=== PATIENT | male | born 1935 | race Caucasian/White ===

== ENCOUNTER → 2017-04-14 | Outpatient (CLI) | payer BC ==
[~2017-04-14] MED LIST: ASPEC81 PO; CARV25TA2 PO; CETI10TA10 PO; FLM4 PO; FLUT0.0529; HYG25 PO
== END | disposition home or self-care (01) ==
LOC: C.LABBC 08:50
PROVIDERS: ATTEND Urology
DX: C61 Malignant neoplasm of prostate (principal)

== ENCOUNTER → 2017-04-23 | Outpatient (CLI) | payer BC | END | disposition home or self-care (01) | LOC: C.PATHSPEC 10:48 | PROVIDERS: ATTEND Urology | DX: C67.9 Malignant neoplasm of bladder, unspecified (principal) ==

== ENCOUNTER → 2017-06-15 | Outpatient (CLI) | payer BC ==
[2017-06-18 05:59] LABS: ALBUMIN % 71.39 %; ALPHA-2-GLOBULIN % 6.36 %; BETA GLOBULIN % 12.71 %; CREATININE UR 168 MG/DL (20-370)
== END | disposition home or self-care (01) ==
LOC: C.LABBC 15:47
PROVIDERS: ATTEND Urology
DX: D64.9 Anemia, unspecified (principal)

== ENCOUNTER → 2017-07-08 | Outpatient (CLI) | payer BC ==
--- NOTE | 2017-07-08 17:10 | DIAGNOSTIC IMAGING REPORT ---
MRI OF THE LUMBAR SPINE WITHOUT IV CONTRAST CLINICAL HISTORY: Chronic low back pain. Lower extremity numbness. COMPARISON STUDY: Abdominal CT dated 08/02/2007. Radiographs of the lumbar spine dated 06/30/2017. TECHNIQUE: MRI of the lumbar spine is performed utilizing various T1 and T2-weighted sequences in the axial and sagittal planes. IV contrast was not administered for this examination. The examination is degraded by motion artifact and spinal scoliosis. FINDINGS: Lumbar spine: There is mild thoracolumbar scoliosis. Vertebral body height is maintained throughout the lumbar spine. There is 7 mm of anterolisthesis at L5-S1. Minimal retrolisthesis is seen at L1-L2, L2-L3, and L3-L4. There is straightening of the lumbar lordosis. The transverse and spinous processes are intact as visualized. Bilateral pars defects are seen at L5. No destructive bony lesion is clearly seen. Chronic endplate change is seen at all lumbar levels. This is greatest at L5-S1. Mild endplate edema is seen at L2-L3 and L3-L4. Anterior osteophytes are present throughout. Intervertebral discs: Degenerative disc desiccation and loss of height is seen at all levels. Loss of height is moderate at L4-L5 and advanced at all remaining lumbar levels. Spinal cord: The visualized spinal cord is normal in morphology and signal intensity. The conus medullaris terminates at the level of L1-L2. The nerve roots of the cauda equina are grossly unremarkable. There are posterior disc bulges seen at T10-T11, T11-T12, and T12-L1 on the sagittal views. These contribute only minimal acquired compromise of the central canal. L1-L2: There is a large posterior disc bulge eccentric to the left. This causes mild to moderate acquired compromise of the central canal with a minimum AP diameter of 8 mm. There is bilateral subarticular stenosis, left greater than right. This likely impinges on the exiting bilateral L1 nerve roots. The neural foramina are patent. L2-L3: There is broad-based posterior disc bulge. In conjunction with hypertrophy of the ligamentum flavum, this contributes to moderate acquired compromise of the central canal with a minimum AP diameter of 5 mm. There is bilateral subarticular stenosis with probable impingement on the exiting bilateral L2 nerve roots. The disc bulge also likely abuts the transiting bilateral nerve roots. Facet arthropathy causes mild left neural foraminal stenosis. L3-L4: There is broad-based posterior disc bulge. In conjunction with hypertrophy of the ligamentum flavum, this causes severe central canal stenosis at this level with a minimum AP diameter of 4 mm. There are severe bilateral subarticular stenosis. The disc bulge abuts the exiting bilateral L3 as well as the transiting bilateral nerve roots. Facet arthropathy causes moderate left and mild right neural foraminal stenosis. L4-L5: There is broad-based posterior disc bulge. In conjunction with hypertrophy of the ligamentum flavum, there is moderate central canal stenosis at this level with a minimum AP diameter of 6 mm. There is severe bilateral subarticular stenosis with probable impingement on the bilateral exiting L4 nerve roots. The disc bulge also likely abuts the transiting nerve roots. Facet arthropathy causes moderate to severe right and mild left neural foraminal stenosis. Facet joint effusions are noted. L5-S1: There is a posterior disc bulge eccentric to the left with annular fissure. There is [id number] central canal stenosis at this level with a minimum AP diameter of 8 mm. There is severe left-sided subarticular stenosis with obliteration of the left neural foramen. There is impingement on the exiting left L5 and the transiting left-sided sacral nerve roots. There is also moderate right-sided subarticular stenosis with probable impingement on the exiting right L5 nerve root. Facet arthropathy causes moderate to severe bilateral neural foraminal stenosis. Sacrum: The visualized sacrum is normal in morphology and signal intensity. Soft tissues: There is mild fatty atrophy of the paraspinous musculature. The kidneys demonstrate cortical atrophy. The retroperitoneal structures are grossly unremarkable, but incompletely assessed. IMPRESSION: 1. No destructive bony process is identified. Marrow signal intensity is markedly heterogeneous. 2. 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 There is moderate to severe multilevel acquired compromise of the central canal. See discussion for detailed level by level analysis. Dictated: 07/08/2017 4:27 PM Transcribed: 07/08/2017 5:10 PM DORIAN_Noel Electronically signed by: Gurjit Gonzales M.D. 07/08/2017 5:38 PM Dictated Date/Time: 07/08/2017 4:27 PM
== END | disposition home or self-care (01) ==
LOC: C.MRIBC 15:22
PROVIDERS: ATTEND Orthopaedic Surgery Orthopaedic Surgery of the Spine
DX: M48.061 Spinal stenosis, lumbar region without neurogenic claudication (principal); M51.36 Other intervertebral disc degeneration, lumbar region; M47.817 Spondylosis without myelopathy or radiculopathy, lumbosacral region

== ENCOUNTER 2017-10-06 17:33 | Emergency (ER) | payer BC ==
[~2017-10-06] VITALS: Ht 162.6 cm; Wt 93.8 kg
[~2017-10-06 17:33] MED LIST changes: -ASPEC81 PO; +ASPI81TA28 PO; +DULO60CA44 PO; -FLM4 PO; -FLUT0.0529; +FLUT0.15 NAE; +IBUP-103 PO; +NAPR1TAB9 PO; +TAMS0.4C38 PO
[2017-10-06 18:08] VITALS: TEMP 36.5; Ht 162.6 cm; Wt 93.8 kg
--- NOTE | 2017-10-06 18:57 | DIAGNOSTIC IMAGING REPORT ---
CHEST ONE VIEW PORTABLE CLINICAL HISTORY: Chest Pain dyspnea COMPARISON STUDY: 07/23/2017 FINDINGS: Mild increase in cardiac size. Mild prominence pulmonary vasculature. Diaphragms smooth. Costophrenic angles are sharp. IMPRESSION: Early congestive failure The above report was generated using voice recognition software. It may contain grammatical, syntax or spelling errors. Electronically signed by: Armando Gibbs M.D. 10/06/2017 6:55 PM Dictated Date/Time: 10/06/2017 6:55 PM
[2017-10-06 19:42] LABS: BASO % 0.9 %; BASO ABS # 0.07 K/uL (0-0.2); EOS % 6.5 %; EOS ABS # 0.53 K/uL (0-0.5); HEMATOCRIT 38.2 % (42-52); HEMOGLOBIN 12.7 g/dL (14.0-18.0); IG# 0.02 K/uL (0.00-0.02); LYMPH ABS # 1.39 K/uL (1.2-3.4); MEAN CELL VOLUME 93.2 fL (80-100); MEAN CORPUSCULAR HGB CONC 33.2 g/dl (32-36); MEAN PLATELET VOLUME 9.6 fL (7.4-10.4); MONO % 10.4 %; MONO ABS # 0.85 K/uL (0.11-0.59); PLATELET COUNT 204 K/uL (130-400); RED CELL DISTRIBUTION WIDTH CV 14.6 % (11.5-14.5); RED CELL DISTRIBUTION WIDTH SD 49.2 fL (36.4-46.3); WHITE BLOOD COUNT 8.16 K/uL (4.8-10.8)
[2017-10-06 20:23] LABS: BLOOD UREA NITROGEN 25 mg/dl (7-18); CALCIUM 9.7 mg/dl (8.5-10.1); CARBON DIOXIDE 27 mmol/L (21-32); CREATININE 1.17 mg/dl (0.60-1.40); GLUCOSE 94 mg/dl (70-99); POTASSIUM 3.6 mmol/L (3.5-5.1); SODIUM 137 mmol/L (136-145)
[2017-10-06 20:32] LABS: CKMB 3.8 ng/ml (0.5-3.6)
[2017-10-06] MEDS ORDERED: OPTIRAY 320 IV PRN (20:45)
--- NOTE | 2017-10-06 21:10 | DIAGNOSTIC IMAGING REPORT ---
(CHEST FOR PE) ANGIO WITH CT DOSE: 512.82 mGy.cm HISTORY: 82 years-old Male presents with acute shortness of breath TECHNIQUE: Multiple CTA images of the chest were obtained after the intravenous administration of 88 ml Optiray 320. Coronal and sagittal MIPS were obtained from the axial data set and were submitted for review. A dose lowering technique was utilized adhering to the principles of ALARA. COMPARISON: Chest radiograph of same day. FINDINGS: CTA: Moderate multichamber cardiac enlargement with coronary arterial and aortic annular calcifications. No pericardial effusion. The thoracic aorta is not well opacified. There is moderate mixed plaquing of the thoracic aorta without aneurysm or dissection identified. There is limited visualization of the distal segmental and subsegmental branches of the pulmonary arterial tree secondary to respiratory motion. No evidence of pulmonary thromboembolic disease. CT CHEST: No dominant thyroid nodule identified. Nonspecific mildly enlarged 11 mm right paratracheal lymph node is seen on image 213 series 4. Mildly enlarged subcarinal and right hilar lymph nodes are also seen measuring up to 1.4 cm in short axis. Prominent AP window lymph nodes measure up to 8 mm in short axis. No pneumothorax or pleural effusion identified. Bibasilar groundglass opacities suggest atelectasis. Thin-walled lucencies are noted within the upper lung zones. Minimal subpleural reticulation of the lungs bilaterally suggest areas of mild fibrosis. No definite suspicious pulmonary nodules. Central airways appear to be patent. No focal airspace consolidation to suggest pneumonia. No acute abnormality identified within the imaged upper abdomen. 7 mm low attenuating focus of the left hepatic lobe is indeterminate however may reflect a hepatic cyst. Nodular thickening of the bilateral adrenal glands suggests adrenal hyperplasia. Soft tissues are unremarkable. Mild symmetric bilateral gynecomastia. Degenerative changes are seen within the shoulders and spine. IMPRESSION: 1. Limited study secondary to respiratory motion. Within the limitations of the exam, no pulmonary embolus is identified. No aortic aneurysm or dissection. 2. No lobar airspace consolidation to suggest pneumonia. 3. Mild nonspecific mediastinal and hilar adenopathy as above. 4. Cardiomegaly. The above report was generated using voice recognition software. It may contain grammatical, syntax or spelling errors. Electronically signed by: Irineo Rangel M.D. 10/06/2017 9:08 PM Dictated Date/Time: 10/06/2017 9:00 PM
[2017-10-06] MEDS ORDERED: FUROSEMIDE 40 MG/4 ML VIAL IV STA (21:32)
[2017-10-06] MEDS ORDERED: FURO20TA PO (21:43)
[2017-10-06 21:51] VITALS: BP 180/90; PULSE 98; O2SAT 99
--- NOTE | 2017-10-06 23:14 | EMERGENCY ROOM VISIT NOTE ---
History Report prepared by Wilma: Shayy Avila Under the Supervision of: Dr. Nima Easley D.O. First contact with patient: 18:24 Chief Complaint: RESPIRATORY PROBLEMS Stated Complaint: BREATHING TROUBLE Nursing Triage Summary: pt has been more sob for past 2-3 weeks pt noticed swelling in feet, legs, and chest saw pcp and referred to ER no cough pt has had weight gain, unsure of amount History of Present Illness The patient is an 82 year old male who presents to the Emergency Room with complaints of worsening shortness of breath starting two weeks ago. The patient states that he has been having water retention and weight gain, but notes that he does not know how much weight. He states that he cannot sleep because of it laying flat. He states that it is worse when lies down and exerts himself. He notes that some positions are better than other. The patient complains of swelling in his legs, abdomen and chest. Patient denies any previous cardiac history. The patient denies chest pain, nausea, vomiting, abdominal pain, diarrhea, cough, and runny nose. He notes that he is not on Lasix. Source of History: patient Onset: two weeks ago Position: other (global) Timing: worsening Modifying Factors (Worsening): exertion, other (lying down) Associated Symptoms: + back pain, No cough, No chest pain, No nausea, No vomiting, No abdominal pain, No diarrhea Note: The patient complains of swelling in his legs, abdomen and chest. The patient denies a runny nose. Review of Systems See HPI for pertinent positives & negatives. A total of 10 systems reviewed and were otherwise negative. Past Medical & Surgical Medical Problems: (1) Spinal stenosis (2) Spondylolisthesis, lumbar region Surgical Problems: (1) History of back surgery Family History No pertinent family history Social History Smoking Status: Former Smoker Marital Status: Housing Status: lives with significant other Occupation Status: retired Current/Historical Medications Scheduled Aspirin (Aspirin Ec), 81 MG PO QAM Carvedilol (Coreg), 25 MG PO BID Cetirizine Hcl (Zyrtec), 10 MG PO HS Chlorthalidone (Chlorthalidone), 12.5 MG PO QAM Duloxetine Hcl (Cymbalta), 60 MG PO 1400 Furosemide (Lasix), 1 TAB PO DAILY Tamsulosin Hcl (Flomax), 0.4 MG PO BID Scheduled PRN Fluticasone Propionate (Nasal) (Flonase Allergy Relief), 1 DOSE PÉREZ UD PRN for ALLERGIES Allergies Coded Allergies: Penicillins (Verified Allergy, Intermediate, HIVES, 10/06/17) KEVIN Inhibitors (Unverified Allergy, Unknown, SHORTNESS OF BREATH, 10/06/17) Statins (Verified Allergy, Unknown, joint aches, 10/06/17) Uncoded Allergies: RED YEAST RICE (Allergy, Unknown, RASH, 04/04/14) Physical Exam Vital Signs Date Time Temp Pulse Resp B/P (MAP) Pulse Ox O2 Delivery O2 Flow Rate FiO2 10/06/17 21:51 98 16 180/90 99 10/06/17 20:49 69 18 193/87 97 Room Air 10/06/17 20:29 67 16 135/97 98 Room Air 10/06/17 19:47 63 10/06/17 18:11 100 Room Air 10/06/17 18:08 36.5 72 20 151/57 96 Room Air Physical Exam GENERAL: Sitting up in bed, alert, well appearing, well nourished, no distress, non-toxic EYE EXAM: normal conjunctiva. OROPHARYNX: no exudate, no erythema, lips, buccal mucosa, and tongue normal and mucous membranes are moist NECK: supple, no nuchal rigidity, no adenopathy, non-tender, no JVD LUNGS: Faint rhonchi in bilateral lower lobes. Normal chest wall mechanics HEART: no murmurs, S1 normal and S2 normal ABDOMEN: abdomen soft, non-tender, normo-active bowel sounds, no masses, no rebound or guarding. BACK: Back is symmetrical on inspection and there is no deformity, no midline tenderness, no CVA tenderness. SKIN: no rashes and no bruising UPPER EXTREMITIES: upper extremities are grossly normal. LOWER EXTREMITIES: Faint pitting edema tracking up bilateral lower extremities. Calves are equal bilaterally. NEURO EXAM: Normal sensorium, cranial nerves II-XII grossly intact, normal speech, no gross weakness of arms, no gross weakness of legs. Medical Decision & Procedures ER Provider Diagnostic Interpretation: Radiology results as stated below per my review and the radiologist's interpretation: CHEST ONE VIEW PORTABLE CLINICAL HISTORY: Chest Pain dyspnea COMPARISON STUDY: 07/23/2017 FINDINGS: Mild increase in cardiac size. Mild prominence pulmonary vasculature. Diaphragms smooth. Costophrenic angles are sharp. IMPRESSION: Early congestive failure The above report was generated using voice recognition software. It may contain grammatical, syntax or spelling errors. Electronically signed by: Armando Gibbs M.D. 10/06/2017 6:55 PM Dictated Date/Time: 10/06/2017 6:55 PM (CHEST FOR PE) ANGIO WITH CT DOSE: 512.82 mGy.cm HISTORY: 82 years-old Male presents with acute shortness of breath TECHNIQUE: Multiple CTA images of the chest were obtained after the intravenous administration of 88 ml Optiray 320. Coronal and sagittal MIPS were obtained from the axial data set and were submitted for review. A dose lowering technique was utilized adhering to the principles of ALARA. COMPARISON: Chest radiograph of same day. FINDINGS: CTA: Moderate multichamber cardiac enlargement with coronary arterial and aortic annular calcifications. No pericardial effusion. The thoracic aorta is not well opacified. There is moderate mixed plaquing of the thoracic aorta without aneurysm or dissection identified. There is limited visualization of the distal segmental and subsegmental branches of the pulmonary arterial tree secondary to respiratory motion. No evidence of pulmonary thromboembolic disease. CT CHEST: No dominant thyroid nodule identified. Nonspecific mildly enlarged 11 mm right paratracheal lymph node is seen on image 213 series 4. Mildly enlarged subcarinal and right hilar lymph nodes are also seen measuring up to 1.4 cm in short axis. Prominent AP window lymph nodes measure up to 8 mm in short axis. No pneumothorax or pleural effusion identified. Bibasilar groundglass opacities suggest atelectasis. Thin-walled lucencies are noted within the upper lung zones. Minimal subpleural reticulation of the lungs bilaterally suggest areas of mild fibrosis. No definite suspicious pulmonary nodules. Central airways appear to be patent. No focal airspace consolidation to suggest pneumonia. No acute abnormality identified within the imaged upper abdomen. 7 mm low attenuating focus of the left hepatic lobe is indeterminate however may reflect a hepatic cyst. Nodular thickening of the bilateral adrenal glands suggests adrenal hyperplasia. Soft tissues are unremarkable. Mild symmetric bilateral gynecomastia. Degenerative changes are seen within the shoulders and spine. IMPRESSION: 1. Limited study secondary to respiratory motion. Within the limitations of the exam, no pulmonary embolus is identified. No aortic aneurysm or dissection. 2. No lobar airspace consolidation to suggest pneumonia. 3. Mild nonspecific mediastinal and hilar adenopathy as above. 4. Cardiomegaly. The above report was generated using voice recognition software. It may contain grammatical, syntax or spelling errors. Electronically signed by: Irineo Rangel M.D. 10/06/2017 9:08 PM Dictated Date/Time: 10/06/2017 9:00 PM Laboratory Results 10/06/17 18:49 Red Blood Count 4.10, Mean Corpuscular Volume 93.2, Mean Corpuscular Hemoglobin 31.0, Mean Corpuscular Hemoglobin Concent 33.2, Mean Platelet Volume 9.6, Neutrophils (%) (Auto) 65.0, Lymphocytes (%) (Auto) 17.0, Monocytes (%) (Auto) 10.4, Eosinophils (%) (Auto) 6.5, Basophils (%) (Auto) 0.9, Neutrophils # (Auto ) 5.30, Lymphocytes # (Auto) 1.39, Monocytes # (Auto) 0.85, Eosinophils # (Auto ) 0.53, Basophils # (Auto) 0.07 10/06/17 18:49 Test 10/06/17 18:49 White Blood Count 8.16 K/uL (4.8-10.8) Red Blood Count 4.10 M/uL (4.7-6.1) Hemoglobin 12.7 g/dL (14.0-18.0) Hematocrit 38.2 % (42-52) Mean Corpuscular Volume 93.2 fL (80-100) Mean Corpuscular Hemoglobin 31.0 pg (25-34) Mean Corpuscular Hemoglobin Concent 33.2 g/dl (32-36) Platelet Count 204 K/uL (130-400) Mean Platelet Volume 9.6 fL (7.4-10.4) Neutrophils (%) (Auto) 65.0 % Lymphocytes (%) (Auto) 17.0 % Monocytes (%) (Auto) 10.4 % Eosinophils (%) (Auto) 6.5 % Basophils (%) (Auto) 0.9 % Neutrophils # (Auto) 5.30 K/uL (1.4-6.5) Lymphocytes # (Auto) 1.39 K/uL (1.2-3.4) Monocytes # (Auto) 0.85 K/uL (0.11-0.59) Eosinophils # (Auto) 0.53 K/uL (0-0.5) Basophils # (Auto) 0.07 K/uL (0-0.2) RDW Standard Deviation 49.2 fL (36.4-46.3) RDW Coefficient of Variation 14.6 % (11.5-14.5) Immature Granulocyte % (Auto) 0.2 % Immature Granulocyte # (Auto) 0.02 K/uL (0.00-0.02) D-Dimer 1040 ug/L FEU (0-500) Anion Gap 5.0 mmol/L (3-11) Est Creatinine Clear Calc Drug Dose 48.6 ml/min Estimated GFR () 66.0 Estimated GFR (Non- 56.9 BUN/Creatinine Ratio 21.1 (10-20) Calcium Level 9.7 mg/dl (8.5-10.1) Total Creatine Kinase 231 U/L (39-308) Creatine Kinase MB 3.8 ng/ml (0.5-3.6) Creatine Kinase MB Ratio 1.6 (0-3.0) Troponin I < 0.015 ng/ml (0-0.045) Pro-B-Type Natriuretic Peptide 622 pg/ml (0-1800) Laboratory results per my review. Medications Administered Medications (Trade) Dose Ordered Sig/Vadim Route Start Time Stop Time Status Last Admin Dose Admin Furosemide (Lasix Inj) 40 mg NOW STAT IV 10/06/17 21:32 10/06/17 21:34 DC 10/06/17 21:41 40 MG ECG Indication: SOB/dyspnea Rate (beats per minute): 68 Rhythm: other (bigemini) Findings: 1st degree AV block, nonspecific-ST abn (Inferior, hilateral), left axis deviation Comparison ECG Date: 07/23/2017, REPEAT Change: Bigemini and ST abnormalities are new. REPEAT: sinus rhythm. Rate 68 bpm. Left axis deviation. 1st degree AV block. No ectopy. ED Course ED COURSE: Vital signs were reviewed and showed normal vitals. The patients medical record was reviewed The above diagnostic studies were performed and reviewed. ED treatments and interventions as stated above. 1825: The patient was evaluated in room C1B. A complete history and physical examination was performed. 2129: I discussed the patient's case with Dr. Barbosa and he can follow up in the office. 2131: Ordered Lasix Inj 40 mg IV. 2133: Upon reevaluation, the patient is resting comfortably.I discussed my findings with the patient and he understands and agrees with the treatment plan. The patient will be discharged home. Based on the patients age, coexisting illnesses, exam and lab findings the decision to treat as an outpatient was made. The patient remained stable while under my care. The patient appeared well at the time of discharge. Medical Decision Differential diagnoses includes but is not limited to pneumonia, bronchitis, COPD/Asthma exacerbation, pneumothorax, pulmonary embolism, congestive heart failure, acute coronary syndrome. Patient is an 82-year-old male who is referred in by his PCP today for dyspnea. This is been present for the past 2 weeks. He notes symptoms are present when lying flat trying to sleep at night. He also notes that he has had some new swelling in both his legs. He denies any chest pain. He does admit to some exertional dyspnea. CBC all BMP, troponin and proBNP was negative. Chest x-ray was unremarkable. CT PE shows slightly enlarged heart but no pericardial fluid or pleural effusions or pulmonary edema. Radiologist favors fibrotic lung changes. Symptoms have been present for greater than 8 hours and consequently I did not repeat a troponin. EKG initially showed bigeminy but the repeat shows a normal sinus rhythm. Discussed the case with cardiology. They recommended following up as an outpatient. At a long conversation with the patient. He does not want to stay in the hospital. I did give him a dose of IV Lasix. I favor symptoms are from slight heart failure. There is no sign of ischemia. He will need close follow-up. I discussed this with the patient and the . Any worsening of symptoms he'll return to the ER. Discussed with care management and they will assist with follow-up in the next 48 hours. Patient was given a prescription for 2 doses of Lasix as an outpatient to see if this helps improve his symptoms. Discussed with Pt concerning signs and symptoms to watch out for. Pt was instructed to follow up with their PCP and discussed with the patient their option to return to the ED at anytime for persistent or worsening symptoms. The appropriate anticipatory guidance and out- patient management, including indications for return to the emergency department , were explained at length to the patient and understood. Medication Reconcilliation Current Medication List: was personally reviewed by me Blood Pressure Screening Patient's blood pressure: Normal blood pressure Blood pressure disposition: Did not require urgent referral Consults Time Called: 2124 Consulting Physician: Dr. Barbosa- Cardiology Returned Call: [phone] I discussed the patient's case with Dr. Barbosa and he can follow up in the office. Impression Primary Impression: CHF (congestive heart failure) Scribe Attestation The scribe's documentation has been prepared under my direction and personally reviewed by me in its entirety. I confirm that the note above accurately reflects all work, treatment, procedures, and medical decision making performed by me. Departure Information Dispostion Home / Self-Care Prescriptions Furosemide (LASIX) 20 Mg Tab 1 TAB PO DAILY for 2 Days, #2 TAB 0 Refills Prov: Nima Easley, DO 10/06/17 Referrals Tiago Lara M.D. (PCP) Forms HOME CARE DOCUMENTATION FORM, IMPORTANT VISIT INFORMATION, WORK / SCHOOL INSTRUCTIONS Patient Instructions My [facility] Additional Instructions Please follow up with your primary care doctor with in the next 24 hours. Any worsening of your symptoms, please return to the ED immediately. This includes any fevers greater than 100.4, worsening pain, chest pain, shortness breath, persistent nausea, vomiting, unable to eat or drink, or any other concerning signs or symptoms from your standpoint. Problem Qualifiers Primary Impression: CHF (congestive heart failure) Congestive heart failure type: unspecified congestive heart failure type Congestive heart failure chronicity: unspecified congestive heart failure chronicity Qualified Codes: I50.9 - Heart failure, unspecified
== END 2017-10-06 21:54 | disposition home or self-care (01) ==
LOC: C.EDB 17:35 → C.EDC 21:54
DX: I50.9 Heart failure, unspecified (principal); Z87.01 Personal history of pneumonia (recurrent); Z79.82 Long term (current) use of aspirin; Z79.899 Other long term (current) drug therapy

== ENCOUNTER → 2017-10-12 | Outpatient (CLI) | payer BC ==
[~2017-10-12] MED LIST changes: +FURO20TA PO
[2017-10-12 11:37] LABS: BLOOD UREA NITROGEN 26 mg/dl (7-18); CALCIUM 9.5 mg/dl (8.5-10.1); CARBON DIOXIDE 30 mmol/L (21-32); CREATININE 1.19 mg/dl (0.60-1.40); GLUCOSE 122 mg/dl (70-99); POTASSIUM 3.3 mmol/L (3.5-5.1); SODIUM 137 mmol/L (136-145)
== END | disposition home or self-care (01) ==
LOC: C.LABBC 08:51
PROVIDERS: ATTEND Nurse Practitioner Adult Health
DX: I10 Essential (primary) hypertension (principal)

== ENCOUNTER 2021-08-31 10:05 | Observation (INO) ==
--- NOTE | 2021-08-31 11:25 | Emergency Department Note ---
Impression & Plan CHF (congestive heart failure), Hematuria, New onset a-fib, Pleural effusion ED Provider Note NAME: TANESHA TIRADO AGE: 86 SEX: M : 1935 ARRIVES VIA: Walk-In INFORMANT: Patient ED PROVIDER(S): Nima Easley DO CHIEF COMPLAINT: hematuria HPI: Patient is an 86-year-old male who presents to the ER for hematuria. Started within the past 24 hours. Patient has been having dysuria urgency and frequency. He notes he is having blood in his urine. He does not take any blood thinners. He also admits to swelling of his lower extremities which has been getting worse over the past 2 weeks. No headache or change in vision. No chest pain or shortness of breath. No nausea, vomiting, or diarrhea. Denies any history of A. fib. ROS: See above HPI for pertinent positives & negatives. A total of 10 systems reviewed and were otherwise negative. PAST MEDICAL HISTORY:See Below PAST SURGICAL HISTORY:See Below FAMILY HISTORY:See Below SOCIAL HISTORY:See Below HOME MEDICATIONS:See Below ALLERGIES:See Below VITALS:See Below PHYSICAL EXAMINATION: GENERAL: Sitting up in bed, alert, well appearing, well nourished, no distress, non-toxic EYE EXAM: normal conjunctiva. OROPHARYNX: no exudate, no erythema, lips, buccal mucosa, and tongue normal and mucous membranes are moist NECK: supple, no nuchal rigidity, no adenopathy, non-tender LUNGS: Clear to auscultation. Normal chest wall mechanics HEART: Irregularly irregular, S1 normal and S2 normal ABDOMEN: abdomen soft, non-tender, normo-active bowel sounds, no masses, no rebound or guarding. UPPER EXTREMITIES: upper extremities are grossly normal. LOWER EXTREMITIES: Pitting edema in the lower extremities NEURO EXAM: Normal sensorium, cranial nerves II-XII grossly intact, normal speech, no gross weakness of arms, no gross weakness of legs. MEDICAL DECISION MAKING: Patient is an 86-year-old male who presents the ER for swelling in his legs, exertional shortness of breath for the although the patient denied this as well is urinary symptoms which is his main complaint upon presentation. On the monitor he was found to be in new onset A. fib. IV was established with orders obtained. Labs show no significant leukocytosis or anemia. INR was unremarkable. BMP with a creatinine of 2 consistent with previous his baseline is about 1.8. UA suggest a UTI with leuks whites and red cells with +1 bacteria and no epithelial cells. He was given IV ceftriaxone. He was given IV fluids. With a new onset A. fib as well as the pitting edema in the chest x-ray which shows likely some mild CHF the recommend admission discussed with Aminta testing for further evaluation. Triage Nursing notes reviewed. Limited review of prior medical records performed Vital Signs: reviewed and remarkable for HTN and hypothermic Differential diagnosis: Differential diagnoses includes but is not limited to gastritis, peptic ulcer disease, GERD, gallbladder disease, pancreatitis, small bowel obstruction, acute coronary syndrome, pericarditis, ischemic bowel, irritable bowel disease, irritable bowel syndrome, appendicitis, diverticulitis, malignancy, hernia, urinary tract infection, torsion, perforation, trauma, infectious. ER treatment provided: See below Diagnostics interpreted by me: ECG: A. fib rate 81 Left axis No PVCs Right bundle branch block QTC 464 Cardiac Monitoring: An order was placed for continuous cardiac monitoring. The monitor shows a rate of 83 with sinus rhythm. Laboratory studies: As stated above and show below. 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 Bone marrow biopsy negative for plasma dyscrasia and B cell lymphoma. Myocardial Infarction 1994--followed with Dr. Landaverde Peripheral neuropathy Presbyesophagus Prostate cancer (~04/2005) s/p failure of brachytherapy. Patient opted to forego further treatment d/t age. Shortness of breath on exertion Spinal stenosis Tricuspid regurgitation Surgical History History of back surgery (08/06/17) Dr. Stephens. Fused at L4-L5 and sacrum. History of bilateral cataract extraction History of bladder surgery TURBT 08/17/2007 for bladder cancer [place] [facility] [facility] [place] 1 [place] History of colonoscopy History of cystoscopy multiple times--d/t bladder cancer History of esophagogastroduodenoscopy (EGD) History of heart artery stent 1994 1 stent placed History of prostate biopsy Unable to find path report in [employer] or [employer]. History of tooth extraction all upper teeth/partial lower Hx of vasectomy Family History Unknown Prostate cancer Bladder cancer Hypertension Father Family history of diabetes mellitus Daughter Breast cancer Son Myocardial infarction Other No family history of adverse response to anesthesia Denies family history of Ovarian cancer Colorectal cancer Social History Smoking Status: Former smoker Tobacco Type: Pipe and Cigars Age Quit Using Tobacco: 48; Second Hand Exposure: No ( smoked); Hx Alcohol Use: Yes Alcohol type: beer and wine Alcohol Intake Frequency Comment: once a day Hx Substance Use: No Preferred Language: Palauan Communication Ability: Effective Visual Impairment: Limited Hearing Ability: 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 Required: No Beliefs That Will Affect Care: None marital status: Current Living Situation: Spouse current occupational status: retired How many Children do You have: 2 Feels Safe at Home: Yes caffeine: Yes (coffee) Dental Care, Regularly: Yes Physical Activity Frequency: Daily Physical Activity Frequency Comment: treadmill in morning, sit ups Seatbelt Use: always Sunscreen Use: Yes Assistive Devices: Denture - Upper, Denture - Lower and Glasses Allergies Allergies Allergy/AdvReac Type Severity Reaction Status Date / Time KEVIN Inhibitors Allergy Severe SHORTNESS Verified 08/31/21 13:52 OF BREATH Penicillins Allergy Intermediate HIVES Verified 08/31/21 13:52 rosuvastatin [From Crestor] Allergy Intermediate joint Verified 08/31/21 13:52 aches and cramping simvastatin Allergy Intermediate joint Verified 08/31/21 13:52 aches and cramping [id number] Reductase Allergy Intermediate joint Verified 08/31/21 13:52 Inhibitor aches and [Cvuozbl-[id number]-Hip Reductase cramping Inhibitor] RED YEAST RICE Allergy Mild RASH Uncoded 08/31/21 13:52 Home Meds Home Medications Medication Instructions Recorded Confirmed aspirin 81 mg tablet 81 mg PO QAM tab 06/16/19 08/31/21 cetirizine 10 mg tablet 10 mg PO HS #30 tab 06/16/19 08/31/21 fluticasone propionate 50 2 sprays INTRANASAL BID #3 gm 06/16/19 08/31/21 mcg/actuation nasal spray,suspension acetaminophen 500 mg tablet 500 mg PO Q6H PRN 07/09/20 08/31/21 (Tylenol Extra Strength) carvedilol 25 mg tablet 25 mg PO BID 08/31/21 08/31/21 chlorthalidone 25 mg tablet 12.5 mg PO DAILY 08/31/21 08/31/21 Previous Rx's Medication Instructions Recorded catheter 16 Fr #10 ea 12/22/19 tamsulosin 0.4 mg capsule 0.4 mg PO BID #180 cap 09/13/20 cholecalciferol (vitamin D3) 25 25 mcg PO DAILY #30 cap 02/04/21 mcg (1,000 unit) capsule Results & Data (ED) Vital Signs Vital Signs - 24 hr 08/31/21 10:35 08/31/21 13:36 Temperature 35.9 C L Temperature Source Temporal Artery Scan Pulse Rate 88 Pulse Rate [Apical] 71 Respiratory Rate 18 20 Respiratory Effort / Characteristics Non-Labored Spontaneous Respiratory Depth Normal Respiratory Pattern Regular Blood Pressure 164/99 H Blood Pressure [Right Arm] 176/100 H Blood Pressure Mean 120 Blood Pressure Mean [Right Arm] 125 Blood Pressure Position Sitting Pulse Oximetry 100 98 Oxygen Delivery Method Room Air Room Air Sepsis Recent Fever Within 48 Hours No Sepsis New/Unexplained Change in Mental Status No Sepsis Action Taken by Nursing No Action Required Laboratory Data Result diagrams: 08/31/21 11:04 08/31/21 11:04 Lab Results 08/31/21 08/31/21 08/31/21 Range/Units 11:04 11:04 11:04 WBC 10.14 (4.8-10.8) K/uL RBC 3.96 L (4.7-6.1) M/uL Hgb 12.7 L (14.0-18.0) g/dL Hct 38.6 L (42-52) % MCV 97.5 (80-100) fL MCH 32.1 (25-34) pg MCHC 32.9 (32-36) g/dL RDW Std Deviation 52.6 H (36.4-46.3) fL RDW Coeff of Tay 14.8 H (11.5-14.5) % Plt Count 186 (130-400) K/uL MPV 9.4 (7.4-10.4) fL Immature Gran % (Auto) 0.1 % Neut % (Auto) 77.9 % Lymph % (Auto) 11.5 % [place] % (Auto) 7.2 % Eos % (Auto) 2.9 % Baso % (Auto) 0.4 % Neut # (Auto) 7.90 H (1.4-6.5) K/uL Lymph # (Auto) 1.17 L (1.2-3.4) K/uL [place] # (Auto) 0.73 H (0.11-0.59) K/uL Eos # (Auto) 0.29 (0-0.5) K/uL Baso # (Auto) 0.04 (0-0.2) K/uL Immature Gran # (Auto) 0.01 (0.00-0.02) K/uL PT 10.0 (9.0-12.0) Seconds INR 1.0 (0.9-1.1) APTT 29.0 (21.0-31.0) Seconds PTT Ratio 1.1 Sodium 140 (136-145) mmol/L Potassium 3.9 (3.5-5.1) mmol/L Chloride 111 H (98-107) mmol/L Carbon Dioxide 24 (21-32) mmol/L Anion Gap 5.0 (3-11) BUN 38 H (7-18) mg/dl Creatinine 2.02 H (0.6-1.4) mg/dl Est Cr Clr Drug Dosing 24.8 ml/min Est GFR ( Amer) 33.1 ml/min Est GFR (Non-Af Amer) 28.6 ml/min BUN/Creatinine Ratio 18.8 (10-20) Glucose 101 H (70-99) mg/dl Calcium 9.8 (8.5-10.1) mg/dl Total Bilirubin 0.5 (0.2-1) mg/dl AST 20 (15-37) U/L ALT 20 (12-78) U/L Alkaline Phosphatase 81 (45-117) U/L Troponin I < 0.015 (0-0.045) ng/ml Total Protein 8.6 H (6.4-8.2) gm/dl Albumin 3.7 (3.4-5.0) gm/dl Globulin 4.9 H (2.5-4.0) gm/dl Albumin/Globulin Ratio 0.8 L (0.9-2) Specimen Hemolysis Urine Color Urine Appearance (Clear) Urine pH (4.5-7.5) Ur Specific [place] (1.000-1.030) Urine Protein (Negative) Urine Glucose (UA) (Negative) Urine Ketones (Negative) Urine Blood (Negative) Urine Nitrite (Negative) Urine Bilirubin (Negative) Urine Urobilinogen (Negative) Ur Leukocyte Esterase (Negative) Urine WBC (Auto) (0-5) /hpf Urine RBC (Auto) (0-4) /hpf U Hyaline Cast (Auto) (0-5) /lpf U Epithel Cells (Auto) (0-5) /lpf Urine Bacteria (Auto) (Negative) Urine Yeast 08/31/21 Range/Units 11:50 WBC (4.8-10.8) K/uL RBC (4.7-6.1) M/uL Hgb (14.0-18.0) g/dL Hct (42-52) % MCV (80-100) fL MCH (25-34) pg MCHC (32-36) g/dL RDW Std Deviation (36.4-46.3) fL RDW Coeff of Tay (11.5-14.5) % Plt Count (130-400) K/uL MPV (7.4-10.4) fL Immature Gran % (Auto) % Neut % (Auto) % Lymph % (Auto) % [place] % (Auto) % Eos % (Auto) % Baso % (Auto) % Neut # (Auto) (1.4-6.5) K/uL Lymph # (Auto) (1.2-3.4) K/uL [place] # (Auto) (0.11-0.59) K/uL Eos # (Auto) (0-0.5) K/uL Baso # (Auto) (0-0.2) K/uL Immature Gran # (Auto) (0.00-0.02) K/uL PT (9.0-12.0) Seconds INR (0.9-1.1) APTT (21.0-31.0) Seconds PTT Ratio Sodium (136-145) mmol/L Potassium (3.5-5.1) mmol/L Chloride (98-107) mmol/L Carbon Dioxide (21-32) mmol/L Anion Gap (3-11) BUN (7-18) mg/dl Creatinine (0.6-1.4) mg/dl Est Cr Clr Drug Dosing ml/min Est GFR ( Amer) ml/min Est GFR (Non-Af Amer) ml/min BUN/Creatinine Ratio (10-20) Glucose (70-99) mg/dl Calcium (8.5-10.1) mg/dl Total Bilirubin (0.2-1) mg/dl AST (15-37) U/L ALT (12-78) U/L Alkaline Phosphatase (45-117) U/L Troponin I (0-0.045) ng/ml Total Protein (6.4-8.2) gm/dl Albumin (3.4-5.0) gm/dl Globulin (2.5-4.0) gm/dl Albumin/Globulin Ratio (0.9-2) Specimen Hemolysis Urine Color [place] Urine Appearance Turbid A (Clear) Urine pH 6.0 (4.5-7.5) Ur Specific [place] 1.016 (1.000-1.030) Urine Protein 2+ H (Negative) Urine Glucose (UA) Negative (Negative) Urine Ketones Negative (Negative) Urine Blood 3+ H (Negative) Urine Nitrite Negative (Negative) Urine Bilirubin Negative (Negative) Urine Urobilinogen Negative (Negative) Ur Leukocyte Esterase 3+ H (Negative) Urine WBC (Auto) >30 H (0-5) /hpf Urine RBC (Auto) >30 H (0-4) /hpf U Hyaline Cast (Auto) 1-5 (0-5) /lpf U Epithel Cells (Auto) 0-5 (0-5) /lpf Urine Bacteria (Auto) 1+ H (Negative) Urine Yeast Not Reportable Administered Medications Discontinued Medications Ceftriaxone Sodium (Rocephin) 1,000 mg in 50 mls @ 100 mls/hr IV NOW STA Stop: 08/31/21 13:02 Last Infusion: 08/31/21 13:33 Dose: 0 mls/hr Documented by: [id number] Admin: 08/31/21 13:03 Dose: 100 mls/hr Documented by: [id number] Imaging Data Radiologist's Impression: Chest X-Ray 08/31/21 11:34 SINGLE VIEW CHEST CLINICAL HISTORY: Lower extremity edema FINDINGS: An AP, portable, upright chest radiograph is compared to chest x-ray and chest CT dated 10/06/2017. The heart is enlarged noting atherosclerotic calcification of the thoracic aorta. There is pulmonary vascular congestion and bilateral airspace opacities. Small pleural effusions are suspected. No pneumothorax is seen. The skeletal structures are osteopenic. The bony thorax is grossly intact. IMPRESSION: 1. Cardiomegaly with pulmonary vascular congestion. 2. Bilateral airspace opacities likely represent pulmonary edema. Correlate clinically for presence of a superimposed infectious/inflammatory pneumonitis. Radiographic follow-up to resolution is recommended. 3. Suspect small pleural effusions. ACT 112: Negative or not required by law. Electronically signed by: Gurjit Gonzales M.D. 08/31/2021 12:08 PM Discharge Plan Visit Data Chief Complaint: Urinary Symptoms Stated Complaint: BLOOD IN URINE ED Provider: Nima Easley Discharge Problem: CHF (congestive heart failure), Hematuria, New onset a-fib, Pleural effusion Forms Stand Alone Forms: [facility] Prescriptions Prescriptions: No Action (DME) catheter 16 Fr misc See Rx Instructions .ROUTE .MEDSUPPLY Qty: 10 RF: 0 aspirin 81 mg tablet 81 mg PO QAM RF: 0 fluticasone propionate 50 mcg/actuation spray,suspension 2 sprays intranasal BID Qty: 3 RF: 0 cetirizine 10 mg tablet 10 mg PO HS Qty: 30 RF: 0 tamsulosin 0.4 mg capsule 0.4 mg PO BID Qty: 180 RF: 3 cholecalciferol (vitamin D3) 25 mcg (1,000 unit) capsule 25 mcg PO DAILY Qty: 30 RF: 0 acetaminophen [Tylenol Extra Strength] 500 mg Tablet 500 mg PO Q6H PRN (Reason: Pain) RF: 0 carvedilol 25 mg tablet 25 mg PO BID RF: 0 chlorthalidone 25 mg tablet 12.5 mg PO DAILY RF: 0 Referrals Referrals: Tiago Lara MD [Primary Care Provider] - Discharge Problem: CHF (congestive heart failure) Qualifiers: Heart failure type: unspecified Heart failure chronicity: unspecified Qualified Code(s): I50.9 - Heart failure, unspecified Hematuria Qualifiers: Hematuria type: unspecified type Qualified Code(s): R31.9 - Hematuria, un specified
[2021-08-31 11:47] LABS: Basophils # (auto) 0.04 K/uL (0-0.2); Basophils % (auto) 0.4 %; Eosinophils # (auto) 0.29 K/uL (0-0.5); Eosinophils % (auto) 2.9 %; Hematocrit (blood only) 38.6 % (42-52); Hemoglobin 12.7 g/dL (14.0-18.0); Immature Granulocytes # (auto) 0.01 K/uL (0.00-0.02); Immature Granulocytes % (auto) 0.1 %; Lymphocytes # (auto) 1.17 K/uL (1.2-3.4); Lymphocytes % (auto) 11.5 %; Mean Corpuscular Hemoglobin 32.1 pg (25-34); Mean Corpuscular Hgb Conc 32.9 g/dL (32-36); Mean Corpuscular Volume 97.5 fL (80-100); Mean Platelet Volume 9.4 fL (7.4-10.4); Monocytes # (auto) 0.73 K/uL (0.11-0.59); Monocytes % (auto) 7.2 %; Neutrophils % (auto) 77.9 %; Platelet Count 186 K/uL (130-400); RDW Coefficient of Variation 14.8 % (11.5-14.5); RDW Standard Deviation 52.6 fL (36.4-46.3); Red Blood Count 3.96 M/uL (4.7-6.1); White Blood Count 10.14 K/uL (4.8-10.8)
[2021-08-31 12:03] LABS: Partial Thromboplastin Ratio 1.1
[2021-08-31 12:03] LABS: Appearance Urine Turbid (Clear); Bilirubin Urine Negative (Negative); Blood Urine 3+ (Negative); Color Urine Orange; Epithelial Cell Urine Auto 0-5 /lpf (0-5); Glucose Urine UA Negative (Negative); Ketones Urine Negative (Negative); Leukocyte Esterase Urine 3+ (Negative); Nitrite Urine Negative (Negative); Protein Urine 2+ (Negative); Specific Gravity Urine 1.016 (1.000-1.030); Urobilinogen Urine Negative (Negative); WBC Urine Automated >30 /hpf (0-5)
--- NOTE | 2021-08-31 12:09 | XRay Report ---
SINGLE VIEW CHEST CLINICAL HISTORY: Lower extremity edema FINDINGS: An AP, portable, upright chest radiograph is compared to chest x-ray and chest CT dated 10/06. The heart is enlarged noting atherosclerotic calcification of the thoracic aorta. There is pul monary vascular congestion and bilateral airspace opacities. Small pleural effusions are suspected. N o pneumothorax is seen. The skeletal structures are osteopenic. The bony thorax is grossly intact. IMPRESSION: 1. Cardiomegaly with pulmonary vascular congestion. 2. Bilateral airspace opacities likely represent pulmonary edema. Correlate clinically for presence o f a superimposed infectious/inflammatory pneumonitis. Radiographic follow-up to resolution is recomme nded. 3. Suspect small pleural effusions. ACT 112: Negative or not required by law. Electronically signed by: Gurjit Gonzales M.D. 08/31/2021 12:08 PM
[2021-08-31 12:20] LABS: Alanine Aminotransferase 20 U/L (12-78); Albumin Globulin Ratio 0.8 (0.9-2); Albumin Level 3.7 gm/dl (3.4-5.0); Alkaline Phosphatase 81 U/L (45-117); Aspartate Aminotransferase 20 U/L (15-37); BUN Creatinine Ratio 18.8 (10-20); Bilirubin,Total 0.5 mg/dl (0.2-1); Blood Urea Nitrogen 38 mg/dl (7-18); Calcium 9.8 mg/dl (8.5-10.1); Carbon Dioxide 24 mmol/L (21-32); Chloride 111 mmol/L (98-107); Creatinine Clr Calc Pharmacy 24.8 ml/min; Est GFR (African American) 33.1 ml/min; Est GFR (Non-African American) 28.6 ml/min; Globulin 4.9 gm/dl (2.5-4.0); Glucose 101 mg/dl (70-99); Potassium 3.9 mmol/L (3.5-5.1); Sodium 140 mmol/L (136-145); Total Protein 8.6 gm/dl (6.4-8.2); Troponin I < 0.015 ng/ml (0-0.045)
[2021-08-31 12:23] LABS: RBC Urine Automated >30 /hpf (0-4)
[2021-08-31 12:24] LABS: Bacteria Urine Automated 1+ (Negative)
[2021-08-31] MEDS ORDERED: cefTRIAXone SODIUM 1,000 MG/50 ML BAG IV STA (12:33)
--- NOTE | 2021-08-31 12:39 | Electrocardiogram Report ---
Test Reason : Blood Pressure : / mmHG Vent. Rate : 081 BPM Atrial Rate : 108 BPM P-R Int : 000 ms QRS Dur : 126 ms QT Int : 400 ms P-R-T Axes : 000 -33 -01 degrees QTc Int : 464 ms Atrial fibrillation Left axis deviation Right bundle branch block Abnormal ECG When compared with ECG of 06-OCT-2017 21:05, Atrial fibrillation has replaced Sinus rhythm Right bundle branch block is now Present Confirmed by Oneil Verduzco ([id number]) on 08/31/2021 12:39:15 PM Referred By: REFERRED SELF Confirmed By:Gianfranco Verduzco
--- NOTE | 2021-08-31 13:52 | History & Physical Report ---
Date of Service August 31, 2021 Assessment & Plan (1) Hematuria: Plan: Presents with gross hematuria x24 hours No significant urinary retention in the ER but had dysuria and urgency prior to development of hematuria Urinalysis abnormal consistent with UTI He did self catheterize once in the last 2 weeks-perhaps this was how he got the infection -Admit to medical floor with telemetry due to new onset A. fib as below -Appreciate urology consultation-plan to continue to treat UTI with antibiotics, placed Licea catheter with three-way catheter in case need for continuous bladder irrigation. If urine is bloody or obstructive, perform gentle hand irrigation, n.p.o. at midnight in case needs clot evacuation/fulguration, and plan for outpatient cystoscopy as long as urine continues to drain well to assess for bladder cancer recurrence. -Continue ceftriaxone for UTI -Follow urine culture -Morphine as needed for pain secondary to catheter that he complained of -Urology advised me that if anticoagulation is needed, it would be okay to start and just with careful monitoring for worsening hematuria-I will hold on anticoagulation for tonight, but if urine remains clear tomorrow, would be okay to start anticoagulation in the morning -Holding home aspirin 81 mg as well, but could restart if hematuria resolves by tomorrow (2) UTI (urinary tract infection): Plan: -As above, continue ceftriaxone -Follow urine culture Afebrile no leukocytosis, no systemic symptoms (3) New onset a-fib: Plan: Patient has been a little bit more dyspneic on exertion which is out of the ordinary for him for the last 2 weeks He did not notice any heart palpitations or chest pain Found to be in rate controlled, new onset atrial fibrillation upon admission Echocardiogram 07/2020 with EF 50-55%, mild LVH, moderate biatrial dilatation, mild RV dilatation, mild AI, mild to moderate MR, moderate TR With some evidence of pulmonary edema and small pleural effusions on chest x-ray likely secondary to acute on chronic diastolic CHF possibly from atrial fibrillation [id number] score is high at 5 and therefore anticoagulation is recommended -Continue carvedilol -Continue to monitor on telemetry -Check updated echocardiogram -Consult cardiology -Will hold off on anticoagulation this evening given gross hematuria, but if hematuria clears by tomorrow, would be okay to start in the morning-would recommend Eliquis at the renal dose given his age and elevated creatinine (4) Anemia: Plan: Mild, hemoglobin 12.7 on arrival, normocytic Has known MGUS (5) Shortness of breath: Plan: Likely secondary to acute on chronic diastolic CHF possibly from atrial fibrillation as above With pulmonary edema and small pleural effusions on chest x-ray He is not hypoxic Will hold off on any diuretics at this time given mild renal insufficiency (6) Peripheral edema: Plan: Secondary to acute on chronic diastolic CHF as above Holding off on diuretics and holding home chlorthalidone (7) CKD (chronic kidney disease), stage III: Plan: With acute kidney injury in the setting of CKD stage III-IV Baseline creatinine around 1.7-1.8 Creatinine is up to 2.0 on arrival, possibly due to UTI and some mild urinary retention? Hold home chlorthalidone Licea catheter now placed Follow BMP (8) Bladder cancer: Plan: Has a history of such, followed routinely with cystoscopy as an outpatient See above as per urology recommendations (9) Coronary artery disease: Plan: Has known single-vessel coronary disease based on cardiac catheterization from 1990. Is statin intolerant Has been completely asymptomatic Hold home aspirin due to hematuria as above Continue home carvedilol (10) HTN (hypertension): Plan: RelatedBlood pressures are Continue home carvedilol Holding home chlorthalidone for acute kidney injury as above -May need to add amlodipine (11) Impaired fasting glucose: Plan: Last hemoglobin A1c 5.4% 2018 Random glucose here was only 101 No need for glucose checks or insulin (12) Monoclonal gammopathy of undetermined significance: Plan: Noted (13) Cognitive impairment: Plan: Mild Follow as an outpatient (14) Prostate cancer: Plan: Status post brachytherapy Is with rising PSA recently but has declined any hormonal therapy Plan: DVT prophylaxis-SCDs only for now, but hopeful to start anticoagulation for atrial fibrillation tomorrow if hematuria improves Disposition-bring in on observation to medical floor with telemetry, but hopeful for discharge to home on 09/01 if hematuria is improved and urine draining well, after seen by cardiology DNR/DNI as per my discussion with the patient History of Present Illness Chief Complaint: Hematuria, leg swelling Primary Care Provider: Tiago Lara MD This patient is an 86-year-old male with a history of CKD stage III with proteinuria, HTN, anemia of chronic disease and iron deficiency, hematuria, peripheral edema, cognitive impairment, CAD with single-vessel disease based on catheterization in 1990, prostate and bladder cancer, lumbar spinal stenosis with failed laminectomy, and chronic diarrhea status post brachytherapy for prostate cancer, who presents to the ER with complaint of blood in his urine for the past 24 hours along with dysuria, urgency, and urinary frequency. He feels like he cannot empty his bladder but his postvoid residual in the ER and bladder scan was only 80 mL. He reports that he occasionally self catheterizes when he feels the need and he did so about 2 weeks ago. He had a small amount of blood after that catheterization but then no further hematuria in the last 2 weeks. He then developed a sense of urinary retention in the last 24 hours and noted multiple clots passed. He denies any fevers or chills. He has also been having some increased lower extremity edema as well as some dyspnea on exertion as per his for the last 2 weeks. He typically works out on machines in his basement every day and has noticed for last 2 weeks that he gets more out of breath trying to get back up the 13 stairs from the basement at the end of his workout. He has not noticed any heart palpitations or irregular heartbeat. He denies any chest pain. In the ER, he was found to be in new onset atrial fibrillation that was rate controlled. His chest x-ray showed cardiomegaly with pulmonary vascular congestion and bilateral airspace opacities likely representing pulmonary edema and suspected small pleural effusions. Fortunately, he was not hypoxic with a pulse ox of 98% on room air, but he was hypertensive. He was also noted to have a urinary tract infection on urinalysis and was given ceftriaxone. He was afebrile. I discussed his care with urology shortly after admission and a three-way catheter was placed in case of need for continuous bladder irrigation. Allergies Allergy/AdvReac Type Severity Reaction Status Date / Time KEVIN Inhibitors Allergy Severe SHORTNESS Verified 08/31/21 13:52 OF BREATH Penicillins Allergy Intermediate HIVES Verified 08/31/21 13:52 rosuvastatin [From Crestor] Allergy Intermediate joint Verified 08/31/21 13:52 aches and cramping simvastatin Allergy Intermediate joint Verified 08/31/21 13:52 aches and cramping [id number] Reductase Allergy Intermediate joint Verified 08/31/21 13:52 Inhibitor aches and [[id number] Reductase cramping Inhibitor] RED YEAST RICE Allergy Mild RASH Uncoded 08/31/21 13:52 Home Medications Medication Instructions Recorded Confirmed Type aspirin 81 mg tablet 81 mg PO QAM tab 06/16/19 08/31/21 History cetirizine 10 mg tablet 10 mg PO HS #30 tab 06/16/19 08/31/21 History fluticasone propionate 50 2 sprays INTRANASAL BID #3 gm 06/16/19 08/31/21 History mcg/actuation nasal spray,suspension catheter 16 Fr #10 ea 12/22/19 08/31/21 Rx acetaminophen 500 mg tablet 500 mg PO Q6H PRN 07/09/20 08/31/21 History (Tylenol Extra Strength) tamsulosin 0.4 mg capsule 0.4 mg PO BID #180 cap 09/13/20 08/31/21 Rx cholecalciferol (vitamin D3) 25 25 mcg PO DAILY #30 cap 02/04/21 08/31/21 Rx mcg (1,000 unit) capsule carvedilol 25 mg tablet 25 mg PO BID 08/31/21 08/31/21 History chlorthalidone 25 mg tablet 12.5 mg PO DAILY 08/31/21 08/31/21 History Past Med/Surg History Medical History Anemia Aortic regurgitation Bladder cancer (08/17/07) Papillary Urotehelial Carcinoma, 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 Bone marrow biopsy negative for plasma dyscrasia and B cell lymphoma. Myocardial Infarction 1994--followed with Dr. Landaverde Peripheral neuropathy Presbyesophagus Prostate cancer (~04/2005) s/p failure of brachytherapy. Patient opted to forego further treatment d/t age. Shortness of breath on exertion Spinal stenosis Tricuspid regurgitation Surgical History History of back surgery (08/06/17) Dr. Stephens. Fused at L4-L5 and sacrum. History of bilateral cataract extraction History of bladder surgery TURBT 08/17/2007 for bladder cancer History of cardiac cath 1994 @ [facility] [place]with 1 stent placed History of colonoscopy History of cystoscopy multiple times--d/t bladder cancer History of esophagogastroduodenoscopy (EGD) History of heart artery stent 1994 1 stent placed History of prostate biopsy Unable to find path report in [facility] or [facility]. History of tooth extraction all upper teeth/partial lower Hx of vasectomy Family History Unknown Prostate cancer Bladder cancer Hypertension Father Family history of diabetes mellitus Daughter Breast cancer Son Myocardial infarction Other No family history of adverse response to anesthesia Denies family history of Ovarian cancer Colorectal cancer Social History Smoking Status: Former smoker Tobacco Type: Pipe and Cigars Age Quit Using Tobacco: 48; Second Hand Exposure: No ( smoked); Hx Alcohol Use: Yes Alcohol type: beer and wine Alcohol Intake Frequency Comment: once a day Hx Substance Use: No Preferred Language: Turkish Communication Ability: Effective Visual Impairment: Limited Hearing Ability: Hard of Hearing Logistic Specialist Required: No Beliefs That Will Affect Care: None marital status: Current Living Situation: Spouse current occupational status: retired How many Children do You have: 2 Feels Safe at Home: Yes caffeine: Yes (coffee) Dental Care, Regularly: Yes Physical Activity Frequency: Daily Physical Activity Frequency Comment: treadmill in morning, sit ups Seatbelt Use: always Sunscreen Use: Yes Assistive Devices: Denture - Upper, Denture - Lower and Glasses Review of Systems Review of Systems: All systems reviewed & are unremarkable except as noted in HPI & below Physical Exam Constitutional: WD/WN, vitals as above Eyes: + anicteric sclerae ENMT: external ear and nose normal, oropharynx normal Neck: trachea midline, no thyromegaly Respiratory: normal respiratory effort, lungs clear to auscultation Cardiovascular: Rate/Rhythm: regular rate and + irregularly irregular Heart Sounds: no murmur Extremities: + edema (Trace pitting edema in legs bilaterally) Chest (Breasts): Chest: normal inspection of chest Gastrointestinal (Abdomen): normal bowel sounds, soft, nontender, no hepatosplenomegaly Musculoskeletal: Extremities: extremities normal to inspection; no cyanosis and no clubbing Skin: no rashes, warm and dry Neurologic: moves all extremities and awake; no focal motor deficits Psychiatric: A+Ox3, euthymic affect Lymphatic: no lymphedema Results & Data Results & Data ([facility]) Vital Signs (Past 12 Hours) Vital Signs Temp Pulse Pulse Resp BP BP Pulse Ox 08/31/21 13:36 71 20 176/100 H 98 08/31/21 10:35 35.9 C L 88 18 164/99 H 100 Laboratory Results 08/31/21 08/31/21 08/31/21 Range/Units 12:09 11:50 11:04 WBC (4.8-10.8) K/uL RBC (4.7-6.1) M/uL Hgb (14.0-18.0) g/dL Hct (42-52) % MCV (80-100) fL MCH (25-34) pg MCHC (32-36) g/dL RDW Std Deviation (36.4-46.3) fL RDW Coeff of Tay (11.5-14.5) % Plt Count (130-400) K/uL MPV (7.4-10.4) fL Immature Gran % (Auto) % Neut % (Auto) % Lymph % (Auto) % Daniels % (Auto) % Eos % (Auto) % Baso % (Auto) % Neut # (Auto) (1.4-6.5) K/uL Lymph # (Auto) (1.2-3.4) K/uL Daniels # (Auto) (0.11-0.59) K/uL Eos # (Auto) (0-0.5) K/uL Baso # (Auto) (0-0.2) K/uL Immature Gran # (Auto) (0.00-0.02) K/uL PT (9.0-12.0) Seconds INR (0.9-1.1) APTT (21.0-31.0) Seconds PTT Ratio Sodium 140 (136-145) mmol/L Potassium 3.9 (3.5-5.1) mmol/L Chloride 111 H (98-107) mmol/L Carbon Dioxide 24 (21-32) mmol/L Anion Gap 5.0 (3-11) BUN 38 H (7-18) mg/dl Creatinine 2.02 H (0.6-1.4) mg/dl Est Cr Clr Drug Dosing 24.8 ml/min Est GFR ( Amer) 33.1 ml/min Est GFR (Non-Af Amer) 28.6 ml/min BUN/Creatinine Ratio 18.8 (10-20) Glucose 101 H (70-99) mg/dl Calcium 9.8 (8.5-10.1) mg/dl Total Bilirubin 0.5 (0.2-1) mg/dl AST 20 (15-37) U/L ALT 20 (12-78) U/L Alkaline Phosphatase 81 (45-117) U/L Troponin I < 0.015 (0-0.045) ng/ml Total Protein 8.6 H (6.4-8.2) gm/dl Albumin 3.7 (3.4-5.0) gm/dl Globulin 4.9 H (2.5-4.0) gm/dl Albumin/Globulin Ratio 0.8 L (0.9-2) Specimen Hemolysis Urine Color [place] Urine Appearance Turbid A (Clear) Urine pH 6.0 (4.5-7.5) Ur Specific [place] 1.016 (1.000-1.030) Urine Protein 2+ H (Negative) Urine Glucose (UA) Negative (Negative) Urine Ketones Negative (Negative) Urine Blood 3+ H (Negative) Urine Nitrite Negative (Negative) Urine Bilirubin Negative (Negative) Urine Urobilinogen Negative (Negative) Ur Leukocyte Esterase 3+ H (Negative) Urine WBC (Auto) >30 H (0-5) /hpf Urine RBC (Auto) >30 H (0-4) /hpf U Hyaline Cast (Auto) 1-5 (0-5) /lpf U Epithel Cells (Auto) 0-5 (0-5) /lpf Urine Bacteria (Auto) 1+ H (Negative) Urine Yeast Not Reportable SARS-CoV-2 RNA ([facility]ERT) Pending 08/31/21 08/31/21 Range/Units 11:04 11:04 WBC 10.14 (4.8-10.8) K/uL RBC 3.96 L (4.7-6.1) M/uL Hgb 12.7 L (14.0-18.0) g/dL Hct 38.6 L (42-52) % MCV 97.5 (80-100) fL MCH 32.1 (25-34) pg MCHC 32.9 (32-36) g/dL RDW Std Deviation 52.6 H (36.4-46.3) fL RDW Coeff of Tay 14.8 H (11.5-14.5) % Plt Count 186 (130-400) K/uL MPV 9.4 (7.4-10.4) fL Immature Gran % (Auto) 0.1 % Neut % (Auto) 77.9 % Lymph % (Auto) 11.5 % Daniels % (Auto) 7.2 % Eos % (Auto) 2.9 % Baso % (Auto) 0.4 % Neut # (Auto) 7.90 H (1.4-6.5) K/uL Lymph # (Auto) 1.17 L (1.2-3.4) K/uL Daniels # (Auto) 0.73 H (0.11-0.59) K/uL Eos # (Auto) 0.29 (0-0.5) K/uL Baso # (Auto) 0.04 (0-0.2) K/uL Immature Gran # (Auto) 0.01 (0.00-0.02) K/uL PT 10.0 (9.0-12.0) Seconds INR 1.0 (0.9-1.1) APTT 29.0 (21.0-31.0) Seconds PTT Ratio 1.1 Sodium (136-145) mmol/L Potassium (3.5-5.1) mmol/L Chloride (98-107) mmol/L Carbon Dioxide (21-32) mmol/L Anion Gap (3-11) BUN (7-18) mg/dl Creatinine (0.6-1.4) mg/dl Est Cr Clr Drug Dosing ml/min Est GFR ( Amer) ml/min Est GFR (Non-Af Amer) ml/min BUN/Creatinine Ratio (10-20) Glucose (70-99) mg/dl Calcium (8.5-10.1) mg/dl Total Bilirubin (0.2-1) mg/dl AST (15-37) U/L ALT (12-78) U/L Alkaline Phosphatase (45-117) U/L Troponin I (0-0.045) ng/ml Total Protein (6.4-8.2) gm/dl Albumin (3.4-5.0) gm/dl Globulin (2.5-4.0) gm/dl Albumin/Globulin Ratio (0.9-2) Specimen Hemolysis Urine Color Urine Appearance (Clear) Urine pH (4.5-7.5) Ur Specific [place] (1.000-1.030) Urine Protein (Negative) Urine Glucose (UA) (Negative) Urine Ketones (Negative) Urine Blood (Negative) Urine Nitrite (Negative) Urine Bilirubin (Negative) Urine Urobilinogen (Negative) Ur Leukocyte Esterase (Negative) Urine WBC (Auto) (0-5) /hpf Urine RBC (Auto) (0-4) /hpf U Hyaline Cast (Auto) (0-5) /lpf U Epithel Cells (Auto) (0-5) /lpf Urine Bacteria (Auto) (Negative) Urine Yeast SARS-CoV-2 RNA (GILBERT) Diagnostic Findings Chest X-Ray 08/31/21 11:34 SINGLE VIEW CHEST CLINICAL HISTORY: Lower extremity edema FINDINGS: An AP, portable, upright chest radiograph is compared to chest x-ray and chest CT dated 10/06/2017. The heart is enlarged noting atherosclerotic calcification of the thoracic aorta. There is pulmonary vascular congestion and bilateral airspace opacities. Small pleural effusions are suspected. No pneumothorax is seen. The skeletal structures are osteopenic. The bony thorax is grossly intact. IMPRESSION: 1. Cardiomegaly with pulmonary vascular congestion. 2. Bilateral airspace opacities likely represent pulmonary edema. Correlate clinically for presence of a superimposed infectious/inflammatory pneumonitis. Radiographic follow-up to resolution is recommended. 3. Suspect small pleural effusions. ACT 112: Negative or not required by law. Electronically signed by: Gurjit Gonzales M.D. 08/31/2021 12:08 PM ECG Additional Comments: ECG on 08/31/2021 1104 with atrial fibrillation, rate 81, left axis deviation, [id number] and A. fib are new No ischemic changes Code Status & VTE Plan Code Status DNR/DNI as per discussion with patient VTE Prophylaxis Plan VTE Prophylaxis will be ordered: Yes PG Care Time/CCT Total # of Minutes Spent Total Time Spent with Patient: Total time spent is greater than 50% in coordination of care (as documented) at patient's floor/unit and/or counseling patient: Coding Level of Care Code INT OBSERVATION CARE 70M LVL 3 Diagnoses Anemia D64.9 Bladder cancer C67.9 CKD (chronic kidney disease), stage III N18.30 Cognitive impairment R41.89 Coronary artery disease I25.10 Associated angina: without angina Coronary Disease-Associated Artery/Lesion type: [place] artery [place] vs. transplanted heart: hopi heart HTN (hypertension) I10 Hypertension type: essential hypertension Impaired fasting glucose R73.01 Monoclonal gammopathy of undetermined significance D47.2 Peripheral edema R60.9 Prostate cancer C61 Shortness of breath R06.02 New onset a-fib I48.91 Hematuria R31.9 Hematuria type: unspecified type UTI (urinary tract infection) N39.0 (1) Coronary artery disease Associated angina: without angina Coronary Disease-Associated Artery/Lesion type: [place] artery [place] vs. transplanted heart: hopi heart Qualified Code(s): I25.10 - Atherosclerotic heart disease of hopi coronary artery without angina pectoris (2) HTN (hypertension) Hypertension type: essential hypertension Qualified Code(s): I10 - Essential (primary) hypertension (3) Hematuria Hematuria type: unspecified type Qualified Code(s): R31.9 - Hematuria, unspecified
[2021-08-31] MEDS ORDERED: LIDOCAINE 2% JELLY 5 ML TUBE ONE (16:14)
--- NOTE | 2021-08-31 17:23 | Urology Consultation ---
Date of Consultation August 31, 2021 Assessment & Plan (1) Hematuria: We discussed his hematuria in detail. Given that his urinary symptoms started before the hematuria, and are suggestive of a UTI, I think this is the most likely explanation. There is also a chance that this represents recurrence of bladder cancer, which can be fully evaluated as an outpatient with cystoscopy once the hematuria clears. Radiation cystitis is another possibility, given his history of radiation for prostate cancer. Due to the varying descriptions of how bloody and helpful with clots his urine was, I discussed placing a Licea catheter and performing hand irrigation. Patient and his were amenable to this plan, so a 20 Wolof three-way Licea catheter was placed, with initially return of clear sami urine. Hand irrigation was performed to identify any clots, but no significant clot burden was found. Since the urine was still clear pink and draining well, I left him with the catheter hooked to gravity drainage, but did not start continuous bladder irrigation. If urine darkens, we can initiate CBI. Recommendations: Treat urinary tract infection with antibiotics Continue Licea catheter for now, monitor urine output If urine gets dark bloody or obstructed, would perform gentle hand irrigation and start continuous bladder irrigation. NPO at midnight -we will reassess whether he needs clot evacuation/fulguration, but seems unlikely to be required at this point If the urine continues to drain well, we can evaluate his bladder with outpatient cystoscopy for bladder cancer recurrence. Urology will follow along History of Present Illness Reason for Consultation: Gross hematuria Requesting Physician: Aminta Rodriguez MD History of Present Illness This is an 86-year-old man, known to the urology office and followed for bladder cancer and prostate cancer who presented to the ED on 08/31/2021, complaining of blood in the urine, as well as increased lower extremity edema and dyspnea on exertion. In the emergency department, he was found to have urinalysis suspicious for infection (3+ leukocyte esterase 1+ bacteria), as well as mild elevation in his creatinine (2.02). He is being admitted to the hospital for antibiotics and monitoring/treatment of his fluid retention, urology was consulted for management of his hematuria. He describes that the hematuria started 3 days ago, initially was light and gradually darkened. H had some clots in the urine, which he had to strain to pass. Today he feels like he has been voiding well, and denies a sense of incomplete emptying. He notes that even before the hematuria started, he was having some burning with urination and increased urinary frequency. He has no recent instrumentation and no recent trauma. There is nothing he can point to that incited the hematuria. He has a history of bladder cancer, followed by Dr. Vila. His most recent surveillance cystoscopy was on 09/13/2020, which was negative. He is due for another surveillance cystoscopy within the next couple weeks. He has also been diagnosed with prostate cancer in the past, and has been treated with radiation. He has had a biochemical recurrence, but has refused ADT. Allergies Allergy/AdvReac Type Severity Reaction Status Date / Time KEVIN Inhibitors Allergy Severe SHORTNESS Verified 08/31/21 13:52 OF BREATH Penicillins Allergy Intermediate HIVES Verified 08/31/21 13:52 rosuvastatin [From Crestor] Allergy Intermediate joint Verified 08/31/21 13:52 aches and cramping simvastatin Allergy Intermediate joint Verified 08/31/21 13:52 aches and cramping Pcnvkek-VWM-EeJ Reductase Allergy Intermediate joint Verified 08/31/21 13:52 Inhibitor aches and [Gsqspwc-Lgx-Dph Reductase cramping Inhibitor] RED YEAST RICE Allergy Mild RASH Uncoded 08/31/21 13:52 Home Medications Medication Instructions Recorded Confirmed Type aspirin 81 mg tablet 81 mg PO QAM tab 06/16/19 08/31/21 History cetirizine 10 mg tablet 10 mg PO HS #30 tab 06/16/19 08/31/21 History fluticasone propionate 50 2 sprays INTRANASAL BID #3 gm 06/16/19 08/31/21 History mcg/actuation nasal spray,suspension catheter 16 Fr #10 ea 12/22/19 08/31/21 Rx acetaminophen 500 mg tablet 500 mg PO Q6H PRN 07/09/20 08/31/21 History (Tylenol Extra Strength) tamsulosin 0.4 mg capsule 0.4 mg PO BID #180 cap 09/13/20 08/31/21 Rx cholecalciferol (vitamin D3) 25 25 mcg PO DAILY #30 cap 02/04/21 08/31/21 Rx mcg (1,000 unit) capsule carvedilol 25 mg tablet 25 mg PO BID 08/31/21 08/31/21 History chlorthalidone 25 mg tablet 12.5 mg PO DAILY 08/31/21 08/31/21 History Patient History Medical History Anemia Aortic regurgitation Bladder cancer (08/17/07) Papillary Urotehelial Carcinoma, 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 Bone marrow biopsy negative for plasma dyscrasia and B cell lymphoma. Myocardial Infarction 1994--followed with Dr. Landaverde Peripheral neuropathy Presbyesophagus Prostate cancer (~04/2005) s/p failure of brachytherapy. Patient opted to forego further treatment d/t age. Shortness of breath on exertion Spinal stenosis Tricuspid regurgitation Surgical History History of back surgery (08/06/17) Dr. Stephens. Fused at L4-L5 and sacrum. History of bilateral cataract extraction History of bladder surgery TURBT 08/17/2007 for bladder cancer History of cardiac cath 1994 @ [facility] – [place]--with 1 stent placed History of colonoscopy History of cystoscopy multiple times--d/t bladder cancer History of esophagogastroduodenoscopy (EGD) History of heart artery stent 1994 1 stent placed History of prostate biopsy Unable to find path report in [employer] or [employer]. History of tooth extraction all upper teeth/partial lower Hx of vasectomy Family History Unknown Prostate cancer Bladder cancer Hypertension Father Family history of diabetes mellitus Daughter Breast cancer Son Myocardial infarction Other No family history of adverse response to anesthesia Denies family history of Ovarian cancer Colorectal cancer Social History Smoking Status: Former smoker Tobacco Type: Pipe and Cigars Age Quit Using Tobacco: 48; Second Hand Exposure: No ( smoked); Hx Alcohol Use: Yes Alcohol type: beer and wine Alcohol Intake Frequency Comment: once a day Hx Substance Use: No Preferred Language: Yakut Communication Ability: Effective Visual Impairment: Limited Hearing Ability: Hard of Hearing 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 Beliefs That Will Affect Care: None marital status: Current Living Situation: Spouse current occupational status: retired How many Children do You have: 2 Feels Safe at Home: Yes caffeine: Yes (coffee) Dental Care, Regularly: Yes Physical Activity Frequency: Daily Physical Activity Frequency Comment: treadmill in morning, sit ups Seatbelt Use: always Sunscreen Use: Yes Assistive Devices: Denture - Upper, Denture - Lower and Glasses Review of Systems Review of Systems: All systems reviewed & are unremarkable except as noted in HPI & below Physical Exam Physical Exam: Resting in bed, NAD Constitutional: Well-nourished, well-developed Respiratory: Breathing comfortably on room air, slight dyspnea on exertion Cardiovascular: Well-perfused. Gastrointestinal (Abdomen): Abdomen soft, mildly tender to palpation in the hypogastric region. Musculoskeletal: Grossly normal Skin: Warm and dry Neurologic: No focal weakness, alert and oriented Genitourinary: Circumcised penis with orthotopic meatus, no discharge or drainage. Catheter was placed with return of initially clear urine, which b lushed red after irrigation. Results & Data ([facility]) Vital Signs (Past 12 Hours) Vital Signs Temp Pulse Pulse Resp BP BP Pulse Ox 08/31/21 15:30 72 18 98 08/31/21 15:00 83 17 08/31/21 14:32 21 08/31/21 14:00 83 19 98 08/31/21 13:36 71 20 176/100 H 98 08/31/21 13:30 86 19 99 08/31/21 13:00 90 20 95 08/31/21 12:30 98 08/31/21 12:00 66 22 93 08/31/21 11:30 117 H 08/31/21 11:12 90 21 98 08/31/21 10:35 35.9 C L 88 18 164/99 H 100 PG Care Time/CCT Total # of Minutes Spent Total Time Spent with Patient: Total time spent is greater than 50% in coordination of care (as documented) at patient's floor/unit and/or counseling patient: Coding Level of Care Code 90486 Office/Outpt Visit, New Diagnoses Hematuria R31.9 Hematuria type: unspecified type (1) Hematuria Hematuria type: unspecified type Qualified Code(s): R31.9 - Hematuria, unspecified
[2021-08-31] MEDS ORDERED: MoRPHine SULFATE 2 MG/ML CARP IV STA (17:41)
[2021-08-31] MEDS ORDERED: ACETAMINOPHEN 325 MG TAB PO PRN (18:57)
[2021-08-31] MEDS ORDERED: ACETAMINOPHEN HOME PACK 500 MG TABLET PO PRN (18:57)
[2021-08-31] MEDS ORDERED: ONDANSETRON INJ 2 MG/ML 2 ML VIAL IV PRN (18:57)
[2021-08-31] MEDS ORDERED: POLYETHYLENE (MIRALAX) 17 GM PACK PO PRN (18:57)
[2021-08-31] MEDS ORDERED: CETIRIZINE HCL 10 MG TABLET PO SCH (21:00)
[2021-08-31] MEDS: TAMSULOSIN HCL 0.4 MG CAP PO SCH (23:17)
[2021-08-31] MEDS: MoRPHine SULFATE 2 MG/ML CARP IV PRN (23:17)
[2021-08-31] MEDS: FLUTICASONE PROPIONATE NA SPR 16 GM BTL NAE SCH (23:18)
[2021-08-31] MEDS: carvediloL 25 MG TAB PO SCH (23:18)
[2021-09-01] MEDS: MoRPHine SULFATE 2 MG/ML CARP IV PRN (04:20)
[2021-09-01] MEDS ORDERED: MoRPHine SULFATE 2 MG/ML CARP IV STA (04:45)
[2021-09-01] MEDS ORDERED: COUGH DROP (SUGAR FREE) LOZ 24 LOZ/1 BOX BUCCAL STA (05:50)
[2021-09-01] MEDS ORDERED: COUGH DROP (SUGAR FREE) LOZ 24 LOZ/1 BOX BUCCAL ONE (05:54)
--- NOTE | 2021-09-01 07:34 | XCELERA ---
[id number]
[2021-09-01] MEDS ORDERED: CHOLECALCIFEROL 1,000 UNITS 25 MCG TAB PO SCH (09:00)
[2021-09-01 09:29] LABS: Basophils # (auto) 0.03 K/uL (0-0.2); Basophils % (auto) 0.3 %; Eosinophils # (auto) 0.14 K/uL (0-0.5); Eosinophils % (auto) 1.3 %; Hematocrit (blood only) 36.7 % (42-52); Immature Granulocytes # (auto) 0.02 K/uL (0.00-0.02); Immature Granulocytes % (auto) 0.2 %; Lymphocytes # (auto) 1.08 K/uL (1.2-3.4); Lymphocytes % (auto) 10.4 %; Mean Corpuscular Hemoglobin 31.6 pg (25-34); Mean Corpuscular Hgb Conc 32.7 g/dL (32-36); Mean Corpuscular Volume 96.6 fL (80-100); Mean Platelet Volume 9.7 fL (7.4-10.4); Monocytes # (auto) 0.96 K/uL (0.11-0.59); Monocytes % (auto) 9.2 %; Neutrophils # (auto) 8.17 K/uL (1.4-6.5); Neutrophils % (auto) 78.6 %; Platelet Count 165 K/uL (130-400); RDW Coefficient of Variation 14.7 % (11.5-14.5); RDW Standard Deviation 52.1 fL (36.4-46.3)
[2021-09-01 09:53] LABS: BUN Creatinine Ratio 19.1 (10-20); Calcium 9.4 mg/dl (8.5-10.1); Creatinine Clr Calc Pharmacy 30.9 ml/min; Est GFR (African American) 43.6 ml/min; Est GFR (Non-African American) 37.6 ml/min; Magnesium 2.3 mg/dl (1.8-2.4); Potassium 3.6 mmol/L (3.5-5.1)
[2021-09-01] MEDS: FLUTICASONE PROPIONATE NA SPR 16 GM BTL NAE SCH (10:02)
[2021-09-01] MEDS: carvediloL 25 MG TAB PO SCH (10:03)
[2021-09-01] MEDS: TAMSULOSIN HCL 0.4 MG CAP PO SCH (10:03)
--- NOTE | 2021-09-01 11:10 | Urology Progress Note ---
Date of Service September 01, 2021 Assessment & Plan (1) Hematuria: Plan: Hematuria has cleared at this point. We discussed that we can remove the Licea catheter and allow him to void normally. He will still require his surveillance cystoscopy for bladder cancer in September, which will be coordinated as an outpatient (currently scheduled for 09/19/2021) Would recommend continuing to treat urinary tract infection with a full course of antibiotics. Plan: Licea catheter can be removed Okay for patient to have a diet, no plan for surgical intervention at this point. Urology will coordinate outpatient cystoscopy We will sign off for now, please call with any questions or concerns. Admission and Anticipated Discharge Date Admission Date: August 31, 2021 Subjective Mr. Mancia reports having a rough night. He had significant irritation from the Licea catheter, and urinary urgency, however the catheter continued to drain well. He did not require hand irrigation. The hematuria has cleared. He denies any fevers or chills. He denies any nausea or vomiting. He denies any overt pain in the lower abdomen, just has sensation of needing to void. Physical Exam Physical Exam: Resting comfortably in bed, NAD Gastrointestinal (Abdomen): Soft, nontender. Genitourinary: Licea catheter in good position, draining clear yellow urine. Results & Data ([facility]) Vital Signs (Past 12 Hours) Vital Signs Temp Pulse Pulse Resp BP Pulse Ox 09/01/21 07:38 36.7 C 85 18 139/88 95 09/01/21 07:30 68 09/01/21 03:54 36.7 C 78 20 153/70 H 94 Laboratory Results CBC: WBC 10.4, hemoglobin 12 (mild anemia) BMP with normal sodium and potassium, improved creatinine (1.6 down from 2.0) PG Care Time/CCT Total # of Minutes Spent Total Time Spent with Patient: Total time spent is greater than 50% in coordination of care (as documented) at patient's floor/unit and/or counseling patient: Coding Level of Care Code 04148 Subseq Hosp Care Lvl 1 Diagnoses Hematuria R31.9 Hematuria type: unspecified type (1) Hematuria Hematuria type: unspecified type Qualified Code(s): R31.9 - Hematuria, unspecified
[2021-09-01] MEDS ORDERED: cefTRIAXone SODIUM 2,000 MG in DEXTROSE 5% 50 ML IV SCH (13:00)
--- NOTE | 2021-09-01 14:56 | Discharge Summary ---
Date of Service September 01, 2021 Admission HPI Per Admitting Provider This patient is an 86-year-old male with a history of CKD stage III with proteinuria, HTN, anemia of chronic disease and iron deficiency, hematuria, peripheral edema, cognitive impairment, CAD with single-vessel disease based on catheterization in 1990, prostate and bladder cancer, lumbar spinal stenosis with failed laminectomy, and chronic diarrhea status post brachytherapy for prostate cancer, who presents to the ER with complaint of blood in his urine for the past 24 hours along with dysuria, urgency, and urinary frequency. He feels like he cannot empty his bladder but his postvoid residual in the ER and bladder scan was only 80 mL. He reports that he occasionally self catheterizes when he feels the need and he did so about 2 weeks ago. He had a small amount of blood after that catheterization but then no further hematuria in the last 2 weeks. He then developed a sense of urinary retention in the last 24 hours and noted multiple clots passed. He denies any fevers or chills. He has also been having some increased lower extremity edema as well as some dyspnea on exertion as per his for the last 2 weeks. He typically works out on machines in his basement every day and has noticed for last 2 weeks that he gets more out of breath trying to get back up the 13 stairs from the basement at the end of his workout. He has not noticed any heart palpitations or irregular heartbeat. He denies any chest pain. In the ER, he was found to be in new onset atrial fibrillation that was rate controlled. His chest x-ray showed cardiomegaly with pulmonary vascular congestion and bilateral airspace opacities likely representing pulmonary edema and suspected small pleural effusions. Fortunately, he was not hypoxic with a pulse ox of 98% on room air, but he was hypertensive. He was also noted to have a urinary tract infection on urinalysis and was given ceftriaxone. He was afebrile. I discussed his care with urology shortly after admission and a three-way catheter was placed in case of need for continuous bladder irrigation. Principal Diagnosis Hematuria Newly-diagnosed atrial fibrillation Discharge Exam Constitutional WD/WN, vitals as above Eyes EOM intact bilaterally; no conjunctival abnormality ENMT external ear and nose normal, oropharynx normal Neck trachea midline, no thyromegaly normal visual inspection Respiratory normal respiratory effort, lungs clear to auscultation no respiratory distress Cardiovascular Rate/Rhythm: regular rate and + irregularly irregular Heart Sounds: normal S1 and normal S2 Gastrointestinal (Abdomen) Inspection/Auscultation: abdomen normal to inspection; abdomen not distended Musculoskeletal no cyanosis or clubbing, extremities motor strength 5/5 Skin no rashes, warm and dry Neurologic moves all extremities and awake Psychiatric Orientation: alert, oriented to person and cooperative Discharge Data Allergies Allergy/AdvReac Type Severity Reaction Status Date / Time KEVIN Inhibitors Allergy Severe SHORTNESS Verified 08/31/21 13:52 OF BREATH Penicillins Allergy Intermediate HIVES Verified 08/31/21 13:52 rosuvastatin [From Crestor] Allergy Intermediate joint Verified 08/31/21 13:52 aches and cramping simvastatin Allergy Intermediate joint Verified 08/31/21 13:52 aches and cramping Ycuviar-CUP-XeS Reductase Allergy Intermediate joint Verified 08/31/21 13:52 Inhibitor aches and [Zllwtyi-Kwh-Xii Reductase cramping Inhibitor] RED YEAST RICE Allergy Mild RASH Uncoded 08/31/21 13:52 Consultations 08/31/21 12:32 ED Decision to Admit Stat 08/31/21 14:21 Consult Cardiology Routine Consult Urology Routine Hospital Course (1) Hematuria: Presents with gross hematuria x24 hours No significant urinary retention in the ER but had dysuria and urgency prior to development of hematuria Urinalysis abnormal consistent with UTI Seen by urology. Urine cleared within 24 hours, and urology discontinued Licea. Will treat x 1 week and see urology as outpatient for follow-up cystoscopy. (2) UTI (urinary tract infection): -As above, continue ceftriaxone -Follow urine culture Afebrile no leukocytosis, no systemic symptoms (3) New onset a-fib: Patient has been a little bit more dyspneic on exertion which is out of the ordinary for him for the last 2 weeks. He did not notice any heart palpitations or chest pain Found to be in rate controlled, new onset atrial fibrillation upon admission Echocardiogram 07/2020 with EF 50-55%, mild LVH, moderate biatrial dilatation, mild RV dilatation, mild AI, mild to moderate MR, moderate TR With some evidence of pulmonary edema and small pleural effusions on chest x-ray likely secondary to acute on chronic diastolic CHF possibly from atrial fibrillation [id number]-YHJx score is high at 5. - Continue carvedilol - Continue to monitor on telemetry - Check updated echocardiogram - Consulted cardiology - Discussed with cardiology. Plan for anticoagulation once urologic issues resolved. Stroke risk is about 7% per year, so on a daily basis, stroke risk is very low. Cardiology in agreement that anticoagulation can wait until after cleared by urology. Will follow up with cardiology in office in 1-2 weeks. (4) Anemia: Mild, hemoglobin 12.7 on arrival, normocytic Has known MGUS (5) Shortness of breath: Likely secondary to acute on chronic diastolic CHF or possible atrial fibrillation itself. With pulmonary edema and small pleural effusions on chest x-ray. He is not hypoxic. - Hold off on diuretics at this time. (6) Peripheral edema: Secondary to acute on chronic diastolic CHF as above Holding off on diuretics and holding home chlorthalidone (7) CKD (chronic kidney disease), stage III: With acute kidney injury in the setting of CKD stage III-IV Baseline creatinine around 1.7-1.8 Creatinine is up to 2.0 on arrival, possibly due to mild pre-renal. Hold home chlorthalidone Licea catheter now placed Follow BMP (8) Bladder cancer: Has a history of such, followed routinely with cystoscopy as an outpatient See above as per urology recommendations (9) Coronary artery disease: Has known single-vessel coronary disease based on cardiac catheterization from 1990. Is statin intolerant. Has been completely asymptomatic Hold home aspirin due to hematuria as above Continue home carvedilol (10) HTN (hypertension): RelatedBlood pressures are Continue home carvedilol Resume home chlorthalidone (11) Impaired fasting glucose: Last hemoglobin A1c 5.4% 2018 Random glucose here was only 101 No need for glucose checks or insulin (12) Monoclonal gammopathy of undetermined significance: Noted (13) Cognitive impairment: Mild Follow as an outpatient (14) Prostate cancer: Status post brachytherapy Is with rising PSA recently but has declined any hormonal therapy Total Time Total Time Spent Total Time Spent (In Minutes): 35 Discharge Plan Discharge Items Patient Disposition: Home - Self-Care Reason For Visit: HEMATURIA, UTI, NEW ONSET AFIB Discharge Diagnosis: Bloody urine (hematuria) possibly from a urinary tract infection Newly discovered atrial fibrillation Activity: Resume your previous activity Non-emergency contact: Primary Care Provider, Accounting Systems Manager and Urologist Call non-emergency contact if: your symptoms worsen and your temperature is above 101 Follow-up/Referrals: Tiago Lara MD [Primary Care Provider] - Gurinder Verduzco MD [Physician] - (Please see Dr. Verduzco in 1-2 weeks to discuss your atrial fibrillation.) Ric Headley MD [Physician] - (Please see Dr. Headley or Dr. Palafox for further monitoring of your hematuria and bladder cancer.) Diet: Heart Healthy Addtl Attending Provider Instructions: Mr. Mancia, You were admitted to the hospital with hematuria (bloody urine). This can be caused by a number of issues, but infection is one cause that we think might be more likely. It can also be casued by irritation of your bladder from your prior radiation or even possibly a recurrence of your bladder cancer. Your hematuria has resolved with antibiotics, and we will treat you for a UTI. You should start your antibiotic tomorrow morning. You got a dose today that will last through the rest of today. You should take this antibiotic until it is entirely gone. Please see Dr. Headley or Dr. Palafox for further monitoring of your hematuria and bladder cancer. I would like you to see someone in the Urology team this week if possible. Please see Dr. Verduzco in 1-2 weeks to discuss your atrial fibrillation. This is a new diagnosis for you. For atrial fibrillation, we worry about: 1) your heart rate and 2) your stroke risk. Luckily, your heart rate has remained entirely normal despite the atrial fibrillation. For the stroke risk, we would recommend you eventually start a blood thinner such as Eliquis. However, in the setting of hematuria, we will recommend you wait for at least a week or two. Your stroke risk in any given day is very low (approximately 0.019%), so waiting a week or two is not without risk, but is very low risk and probably lower risk than starting a blood thinner and having more hematuria. Pending Studies at Discharge: No Stand-Alone Forms: My [employer], Smoking Cessation Medications and DC Order Prescriptions: New cefdinir 300 mg capsule 300 mg PO BID Qty: 12 RF: 0 Continued (DME) catheter 16 Fr misc See Rx Instructions .ROUTE .MEDSUPPLY Qty: 10 RF: 0 aspirin 81 mg tablet 81 mg PO QAM RF: 0 fluticasone propionate 50 mcg/actuation spray,suspension 2 sprays intranasal BID Qty: 3 RF: 0 cetirizine 10 mg tablet 10 mg PO HS Qty: 30 RF: 0 tamsulosin 0.4 mg capsule 0.4 mg PO BID Qty: 180 RF: 3 cholecalciferol (vitamin D3) 25 mcg (1,000 unit) capsule 25 mcg PO DAILY Qty: 30 RF: 0 acetaminophen [Tylenol Extra Strength] 500 mg Tablet 500 mg PO Q6H PRN (Reason: Pain) RF: 0 carvedilol 25 mg tablet 25 mg PO BID RF: 0 chlorthalidone 25 mg tablet 12.5 mg PO DAILY RF: 0 Discharge Orders: Discharge Order (Routine); Ordered 09/01/21 Ordered By: Jonathan Chapin Admission Data Admit Date/Time: 08/31/21 14:23 Attending Provider: Jonathan Chapin Admit Provider: Aminta Rodriguez Primary Care Provider: Tiago Lara Other Providers: Gurinder Verduzco ; Ric Headley ; Jonathan Chapin Coding Level of Care Code 02296 OBS Care - Discharge Diagnoses Hematuria R31.9 Hematuria type: unspecified type UTI (urinary tract infection) N39.0 New onset a-fib I48.91 Anemia D64.9 Shortness of breath R06.02 Peripheral edema R60.9 CKD (chronic kidney disease), stage III N18.30 Bladder cancer C67.9 Coronary artery disease I25.10 Coronary Disease-Associated Artery/Lesion type: [place] artery [place] vs. transplanted heart: [place] heart Associated angina: without angina HTN (hypertension) I10 Hypertension type: essential hypertension Impaired fasting glucose R73.01 Monoclonal gammopathy of undetermined significance D47.2 Cognitive impairment R41.89 Prostate cancer C61
--- NOTE | 2021-09-01 16:25 | Cardiology Consultation ---
Date of Consultation September 01, 2021 Assessment & Plan (1) New onset a-fib: (2) Coronary artery disease: (3) Shortness of breath: 1. Atrial fibrillation: Unclear duration. His last outpatient evaluation was at the beginning of August. He was reported to have a regular rhythm at that time. He has significant valvular disease and biatrial dilation. He is also of advanced age. All of these provided good substrate for the development of atrial fibrillation. Fortunately he is not symptomatic. He also appears to have adequate rate control on his current medical regimen which includes carvedilol. I do not believe he requires any rhythm control strategy. I do not believe there is any benefit to a cardioversion. Whether he has some element of dyspnea associated with the arrhythmia is unclear, although he appears to have good functional status in any regard. We did discuss the benefits of anticoagulation. He appears to be a good candidate for Eliquis 5 mg twice daily. This can be started on an elective basis. No urgency. Once urology feels it is safe to start anticoagulation he can begin to take Eliquis. 2. Dyspnea: He appears to have some mild dyspnea on exertion. However, this appears to be associated with some fairly distinct activities such as ascending hills or stairs. He does not appear to be limited by dyspnea. He certainly could have an element of ischemic heart disease producing dyspnea. However, he has no symptoms of chest discomfort and overall has good functional status. I do not believe there is a lot of benefit to performing any additional testing at this point. 3. Valvular heart disease: Moderate aortic and mitral regurgitation. Not causing symptoms. This can be monitored over time. History of Present Illness Reason for Consultation: Atrial fibrillation Requesting Physician: Jennifer Attending Physician: Jonathan Chapin MD History of Present Illness The patient is an 86-year-old gentleman with a very remote history of unspecified coronary disease who was evaluated in the emergency room for hematur ia. At the time of admission the patient was also noted to have an irregular heart rhythm and an EKG confirmed atrial fibrillation. The patient has been unaware of any palpitations. He had not noticed any alteration in his heart rate. He has not had symptoms of chest discomfort. He does report some symptoms of dyspnea but these appear to be almost exclusively related to either walking up an incline or ascending stairs. He claims to have a routine exercise regimen which she is able to perform. He does not report symptoms of chest discomfort or limiting dyspnea associated with his routine exercises. Allergies Allergy/AdvReac Type Severity Reaction Status Date / Time KEVIN Inhibitors Allergy Severe SHORTNESS Verified 08/31/21 13:52 OF BREATH Penicillins Allergy Intermediate HIVES Verified 08/31/21 13:52 rosuvastatin [From Crestor] Allergy Intermediate joint Verified 08/31/21 13:52 aches and cramping simvastatin Allergy Intermediate joint Verified 08/31/21 13:52 aches and cramping Kxtmnfz-NOO-BxH Reductase Allergy Intermediate joint Verified 08/31/21 13:52 Inhibitor aches and [Fldivxl-Jsf-Xzo Reductase cramping Inhibitor] RED YEAST RICE Allergy Mild RASH Uncoded 08/31/21 13:52 Home Medications Medication Instructions Recorded Confirmed Type aspirin 81 mg tablet 81 mg PO QAM tab 06/16/19 08/31/21 History cetirizine 10 mg tablet 10 mg PO HS #30 tab 06/16/19 08/31/21 History fluticasone propionate 50 2 sprays INTRANASAL BID #3 gm 06/16/19 08/31/21 History mcg/actuation nasal spray,suspension catheter 16 Fr #10 ea 12/22/19 08/31/21 Rx acetaminophen 500 mg tablet 500 mg PO Q6H PRN 07/09/20 08/31/21 History (Tylenol Extra Strength) tamsulosin 0.4 mg capsule 0.4 mg PO BID #180 cap 09/13/20 08/31/21 Rx cholecalciferol (vitamin D3) 25 25 mcg PO DAILY #30 cap 02/04/21 08/31/21 Rx mcg (1,000 unit) capsule carvedilol 25 mg tablet 25 mg PO BID 08/31/21 08/31/21 History chlorthalidone 25 mg tablet 12.5 mg PO DAILY 08/31/21 08/31/21 History cefdinir 300 mg capsule 300 mg PO BID #12 cap 09/01/21 Rx Patient History Medical History Anemia Aortic regurgitation Bladder cancer (08/17/07) Papillary Urotehelial Carcinoma, 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 Bone marrow biopsy negative for plasma dyscrasia and B cell lymphoma. Myocardial Infarction 1994--followed with Dr. Landaverde Peripheral neuropathy Presbyesophagus Prostate cancer (~04/2005) s/p failure of brachytherapy. Patient opted to forego further treatment d/t age. Shortness of breath on exertion Spinal stenosis Tricuspid regurgitation Surgical History History of back surgery (08/06/17) Dr. Stephens. Fused at L4-L5 and sacrum. History of bilateral cataract extraction History of bladder surgery TURBT 08/17/2007 for bladder cancer History of cardiac cath 1994 @ [facility] – [place]--with 1 stent placed History of colonoscopy History of cystoscopy multiple times--d/t bladder cancer History of esophagogastroduodenoscopy (EGD) History of heart artery stent 1994 1 stent placed History of prostate biopsy [facility] History of tooth extraction all upper teeth/partial lower Hx of vasectomy Family History Unknown Prostate cancer Bladder cancer Hypertension Father Family history of diabetes mellitus Daughter Breast cancer Son Myocardial infarction Other No family history of adverse response to anesthesia Denies family history of Ovarian cancer Colorectal cancer Social History Smoking Status: Former smoker Tobacco Type: Pipe and Cigars Age Quit Using Tobacco: 48; Second Hand Exposure: No ( smoked); Hx Alcohol Use: No Hx Substance Use: No Preferred Language: [place] Communication Ability: Effective Visual Impairment: Limited Hearing Ability: Hard of Hearing Audiovisual Aids Technician Required: No Beliefs That Will Affect Care: None marital status: Current Living Situation: Spouse current occupational status: retired How many Children do You have: 2 Feels Safe at Home: Yes caffeine: Yes (coffee) Dental Care, Regularly: Yes Physical Activity Frequency: Daily Physical Activity Frequency Comment: treadmill in morning, sit ups Seatbelt Use: always Sunscreen Use: Yes Assistive Devices: None Review of Systems Review of Systems: Per HPI. No significant dizziness or lightheadedness. No history of syncope. Physical Exam Physical Exam: The patient is alert and oriented. Mood and affect appeared normal. He answered all questions appropriately. HEENT: Pupils are equal and reactive to light and accommodation. Extraocular movements are intact. The sclerae are anicteric. Neuro: Cranial nerves intact Neck: Patient's neck is supple. He has palpable carotid pulses bilaterally without bruits on auscultation. There is no evidence of jugular venous distention. The thyroid is not enlarged. Lungs: Clear to auscultation bilaterally. He has good air movement without use of accessory muscles. No rales wheezes or rhonchi. Cardiac: Heart demonstrates an irregular rate and rhythm. Normal S1 and S2. No murmurs on examination. Pulses: The patient has palpable radial pulses bilaterally that are equal in intensity Extremities: There was no evidence of hypoperfusion. There is no cyanosis or clubbing. There is no edema. Skin: I did not appreciate any rashes on examination today. Atrial fibrillation Results & Data ([facility]) Vital Signs (Past 12 Hours) Vital Signs Temp Pulse Pulse Resp BP BP Pulse Ox 09/01/21 14:55 90 09/01/21 14:52 37.0 C 58 L 18 115/64 164/68 H 99 09/01/21 11:22 37.0 C 58 L 18 115/64 99 09/01/21 07:38 36.7 C 85 18 139/88 95 09/01/21 07:30 68 Laboratory Results Abnormal Lab Results 08/31/21 09/01/21 09/01/21 12:09 08:34 08:34 WBC 10.40 RBC 3.80 L Hgb 12.0 L Hct 36.7 L MCV 96.6 MCH 31.6 MCHC 32.7 RDW Std Deviation 52.1 H RDW Coeff of Tay 14.7 H Plt Count 165 MPV 9.7 Immature Gran % (Auto) 0.2 Neut % (Auto) 78.6 Lymph % (Auto) 10.4 [place] % (Auto) 9.2 Eos % (Auto) 1.3 Baso % (Auto) 0.3 Neut # (Auto) 8.17 H Lymph # (Auto) 1.08 L [place] # (Auto) 0.96 H Eos # (Auto) 0.14 Baso # (Auto) 0.03 Immature Gran # (Auto) 0.02 Sodium 141 Potassium 3.6 Chloride 109 H Carbon Dioxide 24 Anion Gap 8.0 BUN 31 H Creatinine 1.61 H D Est Cr Clr Drug Dosing 30.9 Est GFR ( Amer) 43.6 Est GFR (Non-Af Amer) 37.6 BUN/Creatinine Ratio 19.1 Glucose 93 Calcium 9.4 Magnesium 2.3 SARS-CoV-2 RNA ([facility]) Negative Diagnostic Findings Echocardiogram performed today revealed preserved LV systolic function with aortic, mitral and tricuspid regurgitation. Biatrial dilation. PG Care Time/CCT Total # of Minutes Spent Total Time Spent with Patient: Total time spent is greater than 50% in coordination of care (as documented) at patient's floor/unit and/or counseling patient: Coding Level of Care Code 13226 Inpt Consult Level 3 Diagnoses New onset a-fib I48.91 Coronary artery disease I25.10 Associated angina: without angina Coronary Disease-Associated Artery/Lesion type: [place] artery [place] vs. transplanted heart: [place] heart Shortness of breath R06.02 (1) Coronary artery disease Associated angina: without angina Coronary Disease-Associated Artery/Lesion type: [place] artery [place] vs. transplanted heart: [place] heart Qualified Code(s): I25.10 - Atherosclerotic heart disease of [place] coronary artery without angina pectoris
== END 2021-09-01 15:21 | disposition home or self-care (01) ==
LOC: 2N 10:05 → ED 10:05 → SUATTDRO 14:23 → 2N 18:20

== ENCOUNTER 2021-12-16 11:34 | Inpatient (IN) ==
[2021-12-16] MEDS ORDERED: cefTRIAXone SODIUM 1,000 MG/50 ML BAG IV STA (13:40)
[2021-12-16] MEDS ORDERED: SODIUM CHLORIDE 0.9% 1000ML 1,000 ML IV SCH (13:45)
[2021-12-16 14:36] LABS: Basophils # (auto) 0.03 K/uL (0-0.2); Basophils % (auto) 0.2 %; Eosinophils # (auto) 0.17 K/uL (0-0.5); Eosinophils % (auto) 1.4 %; Hematocrit (blood only) 35.8 % (42-52); Hemoglobin 12.1 g/dL (14.0-18.0); Immature Granulocytes # (auto) 0.03 K/uL (0.00-0.02); Immature Granulocytes % (auto) 0.2 %; Lymphocytes % (auto) 8.3 %; Mean Corpuscular Hemoglobin 31.5 pg (25-34); Mean Corpuscular Hgb Conc 33.8 g/dL (32-36); Mean Corpuscular Volume 93.2 fL (80-100); Mean Platelet Volume 8.7 fL (7.4-10.4); Monocytes # (auto) 1.03 K/uL (0.11-0.59); Monocytes % (auto) 8.6 %; Neutrophils # (auto) 9.78 K/uL (1.4-6.5); Neutrophils % (auto) 81.3 %; Platelet Count 274 K/uL (130-400); RDW Coefficient of Variation 14.6 % (11.5-14.5); RDW Standard Deviation 49.9 fL (36.4-46.3); Red Blood Count 3.84 M/uL (4.7-6.1); White Blood Count 12.04 K/uL (4.8-10.8)
--- NOTE | 2021-12-16 14:37 | XRay Report ---
XR chest 1V portable HISTORY: weakness COMPARISON: Chest 08/31/2021. FINDINGS: The cardiac silhouette remains mildly enlarged. There are low lung volumes. No focal lung c onsolidations to suggest pneumonia. No evidence for pulmonary edema. No pleural effusions. No pneumot horax. Degenerative changes again noted within the shoulders. IMPRESSION: Mild cardiomegaly. Otherwise, no acute process within the chest. ACT 112: Negative or not required by law. Electronically signed by: Vu Perez M.D. 12/16/2021 2:35 PM
[2021-12-16 14:57] LABS: Troponin I 0.03 ng/ml (0-0.04)
[2021-12-16 15:01] LABS: Alanine Aminotransferase 9 U/L (7-52); Albumin Globulin Ratio 0.8 (0.9-2); Albumin Level 3.5 gm/dl (3.4-5.0); Alkaline Phosphatase 58 U/L (34-104); Anion Gap 12 (3-11); Aspartate Aminotransferase 12 U/L (13-39); BUN Creatinine Ratio 23.9 (10-20); Bilirubin,Total 0.6 mg/dl (0.2-1.0); Blood Urea Nitrogen 47 mg/dl (6-23); Calcium 9.6 mg/dl (8.5-10.1); Carbon Dioxide 26 mmol/L (21-32); Chloride 96 mmol/L (98-107); Est GFR (African American) 34.2 ml/min; Est GFR (Non-African American) 29.5 ml/min; Globulin 4.2 gm/dl (2.5-4.0); Glucose 106 mg/dl (70-99(Fasting)); Magnesium 2.2 mg/dl (1.7-2.4); Potassium 2.9 mmol/L (3.5-5.1); Sodium 134 mmol/L (136-145); Total Protein 7.7 gm/dl (6.0-8.3)
[2021-12-16] MEDS: POTASSIUM CHLORIDE / WTR 10 MEQ/100 ML PLCT IV SCH ×2 (15:33→16:54)
[2021-12-16] MEDS ORDERED: LIDOCAINE 2% JELLY 5 ML TUBE EXT ONE (15:41)
[2021-12-16 15:43] LABS: Appearance Urine Turbid (Clear); Bilirubin Urine Negative (Negative); Blood Urine 3+ (Negative); Color Urine Yellow; Glucose Urine UA Negative (Negative); Ketones Urine Negative (Negative); Leukocyte Esterase Urine 3+ (Negative); Nitrite Urine Negative (Negative); Protein Urine 1+ (Negative); Specific Gravity Urine 1.009 (1.000-1.030); Urobilinogen Urine Negative (Negative)
--- NOTE | 2021-12-16 15:59 | History & Physical Report ---
Date of Service December 16, 2021 Assessment & Plan (1) Acute bacterial prostatitis: Plan: Suspected based on history of recurrent UTIs growing the same bacteria, b/l testicular pain, urinary retention, progressive worsening despite ciprofloxacin use. Prostate exam deferred on admission. No CVA tenderness to suggest pyelonephritis Follow up blood and urine cultures Ceftriaxone 1g IV daily - suggest 4-6 weeks of antibiotics (2) Urinary retention: Plan: Recurrent history of similar. ?acute worse due to prostatitis ?urethral strictures from prior brachytherapy Mcallister catheter replaced in the ER but present since December 11. Continue tamsulosin Consult urology for ongoing management (3) Hematuria due to acute cystitis: Plan: Hold Eliquis (takes for a. fib) and ASA (remote Hx CAD with stent) Consult urology (4) Hypokalemia: Plan: Secondary to chlorthalidone and patient stopping his potassium supplementation (?due to gastritis) KCl 10 meq x2 IV given in ER, additional 20 meq PO now then daily Repeat BMP with AM labs (5) (HFpEF) heart failure with preserved ejection fraction: Plan: Noted history of this. On chlorthalidone as diuretic (on hold due to acute infection). D/c further IV fluids. (6) Atrial fibrillation with controlled ventricular rate: Plan: Hold anticoagulation due to hematuria. If improving and cleared by urology can likely be restarted tomorrow. Continue rate control with carvedilol with hold parameters (7) CKD (chronic kidney disease), stage III: Plan: At baseline, monitor with BMP in AM (8) Prostate cancer: Plan: s/p brachytherapy 2004 (9) HTN (hypertension): Plan: Hold chlorthalidone is setting of acute infection and monitor BP. Continue carvedilol Plan: VTE Prophylaxis - SCDs, chemical anticoagulation deferred on admission due to hematuria Diet - heart healthy Disposition - admit to med/tele Admission and Anticipated Discharge Date Admission Date: December 16, 2021 History of Present Illness Chief Complaint: Generalized weakness Primary Care Provider: Tiago Lara MD Torrey Mancia is an 86 year old male who presents to the ER with generalized weakness and muscle aches. His provides most of his history at bedside. Initial recent symptoms of a UTI started at the beginning of December. Initially with hematuria and increased difficulty passing urine. He was passing clots per recollection. Recognizing the signs of a UTI she called the urologist office and provided a sample of urine which subsequently grew pansensitive proteus mirabilis and he was started on ciprofloxacin on . The hematuria initially improved on the antibiotic but due to progressive problems passing urine he was seen by the urology office on December 11 for a voiding trial which he failed. Therefore Mcallister catheter was left in at that time for urology follow up. He was already taking tamsulosin 0.4mg PO BID prior to this and has had intermittent difficulties passing urine over the years requiring very intermittent self catheterization after prostate brachytherapy in 2004. He has had prior hematuria secondary to UTIs which have been recurrent over the last year. Despite mcallister catheter insertion and ciprofloxacin use he has been getting increasingly weak over the last week with generalized muscle weakness. He denies any fever, chills or back pain. His called the PCP and urology office and recommended coming to the ER. In the ER mcallister catheter was exchanged and pus came out. He was referred to medicine for admission and ongoing management of UTI with failure of outpatient antibiotics. Hematuria has been resolving while the patient has still been taking aspirin (due to history of [place] with cardiac stent in the ) and Eliquis (for a. fib). Allergies Allergy/AdvReac Type Severity Reaction Status Date / Time KEVIN Inhibitors Allergy Severe SHORTNESS Verified 12/16/21 14:27 OF BREATH Penicillins Allergy Intermediate HIVES Verified 12/16/21 14:27 rosuvastatin [From Crestor] Allergy Intermediate joint Verified 12/16/21 14:27 aches and cramping simvastatin Allergy Intermediate joint Verified 12/16/21 14:27 aches and cramping Oxjipxi-KGG-TnA Reductase Allergy Intermediate joint Verified 12/16/21 14:27 Inhibitor aches and [Gdmfitu-Lin-Fjc Reductase cramping Inhibitor] RED YEAST RICE Allergy Mild RASH Uncoded 12/16/21 14:27 Home Medications Medication Instructions Recorded Confirmed Type cetirizine 10 mg tablet 10 mg PO HS #30 tab 06/16/19 12/16/21 History fluticasone propionate 50 2 sprays INTRANASAL BID #3 gm 06/16/19 12/16/21 History mcg/actuation nasal spray,suspension catheter 16 Fr #10 ea 12/22/19 11/15/21 Rx carvedilol 25 mg tablet 25 mg PO BID 08/31/21 12/16/21 History cholecalciferol (vitamin D3) 25 50 mcg PO DAILY cap 09/11/21 12/16/21 History mcg (1,000 unit) capsule tamsulosin 0.4 mg capsule 0.4 mg PO BID #180 cap 09/25/21 12/16/21 Rx apixaban 2.5 mg tablet (Eliquis) 2.5 mg PO BID #180 tab 10/07/21 12/16/21 Rx chlorthalidone 25 mg tablet 25 mg PO DAILY #90 tab 10/15/21 12/16/21 Rx potassium chloride 20 mEq 20 meq PO DAILY #30 tab 11/12/21 12/16/21 Rx tablet,extended release ciprofloxacin HCl 250 mg tablet 250 mg PO BID 4 Days #8 tab 12/11/21 12/16/21 Rx aspirin 81 mg tablet,delayed 81 mg PO DAILY 12/16/21 12/16/21 History release (Aspirin Low Dose) Past Med/Surg History Medical History Anemia Aortic regurgitation Bladder cancer (08/17/07) Papillary Urotehelial Carcinoma, 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 Bone marrow biopsy negative for plasma dyscrasia and B cell lymphoma. Myocardial Infarction 1994--followed with Dr. Landaverde Peripheral neuropathy Presbyesophagus Prostate cancer (~04/2005) s/p failure of brachytherapy. Patient opted to forego further treatment d/t age. Shortness of breath on exertion Spinal stenosis Tricuspid regurgitation Surgical History History of back surgery (08/06/17) Dr. Stephens. Fused at L4-L5 and sacrum. History of bilateral cataract extraction History of bladder surgery TURBT 08/17/2007 for bladder cancer [place] [facility] [place] History of colonoscopy History of cystoscopy multiple times--d/t bladder cancer History of esophagogastroduodenoscopy (EGD) History of heart artery stent 1994 1 stent placed History of prostate biopsy Unable to find path report in [employer] or [employer]. History of tooth extraction all upper teeth/partial lower Hx of vasectomy Family History Unknown Prostate cancer Bladder cancer Hypertension Father Family history of diabetes mellitus Daughter Breast cancer Son Myocardial infarction Other No family history of adverse response to anesthesia Denies family history of Ovarian cancer Colorectal cancer Social History Smoking Status: Never smoker Tobacco Type: Pipe and Cigars Age Quit Using Tobacco: 48; Second Hand Exposure: No ( smoked); Hx Alcohol Use: Yes Alcohol type: wine Alcohol Intake Frequency Comment: once a day Hx Substance Use: No Preferred Language: Beninese Communication Ability: Effective Visual Impairment: Limited Hearing Ability: Hard of Hearing Associate Agent Insurance Sales Required: No Beliefs That Will Affect Care: None marital status: Current Living Situation: Spouse Current Living Situation Comment: Lives at home with his current occupational status: retired How many Children do You have: 2 Other Information That Helps Us Care for You: No Feels Safe at Home: Yes Safety Concerns: Feels Safe At This Time caffeine: Yes (coffee) Dental Care, Regularly: Yes Physical Activity Frequency: Daily Physical Activity Frequency Comment: treadmill in morning, sit ups Seatbelt Use: always Sunscreen Use: Yes Assistive Devices: Walker Review of Systems Review of Systems: All systems reviewed & are unremarkable except as noted in HPI & below Gastrointestinal: + constipation Physical Exam Constitutional: WD/WN, vitals as above Eyes: + anicteric sclerae; normal pupil size ENMT: external ear and nose normal, oropharynx normal Neck: trachea midline, no thyromegaly Respiratory: normal respiratory effort, lungs clear to auscultation Cardiovascular: Rate/Rhythm: regular rate and + irregularly irregular Heart Sounds: no murmur Extremities: normal capillary refill and + pedal edema (trace equal b/l); no calf tenderness Gastrointestinal (Abdomen): Inspection/Auscultation: normal bowel sounds Percussion/Palpation: + abdomen tender (suprapubic) and abdomen soft; no guarding and abdomen not rigid Musculoskeletal: no cyanosis or clubbing, extremities motor strength 5/5 Skin: no rashes, warm and dry Neurologic: moves all extremities and awake; not confused Psychiatric: A+Ox3, euthymic affect Genitourinary: + testicular tenderness (b/l equal epidydimis); no CVA tenderness and no testicular mass Results & Data Results & Data ([facility]) Vital Signs (Past 12 Hours) Vital Signs Temp Pulse Pulse Resp BP BP Pulse Ox 12/16/21 15:31 74 16 118/70 95 12/16/21 15:01 73 17 128/70 100 12/16/21 14:30 87 22 136/82 99 12/16/21 14:00 72 24 12/16/21 11:47 36.8 C 88 18 107/63 97 Laboratory Results Abnormal lab results 12/16/21 12/16/21 12/16/21 Range/Units 14:06 14:06 15:29 WBC 12.04 H (4.8-10.8) K/uL RBC 3.84 L (4.7-6.1) M/uL Hgb 12.1 L (14.0-18.0) g/dL Hct 35.8 L (42-52) % RDW Std Deviation 49.9 H (36.4-46.3) fL RDW Coeff of Tay 14.6 H (11.5-14.5) % Neut # (Auto) 9.78 H (1.4-6.5) K/uL Lymph # (Auto) 1.00 L (1.2-3.4) K/uL [place] # (Auto) 1.03 H (0.11-0.59) K/uL Immature Gran # (Auto) 0.03 H (0.00-0.02) K/uL Sodium 134 L (136-145) mmol/L Potassium 2.9 L (3.5-5.1) mmol/L Chloride 96 L (98-107) mmol/L Anion Gap 12 H (3-11) BUN 47 H (6-23) mg/dl Creatinine 1.97 H (0.6-1.4) mg/dl BUN/Creatinine Ratio 23.9 H (10-20) Glucose 106 H (70-99(Fasting)) mg/dl AST 12 L (13-39) U/L Globulin 4.2 H (2.5-4.0) gm/dl Albumin/Globulin Ratio 0.8 L (0.9-2) Urine Appearance Turbid A (Clear) Urine Protein 1+ H (Negative) Urine Blood 3+ H (Negative) Ur Leukocyte Esterase 3+ H (Negative) Urine WBC (Auto) >30 H (0-5) /hpf Urine RBC (Auto) >30 H (0-4) /hpf U Epithel Cells (Auto) >30 H (0-5) /lpf Urine Bacteria (Auto) 2+ H (Negative) Diagnostic Findings XR chest 1V portable HISTORY: weakness COMPARISON: Chest 08/31/2021. FINDINGS: The cardiac silhouette remains mildly enlarged. There are low lung volumes. No focal lung consolidations to suggest pneumonia. No evidence for pulmonary edema. No pleural effusions. No pneumothorax. Degenerative changes again noted within the shoulders. IMPRESSION: Mild cardiomegaly. Otherwise, no acute process within the chest. Medications Administered ER Medications Given: Ceftriaxone 1g IV ECG Indication: altered mental status Rate (beats per minute): 78 Rhythm: atrial fibrillation Findings: + RBBB and + left axis deviation Comparison ECG Date: from (Aug 31, 2021) Change: no significant change Code Status & VTE Plan Code Status DNR/DNI per patient wishes VTE Prophylaxis Plan VTE Prophylaxis will be ordered: Yes Reason for no VTE drug order: Contraindicated PG Care Time/CCT Total # of Minutes Spent Total Time Spent with Patient: Total time spent is greater than 50% in coordination of care (as documented) at patient's floor/unit and/or counseling patient: Coding Level of Care Code 56875 Initial Inpt Care Lvl 3 Diagnoses Acute bacterial prostatitis N41.0 (HFpEF) heart failure with preserved ejection fraction I50.30 Atrial fibrillation with controlled ventricular rate I48.91 CKD (chronic kidney disease), stage III N18.30 Prostate cancer C61 Hematuria due to acute cystitis N30.01 HTN (hypertension) I10 Hypertension type: essential hypertension Hypokalemia E87.6 Urinary retention R33.9 (1) HTN (hypertension) Hypertension type: essential hypertension Qualified Code(s): I10 - Essential (primary) hypertension
[2021-12-16 16:09] LABS: Epithelial Cell Urine Auto >30 /lpf (0-5); RBC Urine Automated >30 /hpf (0-4); WBC Urine Automated >30 /hpf (0-5)
[2021-12-16 16:12] LABS: Bacteria Urine Automated 2+ (Negative)
[2021-12-16] MEDS ORDERED: PATIENT'S HEIGHT AND/OR WEIGHT NEEDED SCH (17:45)
[2021-12-16] MEDS: POLYETHYLENE (MIRALAX) 17 GM PACK PO SCH ×2 (18:10→20:21)
--- NOTE | 2021-12-16 19:36 | Urology Consultation ---
Date of Consultation December 16, 2021 Assessment & Plan (1) Acute bacterial prostatitis: Patient has been admitted on the hospitalist service proceeding as follows: Antibiotics from Rocephin have been initiated. Recommend continuing this antibiotic until cultures are available at which point antibiotics can be tailored further. Patient's weakness could be explained by this condition so treatment of this will hopefully help his underlying condition We will continue to follow. History of Present Illness Reason for Consultation: Hematuria Attending Physician: Peter Ling MD History of Present Illness This is an 87-year-old male who presented to the [facility] emergency department secondary to generalized weakness which has progressed over the past week. Patient says that he has been taking an antibiotic for urinary tract infection since 12/06/2021. Patient notes that he has had a urinary tract infection in the past and has had similar symptoms. He denies any falls or head injuries. He denies any fevers, shakes, chills. Patient does note that he takes Eliquis and aspirin and had hematuria in the past at which time he had a Proteus urinary tract infection. With his current presentation the patient does deny any hematuria. Patient was most recently seen in the urology office on 12/11/[address] Headley at which time patient had a coud catheter inserted difficulty. The patient notes that this catheter has been in place since that procedure. Since arrival to the hospital the patient has been noted to be afebrile and hemodynamically stable. He did have labs and imaging which independent reviewed. A chest x-ray showed no evidence of pneumonia. A CBC revealed white blood cell count was elevated 12.0. Hemoglobin and hematocrit were 12.1 and 35.8. Platelet count was noted to be within normal range. Chemistry profile showed sodium and potassium are 134 and 2.9. BUN and creatinine were 47 and 1.9. This level of creatinine was consistent with patient's baseline creatinine. Urinalysis was performed that showed turbid urine. There is 3+ blood noted and 3+ leukocyte esterase. There are greater than 30 white blood cells per high-power field. There is 2+ bacteria. A Covid test was performed and was noted to be negative. Since arrival to the emergency department the patient has been administered antibiotics in form of Rocephin and cultures have been sent. At the time of my interview the patient was resting comfortably in bed and he was in no distress. Allergies Allergy/AdvReac Type Severity Reaction Status Date / Time KEVIN Inhibitors Allergy Severe SHORTNESS Verified 12/16/21 14:27 OF BREATH Penicillins Allergy Intermediate HIVES Verified 12/16/21 14:27 rosuvastatin [From Crestor] Allergy Intermediate joint Verified 12/16/21 14:27 aches and cramping simvastatin Allergy Intermediate joint Verified 12/16/21 14:27 aches and cramping Orm[facility]-SBH-EcG Reductase Allergy Intermediate joint Verified 12/16/21 14:27 Inhibitor aches and [Brdbgps-Egk-Ixp Reductase cramping Inhibitor] RED YEAST RICE Allergy Mild RASH Uncoded 12/16/21 14:27 Home Medications Medication Instructions Recorded Confirmed Type cetirizine 10 mg tablet 10 mg PO HS #30 tab 06/16/19 12/16/21 History fluticasone propionate 50 2 sprays INTRANASAL BID #3 gm 06/16/19 12/16/21 History mcg/actuation nasal spray,suspension catheter 16 Fr #10 ea 12/22/19 11/15/21 Rx carvedilol 25 mg tablet 25 mg PO BID 08/31/21 12/16/21 History cholecalciferol (vitamin D3) 25 50 mcg PO DAILY cap 09/11/21 12/16/21 History mcg (1,000 unit) capsule tamsulosin 0.4 mg capsule 0.4 mg PO BID #180 cap 09/25/21 12/16/21 Rx apixaban 2.5 mg tablet (Eliquis) 2.5 mg PO BID #180 tab 10/07/21 12/16/21 Rx chlorthalidone 25 mg tablet 25 mg PO DAILY #90 tab 10/15/21 12/16/21 Rx potassium chloride 20 mEq 20 meq PO DAILY #30 tab 11/12/21 12/16/21 Rx tablet,extended release ciprofloxacin HCl 250 mg tablet 250 mg PO BID 4 Days #8 tab 12/11/21 12/16/21 Rx aspirin 81 mg tablet,delayed 81 mg PO DAILY 12/16/21 12/16/21 History release (Aspirin Low Dose) Patient History Medical History Anemia Aortic regurgitation Bladder cancer (08/17/07) Papillary Urotehelial Carcinoma, 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 Bone marrow biopsy negative for plasma dyscra max and B cell lymphoma. Myocardial Infarction 1994--followed with Dr. Landaverde Peripheral neuropathy Presbyesophagus Prostate cancer (~04/2005) s/p failure of brachytherapy. Patient opted to forego further treatment d/t age. Shortness of breath on exertion Spinal stenosis Tricuspid regurgitation Surgical History History of back surgery (08/06/17) Dr. Stephens. Fused at L4-L5 and sacrum. History of bilateral cataract extraction History of bladder surgery TURBT 08/17/2007 for bladder cancer History of cardiac cath 1994 @ [facility]--with 1 stent placed History of colonoscopy History of cystoscopy multiple times--d/t bladder cancer History of esophagogastroduodenoscopy (EGD) History of heart artery stent 1994 1 stent placed History of prostate biopsy Unable to find path report in [facility] or [facility]. History of tooth extraction all upper teeth/partial lower Hx of vasectomy Family History Unknown Prostate cancer Bladder cancer Hypertension Father Family history of diabetes mellitus Daughter Breast cancer Son Myocardial infarction Other No family history of adverse response to anesthesia Denies family history of Ovarian cancer Colorectal cancer Social History Smoking Status: Never smoker Tobacco Type: Pipe and Cigars Age Quit Using Tobacco: 48; Second Hand Exposure: No ( smoked); Hx Alcohol Use: Yes Alcohol type: wine Alcohol Intake Frequency Comment: once a day Hx Substance Use: No Preferred Language: Comoran Communication Ability: Effective Visual Impairment: Limited Hearing Ability: Hard of Hearing Enameler Required: No Beliefs That Will Affect Care: None marital status: Current Living Situation: Spouse Current Living Situation Comment: Lives at home with his current occupational status: retired How many Children do You have: 2 Other Information That Helps Us Care for You: No Feels Safe at Home: Yes Safety Concerns: Feels Safe At This Time caffeine: Yes (coffee) Dental Care, Regularly: Yes Physical Activity Frequency: Daily Physical Activity Frequency Comment: treadmill in morning, sit ups Seatbelt Use: always Sunscreen Use: Yes Assistive Devices: None Review of Systems Constitutional: no fever and no chills Eyes: no diplopia Ear, Nose, Mouth, Throat: no ear pain Respiratory: no cough and no dyspnea Cardiovascular: no chest pain Gastrointestinal: no abdominal pain, no nausea and no vomiting Genitourinary: + as per Subjective / HPI Musculoskeletal: no back pain Integumentary: no rash Neurologic: + unsteadiness and + localized weakness (Lower extremity weakness) Physical Exam Constitutional: well developed and well nourished; no acute distress Eyes: no conjunctival abnormality ENMT: Ears: no hearing impairment and no external ear abnormality Neck: trachea midline Respiratory: normal respiratory effort; no respiratory distress and no labored breathing Cardiovascular: Rate/Rhythm: regular rate and regular rhythm Gastrointestinal (Abdomen): Soft, nontender, nondistended. Palpation did not cause pain Musculoskeletal: No calf tenderness Skin: + rash Neurologic: moves all extremities Psychiatric: A+Ox3, euthymic affect Genitourinary: Licea catheter is in place. It is draining yellow urine which is clear. There is no evidence of hematuria no blood clots noted. Results & Data ([facility]) Vital Signs (Past 12 Hours) Vital Signs Temp Pulse Pulse Resp BP BP Pulse Ox 12/16/21 19:23 36.5 C 84 20 123/72 99 12/16/21 18:05 79 12/16/21 17:19 36.4 C L 90 18 121/75 99 12/16/21 17:08 87 19 118/84 96 12/16/21 15:31 74 16 118/70 95 12/16/21 15:01 73 17 128/70 100 12/16/21 14:30 87 22 136/82 99 12/16/21 14:00 72 24 12/16/21 11:47 36.8 C 88 18 107/63 97 PG Care Time/CCT Total # of Minutes Spent Total Time Spent with Patient: Total time spent is greater than 50% in coordination of care (as documented) at patient's floor/unit and/or counseling patient: Coding Level of Care Code 50173 Inpt Consult Level 5 Diagnoses Acute bacterial prostatitis N41.0
[2021-12-16] MEDS ORDERED: POTASSIUM CHLORIDE CRTAB 20 MEQ TABCR PO STA (19:53)
[2021-12-16] MEDS: TAMSULOSIN HCL 0.4 MG CAP PO SCH (20:21)
[2021-12-16] MEDS: FLUTICASONE PROPIONATE NA SPR 16 GM BTL NAE SCH (20:21)
[2021-12-16] MEDS: CETIRIZINE HCL 10 MG TABLET PO SCH (20:22)
[2021-12-16] MEDS: carvediloL 25 MG TAB PO SCH (20:22)
--- NOTE | 2021-12-16 21:46 | Electrocardiogram Report ---
Test Reason : Blood Pressure : / mmHG Vent. Rate : 078 BPM Atrial Rate : 072 BPM P-R Int : 000 ms QRS Dur : 144 ms QT Int : 430 ms P-R-T Axes : 000 -43 -16 degrees QTc Int : 490 ms Atrial fibrillation Left axis deviation Right bundle branch block Abnormal ECG When compared with ECG of 31-AUG-2021 11:04, No significant change was found Confirmed by Maxim Meyers ([id number]) on 12/16/2021 9:46:19 PM Referred By: Tiago Lara Confirmed By:Maxim Meyers
[2021-12-17] MEDS: ACETAMINOPHEN 325 MG TAB PO PRN (00:14)
[2021-12-17 06:35] LABS: Basophils # (auto) 0.03 K/uL (0-0.2); Basophils % (auto) 0.3 %; Eosinophils # (auto) 0.22 K/uL (0-0.5); Eosinophils % (auto) 1.9 %; Hematocrit (blood only) 31.7 % (42-52); Hemoglobin 10.7 g/dL (14.0-18.0); Immature Granulocytes # (auto) 0.03 K/uL (0.00-0.02); Immature Granulocytes % (auto) 0.3 %; Lymphocytes # (auto) 1.09 K/uL (1.2-3.4); Lymphocytes % (auto) 9.4 %; Mean Corpuscular Hemoglobin 31.2 pg (25-34); Mean Corpuscular Hgb Conc 33.8 g/dL (32-36); Mean Corpuscular Volume 92.4 fL (80-100); Mean Platelet Volume 8.5 fL (7.4-10.4); Monocytes # (auto) 1.19 K/uL (0.11-0.59); Monocytes % (auto) 10.3 %; Neutrophils # (auto) 8.99 K/uL (1.4-6.5); Neutrophils % (auto) 77.8 %; Platelet Count 231 K/uL (130-400); RDW Coefficient of Variation 14.6 % (11.5-14.5); RDW Standard Deviation 48.9 fL (36.4-46.3); Red Blood Count 3.43 M/uL (4.7-6.1); White Blood Count 11.55 K/uL (4.8-10.8)
[2021-12-17 07:01] LABS: BUN Creatinine Ratio 24.2 (10-20); C Reactive Protein 14.71 mg/dl (0-0.5); Calcium 9.4 mg/dl (8.5-10.1); Est GFR (African American) 46.4 ml/min; Potassium 3.3 mmol/L (3.5-5.1)
[2021-12-17] MEDS ORDERED: POTASSIUM CHLORIDE CRTAB 20 MEQ TABCR PO STA (07:07)
[2021-12-17] MEDS: POLYETHYLENE (MIRALAX) 17 GM PACK PO SCH ×3 (07:27→21:21)
[2021-12-17] MEDS: POTASSIUM CHLORIDE CRTAB 20 MEQ TABCR PO SCH (07:28)
[2021-12-17] MEDS: FLUTICASONE PROPIONATE NA SPR 16 GM BTL NAE SCH ×2 (07:29→21:18)
[2021-12-17] MEDS: TAMSULOSIN HCL 0.4 MG CAP PO SCH ×2 (07:30→21:20)
[2021-12-17] MEDS: CHOLECALCIFEROL 1,000 UNITS 25 MCG TAB PO SCH (07:30)
[2021-12-17] MEDS: carvediloL 25 MG TAB PO SCH (07:30)
--- NOTE | 2021-12-17 07:55 | Emergency Department Note ---
Impression & Plan UTI (urinary tract infection), Weakness, Atrial fibrillation, controlled, H/O prostate cancer ED Provider Note CHIEF COMPLAINT: Weakness, Licea Cath, being treated for UTI HISTORY OF PRESENT ILLNESS: This 86-year-old male patient presents to the emergency department with his complaining of decreased urine output and his Licea catheter. The patient has a history of prostate cancer and is currently being treated with Cipro for UTI by urology. Per patient's he has been fatigued and acting as though he has another UTI. Patient is complaining of discomfort at the urethral meatus. He has had a decreased appetite although no fever or vomiting. Patient does feel as though the catheter is draining properly. He has not seen significant clotting but does feel that there is sed iment in the urine. He denies any chest pain, shortness of breath, recent falls, abdominal pain or back pain. REVIEW OF SYSTEMS: A review of systems was performed with positives and pertinent negatives listed in the history of present illness. 10 systems were reviewed and are otherwise negative. ALLERGIES: see below MEDICATIONS: see below PMH: see below SOCIAL HISTORY: see below DDx: Infection, dehydration, metabolic abnormality, hypo/hyperglycemia, electrolyte disturbance, anemia, hypoxia, cardiac sources, intracerebral event, toxicologic, neurologic, as well as other pathologies. PHYSICAL EXAM: Vital signs reviewed. General: Elderly, somewhat ill-appearing 86-year-old male in no significant distress. HEENT: No scleral icterus, PERRLA, neck supple. Atraumatic. Cardiovascular: Irregular but rate controlled, no extra sounds. Pulmonary: Clear to auscultation bilaterally, normal work of breathing. Abdomen: Soft, nontender, nondistended, positive bowel sounds. Musculoskeletal: Atraumatic, no peripheral edema. Neurologic: Patient awake alert and oriented x 3, speech is clear Skin: Warm, dry, no rash EMERGENCY DEPARTMENT COURSE/MDM: This patient was evaluated and appeared to be in no significant distress. IV access was obtained and laboratory work was drawn. Patient was placed on the crepe sole scourer and noted to be in a rate controlled atrial fibrillation. Patient's laboratory work is fairly reassuring although there is a mild leukocytosis which does appear to be somewhat chronic. Patient is noted to have some CKD. IV fluids were established. Licea catheter was changed and urine obtained. It is indicative of infection. This will be sent for culture. Patient was medicated with IV ceftriaxone. Hospitalist service was consulted for further management. MONITORING: An order for cardiac monitoring was placed and the patient is noted to be in a atrial fibrillation at 90 beats per minute. RADIOLOGY: See below EKG: Atrial fibrillation at 78 bpm. Left axis deviation with a right bundle branch block. Normal ST segments with repolarization abnormality. No significant change from August 31, 2021. 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 Bone marrow biopsy negative for plasma dyscrasia and B cell lymphoma. Myocardial Infarction 1994--followed with Dr. Landaverde Peripheral neuropathy Presbyesophagus Prostate cancer (~04/2005) s/p failure of brachytherapy. Patient opted to forego further treatment d/t age. Shortness of breath on exertion Spinal stenosis Tricuspid regurgitation Surgical History History of back surgery (08/06/17) Dr. Stephens. Fused at L4-L5 and sacrum. History of bilateral cataract extraction History of bladder surgery TURBT 08/17/2007 for bladder cancer History of cardiac cath 1994 @ [facility]--with 1 stent placed History of colonoscopy History of cystoscopy multiple times--d/t bladder cancer History of esophagogastroduodenoscopy (EGD) History of heart artery stent 1994 1 stent placed History of prostate biopsy Unable to find path report in [employer] or [employer]. History of tooth extraction all upper teeth/partial lower Hx of vasectomy Family History Unknown Prostate cancer Bladder cancer Hypertension Father Family history of diabetes mellitus Daughter Breast cancer Son Myocardial infarction Other No family history of adverse response to anesthesia Denies family history of Ovarian cancer Colorectal cancer Social History Smoking Status: Never smoker Tobacco Type: Pipe and Cigars Age Quit Using Tobacco: 48; Second Hand Exposure: No ( smoked); Hx Alcohol Use: Yes Alcohol type: wine Alcohol Intake Frequency Comment: once a day Hx Substance Use: No Preferred Language: [place] Citizen Communication Ability: Effective Visual Impairment: Limited Hearing Ability: Hard of Hearing Tipple Repairer Required: No Beliefs That Will Affect Care: None marital status: Current Living Situation: Spouse Current Living Situation Comment: Lives at home with his current occupational status: retired How many Children do You have: 2 Feels Safe at Home: Yes caffeine: Yes (coffee) Dental Care, Regularly: Yes Physical Activity Frequency: Daily Physical Activity Frequency Comment: treadmill in morning, sit ups Seatbelt Use: always Sunscreen Use: Yes Assistive Devices: Glasses and Walker Allergies Allergies Allergy/AdvReac Type Severity Reaction Status Date / Time KEVIN Inhibitors Allergy Severe SHORTNESS Verified 12/24/21 10:52 OF BREATH Penicillins Allergy Intermediate HIVES Verified 12/24/21 10:52 rosuvastatin [From Crestor] Allergy Intermediate joint Verified 12/24/21 10:52 aches and cramping simvastatin Allergy Intermediate joint Verified 12/24/21 10:52 aches and cramping [id number] Reductase Allergy Intermediate joint Verified 12/24/21 10:52 Inhibitor aches and [Cjsmsot-Mga-Rmp Reductase cramping Inhibitor] RED YEAST RICE Allergy Mild RASH Uncoded 12/24/21 10:52 Home Meds Home Medications Medication Instructions Recorded Confirmed cetirizine 10 mg tablet 10 mg PO HS #30 tab 06/16/19 12/24/21 fluticasone propionate 50 2 sprays INTRANASAL BID #3 gm 06/16/19 12/24/21 mcg/actuation nasal spray,suspension cholecalciferol (vitamin D3) 25 50 mcg PO DAILY cap 09/11/21 12/24/21 mcg (1,000 unit) capsule aspirin 81 mg tablet,delayed 81 mg PO DAILY 12/16/21 12/24/21 release (Aspirin Low Dose) Previous Rx's Medication Instructions Recorded catheter 16 Fr #10 ea 12/22/19 tamsulosin 0.4 mg capsule 0.4 mg PO BID #180 cap 09/25/21 chlorthalidone 25 mg tablet 25 mg PO DAILY #90 tab 10/15/21 potassium chloride 20 mEq 20 meq PO DAILY #30 tab 11/12/21 tablet,extended release carvedilol 12.5 mg tablet 12.5 mg PO BID 30 Days #60 tab 12/20/21 cefdinir 300 mg capsule 300 mg PO BID 35 Days #70 cap 12/20/21 diclofenac sodium 1 % topical gel 4 g EXT QID #100 g 12/20/21 (Voltaren Arthritis Pain) cefdinir 300 mg capsule 300 mg PO BID #14 cap 12/21/21 apixaban 2.5 mg tablet (Eliquis) 2.5 mg PO BID #180 tab 12/24/21 Results & Data (ED) Vital Signs Vital Signs - 24 hr 12/16/21 11:47 12/16/21 14:00 12/16/21 14:30 Temperature 36.8 C Temperature Source Temporal Artery Scan Pulse Rate 88 72 87 Pulse Rate [Right Finger] Pulse Rate from SpO2 Sensor 79 Respiratory Rate 18 24 22 Respiratory Depth Normal Blood Pressure 107/63 136/82 Blood Pressure [Right Arm] Blood Pressure Mean 77 100 Blood Pressure Mean [Right Arm] Blood Pressure Position Sitting Pulse Oximetry 97 99 Oxygen Delivery Method Room Air Sepsis Recent Fever Within 48 Hours No Sepsis New/Unexplained Change in Mental Status No Sepsis Action Taken by Nursing No Action Required 12/16/21 15:01 12/16/21 15:31 Temperature Temperature Source Pulse Rate Pulse Rate [Right Finger] 73 74 Pulse Rate from SpO2 Sensor Respiratory Rate 17 16 Respiratory Depth Blood Pressure Blood Pressure [Right Arm] 128/70 118/70 Blood Pressure Mean Blood Pressure Mean [Right Arm] 89 86 Blood Pressure Position Pulse Oximetry 100 95 Oxygen Delivery Method Sepsis Recent Fever Within 48 Hours Sepsis New/Unexplained Change in Mental Status Sepsis Action Taken by [facility] Medications Current Medication List: was personally reviewed by me Laboratory Data Attestation: I reviewed the patient's lab results. Result diagrams: 12/20/21 06:53 12/20/21 06:53 Lab Results 12/16/21 12/16/21 12/16/21 Range/Units 13:55 14:06 14:06 WBC 12.04 H (4.8-10.8) K/uL RBC 3.84 L (4.7-6.1) M/uL Hgb 12.1 L (14.0-18.0) g/dL Hct 35.8 L (42-52) % MCV 93.2 (80-100) fL MCH 31.5 (25-34) pg MCHC 33.8 (32-36) g/dL RDW Std Deviation 49.9 H (36.4-46.3) fL RDW Coeff of Tay 14.6 H (11.5-14.5) % Plt Count 274 (130-400) K/uL MPV 8.7 (7.4-10.4) fL Immature Gran % (Auto) 0.2 % Neut % (Auto) 81.3 % Lymph % (Auto) 8.3 % Hayes % (Auto) 8.6 % Eos % (Auto) 1.4 % Baso % (Auto) 0.2 % Neut # (Auto) 9.78 H (1.4-6.5) K/uL Lymph # (Auto) 1.00 L (1.2-3.4) K/uL Hayes # (Auto) 1.03 H (0.11-0.59) K/uL Eos # (Auto) 0.17 (0-0.5) K/uL Baso # (Auto) 0.03 (0-0.2) K/uL Immature Gran # (Auto) 0.03 H (0.00-0.02) K/uL Sodium 134 L (136-145) mmol/L Potassium 2.9 L (3.5-5.1) mmol/L Chloride 96 L (98-107) mmol/L Carbon Dioxide 26 (21-32) mmol/L Anion Gap 12 H (3-11) BUN 47 H (6-23) mg/dl Creatinine 1.97 H (0.6-1.4) mg/dl Est Cr Clr Drug Dosing Not Reportable Est GFR ( Amer) 34.2 ml/min Est GFR (Non-Af Amer) 29.5 ml/min BUN/Creatinine Ratio 23.9 H (10-20) Glucose 106 H (70-99(Fasting)) mg/dl Lactate (0.4-2.0) mmol/L Calcium 9.6 (8.5-10.1) mg/dl Magnesium 2.2 (1.7-2.4) mg/dl Total Bilirubin 0.6 (0.2-1.0) mg/dl AST 12 L (13-39) U/L ALT 9 (7-52) U/L Alkaline Phosphatase 58 (34-104) U/L Troponin I 0.03 (0-0.04) ng/ml Total Protein 7.7 (6.0-8.3) gm/dl Albumin 3.5 (3.4-5.0) gm/dl Globulin 4.2 H (2.5-4.0) gm/dl Albumin/Globulin Ratio 0.8 L (0.9-2) TSH (0.300-4.500) uIu/ml Urine Color Urine Appearance (Clear) Urine pH (4.5-7.5) Ur Specific Boswell (1.000-1.030) Urine Protein (Negative) Urine Glucose (UA) (Negative) Urine Ketones (Negative) Urine Blood (Negative) Urine Nitrite (Negative) Urine Bilirubin (Negative) Urine Urobilinogen (Negative) Ur Leukocyte Esterase (Negative) Urine WBC (Auto) (0-5) /hpf Urine RBC (Auto) (0-4) /hpf U Hyaline Cast (Auto) (0-5) /lpf U Epithel Cells (Auto) (0-5) /lpf Urine Bacteria (Auto) (Negative) SARS-CoV-2, RNA, NAAT NEGATIVE (NEGATIVE) 12/16/21 12/16/21 12/16/21 Range/Units 14:06 14:41 15:29 WBC (4.8-10.8) K/uL RBC (4.7-6.1) M/uL Hgb (14.0-18.0) g/dL Hct (42-52) % MCV (80-100) fL MCH (25-34) pg MCHC (32-36) g/dL RDW Std Deviation (36.4-46.3) fL RDW Coeff of Tay (11.5-14.5) % Plt Count (130-400) K/uL MPV (7.4-10.4) fL Immature Gran % (Auto) % Neut % (Auto) % Lymph % (Auto) % Hayes % (Auto) % Eos % (Auto) % Baso % (Auto) % Neut # (Auto) (1.4-6.5) K/uL Lymph # (Auto) (1.2-3.4) K/uL Hayes # (Auto) (0.11-0.59) K/uL Eos # (Auto) (0-0.5) K/uL Baso # (Auto) (0-0.2) K/uL Immature Gran # (Auto) (0.00-0.02) K/uL Sodium (136-145) mmol/L Potassium (3.5-5.1) mmol/L Chloride (98-107) mmol/L Carbon Dioxide (21-32) mmol/L Anion Gap (3-11) BUN (6-23) mg/dl Creatinine (0.6-1.4) mg/dl Est Cr Clr Drug Dosing Est GFR ( Amer) ml/min Est GFR (Non-Af Amer) ml/min BUN/Creatinine Ratio (10-20) Glucose (70-99(Fasting)) mg/dl Lactate 0.5 (0.4-2.0) mmol/L Calcium (8.5-10.1) mg/dl Magnesium (1.7-2.4) mg/dl Total Bilirubin (0.2-1.0) mg/dl AST (13-39) U/L ALT (7-52) U/L Alkaline Phosphatase (34-104) U/L Troponin I (0-0.04) ng/ml Total Protein (6.0-8.3) gm/dl Albumin (3.4-5.0) gm/dl Globulin (2.5-4.0) gm/dl Albumin/Globulin Ratio (0.9-2) TSH 2.001 (0.300-4.500) uIu/ml Urine Color Yellow Urine Appearance Turbid A (Clear) Urine pH 5.0 (4.5-7.5) Ur Specific Boswell 1.009 (1.000-1.030) Urine Protein 1+ H (Negative) Urine Glucose (UA) Negative (Negative) Urine Ketones Negative (Negative) Urine Blood 3+ H (Negative) Urine Nitrite Negative (Negative) Urine Bilirubin Negative (Negative) Urine Urobilinogen Negative (Negative) Ur Leukocyte Esterase 3+ H (Negative) Urine WBC (Auto) >30 H (0-5) /hpf Urine RBC (Auto) >30 H (0-4) /hpf U Hyaline Cast (Auto) 1-5 (0-5) /lpf U Epithel Cells (Auto) >30 H (0-5) /lpf Urine Bacteria (Auto) 2+ H (Negative) SARS-CoV-2, RNA, NAAT (NEGATIVE) Administered Medications Discontinued Medications Acetaminophen (Acetaminophen 325 Mg Tab) 650 mg PO Q4H PRN PRN Reason: Pain or Fever Stop: 01/15/22 23:55 Last Admin: 12/20/21 11:09 Dose: 650 mg Documented by: [id number] Admin: 12/18/21 23:14 Dose: 650 mg Documented by: [id number] Admin: 12/17/21 00:14 Dose: 650 mg Documented by: [id number] Apixaban (Apixaban 2.5 Mg Tab) 2.5 mg PO BID JAVIER Stop: 01/18/22 20:59 Last Admin: 12/20/21 08:10 Dose: 2.5 mg Documented by: [id number] Admin: 12/19/21 22:17 Dose: 2.5 mg Documented by: [id number] Aspirin (Aspirin 81 Mg Ectab) 81 mg PO DAILY [facility] Stop: 01/19/22 08:59 Last Admin: 12/20/21 08:10 Dose: 81 mg Documented by: [id number] Carvedilol (Carvedilol 25 Mg Tab) 25 mg PO BID [facility] Stop: 01/15/22 20:59 Last Admin: 12/17/21 07:30 Dose: 25 mg Documented by: [id number] Admin: 12/16/21 20:22 Dose: 25 mg Documented by: [id number] Carvedilol (Carvedilol 12.5 Mg Tab) 12.5 mg PO BID [facility] Stop: 01/16/22 20:59 Last Admin: 12/20/21 08:11 Dose: 12.5 mg Documented by: [id number] Admin: 12/19/21 19:44 Dose: 12.5 mg Documented by: [id number] Admin: 12/19/21 08:56 Dose: 12.5 mg Documented by: [id number] Admin: 12/18/21 21:12 Dose: 12.5 mg Documented by: [id number] Admin: 12/18/21 08:27 Dose: 12.5 mg Documented by: [id number] Admin: 12/17/21 21:21 Dose: 12.5 mg Documented by: [id number] Cefdinir (Cefdinir 300 Mg Cap) 300 mg PO BID JAVIER Stop: 12/29/21 20:59 Last Admin: 12/20/21 08:10 Dose: 300 mg Documented by: [id number] Admin: 12/19/21 19:45 Dose: 300 mg Documented by: [id number] Cetirizine HCl (Cetirizine Hcl 10 Mg Tablet) 10 mg PO HS JAVIER Stop: 01/15/22 20:59 Last Admin: 12/19/21 19:44 Dose: 10 mg Documented by: [id number] Admin: 12/18/21 21:12 Dose: 10 mg Documented by: [id number] Admin: 12/17/21 21:19 Dose: 10 mg Documented by: [id number] Admin: 12/16/21 20:22 Dose: 10 mg Documented by: [id number] Diclofenac Sodium (Diclofenac Sod 1% Gel 100 Gm Tube) 4 gm EXT QID JAVIER Stop: 01/18/22 16:59 Last Admin: 12/20/21 12:38 Dose: Not Given Documented by: [id number] Admin: 12/20/21 08:12 Dose: 4 gm Documented by: [id number] Admin: 12/19/21 19:47 Dose: 4 gm Documented by: [id number] Admin: 12/19/21 18:14 Dose: 4 gm Documented by: [id number] Fluticasone Propionate (Fluticasone Propionate Na Spr 16 Gm Btl) 2 sprays PÉREZ BID JAVIER Stop: 01/15/22 20:59 Last Admin: 12/20/21 08:11 Dose: 2 sprays Documented by: [id number] Admin: 12/19/21 22:17 Dose: 2 sprays Documented by: [id number] Admin: 12/19/21 08:56 Dose: 2 sprays Documented by: [id number] Admin: 12/18/21 21:34 Dose: 2 sprays Documented by: [id number] Admin: 12/18/21 08:26 Dose: 2 sprays Documented by: [id number] Admin: 12/17/21 21:18 Dose: 2 sprays Documented by: [id number] Admin: 12/17/21 07:29 Dose: 2 sprays Documented by: [id number] Admin: 12/16/21 20:21 Dose: 2 sprays Documented by: [id number] Sodium Chloride (Nss 1000ml) 1,000 mls @ 125 mls/hr IV .Q8H JAVIER Stop: 12/16/21 21:44 Last Infusion: 12/16/21 20:22 Dose: 0 mls/hr Documented by: [id number] Admin: 12/16/21 14:37 Dose: 125 mls/hr Documented by: [id number] Ceftriaxone Sodium (Rocephin) 1,000 mg in 50 mls @ 100 mls/hr IV NOW STA Stop: 12/16/21 14:09 Last Infusion: 12/16/21 15:20 Dose: 0 mls/hr Documented by: [id number] Admin: 12/16/21 14:52 Dose: 100 mls/hr Documented by: [id number] Potassium Chloride (K Vahid / Wtr) 10 meq in 100 mls @ 100 mls/hr IV Q1H JAVIER; Protocol Stop: 12/16/21 17:14 Last Infusion: 12/16/21 18:13 Dose: 0 mls/hr Documented by: [id number] Admin: 12/16/21 16:54 Dose: 100 mls/hr Documented by: [id number] Infusion: 12/16/21 16:33 Dose: 100 mls/hr Documented by: [id number] Admin: 12/16/21 15:33 Dose: 100 mls/hr Documented by: [id number] Ceftriaxone Sodium 1,000 mg/ (Dextrose) 50 mls @ 100 mls/hr IV Q24H JAVIER; Protocol Stop: 12/26/21 13:59 Last Infusion: 12/19/21 16:07 Dose: 0 mls/hr Documented by: [id number] Admin: 12/19/21 15:37 Dose: 100 mls/hr Documented by: [id number] Infusion: 12/18/21 14:45 Dose: 0 mls/hr Documented by: [id number] Admin: 12/18/21 14:15 Dose: 100 mls/hr Documented by: [id number] Infusion: 12/17/21 13:36 Dose: 0 mls/hr Documented by: [id number] Infusion: 12/17/21 13:05 Dose: 100 mls/hr Documented by: [id number] Infusion: 12/17/21 12:57 Dose: 0 mls/hr Documented by: [id number] Admin: 12/17/21 12:52 Dose: 100 mls/hr Documented by: [id number] Lidocaine (Lidocaine 5% Oint 30 Gm Tube) 1 appln EXT TID PRN PRN Reason: Penile pain from Licea Stop: 01/16/22 17:24 Last Admin: 12/19/21 19:45 Dose: 1 appln Documented by: [id number] Lidocaine HCl (Lidocaine 2% Jelly 5 Ml Tube) 5 ml EXT NOW ONE Stop: 12/16/21 15:42 Last Admin: 12/16/21 15:47 Dose: 5 ml Documented by: [id number] Lidocaine HCl (Lidocaine 2% Jelly 5 Ml Tube) 0 ml EXT ONCE ONE Stop: 12/17/21 11:49 Last Admin: 12/17/21 12:03 Dose: 5 ml Documented by: [id number] Miscellaneous (Patient's Height And/Or Weight Needed) 1 ea N/A Q2H JAVIER Stop: 01/15/22 17:44 Last Admin: 12/16/21 18:11 Dose: 1 ea Documented by: [id number] Polyethylene Glycol (Polyethylene (Miralax) 17 Gm Pack) 17 gm PO TID JAVIER Stop: 01/15/22 17:35 Last Admin: 12/20/21 13:23 Dose: Not Given Documented by: [id number] Admin: 12/20/21 08:17 Dose: Not Given Documented by: [id number] Admin: 12/19/21 22:18 Dose: Not Given Documented by: [id number] Admin: 12/19/21 15:37 Dose: Not Given Documented by: [id number] Admin: 12/19/21 10:13 Dose: Not Given Documented by: [id number] Admin: 12/18/21 21:34 Dose: Not Given Documented by: [id number] Admin: 12/18/21 15:15 Dose: Not Given Documented by: [id number] Admin: 12/18/21 11:04 Dose: Not Given Documented by: [id number] Admin: 12/17/21 21:21 Dose: Not Given Documented by: [id number] Admin: 12/17/21 12:05 Dose: Not Given Documented by: [id number] Admin: 12/17/21 07:27 Dose: Not Given Documented by: [id number] Admin: 12/16/21 20:21 Dose: 17 gm Documented by: [id number] Admin: 12/16/21 18:10 Dose: 17 gm Documented by: [id number] Potassium Chloride (Potassium Chloride Crtab 20 Meq Tabcr) 20 meq PO NOW STA Stop: 12/16/21 19:54 Last Admin: 12/16/21 20:20 Dose: 20 meq Documented by: [id number] Potassium Chloride (Potassium Chloride Crtab 20 Meq Tabcr) 20 meq PO DAILY JAVIER Stop: 01/16/22 08:59 Last Admin: 12/20/21 08:11 Dose: 20 meq Documented by: [id number] Admin: 12/19/21 08:57 Dose: 20 meq Documented by: [id number] Admin: 12/18/21 08:27 Dose: 20 meq Documented by: [id number] Admin: 12/17/21 07:28 Dose: 20 meq Documented by: [id number] Potassium Chloride (Potassium Chloride Crtab 20 Meq Tabcr) 40 meq PO NOW STA Stop: 12/17/21 07:08 Last Admin: 12/17/21 07:28 Dose: 40 meq Documented by: [id number] Potassium Chloride (Potassium Chloride Crtab 20 Meq Tabcr) 40 meq PO 1100 ONE Stop: 12/19/21 11:01 Last Admin: 12/19/21 13:14 Dose: 40 meq Documented by: [id number] Saccharomyces Boulardii (Saccharomyces Boulardii 250 Mg Cap) 250 mg PO DAILY JAVIER Stop: 01/18/22 15:59 Last Admin: 12/20/21 08:11 Dose: 250 mg Documented by: [id number] Admin: 12/19/21 18:12 Dose: 250 mg Documented by: [id number] Tamsulosin HCl (Tamsulosin Hcl 0.4 Mg Cap) 0.4 mg PO BID JAVIER Stop: 01/15/22 20:59 Last Admin: 12/20/21 08:12 Dose: 0.4 mg Documented by: [id number] Admin: 12/19/21 19:43 Dose: 0.4 mg Documented by: [id number] Admin: 12/19/21 08:56 Dose: 0.4 mg Documented by: [id number] Admin: 12/18/21 21:12 Dose: 0.4 mg Documented by: [id number] Admin: 12/18/21 08:27 Dose: 0.4 mg Documented by: [id number] Admin: 12/17/21 21:20 Dose: 0.4 mg Documented by: [id number] Admin: 12/17/21 07:30 Dose: 0.4 mg Documented by: [id number] Admin: 12/16/21 20:21 Dose: 0.4 mg Documented by: [id number] Vitamin D (Cholecalciferol 1,000 Units 25 Mcg Tab) 1,000 units PO DAILY JAVIER Stop: 01/16/22 08:59 Last Admin: 12/20/21 08:12 Dose: 1,000 units Documented by: [id number] Admin: 12/19/21 08:57 Dose: 1,000 units Documented by: [id number] Admin: 12/18/21 08:27 Dose: 1,000 units Documented by: [id number] Admin: 12/17/21 07:30 Dose: 1,000 units Documented by: [id number] Imaging Data Radiologist's Impression: Chest X-Ray 12/16/21 13:32 XR chest 1V portable HISTORY: weakness COMPARISON: Chest 08/31/2021. FINDINGS: The cardiac silhouette remains mildly enlarged. There are low lung volumes. No focal lung consolidations to suggest pneumonia. No evidence for pulmonary edema. No pleural effusions. No pneumothorax. Degenerative changes again noted within the shoulders. IMPRESSION: Mild cardiomegaly. Otherwise, no acute process within the chest. ACT 112: Negative or not required by law. Electronically signed by: Vu Perez M.D. 12/16/2021 2:35 PM Blood Pressure Blood Pressure Findings: Normal blood pressure Blood Pressure Disposition: further management by hospitalist Discharge Plan Visit Data Chief Complaint: Urinary Symptoms Stated Complaint: DR REFERRED, CATHETER ISSUES ED Provider: Margarette Gill Discharge Problem: UTI (urinary tract infection), Weakness, Atrial fibrillation, controlled, H/O prostate cancer Patient Disposition: Admitted As Inpatient Discharge Instructions Interventions: ED Discharge Assessment Last Done: 12/16/21 17:08
--- NOTE | 2021-12-17 09:29 | Urology Progress Note ---
Date of Service December 17, 2021 Assessment & Plan (1) Complicated UTI (urinary tract infection): Plan: 86yo M who presented with generalized weakness and worsening symptoms in the setting of recent Proteus UTI on outpatient antibiotics and with Licea catheter in place. Pt admitted for suspected acute bacterial prostatitis. - Pt with recent Proteus UTI with failure of outpatient antibiotics. - Afebrile, labs reviewed - Wbc 11.55, Creatinine 1.53. - Urine and blood cultures pending. Continues on IV Ceftriaxone, follow cultures. - Licea catheter intact, currently draining clear yellow urine. - Recommend maintaining Licea catheter for now for maximum drainage while treating infection. - Can consider voiding trial prior to discharge if patient continues to progress, otherwise we can arrange as outpatient. - Continue supportive care, antibiotic therapy, tamsulosin, and management per primary team. - Anticoagulants per primary team. - Will continue to follow. Admission and Anticipated Discharge Date Admission Date: December 16, 2021 Subjective Pt examined at bedside this AM. Awake, sitting in bedside chair on arrival. Reports feeling better today than yesterday, but still "tired and weak" No acute distress. No fevers or chills. Tolerating PO diet, no nausea or vomiting. Lciea intact, draining clear yellow urine. Denies abdominal, flank, suprapubic pain. Reports discomfort at catheter insertion site. Review of Systems Constitutional: as per Subjective / HPI Gastrointestinal: as per Subjective / HPI Genitourinary: + as per Subjective / HPI Physical Exam Constitutional: no acute distress Respiratory: normal respiratory effort; no respiratory distress, no labored breathing and no audible wheezes Gastrointestinal (Abdomen): Inspection/Auscultation: abdomen normal to inspection; abdomen not distended Percussion/Palpation: abdomen soft; abdomen nontender and no guarding Musculoskeletal: Head/Neck/Chest: normocephalic Neurologic: moves all extremities and awake Psychiatric: Orientation: alert, oriented x 3 and cooperative Genitourinary: Licea catheter intact, draining clear yellow urine. Small amount of purulent drainage noted around catheter insertion site. Results & Data ([facility]) Vital Signs (Past 12 Hours) Vital Signs Temp Pulse Pulse Resp BP Pulse Ox 12/17/21 07:00 65 12/17/21 06:40 36.4 C L 87 20 132/73 97 12/17/21 03:01 36.7 C 91 H 20 118/67 96 12/17/21 00:25 86 12/16/21 22:32 36.9 C 96 H 20 127/76 98 PG Care Time/CCT Total # of Minutes Spent Total Time Spent with Patient: Total time spent is greater than 50% in coordination of care (as documented) at patient's floor/unit and/or counseling patient: Coding Level of Care Code 62199 Subseq Hosp Care Lvl 2 Diagnoses Complicated UTI (urinary tract infection) N39.0
--- NOTE | 2021-12-17 10:53 | Hospitalist Progress Note ---
Date of Service December 17, 2021 Assessment & Plan (1) Acute bacterial prostatitis: Plan: Suspected based on history of recurrent UTIs growing the same bacteria, b/l testicular pain, urinary retention, progressive worsening despite ciprofloxacin use. No CVA tenderness to suggest pyelonephritis. - Follow up blood and urine cultures - Ceftriaxone 1g IV daily - suggest 4-6 weeks of antibiotics - Urology following - Appreciate input. (2) Urinary retention: Plan: Recurrent history of similar. Question of acute worsening due to prostatitis vs. 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 I see a PVR done in 09/2021 with catheter removed, but then looks like one was inserted on 12/11/[address] Headley in the office. - Continue tamsulosin - Consult urology for ongoing management (3) Hematuria due to acute cystitis: Plan: - Hold Eliquis (takes for a. fib) and ASA (remote Hx CAD with stent) (4) Hypokalemia: Plan: Secondary to chlorthalidone and patient stopping his potassium supplementation (?due to gastritis). - Replete K+ PRN (5) (HFpEF) heart failure with preserved ejection fraction: Plan: Noted history of this. On chlorthalidone as diuretic (on hold due to acute infection). - D/c further IV fluids. - Euvolemic today. (6) Atrial fibrillation with controlled ventricular rate: Plan: Permanent afib. - Hold anticoagulation due to hematuria. - Continue rate control with carvedilol (lowered dose to 12.5 mg PO BID on 12/17 for pauses that were 3 - 4 seconds long.) (7) CKD (chronic kidney disease), stage III: Plan: Baseline Cr. 1.5 - 1.9, CrCl usually 25 - 30 mL/min. - Presently at baseline - Montior Cr - Avoid nephrotoxic medications (8) Prostate cancer: Plan: S/p brachytherapy 2004. (9) HTN (hypertension): Plan: BP today is 130/75. - Hold chlorthalidone is setting of acute infection and monitor BP. - Continue carvedilol Plan: VTE Prophylaxis - SCDs, chemical anticoagulation deferred on admission due to hematuria Admission and Anticipated Discharge Date Admission Date: December 16, 2021 Subjective Feels well overall. Reports he had chills prior to admission, but none overnight. Got some good sleep. Reports no chest pain, shortness of breath, abdominal pain, nausea, or vomiting. He does not like the Licea catheter in. He feels it causes pain at his meatus. Physical Exam Constitutional: WD/WN, vitals as above Eyes: EOM intact bilaterally; no conjunctival abnormality ENMT: external ear and nose normal, oropharynx normal Neck: trachea midline, no thyromegaly normal visual inspection Respiratory: normal respiratory effort, lungs clear to auscultation no respiratory distress Cardiovascular: RRR, no murmur, no edema Gastrointestinal (Abdomen): Inspection/Auscultation: abdomen normal to inspection; abdomen not distended Musculoskeletal: no cyanosis or clubbing, extremities motor strength 5/5 Skin: no rashes, warm and dry Neurologic: moves all extremities and awake Psychiatric: Orientation: alert, oriented to person and cooperative Genitourinary: no CVA tenderness Licea in place Results & Data Results & Data ([facility]) Vital Signs (Past 12 Hours) Vital Signs Temp Pulse Pulse Resp BP Pulse Ox 12/17/21 07:00 65 12/17/21 06:40 36.4 C L 87 20 132/73 97 12/17/21 03:01 36.7 C 91 H 20 118/67 96 12/17/21 00:25 86 PG Care Time/CCT Total # of Minutes Spent Total Time Spent with Patient: Total time spent is greater than 50% in coordination of care (as documented) at patient's floor/unit and/or counseling patient: Coding Level of Care Code 43532 Subseq Hosp Care Lvl 3 Diagnoses Acute bacterial prostatitis N41.0 Urinary retention R33.9 Hematuria due to acute cystitis N30.01 Hypokalemia E87.6 (HFpEF) heart failure with preserved ejection fraction I50.30 Atrial fibrillation with controlled ventricular rate I48.91 CKD (chronic kidney disease), stage III N18.30 Prostate cancer C61 HTN (hypertension) I10 Hypertension type: essential hypertension (1) HTN (hypertension) Hypertension type: essential hypertension Qualified Code(s): I10 - Essential (primary) hypertension
[2021-12-17] MEDS ORDERED: LIDOCAINE 2% JELLY 5 ML TUBE EXT ONE (11:48)
[2021-12-17] MEDS: cefTRIAXone SODIUM 1,000 MG in DEXTROSE 5% 50 ML IV SCH (12:52)
[2021-12-17] MEDS ORDERED: LIDOCAINE 5% OINT 30 GM TUBE EXT PRN (17:25)
[2021-12-17] MEDS: CETIRIZINE HCL 10 MG TABLET PO SCH (21:19)
[2021-12-17] MEDS: carvediloL 12.5 MG TAB PO SCH (21:21)
--- NOTE | 2021-12-18 06:31 | Electrocardiogram Report ---
Test Reason : Blood Pressure : / mmHG Vent. Rate : 083 BPM Atrial Rate : 100 BPM P-R Int : 000 ms QRS Dur : 132 ms QT Int : 398 ms P-R-T Axes : 000 -32 -14 degrees QTc Int : 467 ms Atrial fibrillation Left axis deviation Right bundle branch block Abnormal ECG When compared with ECG of 16-DEC-2021 13:38, No significant change was found Confirmed by Maxim Meyers ([id number]) on 12/18/2021 6:30:41 AM Referred By: Tiago Lara Confirmed By:Maxim Meyers
[2021-12-18 06:42] LABS: Hematocrit (blood only) 31.4 % (42-52); Hemoglobin 10.6 g/dL (14.0-18.0); Mean Corpuscular Hemoglobin 31.6 pg (25-34); Mean Corpuscular Hgb Conc 33.8 g/dL (32-36); Mean Corpuscular Volume 93.7 fL (80-100); Mean Platelet Volume 8.3 fL (7.4-10.4); Platelet Count 235 K/uL (130-400); RDW Coefficient of Variation 14.7 % (11.5-14.5); RDW Standard Deviation 50.8 fL (36.4-46.3); Red Blood Count 3.35 M/uL (4.7-6.1); White Blood Count 11.52 K/uL (4.8-10.8)
[2021-12-18 07:13] LABS: BUN Creatinine Ratio 21.1 (10-20); Calcium 9.4 mg/dl (8.5-10.1); Creatinine Clr Calc Pharmacy 32.2 ml/min; Est GFR (African American) 46.7 ml/min; Est GFR (Non-African American) 40.3 ml/min; Magnesium 1.9 mg/dl (1.7-2.4); Potassium 3.5 mmol/L (3.5-5.1)
[2021-12-18] MEDS: FLUTICASONE PROPIONATE NA SPR 16 GM BTL NAE SCH ×2 (08:26→21:34)
[2021-12-18] MEDS: CHOLECALCIFEROL 1,000 UNITS 25 MCG TAB PO SCH (08:27)
[2021-12-18] MEDS: TAMSULOSIN HCL 0.4 MG CAP PO SCH ×2 (08:27→21:12)
[2021-12-18] MEDS: POTASSIUM CHLORIDE CRTAB 20 MEQ TABCR PO SCH (08:27)
[2021-12-18] MEDS: carvediloL 12.5 MG TAB PO SCH ×2 (08:27→21:12)
--- NOTE | 2021-12-18 11:03 | Urology Progress Note ---
Date of Service December 18, 2021 Assessment & Plan (1) Complicated UTI (urinary tract infection): Plan: 86yo M who presented with generalized weakness and worsening symptoms in the setting of recent Proteus UTI on outpatient antibiotics and with Licea catheter in place. Pt admitted for suspected acute bacterial prostatitis. - Pt with recent Proteus UTI with failure of outpatient antibiotics. - Afebrile, labs reviewed - WBC 11.52, Creatinine 1.52. - Urine culture preliminary pin point growth. Blood cultures no growth x 24 hours. - Continues on IV Ceftriaxone, follow cultures. - Licea catheter intact, currently draining clear yellow urine with some sediment. - Patient with moderate bother from Licea catheter. - Discussed with hospitalist - can attempt voiding trial today, monitor for void with post void residual bladder scan. - If unable to void, then recommend replacement of Licea vs CIC. - Continue supportive care, antibiotic therapy, tamsulosin, and management per primary team. - Anticoagulants per primary team. - Will arrange outpatient follow-up with our service. - will follow peripherally, please contact our service with any additional questions or concerns. Admission and Anticipated Discharge Date Admission Date: December 16, 2021 Supervising Physician Co-Signing Physician Notes I have discussed Mr. Mancia's case with RAGHAVENDRA Barragan and agree with the above documentation. Subjective Pt seen and examined at bedside this AM. Awake, alert and resting in bed on arrival. No acute issues overnight, but notes he did not sleep well. Continues to feel tired and notes some generalized aches. Tolerating PO diet, no nausea or vomiting. Reports he is moving bowels, notes loose BMs. Licea intact, draining clear yellow urine with some sediment. Reports discomfort at meatus from catheter, relieved with topical Lidocaine, but only received once. Denies abdominal, flank, or suprapubic pain. No fever or chills. Review of Systems Constitutional: as per Subjective / HPI Gastrointestinal: as per Subjective / HPI Genitourinary: + as per Subjective / HPI Physical Exam Constitutional: comfortable; no acute distress Respiratory: normal respiratory effort; no respiratory distress, no labored breathing and no audible wheezes Gastrointestinal (Abdomen): Inspection/Auscultation: abdomen normal to inspection; abdomen not distended Percussion/Palpation: abdomen soft; abdomen nontender and no guarding Musculoskeletal: Head/Neck/Chest: normocephalic Neurologic: moves all extremities and awake Psychiatric: Orientation: alert, oriented x 3 and cooperative Genitourinary: Licea catheter intact, draining clear yellow urine with some sediment noted in tubing. Results & Data ([facility]) Vital Signs (Past 12 Hours) Vital Signs Temp Pulse Pulse Pulse Resp BP Pulse Ox 12/18/21 10:45 36.5 C 75 20 105/65 98 12/18/21 06:00 36.7 C 76 18 136/95 92 12/18/21 05:34 88 12/18/21 04:05 36.7 C 87 20 123/80 97 12/17/21 23:04 36.5 C 78 19 106/64 95 PG Care Time/CCT Total # of Minutes Spent Total Time Spent with Patient: Total time spent is greater than 50% in coordination of care (as documented) at patient's floor/unit and/or counseling patient: Coding Level of Care Code 07210 Subseq Hosp Care Lvl 2 Diagnoses Complicated UTI (urinary tract infection) N39.0
[2021-12-18] MEDS: POLYETHYLENE (MIRALAX) 17 GM PACK PO SCH ×3 (11:04→21:34)
[2021-12-18] MEDS: cefTRIAXone SODIUM 1,000 MG in DEXTROSE 5% 50 ML IV SCH (14:15)
--- NOTE | 2021-12-18 15:04 | Hospitalist Progress Note ---
Date of Service December 18, 2021 Assessment & Plan (1) Acute bacterial prostatitis: Plan: Suspected based on history of recurrent UTIs growing the same bacteria, b/l testicular pain, urinary retention, progressive worsening despite ciprofloxacin use. No CVA tenderness to suggest pyelonephritis. - Follow up blood and urine cultures -> Growing Gamma Strep and Gardnerella-like bacilli. -> Discussed with pharmacy who felt current ceftriaxone was appropriate. - Ceftriaxone 1g IV daily - suggest 4-6 weeks of antibiotics - Urology following - Appreciate input. Voiding trial today approved by urology. (2) Urinary retention: Plan: Recurrent history of similar. Question of acute worsening due to prostatitis vs. 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 I see a PVR done in 09/2021 with catheter removed, but then looks like one was inserted on 12/11/[address] Healdey in the office. Per urology, he had more retention at the time. - Continue tamsulosin - Consult urology for ongoing management -> Ok with voiding trial. Licea removed. (3) Hematuria due to acute cystitis: Plan: - Hold Eliquis (takes for a. fib) and ASA (remote Hx CAD with stent) (4) Hypokalemia: Plan: Secondary to chlorthalidone and patient stopping his potassium supplementation (?due to gastritis). - Replete K+ PRN (5) (HFpEF) heart failure with preserved ejection fraction: Plan: Noted history of this. On chlorthalidone as diuretic (on hold due to acute infection). - D/c further IV fluids. - Euvolemic today. (6) Atrial fibrillation with controlled ventricular rate: Plan: Permanent afib. - Hold anticoagulation due to hematuria. - Continue rate control with carvedilol (lowered dose to 12.5 mg PO BID on 12/17 for pauses that were 3 - 4 seconds long. Now good.) (7) CKD (chronic kidney disease), stage III: Plan: Baseline Cr. 1.5 - 1.9, CrCl usually 25 - 30 mL/min. - Presently at baseline - Montior Cr - Stable at 1.5 today. - Avoid nephrotoxic medications (8) Prostate cancer: Plan: S/p brachytherapy 2004. (9) HTN (hypertension): Plan: BP today is 120/75. - Hold chlorthalidone is setting of acute infection and monitor BP. - Continue carvedilol Plan: VTE Prophylaxis - SCDs, chemical anticoagulation deferred on admission due to hematuria. Encouraged ambulation. Admission and Anticipated Discharge Date Admission Date: December 16, 2021 Subjective Doing well today. He is really bothered by the Licea (pain at the meatus), but denies fever/chills, no lower abdominal pain. Physical Exam Constitutional: WD/WN, vitals as above Eyes: EOM intact bilaterally; no conjunctival abnormality ENMT: external ear and nose normal, oropharynx normal Neck: trachea midline, no thyromegaly normal visual inspection Respiratory: normal respiratory effort, lungs clear to auscultation no respiratory distress Cardiovascular: RRR, no murmur, no edema Gastrointestinal (Abdomen): Inspection/Auscultation: abdomen normal to inspection; abdomen not distended Musculoskeletal: no cyanosis or clubbing, extremities motor strength 5/5 Skin: no rashes, warm and dry Neurologic: moves all extremities and awake Psychiatric: Orientation: alert, oriented to person and cooperative Genitourinary: no CVA tenderness Results & Data Results & Data ([facility]) Vital Signs (Past 12 Hours) Vital Signs Temp Pulse Pulse Resp BP Pulse Ox 12/18/21 14:50 36.5 C 82 20 122/77 99 12/18/21 10:45 36.5 C 75 20 105/65 98 12/18/21 06:00 36.7 C 76 18 136/95 92 12/18/21 05:34 88 12/18/21 04:05 36.7 C 87 20 123/80 97 PG Care Time/CCT Total # of Minutes Spent Total Time Spent with Patient: Total time spent is greater than 50% in coordination of care (as documented) at patient's floor/unit and/or counseling patient: Coding Level of Care Code 96722 Subseq Hosp Care Lvl 3 Diagnoses Acute bacterial prostatitis N41.0 Urinary retention R33.9 Hematuria due to acute cystitis N30.01 Hypokalemia E87.6 (HFpEF) heart failure with preserved ejection fraction I50.30 Atrial fibrillation with controlled ventricular rate I48.91 CKD (chronic kidney disease), stage III N18.30 Prostate cancer C61 HTN (hypertension) I10 Hypertension type: essential hypertension (1) HTN (hypertension) Hypertension type: essential hypertension Qualified Code(s): I10 - Essential (primary) hypertension
[2021-12-18] MEDS: CETIRIZINE HCL 10 MG TABLET PO SCH (21:12)
[2021-12-18] MEDS: ACETAMINOPHEN 325 MG TAB PO PRN (23:14)
[2021-12-19 07:31] LABS: Hematocrit (blood only) 32.9 % (42-52); Hemoglobin 10.9 g/dL (14.0-18.0); Mean Corpuscular Hemoglobin 31.4 pg (25-34); Mean Corpuscular Hgb Conc 33.1 g/dL (32-36); Mean Corpuscular Volume 94.8 fL (80-100); Mean Platelet Volume 8.8 fL (7.4-10.4); Platelet Count 262 K/uL (130-400); RDW Coefficient of Variation 14.8 % (11.5-14.5); RDW Standard Deviation 50.9 fL (36.4-46.3); Red Blood Count 3.47 M/uL (4.7-6.1); White Blood Count 11.89 K/uL (4.8-10.8)
[2021-12-19 07:59] LABS: BUN Creatinine Ratio 19.9 (10-20); Calcium 9.4 mg/dl (8.5-10.1); Creatinine Clr Calc Pharmacy 34.7 ml/min; Est GFR (African American) 51.2 ml/min; Est GFR (Non-African American) 44.2 ml/min; Potassium 3.4 mmol/L (3.5-5.1)
[2021-12-19] MEDS ORDERED: POTASSIUM CHLORIDE CRTAB 20 MEQ TABCR PO STA (08:30)
[2021-12-19] MEDS: FLUTICASONE PROPIONATE NA SPR 16 GM BTL NAE SCH ×2 (08:56→22:17)
[2021-12-19] MEDS: carvediloL 12.5 MG TAB PO SCH ×2 (08:56→19:44)
[2021-12-19] MEDS: TAMSULOSIN HCL 0.4 MG CAP PO SCH ×2 (08:56→19:43)
[2021-12-19] MEDS: CHOLECALCIFEROL 1,000 UNITS 25 MCG TAB PO SCH (08:57)
[2021-12-19] MEDS: POTASSIUM CHLORIDE CRTAB 20 MEQ TABCR PO SCH (08:57)
[2021-12-19] MEDS: POLYETHYLENE (MIRALAX) 17 GM PACK PO SCH ×3 (10:13→22:18)
[2021-12-19] MEDS ORDERED: POTASSIUM CHLORIDE CRTAB 20 MEQ TABCR PO ONE (11:00)
[2021-12-19] MEDS: cefTRIAXone SODIUM 1,000 MG in DEXTROSE 5% 50 ML IV SCH (15:37)
--- NOTE | 2021-12-19 17:55 | Hospitalist Progress Note ---
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 No evidence of pyelonephritis on admission UC: Automation Analyst track and Gardnerella-like bacilli. Suspect Gardnerella-like bacilli contaminant, and patient improving on Rocephin. If clinical worsening can add Flagyl coverage, defer this at this time Ceftriaxone converted to cefdinir 300 mg twice daily. Anticipate 4 to 6-week course of treatment Urology following. Patient able to void today, although incontinent of urine following Licea removal Patient has had liquid diarrhea and some fatigue, will obtain C. difficile studies as he is at rest and had prior treatment with antibiotics. In addition will follow for 24 hours for fever/worsening with moved to orals, if present then will plan to add Flagyl as above Hematuria improved today, anticoagulation to be resumed for A. fib with CBC check in the morning (2) Urinary retention: Plan: -Recurrent history of similar. Question of acute worsening due to prostatitis vs. 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 I see a PVR done in 09/2021 with catheter removed, but then looks like one was inserted on 12/11/[address] Headley in the office. Per urology, he had more retention at the time. - Continue tamsulosin -Allergy following, tolerated voiding trial well today (3) Hematuria due to acute cystitis: Plan: -Requested aspirin held due to hematuria on admission, resumed today. No hematuria 12/19 (4) Hypokalemia: Plan: Secondary to chlorthalidone and patient stopping his potassium supplementation (?due to gastritis). - Replete K+ PRN 1 dose of potassium given 12/19 for potassium 3.4 (5) (HFpEF) heart failure with preserved ejection fraction: Plan: Noted history of this. On chlorthalidone as diuretic (on hold due to acute infection). - Euvolemic today. (6) Atrial fibrillation with controlled ventricular rate: Plan: Permanent afib. -Zoom and home anticoagulation, follow CBC for stability - Continue rate control with carvedilol (lowered dose to 12.5 mg PO BID on 12/17 for pauses that were 3 - 4 seconds long Adequate rate today (7) CKD (chronic kidney disease), stage III: Plan: Baseline Cr. 1.5 - 1.9, CrCl usually 25 - 30 mL/min. - Presently at baseline - Montior Cr - Stable baseline today - Avoid nephrotoxic medications (8) Prostate cancer: Plan: S/p brachytherapy 2004. (9) HTN (hypertension): Plan: Chlorthalidone held with acute infection Normotensive 12/19 - Continue carvedilol Plan: VTE Prophylaxis - SCDs, chemical anticoagulation deferred on admission due to hematuria. DOAC resumed as above Admission and Anticipated Discharge Date Admission Date: December 16, 2021 Subjective Seen at bedside and with . Has worsened diarrhea today, liquid several times per day Has been able to void intermittently today, remains incontinent without awareness of when he needs to void. No burning with urination. No painful bowel movements. No hematuria today. No fevers, chills, sweats, abdomi nal pain. Feels like he is improving overall. Endorses some fatigue, did not work with PT today. Review of Systems Review of Systems: All systems reviewed & are unremarkable except as noted in Subjective Physical Exam Physical Exam: General: A&Ox3. NAD. Cooperative. HEENT: Atraumatic, normocephalic. Acuity and hearing grossly intact Pulm: CTAB A&P. -wheezes, -rales, -rhonchi. Symmetrical chest rise. No increase in work of breathing. No respiratory distress. Cardiac: RRR, -mrg. Radial pulses intact and symmetrical. Abdominal: Nontender, nondistended, soft. BS present. Results & Data Results & Data ([facility]) Vital Signs (Past 12 Hours) Vital Signs Temp Pulse Resp BP Pulse Ox 12/19/21 10:53 36.5 C 63 20 111/72 93 12/19/21 06:45 36.4 C L 96 H 20 146/75 H 97 PG Care Time/CCT Total # of Minutes Spent Total Time Spent with Patient: Total time spent is greater than 50% in coordination of care (as documented) at patient's floor/unit and/or counseling patient: Coding Level of Care Code 25719 Subseq Hosp Care Lvl 2 Diagnoses Acute bacterial prostatitis N41.0 Urinary retention R33.9 Hematuria due to acute cystitis N30.01 Hypokalemia E87.6 (HFpEF) heart failure with preserved ejection fraction I50.30 Atrial fibrillation with controlled ventricular rate I48.91 CKD (chronic kidney disease), stage III N18.30 Prostate cancer C61 HTN (hypertension) I10 Hypertension type: essential hypertension (1) HTN (hypertension) Hypertension type: essential hypertension Qualified Code(s): I10 - Essential (primary) hypertension
[2021-12-19] MEDS: SACCHAROMYCES BOULARDII 250 MG CAP PO SCH (18:12)
[2021-12-19] MEDS: DICLOFENAC SOD 1% GEL 100 GM TUBE EXT SCH ×2 (18:14→19:47)
[2021-12-19] MEDS: CETIRIZINE HCL 10 MG TABLET PO SCH (19:44)
[2021-12-19] MEDS: CEFDINIR 300 MG CAP PO SCH (19:45)
[2021-12-19] MEDS: APIXABAN 2.5 MG TAB PO SCH (22:17)
[2021-12-20 07:44] LABS: Basophils # (auto) 0.03 K/uL (0-0.2); Basophils % (auto) 0.3 %; Eosinophils # (auto) 0.25 K/uL (0-0.5); Eosinophils % (auto) 2.2 %; Hematocrit (blood only) 31.8 % (42-52); Hemoglobin 10.8 g/dL (14.0-18.0); Immature Granulocytes # (auto) 0.05 K/uL (0.00-0.02); Immature Granulocytes % (auto) 0.4 %; Lymphocytes # (auto) 1.14 K/uL (1.2-3.4); Mean Corpuscular Volume 94.1 fL (80-100); Mean Platelet Volume 8.7 fL (7.4-10.4); Monocytes # (auto) 1.16 K/uL (0.11-0.59); Monocytes % (auto) 10.2 %; Neutrophils # (auto) 8.75 K/uL (1.4-6.5); Neutrophils % (auto) 76.9 %; Platelet Count 288 K/uL (130-400); RDW Coefficient of Variation 14.6 % (11.5-14.5); RDW Standard Deviation 50.3 fL (36.4-46.3); Red Blood Count 3.38 M/uL (4.7-6.1); White Blood Count 11.38 K/uL (4.8-10.8)
[2021-12-20 08:00] LABS: BUN Creatinine Ratio 18.5 (10-20); Calcium 9.2 mg/dl (8.5-10.1); Creatinine Clr Calc Pharmacy 37.6 ml/min; Est GFR (African American) 56.5 ml/min; Est GFR (Non-African American) 48.7 ml/min; Potassium 3.7 mmol/L (3.5-5.1)
[2021-12-20] MEDS: CEFDINIR 300 MG CAP PO SCH (08:10)
[2021-12-20] MEDS: APIXABAN 2.5 MG TAB PO SCH (08:10)
[2021-12-20] MEDS: carvediloL 12.5 MG TAB PO SCH (08:11)
[2021-12-20] MEDS: POTASSIUM CHLORIDE CRTAB 20 MEQ TABCR PO SCH (08:11)
[2021-12-20] MEDS: POLYETHYLENE (MIRALAX) 17 GM PACK PO SCH ×3 (08:11→13:23)
[2021-12-20] MEDS: FLUTICASONE PROPIONATE NA SPR 16 GM BTL NAE SCH (08:11)
[2021-12-20] MEDS: SACCHAROMYCES BOULARDII 250 MG CAP PO SCH (08:11)
[2021-12-20] MEDS: DICLOFENAC SOD 1% GEL 100 GM TUBE EXT SCH ×2 (08:12→12:38)
[2021-12-20] MEDS: TAMSULOSIN HCL 0.4 MG CAP PO SCH (08:12)
[2021-12-20] MEDS: CHOLECALCIFEROL 1,000 UNITS 25 MCG TAB PO SCH (08:12)
[2021-12-20] MEDS ORDERED: ASPIRIN 81 MG ECTAB PO SCH (09:00)
[2021-12-20] MEDS: ACETAMINOPHEN 325 MG TAB PO PRN (11:09)
--- NOTE | 2021-12-20 11:58 | Discharge Summary ---
Date of Service December 20, 2021 Admission HPI Per Admitting Provider Torrey Mancia is an 86 year old male who presents to the ER with generalized weakness and muscle aches. His provides most of his history at bedside. Initial recent symptoms of a UTI started at the beginning of December. Initially with hematuria and increased difficulty passing urine. He was passing clots per recollection. Recognizing the signs of a UTI she called the urologist office and provided a sample of urine which subsequently grew pansensitive proteus mirabilis and he was started on ciprofloxacin on . The hematuria initially improved on the antibiotic but due to progressive problems passing urine he was seen by the urology office on December 11 for a voiding trial which he failed. Therefore Mcallister catheter was left in at that time for urology follow up. He was already taking tamsulosin 0.4mg PO BID prior to this and has had intermittent difficulties passing urine over the years requiring very intermittent self catheterization after prostate brachytherapy in 2004. He has had prior hematuria secondary to UTIs which have been recurrent over the last year. Despite mcallister catheter insertion and ciprofloxacin use he has been getting increasingly weak over the last week with generalized muscle weakness. He denies any fever, chills or back pain. His called the PCP and urology office and recommended coming to the ER. In the ER mcallister catheter was exchanged and pus came out. He was referred to medicine for admission and ongoing management of UTI with failure of outpatient antibiotics. Hematuria has been resolving while the patient has still been taking aspirin (due to history of CT with cardiac stent in the ) and Eliquis (for a. fib). Principal Diagnosis Bacterial prostatitis Urinary retention Discharge Exam General: A&Ox3. NAD. Cooperative. HEENT: Atraumatic, normocephalic. Pulm: CTAB A&P. -wheezes, -rales, -rhonchi. Symmetrical chest rise. No increase in work of breathing. No respiratory distress. Cardiac: RRR, -mrg. Radial pulses intact and symmetrical. Abdominal: Nontender, nondistended, soft. BS present. Discharge Data Allergies Allergy/AdvReac Type Severity Reaction Status Date / Time KEVIN Inhibitors Allergy Severe SHORTNESS Verified 12/16/21 14:27 OF BREATH Penicillins Allergy Intermediate HIVES Verified 12/16/21 14:27 rosuvastatin [From Crestor] Allergy Intermediate joint Verified 12/16/21 14:27 aches and cramping simvastatin Allergy Intermediate joint Verified 12/16/21 14:27 aches and cramping Aigogdm-LVJ-QyY Reductase Allergy Intermediate joint Verified 12/16/21 14:27 Inhibitor aches and [Equibau-Wgx-Kfr Reductase cramping Inhibitor] RED YEAST RICE Allergy Mild RASH Uncoded 12/16/21 14:27 Consultations 12/16/21 16:30 Consult Urology Routine 12/16/21 16:58 ED Decision to Admit Stat Hospital Course (1) Acute bacterial prostatitis: Torrey is an 86-year-old male who was seen in the hospital for acute bacterial prostatitis after several recurrent UTIs which failed outpatient treatment including ciprofloxacin. He was treated with Rocephin, and cultured gamma strep and Gardnerella in his urine culture. Gardnerella was discussed with ID, is likely contaminant and patient was improving with Rocephin and subsequently cefdinir treatment. If worsening or concern that it is pathogenic rather than demetria, could consider adding Flagyl as outpatient. To do as outpatient: 1. Routine follow-up with PCP 2. Routine follow-up with urology 3. Complete 6 weeks total of antibiotics, prescribed cefdinir 3 mg twice daily at discharge 4. Weekly blood work, CBC/BMP while on antibiotics 5. Follow-up assessment of heart rate. Patient had his carvedilol decreased from 25 mg to 12.5 mg twice daily due to sinus pauses which resolved following dose decrease 6. Potassium check, patient was hypokalemic during admission which normalized with repletion. 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 Was recommended that he can take [id number] Pepcid and was not having stomach symptoms at time of discharge. Patient does have a history of NSAID use for his hip, this was switched to Voltaren for stomach protection 7. Follow-up reassessment of hematuria. This resolved following treatment as above, his apixaban/aspirin were temporarily held and resumed on discharge. 8. 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 No evidence of pyelonephritis on admission UC: Research Assistant Member track and Gardnerella-like bacilli. Suspect Gardnerella-like bacilli contaminant, and patient improving on Rocephin. If clinical worsening can add Flagyl coverage, defer this at this time Ceftriaxone converted to cefdinir 300 mg twice daily. Anticipate 4 to 6-week course of treatment Urology following. Patient able to void today, although incontinent of urine following Mcallister removal Patient has had liquid diarrhea and some fatigue, C. difficile testing was negative during admission, suspect patient with some antibiotic induced diarrhea. May use probiotic, caution to limit Lomotil Hematuria improved and JOVAN globin stable following anticoagulation resumption (2) Urinary retention: -Recurrent history of similar. Question of acute worsening due to prostatitis vs. 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 I see a PVR done in 09/2021 with catheter removed, but then looks like one was inserted on 12/11/[address] Headley in the office. Per urology, he had more retention at the time. - Continue tamsulosin -Allergy following, tolerated voiding trial well today (3) Hematuria due to acute cystitis: -Requested aspirin held due to hematuria on admission, resumed today. No hematuria 12/19 (4) Hypokalemia: Secondary to chlorthalidone and patient stopping his potassium supplementation (?due to gastritis). - Replete K+ PRN 1 dose of potassium given 12/19 for potassium 3.4 Potassium normal at discharge (5) (HFpEF) heart failure with preserved ejection fraction: Noted history of this. On chlorthalidone as diuretic (on hold due to acute infection). - Euvolemic today. (6) Atrial fibrillation with controlled ventricular rate: Permanent afib. -Zoom and home anticoagulation, follow CBC for stability - Continue rate control with carvedilol (lowered dose to 12.5 mg PO BID on 12/17 for pauses that were 3 - 4 seconds long Adequate rate today (7) CKD (chronic kidney disease), stage III: Baseline Cr. 1.5 - 1.9, CrCl usually 25 - 30 mL/min. - Presently at baseline - Montior Cr - Stable baseline today - Avoid nephrotoxic medications (8) Prostate cancer: S/p brachytherapy 2004. (9) HTN (hypertension): Chlorthalidone held with acute infection Normotensive 12/19 - Continue carvedilol VTE Prophylaxis - SCDs, chemical anticoagulation deferred on admission due to hematuria. DOAC resumed as above Total Time Total Time Spent Total Time Spent (In Minutes): Time spend day of discharge 45 minutes including direct patient care, documentation, review of labs and images, and coordination of care. Discharge Plan Discharge Items Patient Disposition: Home - Home Health Services Reason For Visit: HYPOKALEMIA, UTI COMPLICATED Discharge Diagnosis: Bacterial prostatitis Urinary retention Activity: Per Instructions section Non-emergency contact: Primary Care Provider and Urologist Call non-emergency contact if: you have any medication questions, your symptoms worsen and your pain is not controlled Follow-up/Referrals: Tiago Lara MD [Primary Care Provider] - Lorenzo Lund DO [Physician] - Diet: Regular Addtl Attending Provider Instructions: You are seen in the hospital for bacterial prostatitis and your course was complicated by urinary retention. Initially treated with a Mcallister catheter and urology was consulted. Your catheter was removed, and you did well with a voiding trial. You have been continued on tamsulosin with follow-up as outpatient to urology at this time. You have been prescribed antibiotics for bacterial prostatitis as noted below. You will require up to 6 weeks of treatment. Your urine culture during admission showed strep bacteria. A Gardnerella-like bacteria were also seen, this is usually contaminant and you are improving without coverage for this. If there is concern for worsening you may have a additional antibiotic called Flagyl added at follow-up to cover for this although it was not indicated at time of admission. You experienced blood in the urine during admission. For this reason your aspirin and apixaban were temporarily held. To treatment in the hospital he did not have any further blood in the urine, and these medications were resumed on discharge. If you experience any recurrent bleeding or blood in the urine please contact your primary care physician or urologist immediately for recommendations. You you were seen by physical therapy during admission. You had moderately good strength and it was recommended that you continue to have home physical therapy. This is been prescribed at discharge, is being set up for you. Your dose of carvedilol was decreased due to sinus pauses (heartbeat pauses). Please continue taking carvedilol 12.5 mg by mouth daily instead of your previous 25 mg by mouth daily. You have been prescribed an antibiotic, cefdinir. Please take cefdinir 300 mg twice daily for 5 more weeks. This can cause loose/runny bowels. This can also put you at risk for opportunistic infection such as C. difficile as the antibiotics kill both good and bad bacteria. It may help to take a probiotic, please take an hxzw-tur-denisai probiotic up to 3 times daily with meals. You have been prescribed a cream, Voltaren for your chronic arthritis/hip pain. This is a topical anti-inflammatory similar to ibuprofen. You were noted to have some stomach upset in the past, anti-inflammatories including ibuprofen, Aleve, Advil, naproxen, and Motrin can cause stomach erosions and irritation especially when you are already on an aspirin and blood thinner. It is recommended that you use topical treatment including Voltaren, and Tylenol as tolerated for this pain. If you continue to need anti-inflammatories your hip please discuss this with your primary care physician at follow-up. You have been prescribed Voltaren 4 g for use 4 times daily to your hip at time of discharge. If you develop any new or worsening symptoms including fever, chills, sweats, chest pain, chest pressure, difficulty breathing, uncontrolled nausea/vomiting, rash, wheezing, passing out or nearly passing out, bleeding, black/bloody bowel movements, or other new or concerning symptoms please call your primary care physician, or call 911 for re-evaluation in the emergency department if you are very concerned. Pending Studies at Discharge: No Stand-Alone Forms: My [facility] Infer, Smoking Cessation Medications and DC Order Prescriptions: New cefdinir 300 mg Capsule 300 mg PO BID 35 Days Qty: 70 RF: 0 carvedilol 12.5 mg Tablet 12.5 mg PO BID 30 Days Qty: 60 RF: 3 diclofenac sodium [Voltaren Arthritis Pain] 1 % Gel 4 g EXT QID Qty: 100 RF: 0 Continued (DME) catheter 16 Fr misc See Rx Instructions .ROUTE .MEDSUPPLY Qty: 10 RF: 0 tamsulosin 0.4 mg capsule 0.4 mg PO BID Qty: 180 RF: 3 Eliquis 2.5 mg tablet 2.5 mg PO BID Qty: 180 RF: 3 chlorthalidone 25 mg tablet 25 mg PO DAILY Qty: 90 RF: 3 potassium chloride 20 mEq tablet extended release 20 meq PO DAILY Qty: 30 RF: 5 ciprofloxacin HCl 250 mg tablet 250 mg PO BID 4 Days Qty: 8 RF: 0 fluticasone propionate 50 mcg/actuation spray,suspension 2 sprays intranasal BID Qty: 3 RF: 0 cetirizine 10 mg tablet 10 mg PO HS Qty: 30 RF: 0 cholecalciferol (vitamin D3) 25 mcg (1,000 unit) capsule 50 mcg PO DAILY RF: 0 aspirin [Aspirin Low Dose] 81 mg Tablet,Delayed Release (Dr/Ec) 81 mg PO DAILY RF: 0 Discontinued carvedilol 25 mg tablet 25 mg PO BID RF: 0 Discharge Orders: Discharge Order (Routine); Ordered 12/20/21 Ordered By: Tiago Mclean Admission Data Admit Date/Time: 12/16/21 16:24 Attending Provider: Tiago Mclean Admit Provider: Peter Ling Primary Care Provider: Tiago Lara Other Providers: Lorenzo Lund ; Jonathan Chapin Other Interventions: Discharge Summary Assessment (RN) Last Done: 12/20/21 10:58 Coding Level of Care Code D/C DAY MANAGEMENT >30 MINS Diagnoses Acute bacterial prostatitis N41.0 Urinary retention R33.9 Hematuria due to acute cystitis N30.01 Hypokalemia E87.6 (HFpEF) heart failure with preserved ejection fraction I50.30 Atrial fibrillation with controlled ventricular rate I48.91 CKD (chronic kidney disease), stage III N18.30 Prostate cancer C61 HTN (hypertension) I10 Hypertension type: essential hypertension
== END 2021-12-20 14:22 | disposition home or self-care (01) | DRG 728 ==
LOC: ED 11:34 → SUATTDRO 16:24 → 2N 16:24

== ENCOUNTER 2022-05-15 10:01 | Observation (INO) ==
[2022-05-15 11:10] LABS: Basophils # (auto) 0.06 K/uL (0-0.2); Basophils % (auto) 0.7 %; Eosinophils # (auto) 0.35 K/uL (0-0.50); Eosinophils % (auto) 3.8 %; Hematocrit (blood only) 31.8 % (40.1-51.0); Hemoglobin 10.4 g/dl (14.0-18.0); Immature Granulocytes # (auto) 0.04 K/uL (0.00-0.02); Immature Granulocytes % (auto) 0.4 %; Lymphocytes # (auto) 1.12 K/uL (1.2-3.4); Lymphocytes % (auto) 12.2 %; Mean Corpuscular Hemoglobin 28.7 pg (25.0-34.0); Mean Corpuscular Hgb Conc 32.7 g/dL (32.0-36.0); Mean Corpuscular Volume 87.8 fL (80.0-100.0); Mean Platelet Volume 8.8 fL (9.4-12.4); Monocytes % (auto) 8.7 %; Neutrophils # (auto) 6.82 K/uL (1.4-6.5); Neutrophils % (auto) 74.2 %; Platelet Count 199 K/uL (130-400); RDW Coefficient of Variation 16.1 % (11.5-14.5); RDW Standard Deviation 51.7 fL (36.4-46.3); Red Blood Count 3.62 M/uL (4.63-6.08); White Blood Count 9.19 K/ul (4.8-10.8)
[2022-05-15] MEDS ORDERED: LIDOCAINE 2% JELLY 5 ML TUBE EXT ONE (11:20)
[2022-05-15 11:29] LABS: Anion Gap 13 (3-11); BUN Creatinine Ratio 24.3 (10-20); Blood Urea Nitrogen 68 mg/dl (6-23); Calcium 9.7 mg/dl (8.5-10.1); Carbon Dioxide 23 mmol/L (21-32); Chloride 103 mmol/L (98-107); Est GFR (African American) 22.2 ml/min; Est GFR (Non-African American) 19.1 ml/min; Glucose 123 mg/dl (70-99(Fasting)); Potassium 2.7 mmol/L (3.5-5.1); Sodium 139 mmol/L (136-145)
[2022-05-15 12:15] LABS: Appearance Urine Turbid (Clear); Bacteria Urine Automated 2+ (Negative); Bilirubin Urine Negative (Negative); Blood Urine 3+ (Negative); Color Urine Orange; Glucose Urine UA Negative (Negative); Ketones Urine Negative (Negative); Leukocyte Esterase Urine 3+ (Negative); Nitrite Urine Negative (Negative); Protein Urine 2+ (Negative); RBC Urine Automated >30 /hpf (0-4); Specific Gravity Urine 1.012 (1.000-1.030); Urobilinogen Urine Negative (Negative); WBC Urine Automated >30 /hpf (0-5)
[2022-05-15] MEDS ORDERED: CLOTRIMAZOLE 1% CR 15 GM TUBE EXT ONE (12:31)
[2022-05-15 12:35] LABS: Albumin Level 3.8 gm/dl (3.4-5.0); Bilirubin,Total 0.3 mg/dl (0.2-1.0)
[2022-05-15] MEDS ORDERED: cefTRIAXone SODIUM 1,000 MG/50 ML BAG IV STA (12:51)
[2022-05-15] MEDS ORDERED: SODIUM CHLORIDE 0.9% 1000ML 500 ML IV ONE (13:44)
[2022-05-15] MEDS ORDERED: SODIUM CHLORIDE 0.9% 1000ML 1,000 ML IV SCH (13:45)
[2022-05-15] MEDS ORDERED: POTASSIUM CHLORIDE CRTAB 20 MEQ TABCR PO STA ×2 (13:52→18:22)
--- NOTE | 2022-05-15 13:57 | History & Physical Report ---
Date of Service May 15, 2022 History of Present Illness Primary Care Provider: Tiago Lara MD Allergies Allergy/AdvReac Type Severity Reaction Status Date / Time KEVIN Inhibitors Allergy Severe SHORTNESS Verified 04/22/22 10:00 OF BREATH Penicillins Allergy Intermediate HIVES Verified 04/22/22 10:00 rosuvastatin [From Crestor] Allergy Intermediate joint Verified 04/22/22 10:00 aches and cramping simvastatin Allergy Intermediate joint Verified 04/22/22 10:00 aches and cramping Shjyekj-JEC-MbM Reductase Allergy Intermediate joint Verified 04/22/22 10:00 Inhibitor aches and [Gplftnx-Vzd-Beh Reductase cramping Inhibitor] RED YEAST RICE Allergy Mild RASH Uncoded 04/22/22 10:00 Home Medications Medication Instructions Recorded Confirmed Type cetirizine 10 mg tablet (Zyrtec) 10 mg PO HS #30 tabs 06/16/19 04/22/22 History fluticasone propionate 50 2 sprays intranasal BID #3 grams 06/16/19 04/22/22 History mcg/actuation nasal spray,suspension (Flonase Allergy Relief) cholecalciferol (vitamin D3) 25 50 mcg PO QPM 09/11/21 04/22/22 History mcg (1,000 unit) capsule apixaban 2.5 mg tablet (Eliquis) 2.5 mg PO BID #180 tabs 12/24/21 04/22/22 Rx chlorthalidone 25 mg tablet 25 mg PO QAM 01/21/22 04/22/22 History diclofenac sodium 1 % topical gel 4 g EXT QID PRN Pain 01/21/22 04/22/22 History (Voltaren Arthritis Pain) cefdinir 300 mg capsule 300 mg PO QAM 03/27/22 04/22/22 History potassium chloride 20 mEq 20 meq PO QAM 03/27/22 04/22/22 History tablet,extended release carvedilol 12.5 mg tablet (Coreg) 12.5 mg PO BID 03/31/22 04/22/22 History tamsulosin 0.4 mg capsule (Flomax) 0.4 mg PO BID 03/31/22 04/22/22 History ciprofloxacin HCl 250 mg tablet 250 mg PO BID #28 tabs 04/02/22 04/22/22 Rx lidocaine 4 % topical gel 1 applic topical TID #10 grams 04/02/22 04/22/22 Rx Past Med/Surg History Medical History Anemia Aortic regurgitation Arthritis Atrial fibrillation Bladder cancer (08/17/07) CKD (chronic kidney disease), stage III Cognitive impairment Coronary artery disease Hearing deficit Hyperlipidemia Hypertension Iron deficiency anemia Monoclonal gammopathy of undetermined significance (~2015) Myocardial Infarction Peripheral neuropathy Presbyesophagus Prostate cancer (~04/2005) Shortness of breath on exertion Spinal stenosis Tricuspid regurgitation Surgical History History of back surgery (08/06/17) History of bilateral cataract extraction History of bladder surgery History of cardiac cath History of colonoscopy History of cystoscopy History of esophagogastroduodenoscopy (EGD) History of heart artery stent History of prostate biopsy History of tooth extraction Hx of vasectomy Family History Unknown Prostate cancer Bladder cancer Hypertension Father Family history of diabetes mellitus Daughter Breast cancer Son Myocardial infarction Other No family history of adverse response to anesthesia Denies family history of Ovarian cancer Colorectal cancer Social History Smoking Status: Former smoker Tobacco Type: Cigarettes Age Quit Using Tobacco: 48; Cigarettes Per Day: 1 pack per day; Second Hand Exposure: No; Hx Alcohol Use: Yes Alcohol type: wine Alcohol Intake Frequency Comment: once a day Hx Substance Use: No Preferred Language: Polish Communication Ability: Effective Visual Impairment: Limited Hearing Ability: Hard of Hearing Distribution Clerk Required: No Beliefs That Will Affect Care: None marital status: Current Living Situation: Spouse Current Living Situation Comment: Lives at home with his current occupational status: retired How many Children do You have: 2 Feels Safe at Home: Yes caffeine: Yes (coffee) Dental Care, Regularly: Yes Physical Activity Frequency: Daily Physical Activity Frequency Comment: treadmill in morning, sit ups Seatbelt Use: always Sunscreen Use: Yes Assistive Devices: Cane, Denture - Upper, Denture - Lower and Glasses Results & Data Results & Data ([facility]) Vital Signs (Past 12 Hours) Vital Signs Temp Pulse Pulse Resp BP BP Pulse Ox 05/15/22 12:31 76 18 118/68 98 05/15/22 10:05 36.5 C 90 18 116/64 99 O2 Del Method 05/15/22 12:31 05/15/22 10:05 Room Air Supervising Physician Co-Signing Physician Notes Patient seen and examined, chart reviewed, case discussed with Asif Warner PA-C and I agree with the assessment and plan as above except as otherwise noted Labs and images reviewed Torrey is an 87-year-old male with a past medical history of CAD with CHFpEF, hypertension, urinary retention, mild cognitive impairment, lower esophageal ring and cricopharyngeal spasm, bladder cancer/prostate cancer, A. fib, hematuria, MGUS, iron deficiency anemia, and CKD. Due to his history of prostate cancer status post radiation with chronic prostatitis he self caths, presents with worsening pain, volume depletion, and hypokalemia. Self caths Prostate and uroprostatic abscess Urinary dribbling w/ open raw glans. ?herpetic vs yeast w/ increased pain unable to cath through pain not eating and drinking mcallister cath in place Cr chronically elevated K 2.7 40meq + 20IV Consult Uro. Ceftriaxone History of LUTS, chronic prostatitis,? Uroprostatic abscess History of prostate cancer treated with radiation, chronic prostatitis with RUBA TS followed by urology Last seen 04/22/2022, was placed on prophylactic antibiotics at that time Self caths at home No leukocytosis. UA: 3+ leukocyte esterase, 2+ bacteria, 3+ blood. Patient reportedly on cefdinir every morning as outpatient. Received Rocephin in ER [facility] on CKD Baseline creatinine appears approximately 1.52.0 Acutely elevated on admission to 2.8, elevated BUN/creatinine ratio 24 Received 100 cc bolus, 1000 cc @ 100cc/hr supplement IVF in ER Appears dry, prerenal. Patient with chronic obstructive component, bladder scan every shift BMP daily Renally dose medications Hold chlorthalidone CHF - Last echo 03/2022: LV size, wall motion, and systolic function normal. Mild concentric LVH. Left atrium moderately dilated. RV mildly dilated. RV SF mildly reduced. Right atrium moderately dilated. RVSP 3040 with mildly dilated inferior vena cava. EF 50-55%. Mildly contracted on admission. Chlorthalidone held, gentle fluids given. Follow volume status clinically, daily weights. No diuretics indicated at this time. Continue carvedilol Hypokalemia: Repleted, trend PG Care Time/CCT Total # of Minutes Spent Total Time Spent with Patient: Total time spent is greater than 50% in coordination of care (as documented) at patient's floor/unit and/or counseling patient: Coding
[2022-05-15] MEDS ORDERED: ACETAMINOPHEN 325 MG TAB PO PRN (14:00)
--- NOTE | 2022-05-15 14:17 | History & Physical Report ---
Date of Service May 15, 2022 Assessment & Plan (1) Penile lesion: Plan: -Admit to observation -It appears that the urethral meatus has been progressively irritated by the frequent straight caths and is possibly starting to become infected -Continue with mcallistre placed in ED for now -Will get culture of the penile wound for complete workup -Continue ceftriaxone for now and tailor abx to urine and wound culture -Given 1L NSS in the ED, hold additional IV fluids for now -Urology consulted (2) Urinary retention: Plan: -See above (3) UTI (urinary tract infection): Plan: -See above (4) Dysuria: Plan: -see above (5) MARQUEZ (acute kidney injury): Plan: -Baseline Cr appears to be between 1.5-1.7, currently at 2.8 -Likely obstructive due to urinary retention -Will get renal US to monitor for hydro -Monitor AM renal function on BMP (6) Hypokalemia: Plan: -Found at 2.7 in the ED -Given 40 meq PO and ordered for 20 meq IV -Will get EKG and repeat potassium and get mag level in a few hours -If concerning EKG will place on tele (7) Atrial fibrillation: Plan: -Rate controlled -Continue Eliquis and Carvedilol for now (8) CHF (congestive heart failure): Plan: -Appears fluid overloaded at this time -Hold additional IV fluids for now, may need diuresis during admission but would wait until electrolytes are stable (9) HTN (hypertension): Plan: -BP stable -Continue Carvedilol but hold thiazide until electrolytes are stable (10) Peripheral edema: Plan: -see above (11) Coronary artery disease: Plan: -see above Plan The patient was discussed with Dr. Mclean at the time of admission History of Present Illness Chief Complaint: Leaking from head of penis and glans penis lesion Primary Care Provider: Tiago Lara MD Torrey is an 87 year old male with a PMH significant for prostate cancer treated with radiation, followed by urology for lower urinary tract symptoms and chronic prostatitis with previous prostate abscess, afib on eliquis, CAD, HFpEF, HTN, hyperlipidemia, CKD who presented to the [facility] ED on 05/15/22 with urinary leaking and ulcer of the glans penis. Per chart review, the patient was last seen in the Urology Clinic on 04/22/22 for his urinary retention issues. Per the note, they explained that a TURP is risky with is history of radiation treatment from his previous prostate cancer. At that visit they came up with the plan for the patient to self straight cath with continued follow-up. At the time of the exam the patient was resting in bed in no acute distress with his sitting bedside. They state that the patient began experiencing penile pain approximately 1 week ago. His states that the pain and irritation started small at the urethral meatus but then progressed and moved proximally. They state that the patient has had increased dysuria with urination and have noticed some blood droplets draining around the Mcallister when he walks. The patient denies recent fevers and chills. He has not noticed an increase in lower extremity swelling, his states that his legs are always somewhat swollen with fluid. In the ED the patient was noted to have an ulcer/lesion on at the urethral meatus and UA appeared to be infectious. The patient was also found to be hypokalemic at 2.7. He was given 40 meq PO KCL and ordered for two doses of 10 meq IV KCL. The patient was given 1L NSS bolus and started on ceftriaxone. Allergies Allergy/AdvReac Type Severity Reaction Status Date / Time KEVIN Inhibitors Allergy Severe SHORTNESS Verified 05/15/22 15:11 OF BREATH Penicillins Allergy Intermediate HIVES Verified 05/15/22 15:11 rosuvastatin [From Crestor] Allergy Intermediate joint Verified 05/15/22 15:11 aches and cramping simvastatin Allergy Intermediate joint Verified 05/15/22 15:11 aches and cramping [id number]-[id number]-ElI Reductase Allergy Intermediate joint Verified 05/15/22 15:11 Inhibitor aches and [Zplceur-Aje-Rlt Reductase cramping Inhibitor] RED YEAST RICE Allergy Mild RASH Uncoded 05/15/22 15:11 Home Medications Medication Instructions Recorded Confirmed Type cetirizine 10 mg tablet (Zyrtec) 10 mg PO HS #30 tabs 06/16/19 05/15/22 History fluticasone propionate 50 2 sprays intranasal BID PRN 06/16/19 05/15/22 History mcg/actuation nasal Congestion #3 grams spray,suspension (Flonase Allergy Relief) cholecalciferol (vitamin D3) 25 50 mcg PO QPM 09/11/21 05/15/22 History mcg (1,000 unit) capsule apixaban 2.5 mg tablet (Eliquis) 2.5 mg PO BID #180 tabs 12/24/21 05/15/22 Rx chlorthalidone 25 mg tablet 25 mg PO QAM 01/21/22 05/15/22 History carvedilol 12.5 mg tablet (Coreg) 12.5 mg PO BID 03/31/22 05/15/22 History tamsulosin 0.4 mg capsule (Flomax) 0.4 mg PO BID 03/31/22 05/15/22 History Past Med/Surg History Medical History Anemia Aortic regurgitation Arthritis back Atrial fibrillation Follows Dr. 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 Bone marrow biopsy negative for plasma dyscrasia and B cell lymphoma. Myocardial Infarction 1994--followed with Dr. Landaverde Peripheral neuropathy Presbyesophagus Prostate cancer (~04/2005) s/p failure of brachytherapy. Patient opted to forego further treatment d/t a ge. Had seeding placed in prostate Shortness of breath on exertion Spinal stenosis Tricuspid regurgitation Surgical History History of back surgery (08/06/17) Dr. Stephens. Fused at L4-L5 and sacrum. History of bilateral cataract extraction History of bladder surgery TURBT 08/17/2007 for bladder cancer History of cardiac cath [place] @ [facility] [place] 1 stent placed - unsure type/location - Follows Dr. Verduzco History of colonoscopy History of cystoscopy multiple times--d/t bladder cancer History of esophagogastroduodenoscopy (EGD) History of heart artery stent 1994 @ [facility] [place] - 1 stent placed - unsure type/location - Follows Dr. Verduzco History of prostate biopsy [facility] History of tooth extraction all upper teeth/partial lower Hx of vasectomy Family History Unknown Prostate cancer Bladder cancer Hypertension Father Family history of diabetes mellitus Daughter Breast cancer Son Myocardial infarction Other No family history of adverse response to anesthesia Denies family history of Ovarian cancer Colorectal cancer Social History Smoking Status: Former smoker Tobacco Type: Cigarettes Age Quit Using Tobacco: 48; Cigarettes Per Day: 1 pack per day; Second Hand Exposure: No; Hx Alcohol Use: Yes Alcohol type: wine Alcohol Intake Frequency Comment: once a day Hx Substance Use: No Preferred Language: Latvian Communication Ability: Effective Visual Impairment: Limited Hearing Ability: Hard of Hearing Proced Tech Required: No Beliefs That Will Affect Care: None marital status: Current Living Situation: Spouse Current Living Situation Comment: Lives at home with his current occupational status: retired How many Children do You have: 2 Feels Safe at Home: Yes caffeine: Yes (coffee) Dental Care, Regularly: Yes Physical Activity Frequency: Daily Physical Activity Frequency Comment: treadmill in morning, sit ups Seatbelt Use: always Sunscreen Use: Yes Assistive Devices: Cane, Denture - Upper, Denture - Lower and Glasses Review of Systems Review of Systems: Denies current fever, chills, headache, changes in vision, hearing, taste, and smell, chest pain, SOB, cough, abdominal pain, nausea, vomiting, diarrhea, hematemesis, melena,and recent falls. Physical Exam Physical Exam: Physical Exam: General: In no acute distress, stated age, well-nourished, good hygiene HEENT: Normocephalic, atraumatic, no scleral icterus, pupils around round, symmetrical, and reactive to light, moist mucus membranes, trachea midline, no thyromegaly Chest/Pulm: No respiratory distress, symmetrical chest expansion, clear breath sounds throughout Cardiac: Positive JVD, Irregular rate and rhythm, systolic murmur noted Abdomen: Negative for ascites and bruising, normoactive bowel sounds, soft, non-tender to palpation throughout : Patient with mcallister cather in place and draining cloudy, yellow urine. Patient with non-bleeding ulcer/lesion around the urethral meatus which is tender to palpation, no scrotal lesions or swelling noted Musculoskeletal: Symmetrical and without signs of acute trauma, upper and lower extremities with full ROM, no atrophy, spasticity, or flaccidity Neuro: Alert and oriented to person, place, month, year, and president, no focal defects, CN II-XII tested and intact, finger to nose test negative, no tremors noted Psych: No acute distress, calm and cooperative during the exam Results & Data Results & Data ([facility]) Vital Signs (Past 12 Hours) Vital Signs Temp Pulse Pulse Resp BP BP Pulse Ox 05/15/22 12:31 76 18 118/68 98 05/15/22 10:05 36.5 C 90 18 116/64 99 O2 Del Method 05/15/22 12:31 05/15/22 10:05 Room Air Laboratory Results Abnormal lab results 05/15/22 05/15/22 05/15/22 Range/Units 10:54 10:54 10:54 RBC 3.62 L (4.63-6.08) M/uL Hgb 10.4 L (14.0-18.0) g/dl Hct 31.8 L (40.1-51.0) % RDW Std Deviation 51.7 H (36.4-46.3) fL RDW Coeff of Tay 16.1 H (11.5-14.5) % MPV 8.8 L (9.4-12.4) fL Neut # (Auto) 6.82 H (1.4-6.5) K/uL Lymph # (Auto) 1.12 L (1.2-3.4) K/uL Immature Gran # (Auto) 0.04 H (0.00-0.02) K/uL Potassium 2.7 L (3.5-5.1) mmol/L Anion Gap 13 H (3-11) BUN 68 H (6-23) mg/dl Creatinine 2.80 H (0.6-1.4) mg/dl BUN/Creatinine Ratio 24.3 H (10-20) Glucose 123 H (70-99(Fasting)) mg/dl AST 11 L (13-39) U/L ALT 6 L (7-52) U/L Urine Appearance (Clear) Urine Protein (Negative) Urine Blood (Negative) Ur Leukocyte Esterase (Negative) Urine WBC (Auto) (0-5) /hpf Urine RBC (Auto) (0-4) /hpf U Epithel Cells (Auto) (0-5) /lpf Urine Bacteria (Auto) (Negative) 05/15/22 Range/Units 12:00 RBC (4.63-6.08) M/uL Hgb (14.0-18.0) g/dl Hct (40.1-51.0) % RDW Std Deviation (36.4-46.3) fL RDW Coeff of Tay (11.5-14.5) % MPV (9.4-12.4) fL Neut # (Auto) (1.4-6.5) K/uL Lymph # (Auto) (1.2-3.4) K/uL Immature Gran # (Auto) (0.00-0.02) K/uL Potassium (3.5-5.1) mmol/L Anion Gap (3-11) BUN (6-23) mg/dl Creatinine (0.6-1.4) mg/dl BUN/Creatinine Ratio (10-20) Glucose (70-99(Fasting)) mg/dl AST (13-39) U/L ALT (7-52) U/L Urine Appearance Turbid A (Clear) Urine Protein 2+ H (Negative) Urine Blood 3+ H (Negative) Ur Leukocyte Esterase 3+ H (Negative) Urine WBC (Auto) >30 H (0-5) /hpf Urine RBC (Auto) >30 H (0-4) /hpf U Epithel Cells (Auto) 10-20 H (0-5) /lpf Urine Bacteria (Auto) 2+ H (Negative) ECG Additional Comments: Will obtain on admission as not obtained in ED Code Status & VTE Plan Code Status full code VTE Prophylaxis Plan VTE Prophylaxis will be ordered: Yes Supervising Physician Co-Signing Physician Notes Patient seen and examined, chart reviewed, case discussed with Asif Warner PA-C and I agree with the assessment and plan as above except as otherwise noted Labs and images reviewed Torrey is an 87-year-old male with a past medical history of CAD with CHFpEF, hypertension, urinary retention, mild cognitive impairment, lower esophageal ring and cricopharyngeal spasm, bladder cancer/prostate cancer, A. fib, hematuria, MGUS, iron deficiency anemia, and CKD. Due to his history of prostate cancer status post radiation with chronic prostatitis he self caths, presents with worsening pain, volume depletion, and hypokalemia. At bedside evaluation patient is nondistressed. Mcallister in place, draining yellow urine, scant amount of blood with a erosion at the tip of the urethra, scant amount of discharge. Abdomen is nontender. Lungs are grossly clear, respirations unlabored. Patient does have JVD 2 cm above the clavicle which increases on HJR. History of LUTS, chronic prostatitis,? Uroprostatic abscess History of prostate cancer treated with radiation, chronic prostatitis with LUTS followed by urology Last seen 04/22/2022, was placed on prophylactic antibiotics at that time Self caths at home No leukocytosis. UA: 3+ leukocyte esterase, 2+ bacteria, 3+ blood. Patient reportedly on cefdinir every morning as outpatient. Received Rocephin in ER MARQUEZ on CKD Baseline creatinine appears approximately 1.52.0 Acutely elevated on admission to 2.8, elevated BUN/creatinine ratio 24 Received 100 cc bolus, 1000 cc @ 100cc/hr supplement IVF in ER At bedside evaluation actually looks volume up, with mild JVD.? Obstructive component to his MARQUEZ. Fluid stopped. Trend BMP, Mcallister in place draining urine. Follow-up with renal ultrasound as above BMP daily Renally dose medications Hold chlorthalidone CHF - Last echo 03/2022: LV size, wall motion, and systolic function normal. Mild concentric LVH. Left atrium moderately dilated. RV mildly dilated. RV SF mildly reduced. Right atrium moderately dilated. RVSP 3040 with mildly dilated inferior vena cava. EF 50-55%. Fluids as above, chlorthalidone held. Follow volume status clinically, daily weights. Continue carvedilol Hypokalemia: Repleted, trend PG Care Time/CCT Total # of Minutes Spent Total Time Spent with Patient: Total time spent is greater than 50% in coordination of care (as documented) at patient's floor/unit and/or counseling patient: Coding Level of Care Code Established Pt INT OBSERVATION CARE 50M LVL 2 Patient Type Established Medical Decision Making Moderate Complexity Diagnoses Penile lesion N48.9 Urinary retention R33.9 UTI (urinary tract infection) N39.0 Dysuria R30.0 MARQUEZ (acute kidney injury) N17.9 Hypokalemia E87.6 Atrial fibrillation I48.91 CHF (congestive heart failure) I50.9 HTN (hypertension) I10 Hypertension type: essential hypertension Peripheral edema R60.9 Coronary artery disease I25.10 (1) HTN (hypertension) Hypertension type: essential hypertension Qualified Code(s): I10 - Essential (primary) hypertension
--- NOTE | 2022-05-15 15:03 | Urology Consultation ---
Date of Consultation May 15, 2022 Assessment & Plan (1) Penile lesion: 1. penile lesion - uncertain of the exact etiology - chronic irritation vs infection (balanitis) - will empirically treat for balanitis with topical nystatin and triamcinolone - may require 1-2 weeks for full resoluton - if this does not improve, we can entertain further diagnostic testing 2. MARQUEZ on CKD - catheter in now - no imaging since arrival - monitor labs and UoP - determine duration of catheter after assessing lab response History of Present Illness History of Present Illness 87-year-old gentleman with a history of prostate cancer status post radiation 20+ years ago Severe, chronic incontinence History of a prostatic abscess Presents today secondary to bleeding from the meatus/glans penis as well as some discomfort through the distal urethra He reports that he collected some "tissue "through the urethra earlier this week He has not seen bright red blood No fevers, chills, rigors Labs drawn upon arrivalno leukocytosis, he does have MARQUEZ superimposed on CKDcurrent creatinine 2.8 Licea catheter was placed upon arrival in the ED Allergies Allergy/AdvReac Type Severity Reaction Status Date / Time KEVIN Inhibitors Allergy Severe SHORTNESS Verified 04/22/22 10:00 OF BREATH Penicillins Allergy Intermediate HIVES Verified 04/22/22 10:00 rosuvastatin [From Crestor] Allergy Intermediate joint Verified 04/22/22 10:00 aches and cramping simvastatin Allergy Intermediate joint Verified 04/22/22 10:00 aches and cramping Deyyiqq-IYT-CuF Reductase Allergy Intermediate joint Verified 04/22/22 10:00 Inhibitor aches and [Jmpvzqc-Qgk-Vfv Reductase cramping Inhibitor] RED YEAST RICE Allergy Mild RASH Uncoded 04/22/22 10:00 Home Medications Medication Instructions Recorded Confirmed Type cetirizine 10 mg tablet (Zyrtec) 10 mg PO HS #30 tabs 06/16/19 04/22/22 History fluticasone propionate 50 2 sprays intranasal BID #3 grams 06/16/19 04/22/22 History mcg/actuation nasal spray,suspension (Flonase Allergy Relief) cholecalciferol (vitamin D3) 25 50 mcg PO QPM 09/11/21 04/22/22 History mcg (1,000 unit) capsule apixaban 2.5 mg tablet (Eliquis) 2.5 mg PO BID #180 tabs 12/24/21 04/22/22 Rx chlorthalidone 25 mg tablet 25 mg PO QAM 01/21/22 04/22/22 History diclofenac sodium 1 % topical gel 4 g EXT QID PRN Pain 01/21/22 04/22/22 History (Voltaren Arthritis Pain) cefdinir 300 mg capsule 300 mg PO QAM 03/27/22 04/22/22 History potassium chloride 20 mEq 20 meq PO QAM 03/27/22 04/22/22 History tablet,extended release carvedilol 12.5 mg tablet (Coreg) 12.5 mg PO BID 03/31/22 04/22/22 History tamsulosin 0.4 mg capsule (Flomax) 0.4 mg PO BID 03/31/22 04/22/22 History ciprofloxacin HCl 250 mg tablet 250 mg PO BID #28 tabs 04/02/22 04/22/22 Rx lidocaine 4 % topical gel 1 applic topical TID #10 grams 04/02/22 04/22/22 Rx Patient History Medical History Anemia Aortic regurgitation Arthritis back Atrial fibrillation Follows Dr. 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 Bone marrow biopsy negative for plasma dyscrasia and B cell lymphoma. Myocardial Infarction 1994--followed with Dr. Landaverde Peripheral neuropathy Presbyesophagus Prostate cancer (~04/2005) s/p failure of brachytherapy. Patient opted to forego further treatment d/t age. Had seeding placed in prostate Shortness of breath on exertion Spinal stenosis Tricuspid regurgitation Surgical History History of back surgery (08/06/17) Dr. Stephens. Fused at L4-L5 and sacrum. History of bilateral cataract extraction History of bladder surgery TURBT 08/17/2007 for bladder cancer History of cardiac cath 1994 @ [facility] [place]--with 1 stent placed - unsure type/location - Follows Dr. Verduzco History of colonoscopy History of cystoscopy multiple times--d/t bladder cancer History of esophagogastroduodenoscopy (EGD) History of heart artery stent 1994 @ [facility] [place] - 1 stent placed - unsure type/location - Follows Dr. Verduzco History of prostate biopsy Unable to find path report in [facility] or [facility]. History of tooth extraction all upper teeth/partial lower Hx of vasectomy Family History Unknown Prostate cancer Bladder cancer Hypertension Father Family history of diabetes mellitus Daughter Breast cancer Son Myocardial infarction Other No family history of adverse response to anesthesia Denies family history of Ovarian cancer Colorectal cancer Social History Smoking Status: Former smoker Tobacco Type: Cigarettes Age Quit Using Tobacco: 48; Cigarettes Per Day: 1 pack per day; Second Hand Exposure: No; Hx Alcohol Use: Yes Alcohol type: wine Alcohol Intake Frequency Comment: once a day Hx Substance Use: No Preferred Language: Romanian Communication Ability: Effective Visual Impairment: Limited Hearing Ability: Hard of Hearing Log Skidder Required: No Beliefs That Will Affect Care: None marital status: Current Living Situation: Spouse Current Living Situation Comment: Lives at home with his current occupational status: retired How many Children do You have: 2 Feels Safe at Home: Yes caffeine: Yes (coffee) Dental Care, Regularly: Yes Physical Activity Frequency: Daily Physical Activity Frequency Comment: treadmill in morning, sit ups Seatbelt Use: always Sunscreen Use: Yes Assistive Devices: Cane, Denture - Upper, Denture - Lower and Glasses Physical Exam Physical Exam: There is a 1 to 2 mm ring of inflamed tissue surrounding the meatus There is active bleeding from several locations of this inflamed tissue He does not seem to have any other evidence of balanitis affecting the remainder of the glans He is very tender in this area No tenderness along the remainder of the penile urethra or perineum No suprapubic tenderness No testicular epididymal tenderness Results & Data ([facility]) Vital Signs (Past 12 Hours) Vital Signs Temp Pulse Pulse Resp BP BP Pulse Ox 05/15/22 14:20 77 18 120/70 98 05/15/22 12:31 76 18 118/68 98 05/15/22 10:05 36.5 C 90 18 116/64 99 O2 Del Method 05/15/22 14:20 05/15/22 12:31 05/15/22 10:05 Room Air PG Care Time/CCT Total # of Minutes Spent Total Time Spent with Patient: Total time spent is greater than 50% in coordination of care (as documented) at patient's floor/unit and/or counseling patient: Coding Level of Care Code 96223 Inpt Consult Level 3 Diagnoses Penile lesion N48.9
[2022-05-15] MEDS: POTASSIUM CHLORIDE / WTR 10 MEQ/100 ML PLCT IV SCH ×2 (16:08→17:19)
[2022-05-15] MEDS ORDERED: CLOTRIMAZOLE 1% CR 15 GM TUBE ONE (16:18)
[2022-05-15] MEDS ORDERED: POTASSIUM CHLORIDE 10 MEQ TABCR PO ONE (16:33)
[2022-05-15] MEDS: Patient's HEIGHT &/or WEIGHT Needed SCH ×2 (16:41→17:31)
[2022-05-15 17:47] LABS: Magnesium 2.4 mg/dl (1.7-2.4); Potassium 2.9 mmol/L (3.5-5.1)
--- NOTE | 2022-05-15 19:22 | Ultrasound Report ---
US renal/blad retro comp CLINICAL HISTORY: Evaluate for renal calculus/hydronephrosis. COMPARISON: 02/27/2022 TECHNIQUE: Multiple grayscale and color images of the kidneys and bladder. FINDINGS: Right kidney: There is again atrophy of the right kidney when compared to the left with mild increase echogenicity present. There is no evidence for renal calculus or hydronephrosis. There is no evidenc e for solid renal mass. Findings are characteristic of mild medical renal disease. The kidney measure s 8.1 x 3.7 x 3.4 cm. Left kidney: The kidney is normal in size and echogenicity. There is no evidence for renal calculus o r hydronephrosis. There is no evidence for solid renal mass. There is no evidence for medical renal d isease. The kidney measures 10.6 x 4.4 x 6.1 cm. Bladder: Licea catheter is in place. IMPRESSION: 1. Compared to previous examination, there is again atrophy of the right kidney when compared to the left. 2. No renal calculi or hydronephrosis bilaterally. ACT 112: Negative or not required by law. Electronically signed by: Jony Perkins M.D. 05/15/2022 7:21 PM
[2022-05-15] MEDS: carvediloL 12.5 MG TAB PO SCH (21:15)
[2022-05-15] MEDS: TAMSULOSIN HCL 0.4 MG CAP PO SCH (21:15)
[2022-05-15] MEDS: APIXABAN 2.5 MG TAB PO SCH (21:15)
[2022-05-15] MEDS: NYSTATIN/TRIAMCIN OINT 15 GM TUBE EXT SCH (21:15)
[2022-05-15] MEDS ORDERED: POTASSIUM CHLORIDE CRTAB 20 MEQ TABCR PO ONE (22:00)
[2022-05-16 08:10] LABS: Hematocrit (blood only) 31.3 % (40.1-51.0); Hemoglobin 10.1 g/dl (14.0-18.0); Mean Corpuscular Hemoglobin 28.6 pg (25.0-34.0); Mean Corpuscular Hgb Conc 32.3 g/dL (32.0-36.0); Mean Corpuscular Volume 88.7 fL (80.0-100.0); Mean Platelet Volume 8.8 fL (9.4-12.4); Platelet Count 192 K/uL (130-400); RDW Coefficient of Variation 15.9 % (11.5-14.5); RDW Standard Deviation 51.2 fL (36.4-46.3); Red Blood Count 3.53 M/uL (4.63-6.08); White Blood Count 9.79 K/ul (4.8-10.8)
[2022-05-16 08:34] LABS: BUN Creatinine Ratio 23.5 (10-20); Calcium 9.2 mg/dl (8.5-10.1); Creatinine Clr Calc Pharmacy 19.3 ml/min; Est GFR (African American) 28.7 ml/min; Est GFR (Non-African American) 24.8 ml/min; Magnesium 2.3 mg/dl (1.7-2.4); Potassium 3.2 mmol/L (3.5-5.1)
[2022-05-16] MEDS: carvediloL 12.5 MG TAB PO SCH (08:35)
[2022-05-16] MEDS: APIXABAN 2.5 MG TAB PO SCH (08:35)
[2022-05-16] MEDS: TAMSULOSIN HCL 0.4 MG CAP PO SCH (08:35)
[2022-05-16] MEDS ORDERED: cefTRIAXone SODIUM 1,000 MG in DEXTROSE 5% 50 ML IV SCH (09:00)
[2022-05-16] MEDS ORDERED: POTASSIUM CHLORIDE CRTAB 20 MEQ TABCR PO SCH (09:00)
--- NOTE | 2022-05-16 09:35 | Urology Progress Note ---
Date of Service May 16, 2022 Assessment & Plan (1) Penile lesion: (2) MARQUEZ (acute kidney injury): Plan Balanitis; urinary retention; MARQUEZ Overall seems to be improving I think he needs a 2-week course of the topical antifungal/steroid for the penile irritation Continue the Licea catheter for nowpotential voiding trial next week Creatinine already improving From a standpoint I think it is probably pretty reasonable to consider discharge home todayhe can address some of his other issues as an outpatient Admission and Anticipated Discharge Date Admission Date: May 15, 2022 Subjective Subjectively doing much better today He denies any significant penile pain He feels that the topical ointments already are benefiting him His urine remains clear His creatinine has dropped from 2.8-2.2 Potassium 3.2 He is anxious to go home Did have an ultrasound yesterday afternoon which does not show any hydronephrosis but he does have an atrophic right kidney This has been seen on past imaging as well Physical Exam Constitutional: well developed and well nourished Respiratory: no respiratory distress Cardiovascular: Extremities: no pedal edema Gastrointestinal (Abdomen): Inspection/Auscultation: abdomen normal to inspection Results & Data ([facility]) Vital Signs (Past 12 Hours) Vital Signs Temp Pulse Resp BP Pulse Ox O2 Del Method 05/16/22 06:31 36.4 C L 88 18 128/78 98 Room Air 05/15/22 22:58 36.7 C 82 18 127/72 100 Room Air PG Care Time/CCT Total # of Minutes Spent Total Time Spent with Patient: Total time spent is greater than 50% in coordination of care (as documented) at patient's floor/unit and/or counseling patient: Coding Level of Care Code 64250 Subseq Hosp Care Lvl 2 Diagnoses Penile lesion N48.9 MARQUEZ (acute kidney injury) N17.9
[2022-05-16] MEDS ORDERED: POTASSIUM CHLORIDE CRTAB 20 MEQ TABCR PO STA (10:18)
[2022-05-16] MEDS: NYSTATIN/TRIAMCIN OINT 15 GM TUBE EXT SCH (14:29)
--- NOTE | 2022-05-16 17:40 | Discharge Summary ---
Date of Service May 16, 2022 Principal Diagnosis MARQUEZ, UTI, Balanitis Discharge Exam Vitals reviewed Gen: [AAOx3, NAD] HEENT: [anicteric sclerae, EOMI] CV: [RRR no mgr nl S1S2] Pulm: [CTAB no wcr] Abd: [+BS soft NT ND no masses or hernias, Penis with purulent drainage, Carcamo in place, ulceration] Ext: [no edema] Skin: [no rashes, warm/dry] Neuro: [full strength throughout, gait normal] Discharge Data Allergies Allergy/AdvReac Type Severity Reaction Status Date / Time KEVIN Inhibitors Allergy Severe SHORTNESS Verified 05/15/22 15:11 OF BREATH Penicillins Allergy Intermediate HIVES Verified 05/15/22 15:11 rosuvastatin [From Crestor] Allergy Intermediate joint Verified 05/15/22 15:11 aches and cramping simvastatin Allergy Intermediate joint Verified 05/15/22 15:11 aches and cramping Uuddciz-RYQ-FtW Reductase Allergy Intermediate joint Verified 05/15/22 15:11 Inhibitor aches and [Naqtnbw-Npo-Hhi Reductase cramping Inhibitor] RED YEAST RICE Allergy Mild RASH Uncoded 05/15/22 15:11 Consultations 05/15/22 13:54 ED Decision to Admit Stat 05/15/22 14:00 Consult Urology Routine Ordered Studies 05/15/22 14:55 US Renal Bladder [US renal/blad retro comp] Routine Hospital Course (1) Penile lesion: (1) Penile lesion: Plan: -It appears that the urethral meatus has been progressively irritated by the frequent straight caths and is possibly starting to become infected -Continue with carcamo on discharge until seen by Urology balmichaeltis as per Urology--> complete 2 weeks of nystatin-triamcinolone topical ointment -received ceftriaxone for UTI and Ur cx pending at time of discharge -Urology consult appreciated (2) Urinary retention: Plan: Carcamo placed, resolved (3) UTI (urinary tract infection): Plan: -See above (4) Dysuria: Plan: -see above (5) MARQUEZ (acute kidney injury): Plan: -Baseline Cr appears to be between 1.5-1.7, but at 2.8 on arrival -Likely obstructive due to urinary retention but also on chlorthalidone 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--> dc chlorthalidone - renal US without hydro but shows atrophic right kidney Insulation Cutter improved to 2.2 on day of discharge -Monitor renal function as outpt (6) Hypokalemia: Plan: -Found at 2.7 in the ED replaced and improved (7) Atrial fibrillation: Plan: -Rate controlled, in regular rhythm here on exam -Continue Eliquis and Carvedilol (8) CHF (congestive heart failure): Plan: euvolemic (9) HTN (hypertension): Plan: -BP stable -Continue Carvedilol but dc thiazide as above Dispo-stable for dc to home (2) Urinary retention: (3) UTI (urinary tract infection): (4) Dysuria: (5) MARQUEZ (acute kidney injury): (6) Hypokalemia: (7) Atrial fibrillation: (8) CHF (congestive heart failure): (9) HTN (hypertension): (10) Peripheral edema: (11) Coronary artery disease: Total Time Total Time Spent Total Time Spent (In Minutes): 35 min Discharge Plan Discharge Items Patient Disposition: Home - Self-Care Reason For Visit: PENILE PAIN Discharge Diagnosis: Balanitis, Acute kidney injury, UTI Condition on Discharge: Fair Activity: Resume your previous activity Non-emergency contact: Primary Care Provider and Urologist Call non-emergency contact if: you have any medication questions, your symptoms worsen, your pain is not controlled, your pain is worsening, your pain is concerning for you and you have a fever Follow-up/Referrals: Tiago Lara MD [Primary Care Provider] - (Please follow up within 1-2 weeks) Matthew Cardenas MD [Physician] - 05/29/22 11:40 am Diet: Heart Healthy Addtl Attending Provider Instructions: Please use the topical antifungal and steroid cream for 2 week for the ulcer on your penis. Keep the Carcamo catheter in until you are seen by Urology. You had some worsening kidney failure that did improve after STOPPING your chlorthalidone and giving you IV fluids, as well as with placing the Carcamo catheter. Please follow up with your PCP and have your kidney function rechecked at that time. Do NOT restart your chlorthalidone. Finish out a course of antibiotics for your UTI with cefdinir 300mg once daily x 10 days. Pending Studies at Discharge: Yes (Urine and blood cultures) Stand-Alone Forms: My [facility] Medications and DC Order Prescriptions: New cefdinir 300 mg capsule 300 mg PO DAILY Qty: 10 0RF nystatin-triamcinolone 100,000-0.1 unit/gram-% ointment 1 applic topical TID 14 Days Qty: 30 0RF Continued fluticasone propionate [Flonase Allergy Relief] 50 mcg/actuation spray,suspension 2 sprays intranasal BID PRN (Reason: Congestion) Qty: 3 cetirizine [Zyrtec] 10 mg tablet 10 mg PO HS Qty: 30 Eliquis 2.5 mg tablet 2.5 mg PO BID Qty: 180 3RF cholecalciferol (vitamin D3) 25 mcg (1,000 unit) capsule 50 mcg PO QPM carvedilol [Coreg] 12.5 mg tablet 12.5 mg PO BID tamsulosin [Flomax] 0.4 mg capsule 0.4 mg PO BID Discontinued chlorthalidone 25 mg tablet 25 mg PO QAM Rx Instructions: TAKE ONE TABLET BY MOUTH DAILY Discharge Orders: Discharge Order (Routine); Ordered 05/16/22 Ordered By: Aminta Rodriguez Admission Data Admit Date/Time: 05/15/22 14:37 Attending Provider: Aminta Rodriguez Admit Provider: Tiago Mclean Primary Care Provider: Tiago Lara Other Providers: Tiago Mclean ; Oneil Rosenthal Coding Level of Care Code 38079 OBS Care - Discharge Diagnoses Penile lesion N48.9 Urinary retention R33.9 UTI (urinary tract infection) N39.0 Dysuria R30.0 MARQUEZ (acute kidney injury) N17.9 Hypokalemia E87.6 Atrial fibrillation I48.91 CHF (congestive heart failure) I50.9 HTN (hypertension) I10 Hypertension type: essential hypertension Peripheral edema R60.9 Coronary artery disease I25.10
--- NOTE | 2022-05-17 05:55 | Electrocardiogram Report ---
Test Reason : Blood Pressure : / mmHG Vent. Rate : 077 BPM Atrial Rate : 077 BPM P-R Int : 000 ms QRS Dur : 122 ms QT Int : 416 ms P-R-T Axes : 000 -35 -31 degrees QTc Int : 470 ms Atrial fibrillation Left axis deviation Right bundle branch block Abnormal ECG When compared with ECG of 17-DEC-2021 10:41, No significant change Confirmed by Maxim Meyers ([id number]) on 05/17/2022 5:54:53 AM Referred By: REFERRED SELF Confirmed By:Maixm Meyers
--- NOTE | 2022-05-18 19:06 | Emergency Department Note ---
ED Provider Note CHIEF COMPLAINT: [] HISTORY OF PRESENT ILLNESS: This [] patient presents to the emergency department [] REVIEW OF SYSTEMS: A review of systems was performed with positives and pertinent negatives listed in the history of present illness. 10 systems were reviewed and are otherwise negative. ALLERGIES: see below MEDICATIONS: see below PMH: see below SOCIAL HISTORY: see below DDx: [] PHYSICAL EXAM: Vital signs reviewed. General: Well-appearing, in no significant distress. HEENT: No scleral icterus, PERRLA, neck supple. Atraumatic. Cardiovascular: Regular rate and rhythm, no extra sounds. Pulmonary: Clear to auscultation bilaterally, normal work of breathing. Abdomen: Soft, nontender, nondistended, positive bowel sounds. Musculoskeletal: Atraumatic, no peripheral edema. Neurologic: Patient awake alert and oriented x 3, speech is clear Skin: Warm, dry, no rash EMERGENCY DEPARTMENT COURSE/MDM: [] MONITORING: An order for cardiac monitoring was placed and the patient is noted to be in a [] at [] beats per minute. RADIOLOGY: EKG: DISPOSITION: Past Med/Surg History Medical History Anemia Aortic regurgitation Arthritis back Atrial fibrillation Follows Dr. 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 Bone marrow biopsy negative for plasma dyscrasia and B cell lymphoma. Myocardial Infarction 1994--followed with Dr. Landaverde Peripheral neuropathy Presbyesophagus Prostate cancer (~04/2005) s/p failure of brachytherapy. Patient opted to forego further treatment d/t age. Had seeding placed in prostate Shortness of breath on exertion Spinal stenosis Tricuspid regurgitation Surgical History History of back surgery (08/06/17) Dr. Stephens. Fused at L4-L5 and sacrum. History of bilateral cataract extraction History of bladder surgery TURBT 08/17/2007 for bladder cancer History of cardiac cath 1994 [facility]--with 1 stent placed - unsure type/location - Follows Dr. Verduzco History of colonoscopy History of cystoscopy multiple times--d/t bladder cancer History of esophagogastroduodenoscopy (EGD) History of heart artery stent 1994 [facility] - 1 stent placed - unsure type/location - Follows Dr. Verduzco History of prostate biopsy Unable to find path report in [place]. History of tooth extraction all upper teeth/partial lower Hx of vasectomy Family History Unknown Prostate cancer Bladder cancer Hypertension Father Family history of diabetes mellitus Daughter Breast cancer Son Myocardial infarction Other No family history of adverse response to anesthesia Denies family history of Ovarian cancer Colorectal cancer Social History Smoking Status: Former smoker Tobacco Type: Cigarettes Age Quit Using Tobacco: 48; Cigarettes Per Day: 1 pack per day; Second Hand Exposure: No; Hx Alcohol Use: Yes Alcohol type: wine Alcohol Intake Frequency Comment: once a day Hx Substance Use: No Preferred Language: [place] Leonean Communication Ability: Effective Visual Impairment: Limited Hearing Ability: Hard of Hearing 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 Beliefs That Will Affect Care: None marital status: Current Living Situation: Spouse Current Living Situation Comment: Lives at home with his current occupational status: retired How many Children do You have: 2 Feels Safe at Home: Yes caffeine: Yes (coffee) Dental Care, Regularly: Yes Physical Activity Frequency: Daily Physical Activity Frequency Comment: treadmill in morning, sit ups Seatbelt Use: always Sunscreen Use: Yes Assistive Devices: None Allergies Allergies Allergy/AdvReac Type Severity Reaction Status Date / Time KEVIN Inhibitors Allergy Severe SHORTNESS Verified 05/15/22 15:11 OF BREATH Penicillins Allergy Intermediate HIVES Verified 05/15/22 15:11 rosuvastatin [From Crestor] Allergy Intermediate joint Verified 05/15/22 15:11 aches and cramping simvastatin Allergy Intermediate joint Verified 05/15/22 15:11 aches and cramping Zrjxqok-PHM-ArY Reductase Allergy Intermediate joint Verified 05/15/22 15:11 Inhibitor aches and [Zktsxhc-Khg-Ncr Reductase cramping Inhibitor] RED YEAST RICE Allergy Mild RASH Uncoded 05/15/22 15:11 Home Meds Home Medications Medication Instructions Recorded Confirmed cetirizine 10 mg tablet (Zyrtec) 10 mg PO HS #30 tabs 06/16/19 05/15/22 fluticasone propionate 50 2 sprays intranasal BID PRN 06/16/19 05/15/22 mcg/actuation nasal Congestion #3 grams spray,suspension (Flonase Allergy Relief) cholecalciferol (vitamin D3) 25 50 mcg PO QPM 09/11/21 05/15/22 mcg (1,000 unit) capsule carvedilol 12.5 mg tablet (Coreg) 12.5 mg PO BID 03/31/22 05/15/22 tamsulosin 0.4 mg capsule (Flomax) 0.4 mg PO BID 03/31/22 05/15/22 Previous Rx's Medication Instructions Recorded apixaban 2.5 mg tablet (Eliquis) 2.5 mg PO BID #180 tabs 12/24/21 cefdinir 300 mg capsule 300 mg PO DAILY #10 caps 05/16/22 nystatin-triamcinolone 100,000 1 applic topical TID 14 days #30 05/16/22 unit/gram-0.1 % topical ointment grams Results & Data (ED) Laboratory Data Result diagrams: 05/16/22 07:43 05/16/22 07:43 Lab Results 05/15/22 05/15/22 05/15/22 Range/Units 10:54 10:54 10:54 WBC 9.19 (4.8-10.8) K/ul RBC 3.62 L (4.63-6.08) M/uL Hgb 10.4 L (14.0-18.0) g/dl Hct 31.8 L (40.1-51.0) % MCV 87.8 (80.0-100.0) fL MCH 28.7 (25.0-34.0) pg MCHC 32.7 (32.0-36.0) g/dL RDW Std Deviation 51.7 H (36.4-46.3) fL RDW Coeff of Tay 16.1 H (11.5-14.5) % Plt Count 199 (130-400) K/uL MPV 8.8 L (9.4-12.4) fL Immature Gran % (Auto) 0.4 % Neut % (Auto) 74.2 % Lymph % (Auto) 12.2 % [place] % (Auto) 8.7 % Eos % (Auto) 3.8 % Baso % (Auto) 0.7 % Neut # (Auto) 6.82 H (1.4-6.5) K/uL Lymph # (Auto) 1.12 L (1.2-3.4) K/uL [place] # (Auto) 0.80 (0.24-0.82) K/uL Eos # (Auto) 0.35 (0-0.50) K/uL Baso # (Auto) 0.06 (0-0.2) K/uL Immature Gran # (Auto) 0.04 H (0.00-0.02) K/uL Sodium 139 (136-145) mmol/L Potassium 2.7 L (3.5-5.1) mmol/L Chloride 103 (98-107) mmol/L Carbon Dioxide 23 (21-32) mmol/L Anion Gap 13 H (3-11) BUN 68 H (6-23) mg/dl Creatinine 2.80 H (0.6-1.4) mg/dl Est Cr Clr Drug Dosing Not Reportable Est GFR ( Amer) 22.2 ml/min Est GFR (Non-Af Amer) 19.1 ml/min BUN/Creatinine Ratio 24.3 H (10-20) Glucose 123 H (70-99(Fasting)) mg/dl Calcium 9.7 (8.5-10.1) mg/dl Total Bilirubin 0.3 (0.2-1.0) mg/dl Direct Bilirubin 0.0 (0-0.2) mg/dl AST 11 L (13-39) U/L ALT 6 L (7-52) U/L Alkaline Phosphatase 58 (34-104) U/L Total Protein 8.0 (6.0-8.3) gm/dl Albumin 3.8 (3.4-5.0) gm/dl Urine Color Urine Appearance (Clear) Urine pH (4.5-7.5) Ur Specific Davidson (1.000-1.030) Urine Protein (Negative) Urine Glucose (UA) (Negative) Urine Ketones (Negative) Urine Blood (Negative) Urine Nitrite (Negative) Urine Bilirubin (Negative) Urine Urobilinogen (Negative) Ur Leukocyte Esterase (Negative) Urine WBC (Auto) (0-5) /hpf Urine RBC (Auto) (0-4) /hpf U Hyaline Cast (Auto) (0-5) /lpf U Epithel Cells (Auto) (0-5) /lpf Urine Bacteria (Auto) (Negative) Urine Yeast SARS-CoV-2, RNA, NAAT (NEGATIVE) 05/15/22 05/15/22 Range/Units 12:00 12:08 WBC (4.8-10.8) K/ul RBC (4.63-6.08) M/uL Hgb (14.0-18.0) g/dl Hct (40.1-51.0) % MCV (80.0-100.0) fL MCH (25.0-34.0) pg MCHC (32.0-36.0) g/dL RDW Std Deviation (36.4-46.3) fL RDW Coeff of Tay (11.5-14.5) % Plt Count (130-400) K/uL MPV (9.4-12.4) fL Immature Gran % (Auto) % Neut % (Auto) % Lymph % (Auto) % [place] % (Auto) % Eos % (Auto) % Baso % (Auto) % Neut # (Auto) (1.4-6.5) K/uL Lymph # (Auto) (1.2-3.4) K/uL [place] # (Auto) (0.24-0.82) K/uL Eos # (Auto) (0-0.50) K/uL Baso # (Auto) (0-0.2) K/uL Immature Gran # (Auto) (0.00-0.02) K/uL Sodium (136-145) mmol/L Potassium (3.5-5.1) mmol/L Chloride (98-107) mmol/L Carbon Dioxide (21-32) mmol/L Anion Gap (3-11) BUN (6-23) mg/dl Creatinine (0.6-1.4) mg/dl Est Cr Clr Drug Dosing Est GFR ( Amer) ml/min Est GFR (Non-Af Amer) ml/min BUN/Creatinine Ratio (10-20) Glucose (70-99(Fasting)) mg/dl Calcium (8.5-10.1) mg/dl Total Bilirubin (0.2-1.0) mg/dl Direct Bilirubin (0-0.2) mg/dl AST (13-39) U/L ALT (7-52) U/L Alkaline Phosphatase (34-104) U/L Total Protein (6.0-8.3) gm/dl Albumin (3.4-5.0) gm/dl Urine Color [place] Urine Appearance Turbid A (Clear) Urine pH 7.0 (4.5-7.5) Ur Specific Davidson 1.012 (1.000-1.030) Urine Protein 2+ H (Negative) Urine Glucose (UA) Negative (Negative) Urine Ketones Negative (Negative) Urine Blood 3+ H (Negative) Urine Nitrite Negative (Negative) Urine Bilirubin Negative (Negative) Urine Urobilinogen Negative (Negative) Ur Leukocyte Esterase 3+ H (Negative) Urine WBC (Auto) >30 H (0-5) /hpf Urine RBC (Auto) >30 H (0-4) /hpf U Hyaline Cast (Auto) 1-5 (0-5) /lpf U Epithel Cells (Auto) 10-20 H (0-5) /lpf Urine Bacteria (Auto) 2+ H (Negative) Urine Yeast Not Reportable SARS-CoV-2, RNA, NAAT NEGATIVE (NEGATIVE) Administered Medications Discontinued Medications Apixaban (Apixaban 2.5 Mg Tab) 2.5 mg PO BID [facility] Stop: 06/14/22 20:59 Last Admin: 05/16/22 08:35 Dose: 2.5 mg Documented By: Admin: 05/15/22 21:15 Dose: 2.5 mg Documented By: DARYN Carvedilol (Carvedilol 12.5 Mg Tab) 12.5 mg PO BID [facility] Stop: 06/14/22 20:59 Last Admin: 05/16/22 08:35 Dose: 12.5 mg Documented By: Admin: 05/15/22 21:15 Dose: 12.5 mg Documented By: DARYN Clotrimazole (Clotrimazole 1% Cr 15 Gm Tube) 1 appln EXT NOW ONE Stop: 05/15/22 12:32 Last Admin: 05/15/22 16:41 Dose: 1 appln Documented By: GRIS Clotrimazole (Clotrimazole 1% Cr 15 Gm Tube) Confirm Administered Dose 45 appln .ROUTE .STK-MED ONE Stop: 05/15/22 16:19 Last Admin: 05/15/22 16:41 Dose: Not Given Documented By: GRIS Ceftriaxone Sodium (Rocephin) 1,000 mg in 50 mls @ 100 mls/hr IV NOW STA Stop: 05/15/22 13:20 Last Infusion: 05/15/22 17:03 Dose: 0 mls/hr Documented By: Admin: 05/15/22 14:15 Dose: 100 mls/hr Documented By: TARAN Sodium Chloride (Nss 1000ml) 1,000 mls @ 100 mls/hr IV .Q10H JAVIER Stop: 06/14/22 13:44 Last Admin: 05/15/22 17:03 Dose: Not Given Documented By: MATTHEW Sodium Chloride (Nss 1000ml) 500 mls @ 999 mls/hr IV .Q31M ONE Stop: 05/15/22 14:14 Last Infusion: 05/15/22 17:03 Dose: 0 mls/hr Documented By: Admin: 05/15/22 14:15 Dose: 999 mls/hr Documented By: TARAN Potassium Chloride (K Vahid / Wtr) 10 meq in 100 mls @ 100 mls/hr IV Q1H JAVIER; Protocol Stop: 05/15/22 15:59 Last Infusion: 05/15/22 18:19 Dose: 0 mls/hr Documented By: Admin: 05/15/22 17:19 Dose: 100 mls/hr Documented By: Infusion: 05/15/22 17:08 Dose: 100 mls/hr Documented By: Admin: 05/15/22 16:08 Dose: 100 mls/hr Documented By: MATTHEW Ceftriaxone Sodium 1,000 mg/ (Dextrose) 60 mls @ 100 mls/hr IV Q24H JAVIER; Protocol Stop: 05/26/22 08:59 Last Infusion: 05/16/22 09:46 Dose: 0 mls/hr Documented By: Admin: 05/16/22 08:37 Dose: 100 mls/hr Documented By: JNENY Lidocaine HCl (Lidocaine 2% Jelly 5 Ml Tube) 5 ml EXT NOW ONE Stop: 05/15/22 11:21 Last Admin: 05/15/22 12:00 Dose: 5 ml Documented By: SANJUANA Miscellaneous (Patient's Height &/Or Weight Needed) 1 each N/A Q2H JAVIER Stop: 05/16/22 01:46 Last Admin: 05/15/22 17:31 Dose: Not Given Documented By: Admin: 05/15/22 16:41 Dose: 1 each Documented By: GRIS Nystatin/Triamcinolone Acetonide (Nystatin/Triamcin Oint 15 Gm Tube) 1 appln EXT TID JAVIER Stop: 06/14/22 20:59 Last Admin: 05/16/22 14:29 Dose: 1 appln Documented By: Admin: 05/16/22 14:29 Dose: 1 appln Documented By: Admin: 05/15/22 21:15 Dose: 1 appln Documented By: DARYN Potassium Chloride (Potassium Chloride Crtab 20 Meq Tabcr) 40 meq PO NOW STA Stop: 05/15/22 13:53 Last Admin: 05/15/22 16:37 Dose: Not Given Documented By: GRIS Potassium Chloride (Potassium Chloride 10 Meq Tabcr) Confirm Administered Dose 40 meq PO .STK-MED ONE Stop: 05/15/22 16:34 Last Admin: 05/15/22 16:37 Dose: 40 meq Documented By: GRIS Potassium Chloride (Potassium Chloride Crtab 20 Meq Tabcr) 40 meq PO NOW STA Stop: 05/15/22 18:23 Last Admin: 05/15/22 23:06 Dose: 40 meq Documented By: DARYN Potassium Chloride (Potassium Chloride Crtab 20 Meq Tabcr) 20 meq PO QAM JAVIER Stop: 06/15/22 08:59 Last Admin: 05/16/22 08:36 Dose: 20 meq Documented By: JENNY Potassium Chloride (Potassium Chloride Crtab 20 Meq Tabcr) 20 meq PO NOW STA Stop: 05/16/22 10:19 Last Admin: 05/16/22 14:28 Dose: 20 meq Documented By: JENNY Tamsulosin HCl (Tamsulosin Hcl 0.4 Mg Cap) 0.4 mg PO BID JAVIER Stop: 06/14/22 20:59 Last Admin: 05/16/22 08:35 Dose: 0.4 mg Documented By: Admin: 05/15/22 21:15 Dose: 0.4 mg Documented By: DARYN Discharge Plan Visit Data Chief Complaint: Urinary Symptoms Stated Complaint: URINARY PROBLEMS ED Provider: Margarette Gill Patient Disposition: Admitted As Inpatient Condition: Fair Discharge Instructions Interventions: ED Discharge Assessment Last Done: 05/15/22 18:20
== END 2022-05-16 18:34 | disposition home or self-care (01) ==
LOC: ED 10:01 → 3N 10:01 → SUATTDRO 14:37 → 3N 18:20
DX: N48.1 Balanitis; N48.9 Disorder of penis, unspecified; Z79.01 Long term (current) use of anticoagulants; R60.9 Edema, unspecified; I11.0 Hypertensive heart disease with heart failure; R33.9 Retention of urine, unspecified; I48.91 Unspecified atrial fibrillation; Z79.899 Other long term (current) drug therapy; I25.10 Atherosclerotic heart disease of native coronary artery without angina pectoris; Z88.8 Allergy status to other drugs, medicaments and biological substances; Z85.46 Personal history of malignant neoplasm of prostate; N39.0 Urinary tract infection, site not specified; Z88.0 Allergy status to penicillin; Z87.891 Personal history of nicotine dependence; E87.6 Hypokalemia; N17.9 Acute kidney failure, unspecified; I50.9 Heart failure, unspecified

== ENCOUNTER 2022-07-04 09:14 | Inpatient (IN) ==
[2022-07-04] MEDS ORDERED: fentaNYL citrate 100 MCG/2 ML VIAL IV STA (10:29)
--- NOTE | 2022-07-04 10:36 | XRay Report ---
SINGLE VIEW CHEST CLINICAL HISTORY: Sepsis. FINDINGS: An AP, portable, upright chest radiograph is compared to study dated 12/16/2021.. The examin ation is degraded by portable technique and apical lordotic positioning. The heart is enlarged noting atherosclerotic calcification of the thoracic aorta. There is prominence of the pulmonary vasculatur e. Chronic interstitial thickening similar to previous. Scarring/atelectasis is noted at the lung bas es. No airspace consolidation or large pleural effusion is identified. No pneumothorax is seen. The s keletal structures are osteopenic. The bony thorax is grossly intact. Arthritic change is seen in the shoulders. IMPRESSION: Cardiomegaly with prominence of the pulmonary vasculature. Correlate clinically for evide nce of fluid overload/congestive failure. ACT 112: Negative or not required by law. Electronically signed by: Gurjit Gonzales M.D. 07/04/2022 10:35 AM
--- NOTE | 2022-07-04 11:00 | Communication Note ---
Date of Service: July 04, 2022 I saw the patient with Dr. Rm, please see their note for details. Resident Activity Tracking Resident Involvement: Resident Care Provided Care Provided: Adult ED
[2022-07-04 11:06] LABS: Basophils # (auto) 0.06 K/uL (0-0.2); Basophils % (auto) 0.5 %; Eosinophils # (auto) 0.28 K/uL (0-0.50); Eosinophils % (auto) 2.4 %; Hematocrit (blood only) 34.8 % (40.1-51.0); Hemoglobin 11.1 g/dl (14.0-18.0); Immature Granulocytes # (auto) 0.04 K/uL (0.00-0.02); Immature Granulocytes % (auto) 0.3 %; Lymphocytes # (auto) 0.89 K/uL (1.2-3.4); Lymphocytes % (auto) 7.7 %; Mean Corpuscular Hemoglobin 28.5 pg (25.0-34.0); Mean Corpuscular Hgb Conc 31.9 g/dL (32.0-36.0); Mean Corpuscular Volume 89.2 fL (80.0-100.0); Mean Platelet Volume 8.9 fL (9.4-12.4); Monocytes # (auto) 0.77 K/uL (0.24-0.82); Monocytes % (auto) 6.6 %; Neutrophils # (auto) 9.58 K/uL (1.4-6.5); Neutrophils % (auto) 82.5 %; Platelet Count 248 K/uL (130-400); RDW Coefficient of Variation 15.4 % (11.5-14.5); RDW Standard Deviation 49.3 fL (36.4-46.3); White Blood Count 11.62 K/ul (4.8-10.8)
[2022-07-04 11:12] LABS: Appearance Urine Clear (Clear); Bacteria Urine Automated Negative (Negative); Bilirubin Urine Negative (Negative); Blood Urine 3+ (Negative); Color Urine Yellow; Glucose Urine UA Negative (Negative); Ketones Urine Negative (Negative); Leukocyte Esterase Urine 1+ (Negative); Nitrite Urine Negative (Negative); Protein Urine Trace (Negative); RBC Urine Automated >30 /hpf (0-4); Specific Gravity Urine 1.009 (1.000-1.030); Urobilinogen Urine Negative (Negative); pH Urine 6.5 (4.5-7.5)
--- NOTE | 2022-07-04 11:17 | Emergency Department Note ---
Impression & Plan Osteomyelitis, pelvis Admit to the [facility]ist ED Provider Note NAME: TANESHA TIRADO AGE: 87 SEX: M ARRIVES VIA: Walk-In INFORMANT: Patient and his ED PROVIDER(S): Augusta Rm DO CHIEF COMPLAINT: Pelvis pain PLAN: Disposition: Admit to the [facility]ist Condition: Stable MEDICAL DECISION MAKING: This is an 87-year-old male patient who presents to the emergency department with lower abdominal pain and pelvis pain. The patient was diagnosed Thursday with osteomyelitis of the pubic bone and told to come to the emergency department for admission to the hospital. The explains that it took her a couple of days to convince him to come to the hospital to have his pain treated. The patient was able to drink prune juice this morning and have results with the bowel movement which seemed to relieve some of his constipation. Triage Nursing notes reviewed and agree with them. Additional history obtained from the patient's who is at the bedside Prior medical records reviewed Vital Signs: reviewed and unremarkable Differential diagnosis: Constipation Colitis Osteomyelitis Sepsis ER treatment provided: IV fentanyl IV Dilaudid IV Zofran IV cefepime IV vancomycin Diagnostics interpreted by me: ECG: Atrial fibrillation at a rate of [address] segment elevation or signs of ischemia. No ectopy. Cardiac Monitoring: Atrial fibrillation at a rate of 80 Laboratory studies: See below Imaging studies: As per radiology Portable chest x-ray: See report HPI: 87/M arrives for evaluation of pelvic pain. The patient was seen at urology 3 days ago and had a CT scan of the abdomen and pelvis which showed evidence of osteomyelitis of the pubic bone. He was directed at that time to come to the emergency department. He has been suffering with constipation and hematuria over the past couple of days. He did take prune juice this morning which resulted in 2 large bowel movements. However, he has had persistent pain. His explains that he did have an episode of hematuria this morning which is not uncommon for him. Patient has a history of prostate cancer and bladder c ancer. states that the patient was finally willing to come to the hospital today to try to get some pain relief. ROS: See above HPI for pertinent positives & negatives. A total of 10 systems reviewed and were otherwise negative. PAST MEDICAL HISTORY:See Below PAST SURGICAL HISTORY:See Below FAMILY HISTORY:See Below SOCIAL HISTORY:See Below HOME MEDICATIONS: See list ALLERGIES: See list VITALS:See Below PHYSICAL EXAMINATION: HEENT: Head - normocephalic and atraumatic. Pupils are equal, round, and reactive to light. Extraocular eye muscles are intact, and sclera are anicteric. Nose - moist nasal mucosa without discharge. Mouth - moist buccal mucosa. Oropharynx is nonerythematous and there is no tonsillar exudate or edema noted. Neck: Supple; no JVD or cervical lymphadenopathy Heart: Regular rate and rhythm. There is a normal S1 and S2 with no murmurs, clicks, or gallops appreciated. Lungs: Clear to auscultation bilaterally with no wheezes, rales, or rhonchi. Abdomen: Soft, pain to palpation in the suprapubic region Tthere are no palpable pulsatile masses or hepatosplenomegaly. There is no guarding, rigidity, or ministerio ound noted. Extremities: No evidence of cyanosis, clubbing, or edema. There are easily palpable peripheral pulses. Skin: warm and dry with good turgor and no rashes. ED COURSE: Times/Reassessments: 1015: The patient was evaluated in room B 12. A complete history and physical was performed. An IV lock was initiated and labs were dr bruce as above. A septic protocol was performed. A twelve-lead EKG was obtained as described above. An order was placed for continuous cardiac monitoring. The patient was in atrial fibrillation at a rate of 80. The patient was given a dose of IV fentanyl which gave only minimal relief to his discomfort. He had a chest x-ray performed. Received a dose of IV Dilaudid and IV Zofran which did finally relieve some of his discomfort. Patient was started on IV vancomycin and IV cefepime. I discussed the case with the [facility] Hospitalist and they will evaluate for further management. Augusta Rm DO Past Med/Surg History Medical History Anemia Aortic regurgitation Arthritis back Atrial fibrillation Follows Dr. 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 Bone marrow biopsy negative for plasma dyscrasia and B cell lymphoma. Myocardial Infarction 1994--followed with Dr. Landaverde Peripheral neuropathy Presbyesophagus Prostate cancer (~04/2005) s/p failure of brachytherapy. Patient opted to forego further treatment d/t age. Had seeding placed in prostate Shortness of breath on exertion Spinal stenosis Tricuspid regurgitation Surgical History History of back surgery (08/06/17) Dr. Stephens. Fused at L4-L5 and sacrum. History of bilateral cataract extraction History of bladder surgery TURBT 08/17/2007 for bladder cancer [place] [facility] [place] 1 stent placed - unsure type/location - Follows Dr. Verduzco History of colonoscopy History of cystoscopy multiple times--d/t bladder cancer History of esophagogastroduodenoscopy (EGD) History of heart artery stent 1994 [place] [facility] [place] 1 stent placed - unsure type/location - Follows Dr. Verduzco History of prostate biopsy Unable to find path report in [place] or [place]. History of tooth extraction all upper teeth/partial lower Hx of vasectomy Family History Unknown Prostate cancer Bladder cancer Hypertension Father Family history of diabetes mellitus Daughter Breast cancer Son Myocardial infarction Other No family history of adverse response to anesthesia Denies family history of Ovarian cancer Colorectal cancer Social History Smoking Status: Former smoker Tobacco Type: Cigarettes Age Quit Using Tobacco: 48; Cigarettes Per Day: 1 pack per day; Second Hand Exposure: No; Hx Alcohol Use: Yes Alcohol type: wine Alcohol Intake Frequency Comment: once a day Hx Substance Use: No Preferred Language: Yemeni Communication Ability: Effective Visual Impairment: Limited Hearing Ability: Hard of Hearing Business Systems Technician Required: No Beliefs That Will Affect Care: None marital status: Current Living Situation: Spouse Current Living Situation Comment: Lives at home with his current occupational status: retired How many Children do You have: 2 Other Information That Helps Us Care for You: No Feels Safe at Home: Yes Safety Concerns: Feels Safe At This Time caffeine: Yes (coffee) Dental Care, Regularly: Yes Physical Activity Frequency: Daily Physical Activity Frequency Comment: treadmill in morning, sit ups Seatbelt Use: always Sunscreen Use: Yes Assistive Devices: Cane and Glasses Allergies Allergies Allergy/AdvReac Type Severity Reaction Status Date / Time KEVIN Inhibitors Allergy Severe SHORTNESS Verified 06/18/22 10:44 OF BREATH Penicillins Allergy Intermediate HIVES Verified 06/18/22 10:44 rosuvastatin [From Crestor] Allergy Intermediate joint Verified 06/18/22 10:44 aches and cramping simvastatin Allergy Intermediate joint Verified 06/18/22 10:44 aches and cramping [id number]-FDG-[id number] Reductase Allergy Intermediate joint Verified 06/18/22 10:44 Inhibitor aches and [Khddhaz-Kqk-Lmm Reductase cramping Inhibitor] RED YEAST RICE Allergy Mild RASH Uncoded 06/18/22 10:44 Home Meds Home Medications Medication Instructions Recorded Confirmed cetirizine 10 mg tablet (Zyrtec) 10 mg PO HS #30 tabs 06/16/19 07/04/22 fluticasone propionate 50 2 sprays intranasal BID PRN 06/16/19 07/04/22 mcg/actuation nasal Congestion #3 grams spray,suspension (Flonase Allergy Relief) cholecalciferol (vitamin D3) 25 50 mcg PO QPM 09/11/21 07/04/22 mcg (1,000 unit) capsule tamsulosin 0.4 mg capsule (Flomax) 0.4 mg PO BID 03/31/22 07/04/22 chlorthalidone 25 mg tablet 25 mg PO DAILY 07/04/22 07/04/22 nystatin-triamcinolone 100,000 See Rx Instructions .Route 07/04/22 07/04/22 unit/gram-0.1 % topical ointment .COMPLEX urethral meatus irritation trimethoprim 100 mg tablet 100 mg PO DAILY UTI prophylaxis 07/04/22 07/04/22 Previous Rx's Medication Instructions Recorded apixaban 2.5 mg tablet (Eliquis) 2.5 mg PO BID #180 tabs 12/24/21 carvedilol 12.5 mg tablet (Coreg) 25 mg PO BID #360 tabs 05/26/22 hydrocortisone 2.5 % topical cream 1 applic [place] BID PRN rectal pain 06/18/22 with perineal applicator #30 grams (Anusol-HC) Results & Data (ED) Vital Signs Vital Signs - 24 hr 07/04/22 09:22 07/04/22 11:12 07/04/22 11:15 Temperature 36.6 C Temperature Source Temporal Artery Scan Pulse Rate 76 77 Pulse Rate from SpO2 Sensor 80 Respiratory Rate 16 18 Respiratory Effort / Characteristics Non-Labored Respiratory Depth Normal Blood Pressure 117/58 L 147/74 H Blood Pressure Mean 77 98 Pulse Oximetry 100 100 Oxygen Delivery Method Room Air Sepsis Recent Fever Within 48 Hours No Sepsis New/Unexplained Change in Mental Status No Sepsis Action Taken by Nursing No Action Required 07/04/22 11:15 07/04/22 11:20 07/04/22 11:30 Temperature Temperature Source Pulse Rate 84 78 Pulse Rate from SpO2 Sensor 81 Respiratory Rate 20 21 Respiratory Effort / Characteristics Respiratory Depth Blood Pressure 121/75 Blood Pressure Mean 90 Pulse Oximetry 100 98 Oxygen Delivery Method Sepsis Recent Fever Within 48 Hours Sepsis New/Unexplained Change in Mental Status Sepsis Action Taken by Nursing 07/04/22 11:30 07/04/22 11:40 07/04/22 11:45 Temperature Temperature Source Pulse Rate 85 81 Pulse Rate from SpO2 Sensor 85 83 Respiratory Rate 15 15 Respiratory Effort / Characteristics Respiratory Depth Blood Pressure 134/74 Blood Pressure Mean 94 Pulse Oximetry 99 100 Oxygen Delivery Method Sepsis Recent Fever Within 48 Hours Sepsis New/Unexplained Change in Mental Status Sepsis Action Taken by Nursing 07/04/22 11:45 07/04/22 11:50 07/04/22 12:00 Temperature Temperature Source Pulse Rate 79 76 Pulse Rate from SpO2 Sensor 80 80 Respiratory Rate 18 17 Respiratory Effort / Characteristics Respiratory Depth Blood Pressure 154/91 H Blood Pressure Mean 112 Pulse Oximetry 100 100 Oxygen Delivery Method Sepsis Recent Fever Within 48 Hours Sepsis New/Unexplained Change in Mental Status Sepsis Action Taken by Nursing 07/04/22 12:00 07/04/22 12:10 07/04/22 12:15 Temperature Temperature Source Pulse Rate 81 85 Pulse Rate from SpO2 Sensor 78 81 Respiratory Rate 15 18 Respiratory Effort / Characteristics Respiratory Depth Blood Pressure 152/116 H Blood Pressure Mean 128 Pulse Oximetry 100 100 Oxygen Delivery Method Sepsis Recent Fever Within 48 Hours Sepsis New/Unexplained Change in Mental Status Sepsis Action Taken by Nursing 07/04/22 12:15 07/04/22 13:20 07/04/22 13:30 Temperature Temperature Source Pulse Rate 76 79 Pulse Rate from SpO2 Sensor 77 78 Respiratory Rate 18 15 Respiratory Effort / Characteristics Respiratory Depth Blood Pressure 117/65 Blood Pressure Mean 82 Pulse Oximetry 98 96 Oxygen Delivery Method Sepsis Recent Fever Within 48 Hours Sepsis New/Unexplained Change in Mental Status Sepsis Action Taken by Nursing 07/04/22 13:30 07/04/22 13:40 07/04/22 13:45 Temperature Temperature Source Pulse Rate 82 78 Pulse Rate from SpO2 Sensor 80 78 Respiratory Rate 19 12 Respiratory Effort / Characteristics Respiratory Depth Blood Pressure 133/76 Blood Pressure Mean 95 Pulse Oximetry 99 99 Oxygen Delivery Method Sepsis Recent Fever Within 48 Hours Sepsis New/Unexplained Change in Mental Status Sepsis Action Taken by Nursing 07/04/22 13:45 07/04/22 13:50 07/04/22 14:00 Temperature Temperature Source Pulse Rate 79 76 Pulse Rate from SpO2 Sensor 78 78 Respiratory Rate 14 13 Respiratory Effort / Characteristics Respiratory Depth Blood Pressure 154/88 H Blood Pressure Mean 110 Pulse Oximetry 99 100 Oxygen Delivery Method Sepsis Recent Fever Within 48 Hours Sepsis New/Unexplained Change in Mental Status Sepsis Action Taken by Nursing 07/04/22 14:00 07/04/22 14:10 Temperature Temperature Source Pulse Rate 83 75 Pulse Rate from SpO2 Sensor 79 81 Respiratory Rate 22 15 Respiratory Effort / Characteristics Respiratory Depth Blood Pressure Blood Pressure Mean Pulse Oximetry 100 100 Oxygen Delivery Method Sepsis Recent Fever Within 48 Hours Sepsis New/Unexplained Change in Mental Status Sepsis Action Taken by Nursing Laboratory Data Result diagrams: 07/04/22 10:40 07/04/22 10:40 Lab Results 07/04/22 07/04/22 07/04/22 Range/Units 10:40 10:40 10:40 WBC 11.62 H (4.8-10.8) K/ul RBC 3.90 L (4.63-6.08) M/uL Hgb 11.1 L (14.0-18.0) g/dl Hct 34.8 L (40.1-51.0) % MCV 89.2 (80.0-100.0) fL MCH 28.5 (25.0-34.0) pg MCHC 31.9 L (32.0-36.0) g/dL RDW Std Deviation 49.3 H (36.4-46.3) fL RDW Coeff of Tay 15.4 H (11.5-14.5) % Plt Count 248 (130-400) K/uL MPV 8.9 L (9.4-12.4) fL Immature Gran % (Auto) 0.3 % Neut % (Auto) 82.5 % Lymph % (Auto) 7.7 % [place] % (Auto) 6.6 % Eos % (Auto) 2.4 % Baso % (Auto) 0.5 % Neut # (Auto) 9.58 H (1.4-6.5) K/uL Lymph # (Auto) 0.89 L (1.2-3.4) K/uL [place] # (Auto) 0.77 (0.24-0.82) K/uL Eos # (Auto) 0.28 (0-0.50) K/uL Baso # (Auto) 0.06 (0-0.2) K/uL Immature Gran # (Auto) 0.04 H (0.00-0.02) K/uL Sodium 134 L (136-145) mmol/L Potassium 5.3 H (3.5-5.1) mmol/L Chloride 106 (98-107) mmol/L Carbon Dioxide 19 L (21-32) mmol/L Anion Gap 9 (3-11) BUN 55 H (6-23) mg/dl Creatinine 2.31 H (0.6-1.4) mg/dl Est Cr Clr Drug Dosing Not Reportable Est GFR ( Amer) 28.0 ml/min Est GFR (Non-Af Amer) 24.1 ml/min BUN/Creatinine Ratio 23.8 H (10-20) Glucose 90 (70-99(Fasting)) mg/dl Lactate (0.4-2.0) mmol/L Calcium 9.9 (8.5-10.1) mg/dl Magnesium 2.5 H (1.7-2.4) mg/dl Total Bilirubin 0.5 (0.2-1.0) mg/dl Direct Bilirubin 0.0 (0-0.2) mg/dl AST 11 L (13-39) U/L ALT 8 (7-52) U/L Alkaline Phosphatase 67 (34-104) U/L Troponin I High Sens 16.2 (0-20) pg/ml Total Protein 7.7 (6.0-8.3) gm/dl Albumin 3.8 (3.4-5.0) gm/dl Procalcitonin < 0.05 (0-0.5) ng/ml Urine Color Urine Appearance (Clear) Urine pH (4.5-7.5) Ur Specific [place] (1.000-1.030) Urine Protein (Negative) Urine Glucose (UA) (Negative) Urine Ketones (Negative) Urine Blood (Negative) Urine Nitrite (Negative) Urine Bilirubin (Negative) Urine Urobilinogen (Negative) Ur Leukocyte Esterase (Negative) Urine WBC (Auto) (0-5) /hpf Urine RBC (Auto) (0-4) /hpf U Hyaline Cast (Auto) (0-5) /lpf U Epithel Cells (Auto) (0-5) /lpf Urine Bacteria (Auto) (Negative) Ur Renal Epithelial Cell Urine Yeast SARS-CoV-2, RNA, NAAT (NEGATIVE) 07/04/22 07/04/22 07/04/22 Range/Units 10:50 11:14 11:30 WBC (4.8-10.8) K/ul RBC (4.63-6.08) M/uL Hgb (14.0-18.0) g/dl Hct (40.1-51.0) % MCV (80.0-100.0) fL MCH (25.0-34.0) pg MCHC (32.0-36.0) g/dL RDW Std Deviation (36.4-46.3) fL RDW Coeff of Tay (11.5-14.5) % Plt Count (130-400) K/uL MPV (9.4-12.4) fL Immature Gran % (Auto) % Neut % (Auto) % Lymph % (Auto) % [place] % (Auto) % Eos % (Auto) % Baso % (Auto) % Neut # (Auto) (1.4-6.5) K/uL Lymph # (Auto) (1.2-3.4) K/uL [place] # (Auto) (0.24-0.82) K/uL Eos # (Auto) (0-0.50) K/uL Baso # (Auto) (0-0.2) K/uL Immature Gran # (Auto) (0.00-0.02) K/uL Sodium (136-145) mmol/L Potassium (3.5-5.1) mmol/L Chloride (98-107) mmol/L Carbon Dioxide (21-32) mmol/L Anion Gap (3-11) BUN (6-23) mg/dl Creatinine (0.6-1.4) mg/dl Est Cr Clr Drug Dosing Est GFR ( Amer) ml/min Est GFR (Non-Af Amer) ml/min BUN/Creatinine Ratio (10-20) Glucose (70-99(Fasting)) mg/dl Lactate 1.3 (0.4-2.0) mmol/L Calcium (8.5-10.1) mg/dl Magnesium (1.7-2.4) mg/dl Total Bilirubin (0.2-1.0) mg/dl Direct Bilirubin (0-0.2) mg/dl AST (13-39) U/L ALT (7-52) U/L Alkaline Phosphatase (34-104) U/L Troponin I High Sens (0-20) pg/ml Total Protein (6.0-8.3) gm/dl Albumin (3.4-5.0) gm/dl Procalcitonin (0-0.5) ng/ml Urine Color Yellow Urine Appearance Clear (Clear) Urine pH 6.5 (4.5-7.5) Ur Specific [place] 1.009 (1.000-1.030) Urine Protein Trace H (Negative) Urine Glucose (UA) Negative (Negative) Urine Ketones Negative (Negative) Urine Blood 3+ H (Negative) Urine Nitrite Negative (Negative) Urine Bilirubin Negative (Negative) Urine Urobilinogen Negative (Negative) Ur Leukocyte Esterase 1+ H (Negative) Urine WBC (Auto) 5-10 H (0-5) /hpf Urine RBC (Auto) >30 H (0-4) /hpf U Hyaline Cast (Auto) 1-5 (0-5) /lpf U Epithel Cells (Auto) 0-5 (0-5) /lpf Urine Bacteria (Auto) Negative (Negative) Ur Renal Epithelial Cell Not Reportable Urine Yeast Not Reportable SARS-CoV-2, RNA, NAAT NEGATIVE (NEGATIVE) Administered Medications Daptomycin 450 mg/ Syringe 9 mls @ 4.5 mls/min IV Q48H [facility]; Protocol Stop: 08/15/22 17:59 Last Admin: 07/04/22 19:01 Dose: 4.5 mls/min Documented By: [id number] Nystatin/Triamcinolone Acetonide (Nystatin/Triamcin Oint 15 Gm Tube) 1 appln EXT DAILY JAVIER Stop: 08/03/22 17:14 Last Admin: 07/04/22 19:01 Dose: 1 appln Documented By: [id number] Discontinued Medications Fentanyl Citrate (Fentanyl Citrate 100 Mcg/2 Ml Vial) 50 mcg IV NOW STA Stop: 07/04/22 10:30 Last Admin: 07/04/22 11:14 Dose: 50 mcg Documented By: [id number] Hydromorphone HCl (Hydromorphone Inj 0.5 Mg/0.5 Ml Syr) 0.5 mg IV NOW STA Stop: 07/04/22 12:22 Last Admin: 07/04/22 12:33 Dose: 0.5 mg Documented By: [email or web address] Cefepime HCl (Maxipime) 20 mls @ 5 mls/min IV NOW STA Stop: 07/04/22 12:39 Last Admin: 07/04/22 12:52 Dose: 5 mls/min Documented By: [id number] Vancomycin HCl 1,500 mg/ (Sodium Chloride) 530 mls @ 200 mls/hr IV NOW ONE Stop: 07/04/22 15:23 Last Infusion: 07/04/22 15:48 Dose: 0 mls/hr Documented By: [id number] Admin: 07/04/22 13:06 Dose: 200 mls/hr Documented By: [id number] Ondansetron HCl (Ondansetron Inj 2 Mg/Ml 2 Ml Vial) 4 mg IV NOW STA Stop: 07/04/22 12:22 Last Admin: 07/04/22 12:33 Dose: 4 mg Documented By: [email or web address] Imaging Data Radiologist's Impression: Chest X-Ray 07/04/22 10:21 SINGLE VIEW CHEST CLINICAL HISTORY: Sepsis. FINDINGS: An AP, portable, upright chest radiograph is compared to study dated 12/16/2021.. The examination is degraded by portable technique and apical lordotic positioning. The heart is enlarged noting atherosclerotic calcification of the thoracic aorta. There is prominence of the pulmonary vasculature. Chronic interstitial thickening similar to previous. Scarring/atelectasis is noted at the lung bases. No airspace consolidation or large pleural effusion is identified. No pneumothorax is seen. The skeletal structures are osteopenic. The bony thorax is grossly intact. Arthritic change is seen in the shoulders. IMPRESSION: Cardiomegaly with prominence of the pulmonary vasculature. Correlate clinically for evidence of fluid overload/congestive failure. ACT 112: Negative or not required by law. Electronically signed by: Gurjit Gonzales M.D. 07/04/2022 10:35 AM Discharge Plan Visit Data Chief Complaint: Groin Pain Stated Complaint: SEVERE GROIN PAIN. PELVIS BONE INFECTED ED Provider: Augusta Rm Discharge Problem: Osteomyelitis, pelvis Patient Disposition: Against Medical Advice Discharge Instructions Interventions: ED Discharge Assessment Last Done: 07/04/22 19:35
[2022-07-04 11:27] LABS: Alanine Aminotransferase 8 U/L (7-52); Albumin Level 3.8 gm/dl (3.4-5.0); Alkaline Phosphatase 67 U/L (34-104); Anion Gap 9 (3-11); Aspartate Aminotransferase 11 U/L (13-39); BUN Creatinine Ratio 23.8 (10-20); Bilirubin,Total 0.5 mg/dl (0.2-1.0); Blood Urea Nitrogen 55 mg/dl (6-23); Calcium 9.9 mg/dl (8.5-10.1); Carbon Dioxide 19 mmol/L (21-32); Chloride 106 mmol/L (98-107); Est GFR (Non-African American) 24.1 ml/min; Glucose 90 mg/dl (70-99(Fasting)); Magnesium 2.5 mg/dl (1.7-2.4); Potassium 5.3 mmol/L (3.5-5.1); Sodium 134 mmol/L (136-145); Total Protein 7.7 gm/dl (6.0-8.3)
[2022-07-04 11:31] LABS: Troponin I High Sensitivity 16.2 pg/ml (0-20)
[2022-07-04 11:38] LABS: Epithelial Cell Urine Auto 0-5 /lpf (0-5)
[2022-07-04] MEDS ORDERED: ONDANSETRON INJ 2 MG/ML 2 ML VIAL IV STA (12:21)
[2022-07-04] MEDS ORDERED: HYDROmorphone INJ 0.5 MG/0.5 ML SYR IV STA (12:21)
[2022-07-04] MEDS ORDERED: CEFEPIME 20 ML IV STA (12:36)
[2022-07-04] MEDS ORDERED: VANCOMYCIN HCL 1,500 MG in SODIUM CHLORIDE 0.9% 500 ML IV ONE (12:45)
--- NOTE | 2022-07-04 13:54 | History & Physical Report ---
Date of Service July 04, 2022 Assessment & Plan (1) Osteomyelitis of symphysis pubis: Plan: - Seen initially on CT A/P 07/01 for ongoing pelvic pain. Likely secondary to self cath attempt 2 weeks ago in which patient was met with significant pain resistance with several unsuccessful attempts. - Abx started in ED--cefepime + vancomycin. Given MARQUEZ on CKD, will switch vancomycin to dapto. - Blood cx obtained prior to abx. (2) Ymtuc-ry-hrgumzc kidney injury: Plan: - Baseline creatinine CT 1.72.0. Creatinine is mildly elevated at 2.30, may be combination of infection as well as restarting chlorthalidone, which he restarted within the past 2 weeks after kidney function normalized after discharge last admission. CT on 07/01 did not show any evidence of hydronephrosis to suggest obstruction source of MARQUEZ. - Will continue to hold chlorthalidone for now given MARQUEZ. - Provide gentle hydration LRs 100cc/hr x 1 L given history of diastolic heart failure. - Renally dose medication, avoid nephrotoxins. - BMP in AM. - Bladder scan once shift and as needed. - UA with 1+ leuk esterase, 510 WBCs. - Patient is on Bactrim daily for UTI prophylaxis, possible that this is also contributing to worsening kidney function. Hold this as he is on IV antibiotics already for osteo as above. (3) Ulcer of penis: Plan: - Continue topical nystatintriamcinolone ointment. - Urethral meatus appears to be healing well. (4) (HFpEF) heart failure with preserved ejection fraction: Plan: - Echo from March with EF 50-55%, mild LVH, right ventricular systolic dysfunction with elevated pressure 3040 mmHg. - Was previously on chlorthalidone for diuresis, however this continued on last admission. Patient was admitted recently started arthroplasty BX. - Gentle IVF as above for MARQUEZ. (5) Atrial fibrillation, controlled: Plan: - Permanent, rate controlled on Carvedilol 12.5 mg BID. - Eliquis 2.5 BID, renal dosing. (6) H/O prostate cancer: Plan: - In 2004 s/p radiation. - Being followed closely by urology, his PSA is rising very slowly. There have been no lytic or blastic lesion seen on CT. There was slightly enlarged lymph node noted, may be reactive. - Continue with surveillance. Plan - Ad[facility] to [facility]. - SCDs, Eliquis for VTE ppx. - Full Code. History of Present Illness Chief Complaint: Osteomyelitis of pubic symphysis seen on outpatient CT 07/01 Primary Care Provider: Tiago Lara MD Torrey Mancia is an 87 y/o male with PMH significant for prostate and bladder cancer, CAD, diastolic heart failure, A. fib, hypertension, CKD 3 who presents at the recommendation of his urologist and PCP due to osteomyelitis of the pubic bone. Patient has been having ongoing pelvic pain over the past week over the past week for which a CT A/P was obtained for on 07/01 that showed abnormal widening, erosion, and fragmentation of the pubic symphysis surrounding inflammation as well as bladder wall thickening. Patient was encouraged to present plan to ED for IV antibiotics to treat osteomyelitis, however he had held off until today. Other than pelvic/rectal pain and ongoing urinary incontinence and difficulty urinating on command, patient is without complaints. He has not had fever or chills, weakness, myalgias. No complaints of chest pain or palpitations, or shortness of breath. Patient has not had any recent surgical procedures, however did try to straight cath himself 2 weeks ago and was met with significant resistance and pain after several unsuccessful attempts. Upon arrival, patient vital signs within normal limits and stable. Labs significant for WBC 11 w/ left shift, PCT and lactate wnl. He also has a chronic anemia which is at baseline. Sodium mildly low 134, potassium mildly elevated 5.3, magnesium mildly elevated 2.5. His creatinine is slightly elevated at 2.31, baseline seems to be 1.72 range. His urnie has some leukoesterase and WBCs. COVID-negative. Allergies Allergy/AdvReac Type Severity Reaction Status Date / Time KEVIN Inhibitors Allergy Severe SHORTNESS Verified 06/18/22 10:44 OF BREATH Penicillins Allergy Intermediate HIVES Verified 06/18/22 10:44 rosuvastatin [From Crestor] Allergy Intermediate joint Verified 06/18/22 10:44 aches and cramping simvastatin Allergy Intermediate joint Verified 06/18/22 10:44 aches and cramping Kufqmeu-DWX-PyY Reductase Allergy Intermediate joint Verified 06/18/22 10:44 Inhibitor aches and [Fvueojr-Nii-Len Reductase cramping Inhibitor] RED YEAST RICE Allergy Mild RASH Uncoded 06/18/22 10:44 Home Medications Medication Instructions Recorded Confirmed Type cetirizine 10 mg tablet (Zyrtec) 10 mg PO HS #30 tabs 06/16/19 07/04/22 History fluticasone propionate 50 2 sprays intranasal BID PRN 06/16/19 07/04/22 History mcg/actuation nasal Congestion #3 grams spray,suspension (Flonase Allergy Relief) cholecalciferol (vitamin D3) 25 50 mcg PO QPM 09/11/21 07/04/22 History mcg (1,000 unit) capsule apixaban 2.5 mg tablet (Eliquis) 2.5 mg PO BID #180 tabs 12/24/21 07/04/22 Rx tamsulosin 0.4 mg capsule (Flomax) 0.4 mg PO BID 03/31/22 07/04/22 History carvedilol 12.5 mg tablet (Coreg) 25 mg PO BID #360 tabs 05/26/22 07/04/22 Rx hydrocortisone 2.5 % topical cream 1 applic [place] BID PRN rectal pain 06/18/22 07/04/22 Rx with perineal applicator #30 grams (Anusol-HC) chlorthalidone 25 mg tablet 25 mg PO DAILY 07/04/22 07/04/22 History nystatin-triamcinolone 100,000 See Rx Instructions .Route 07/04/22 07/04/22 History unit/gram-0.1 % topical ointment .COMPLEX urethral meatus irritation trimethoprim 100 mg tablet 100 mg PO DAILY UTI prophylaxis 07/04/22 07/04/22 History Past Med/Surg History Medical History Anemia Aortic regurgitation Arthritis back Atrial fibrillation Follows Dr. 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 Bone marrow biopsy negative for plasma dyscrasia and B cell lymphoma. Myocardial Infarction 1994--followed with Dr. Landaverde Peripheral neuropathy Presbyesophagus Prostate cancer (~04/2005) s/p failure of brachytherapy. Patient opted to forego further treatment d/t age. Had seeding placed in prostate Shortness of breath on exertion Spinal stenosis Tricuspid regurgitation Surgical History History of back surgery (08/06/17) Dr. Stephens. Fused at L4-L5 and sacrum. History of bilateral cataract extraction History of bladder surgery TURBT 08/17/2007 for bladder cancer History of cardiac cath 1994 @ [facility] [place]--with 1 stent placed - unsure type/location - Follows Dr. Verduzco History of colonoscopy History of cystoscopy multiple times--d/t bladder cancer History of esophagogastroduodenoscopy (EGD) History of heart artery stent 1994 @ [facility] [place] - 1 stent placed - unsure type/location - Follows Dr. Verduzco History of prostate biopsy Unable to find path report in [employer] or [employer]. History of tooth extraction all upper teeth/partial lower Hx of vasectomy Family History Unknown Prostate cancer Bladder cancer Hypertension Father Family history of diabetes mellitus Daughter Breast cancer Son Myocardial infarction Other No family history of adverse response to anesthesia Denies family history of Ovarian cancer Colorectal cancer Social History Smoking Status: Former smoker Tobacco Type: Cigarettes Age Quit Using Tobacco: 48; Cigarettes Per Day: 1 pack per day; Second Hand Exposure: No; Hx Alcohol Use: Yes Alcohol type: wine Alcohol Intake Frequency Comment: once a day Hx Substance Use: No Preferred Language: Vietnamese Communication Ability: Effective Visual Impairment: Limited Hearing Ability: Hard of Hearing Glass Checker Required: No Beliefs That Will Affect Care: None marital status: Current Living Situation: Spouse Current Living Situation Comment: Lives at home with his current occupational status: retired How many Children do You have: 2 Other Information That Helps Us Care for You: No Feels Safe at Home: Yes Safety Concerns: Feels Safe At This Time caffeine: Yes (coffee) Dental Care, Regularly: Yes Physical Activity Frequency: Daily Physical Activity Frequency Comment: treadmill in morning, sit ups Seatbelt Use: always Sunscreen Use: Yes Assistive Devices: Cane and Glasses Review of Systems Review of Systems: Constitutional: No fever/chills, weakness, fatigue, myalgias, anorexia, night sweats Eyes: No diplopia, no worsening or blurred vision ENT: normal hearing, no trouble swallowing Respiratory: No cough, sputum, dyspnea at rest or on exertion Cardiovascular: No chest pain, tightness or palpitations Abdomen: No pain, nausea, vomiting, diarrhea or constipation : Pelvic pain x1 week with ongoing urinary incontinence/retention; penile pain x1 month becoming better with topical cream Musculoskeletal: No joint pain, calf pain, swelling Neurologic: No weakness, numbness/tingling, or balance problems Psychiatric: No anxiety or depression Skin: No rash or itch Physical Exam Physical Exam: General: awake, alert, no apparent distress Head: Normocephalic, atraumatic ENT: PERRL, EOMI, no pharyngeal exudate, mucous membranes moist Chest: Clear to auscultation, on room air, no adventitious breath sounds Cardiac: Regular rate and rhythm, no murmur, no JVD, normal peripheral pulses, good capillary refill Abdominal: TTP in suprapubic region; NABS x 4 quadrants, soft, otherwise nontender to palpation, no rebound, guarding or tenderness Extremities: Normal inspection, no peripheral edema or erythema, calfs nontender to palpation Psych: Normal mood and affect Neuro: AAO x 3, strength intact bilaterally and rated 5/5, no motor deficits, speech is clear, no peripheral sensory deficits Skin: no rash or erythema Results & Data Results & Data ([facility]) Vital Signs (Past 12 Hours) Vital Signs Temp Pulse Resp BP Pulse Ox O2 Del Method 07/04/22 12:15 76 18 98 07/04/22 12:15 152/116 H 07/04/22 12:10 85 18 100 07/04/22 12:00 81 15 100 07/04/22 12:00 154/91 H 07/04/22 11:50 76 17 100 07/04/22 11:45 79 18 100 07/04/22 11:45 134/74 07/04/22 11:40 81 15 100 07/04/22 11:30 85 15 99 07/04/22 11:30 121/75 07/04/22 11:20 78 21 98 07/04/22 11:15 84 20 100 07/04/22 11:15 147/74 H 07/04/22 11:12 77 18 100 07/04/22 09:22 36.6 C 76 16 117/58 L 100 Room Air Laboratory Results Abnormal lab results 07/04/22 07/04/22 07/04/22 Range/Units 10:40 10:40 10:50 WBC 11.62 H (4.8-10.8) K/ul RBC 3.90 L (4.63-6.08) M/uL Hgb 11.1 L (14.0-18.0) g/dl Hct 34.8 L (40.1-51.0) % MCHC 31.9 L (32.0-36.0) g/dL RDW Std Deviation 49.3 H (36.4-46.3) fL RDW Coeff of Tay 15.4 H (11.5-14.5) % MPV 8.9 L (9.4-12.4) fL Neut # (Auto) 9.58 H (1.4-6.5) K/uL Lymph # (Auto) 0.89 L (1.2-3.4) K/uL Immature Gran # (Auto) 0.04 H (0.00-0.02) K/uL Sodium 134 L (136-145) mmol/L Potassium 5.3 H (3.5-5.1) mmol/L Carbon Dioxide 19 L (21-32) mmol/L BUN 55 H (6-23) mg/dl Creatinine 2.31 H (0.6-1.4) mg/dl BUN/Creatinine Ratio 23.8 H (10-20) Magnesium 2.5 H (1.7-2.4) mg/dl AST 11 L (13-39) U/L Urine Protein Trace H (Negative) Urine Blood 3+ H (Negative) Ur Leukocyte Esterase 1+ H (Negative) Urine WBC (Auto) 5-10 H (0-5) /hpf Urine RBC (Auto) >30 H (0-4) /hpf Diagnostic Findings Chest X-Ray 07/04/22 10:21 SINGLE VIEW CHEST CLINICAL HISTORY: Sepsis. FINDINGS: An AP, portable, upright chest radiograph is compared to study dated 12/16/2021.. The examination is degraded by portable technique and apical lordotic positioning. The heart is enlarged noting atherosclerotic calcification of the thoracic aorta. There is prominence of the pulmonary vasculature. Chronic interstitial thickening similar to previous. Scarring/atelectasis is noted at t he lung bases. No airspace consolidation or large pleural effusion is identified. No pneumothorax is seen. The skeletal structures are osteopenic. The bony thorax is grossly intact. Arthritic change is seen in the shoulders. IMPRESSION: Cardiomegaly with prominence of the pulmonary vasculature. Correlate clinically for evidence of fluid overload/congestive failure. ACT 112: Negative or not required by law. Electronically signed by: Gurjit Gonzales M.D. 07/04/2022 10:35 AM ECG Additional Comments: Atrial fibrillation Left axis deviation Low voltage QRS Right bundle branch block Abnormal ECG When compared with ECG of 15-MAY-2022 16:37, T wave inversion no longer evident in Anterior leads. Code Status & VTE Plan Code Status Full code. Supervising Physician Co-Signing Physician Notes I personally saw and examined the patient. I verified all bo points and agree with Cassie Charles PA-C with the following exceptions and/or additions: 87 year old male admission for suprapubic pain and diagnosed osteomyelitis of the pubic symphysis. Sent in by his urologist for antibiotics to treat this. Suspected secondary to difficulty with straight caths O/E A&Ox3, HS1+2, no murmurs, Chest CTAB, Abdo SNT, pain over pubic symphysis A/P Osteomyelitis of pubic symphysis - daptomycin and cefepime pending blood cultures. If negative may need orthopedic help for a biopsy. PG Care Time/CCT Total # of Minutes Spent Total Time Spent with Patient: Total time spent is greater than 50% in coordination of care (as documented) at patient's floor/unit and/or counseling patient: Coding Level of Care Code 52806 Initial Inpt Care Lvl 3 Diagnoses Osteomyelitis of symphysis pubis M86.9 Xqzaz-sc-oanidsx kidney injury N17.9; N18.9 Ulcer of penis N48.5 (HFpEF) heart failure with preserved ejection fraction I50.30 Atrial fibrillation, controlled I48.91 H/O prostate cancer Z85.46
[2022-07-04] MEDS ORDERED: ONDANSETRON INJ 2 MG/ML 2 ML VIAL IV PRN (16:40)
[2022-07-04] MEDS ORDERED: FLUTICASONE PROPIONATE NA SPR 16 GM BTL PRN (16:40)
[2022-07-04] MEDS ORDERED: HYDROCORTISONE HC 2.5% CRM 30GM TUBE EXT PRN (16:40)
[2022-07-04] MEDS ORDERED: HYDROmorphone INJ 0.5 MG/0.5 ML SYR IV PRN ×2 (16:40)
[2022-07-04] MEDS ORDERED: POLYETHYLENE (MIRALAX) 17 GM PACK PO PRN (16:40)
[2022-07-04] MEDS: DAPTOmycin 450 MG in SYRINGE 0 ML IV SCH (19:01)
[2022-07-04] MEDS: NYSTATIN/TRIAMCIN OINT 15 GM TUBE EXT SCH (19:01)
[2022-07-04] MEDS: TAMSULOSIN HCL 0.4 MG CAP PO SCH (20:54)
[2022-07-04] MEDS: CETIRIZINE HCL 10 MG TABLET PO SCH (20:55)
[2022-07-04] MEDS: APIXABAN 2.5 MG TAB PO SCH (20:55)
[2022-07-04] MEDS: carvediloL 25 MG TAB PO SCH (20:55)
[2022-07-04] MEDS: ACETAMINOPHEN 325 MG TAB PO PRN (20:59)
[2022-07-04] MEDS ORDERED: CEFEPIME 2,000 MG in SYRINGE 0 ML IV SCH (21:00)
[2022-07-04] MEDS: CHOLECALCIFEROL 1,000 UNITS 25 MCG TAB PO SCH (21:36)
--- NOTE | 2022-07-04 22:24 | Electrocardiogram Report ---
Test Reason : Blood Pressure : / mmHG Vent. Rate : 084 BPM Atrial Rate : 101 BPM P-R Int : 000 ms QRS Dur : 120 ms QT Int : 392 ms P-R-T Axes : 000 -40 -01 degrees QTc Int : 463 ms Atrial fibrillation Left axis deviation Low voltage QRS Right bundle branch block Abnormal ECG When compared with ECG of 15-MAY-2022 16:37, No significant change Confirmed by Maxim Meyers ([id number]) on 07/04/2022 10:23:40 PM Referred By: REFERRED SELF Confirmed By:Maxim Meyers
[2022-07-04] MEDS: CEFEPIME 1,000 MG in SYRINGE 0 ML IV SCH (23:49)
[2022-07-05 07:03] LABS: Basophils # (auto) 0.05 K/uL (0-0.2); Basophils % (auto) 0.5 %; Eosinophils # (auto) 0.29 K/uL (0-0.50); Eosinophils % (auto) 3.1 %; Hematocrit (blood only) 30.6 % (40.1-51.0); Hemoglobin 9.9 g/dl (14.0-18.0); Immature Granulocytes # (auto) 0.03 K/uL (0.00-0.02); Immature Granulocytes % (auto) 0.3 %; Lymphocytes # (auto) 0.79 K/uL (1.2-3.4); Lymphocytes % (auto) 8.4 %; Mean Corpuscular Hemoglobin 28.4 pg (25.0-34.0); Mean Corpuscular Hgb Conc 32.4 g/dL (32.0-36.0); Mean Corpuscular Volume 87.9 fL (80.0-100.0); Mean Platelet Volume 8.9 fL (9.4-12.4); Monocytes % (auto) 8.5 %; Neutrophils # (auto) 7.44 K/uL (1.4-6.5); Neutrophils % (auto) 79.2 %; Platelet Count 230 K/uL (130-400); RDW Coefficient of Variation 15.3 % (11.5-14.5); RDW Standard Deviation 49.1 fL (36.4-46.3); Red Blood Count 3.48 M/uL (4.63-6.08)
[2022-07-05 08:09] LABS: BUN Creatinine Ratio 23.7 (10-20); Calcium 9.2 mg/dl (8.5-10.1); Creatinine Clr Calc Pharmacy 21.2 ml/min; Est GFR (Non-African American) 25.1 ml/min; Magnesium 2.2 mg/dl (1.7-2.4); Potassium 4.4 mmol/L (3.5-5.1)
[2022-07-05] MEDS: TAMSULOSIN HCL 0.4 MG CAP PO SCH ×2 (09:25→21:23)
[2022-07-05] MEDS: NYSTATIN/TRIAMCIN OINT 15 GM TUBE EXT SCH (09:25)
[2022-07-05] MEDS: APIXABAN 2.5 MG TAB PO SCH ×2 (09:25→21:23)
[2022-07-05] MEDS: carvediloL 25 MG TAB PO SCH ×2 (09:25→21:23)
[2022-07-05] MEDS: CEFEPIME 1,000 MG in SYRINGE 0 ML IV SCH (12:49)
[2022-07-05] MEDS: ACETAMINOPHEN 325 MG TAB PO PRN (15:49)
--- NOTE | 2022-07-05 17:28 | Hospitalist Progress Note ---
Date of Service July 05, 2022 Assessment & Plan (1) Osteomyelitis of symphysis pubis: Plan: - Seen initially on CT A/P 07/01 for ongoing pelvic pain. Likely secondary to self cath attempt 2 weeks ago in which patient was met with significant pain resistance with several unsuccessful attempts. - Abx started in ED--cefepime + vancomycin. Given MARQUEZ on CKD, will switch vancomycin to dapto. - Blood cx obtained prior to abx - negative at 24 hours. Awaiting 48 hours for ID consult - added tramadol PRN as 2nd to acetaminophen to manage pain (2) Jjuvm-ch-sfyjoxr kidney injury: Plan: - Baseline creatinine CT 1.72.0. Creatinine is mildly elevated at 2.30, may be combination of infection as well as restarting chlorthalidone, which he restarted within the past 2 weeks after kidney function normalized after discharge last admission. CT on 07/01 did not show any evidence of hydronephrosis to suggest obstruction source of MARQUEZ. - Renally dose medication, avoid nephrotoxins. - BMP in AM. - Bladder scan once shift and as needed. - UA with 1+ leuk esterase, 510 WBCs. - Patient is on Bactrim daily for UTI prophylaxis, possible that this is also contributing to artificially raising his Cr. Hold this as he is on IV antibiotics already for osteo as above. (3) Ulcer of penis: Plan: - Continue topical nystatintriamcinolone ointment. - Urethral meatus appears to be healing well. (4) (HFpEF) heart failure with preserved ejection fraction: Plan: - Echo from March with EF 50-55%, mild LVH, right ventricular systolic dysfunction with elevated pressure 3040 mmHg. - Was previously on chlorthalidone for diuresis, however this continued on last admission. - No worsening shortness of breath (5) Atrial fibrillation, controlled: Plan: - Permanent, rate controlled on Carvedilol 12.5 mg BID. - Eliquis 2.5 BID, renal dosing. (6) H/O prostate cancer: Plan: - In 2004 s/p radiation. - Being followed closely by urology, his PSA is rising very slowly. There have been no lytic or blastic lesion seen on CT. There was slightly enlarged lymph node noted, may be reactive. - Continue with surveillance. Plan - Admit to [facility]. - SCDs, Eliquis for VTE ppx. - Full Code. Admission and Anticipated Discharge Date Admission Date: July 04, 2022 Subjective No change in pubic symphysis pain. No shortness of breath or worsening leg swelling. Review of Systems Review of Systems: All systems reviewed & are unremarkable except as noted in Subjective Physical Exam Constitutional: WD/WN, vitals as above Neck: trachea midline, no thyromegaly Respiratory: normal respiratory effort, lungs clear to auscultation Cardiovascular: RRR, no murmur, no edema Gastrointestinal (Abdomen): normal bowel sounds, soft, nontender, no hepatosplenomegaly Tender to palpation over pubic symphsis Skin: no rashes, warm and dry Neurologic: moves all extremities and awake; not confused Psychiatric: A+Ox3, euthymic affect Results & Data Results & Data ([facility]) Vital Signs (Past 12 Hours) Vital Signs Temp Pulse Resp BP Pulse Ox O2 Del Method 07/05/22 15:36 36.4 C L 88 18 138/75 100 Room Air 07/05/22 07:08 36.8 C 87 18 137/82 99 Room Air PG Care Time/CCT Total # of Minutes Spent Total Time Spent with Patient: Total time spent is greater than 50% in coordination of care (as documented) at patient's floor/unit and/or counseling patient: Coding Level of Care Code 68459 Subseq Hosp Care Lvl 2 Diagnoses Osteomyelitis of symphysis pubis M86.9 Gulkl-jw-vwmoffa kidney injury N17.9; N18.9 Ulcer of penis N48.5 (HFpEF) heart failure with preserved ejection fraction I50.30 Atrial fibrillation, controlled I48.91 H/O prostate cancer Z85.46
[2022-07-05] MEDS: CHOLECALCIFEROL 1,000 UNITS 25 MCG TAB PO SCH (21:23)
[2022-07-05] MEDS: CETIRIZINE HCL 10 MG TABLET PO SCH (21:23)
[2022-07-05] MEDS: traMADol HCL 50 MG TABLET PO PRN (21:26)
[2022-07-06] MEDS: POLYETHYLENE (MIRALAX) 17 GM PACK PO SCH (08:09)
[2022-07-06] MEDS: carvediloL 25 MG TAB PO SCH ×2 (08:35→21:49)
[2022-07-06] MEDS: APIXABAN 2.5 MG TAB PO SCH ×2 (08:35→21:49)
[2022-07-06] MEDS: TAMSULOSIN HCL 0.4 MG CAP PO SCH ×2 (08:35→21:48)
[2022-07-06] MEDS: NYSTATIN/TRIAMCIN OINT 15 GM TUBE EXT SCH (08:36)
[2022-07-06] MEDS: CEFEPIME 1,000 MG in SYRINGE 0 ML IV SCH ×3 (12:11→13:27)
[2022-07-06] MEDS: traMADol HCL 50 MG TABLET PO PRN ×2 (12:16→18:25)
[2022-07-06] MEDS: DAPTOmycin 450 MG in SYRINGE 0 ML IV SCH (18:21)
--- NOTE | 2022-07-06 18:56 | Hospitalist Progress Note ---
Date of Service July 06, 2022 Assessment & Plan (1) Osteomyelitis of symphysis pubis: Plan: - Seen initially on CT A/P 07/01 for ongoing pelvic pain. Likely secondary to self cath attempt 2 weeks ago in which patient was met with significant pain resistance with several unsuccessful attempts. - Abx started in ED--cefepime + vancomycin. Given MARQUEZ on CKD, will switch vancomycin to dapto. - Blood cx obtained prior to abx - negative at48 hour will get ID consult natalio orrow - added tramadol PRN as 2nd to acetaminophen to manage pain (2) Ijqzj-iv-hivoora kidney injury: Plan: - Baseline creatinine CT 1.72.0. Creatinine is mildly elevated at 2.30, may be combination of infection as well as restarting chlorthalidone, which he restarted within the past 2 weeks after kidney function normalized after discharge last admission. CT on 07/01 did not show any evidence of hydronephrosis to suggest obstruction source of MARQUEZ. - Renally dose medication, avoid nephrotoxins. - BMP in AM. - Bladder scan once shift and as needed. - UA with 1+ leuk esterase, 510 WBCs. - Patient is on Bactrim daily for UTI prophylaxis, possible that this is also contributing to artificially raising his Cr. Hold this as he is on IV antibiotics already for osteo as above. (3) Ulcer of penis: Plan: - Continue topical nystatintriamcinolone ointment. - Urethral meatus appears to be healing well. (4) (HFpEF) heart failure with preserved ejection fraction: Plan: - Echo from March with EF 50-55%, mild LVH, right ventricular systolic dysfunction with elevated pressure 3040 mmHg. - Was previously on chlorthalidone for diuresis, however this continued on last admission. - No worsening shortness of breath (5) Atrial fibrillation, controlled: Plan: - Permanent, rate controlled on Carvedilol 12.5 mg BID. - Eliquis 2.5 BID, renal dosing. (6) H/O prostate cancer: Plan: - In 2004 s/p radiation. - Being followed closely by urology, his PSA is rising very slowly. There have been no lytic or blastic lesion seen on CT. There was slightly enlarged lymph node noted, may be reactive. - Continue with surveillance. Plan - Admit to [facility]. - SCDs, Eliquis for VTE ppx. - Full Code. Admission and Anticipated Discharge Date Admission Date: July 04, 2022 Subjective Tramadol helping with pubic symphysis pain. Awaiting 48 hour blood cultures at this time. No diarrhea with antibiotics. No fever or chills. Review of Systems Review of Systems: All systems reviewed & are unremarkable except as noted in Subjective Physical Exam Constitutional: WD/WN, vitals as above Neck: trachea midline, no thyromegaly Respiratory: normal respiratory effort, lungs clear to auscultation Cardiovascular: RRR, no murmur, no edema Gastrointestinal (Abdomen): normal bowel sounds, soft, nontender, no hepatosplenomegaly Tender to palpation over pubic symphysis Skin: no rashes, warm and dry Neurologic: moves all extremities and awake; not confused Psychiatric: A+Ox3, euthymic affect Results & Data Results & Data ([facility]) Vital Signs (Past 12 Hours) Vital Signs Temp Pulse Resp BP BP Pulse Ox O2 Del Method 07/06/22 15:10 36.4 C L 79 18 151/88 H 99 Room Air 07/06/22 07:40 144/75 H 07/06/22 07:38 36.4 C L 88 16 158/89 H 100 Room Air PG Care Time/CCT Total # of Minutes Spent Total Time Spent with Patient: Total time spent is greater than 50% in coordination of care (as documented) at patient's floor/unit and/or counseling patient: Coding Level of Care Code 70131 Subseq Hosp Care Lvl 1 Diagnoses Osteomyelitis of symphysis pubis M86.9 Irmln-hx-xssyuwt kidney injury N17.9; N18.9 Ulcer of penis N48.5 (HFpEF) heart failure with preserved ejection fraction I50.30 Atrial fibrillation, controlled I48.91 H/O prostate cancer Z85.46
[2022-07-06] MEDS: CETIRIZINE HCL 10 MG TABLET PO SCH (21:48)
[2022-07-06] MEDS: CHOLECALCIFEROL 1,000 UNITS 25 MCG TAB PO SCH (21:48)
[2022-07-07] MEDS: CEFEPIME 1,000 MG in SYRINGE 0 ML IV SCH ×2 (00:59→12:36)
[2022-07-07] MEDS: traMADol HCL 50 MG TABLET PO PRN ×3 (06:14→19:37)
[2022-07-07 06:30] LABS: Basophils # (auto) 0.06 K/uL (0-0.2); Basophils % (auto) 0.6 %; Eosinophils # (auto) 0.35 K/uL (0-0.50); Eosinophils % (auto) 3.3 %; Hematocrit (blood only) 31.8 % (40.1-51.0); Hemoglobin 10.3 g/dl (14.0-18.0); Immature Granulocytes # (auto) 0.04 K/uL (0.00-0.02); Immature Granulocytes % (auto) 0.4 %; Lymphocytes # (auto) 1.27 K/uL (1.2-3.4); Lymphocytes % (auto) 11.9 %; Mean Corpuscular Hemoglobin 28.5 pg (25.0-34.0); Mean Corpuscular Hgb Conc 32.4 g/dL (32.0-36.0); Mean Corpuscular Volume 88.1 fL (80.0-100.0); Mean Platelet Volume 8.9 fL (9.4-12.4); Monocytes # (auto) 0.88 K/uL (0.24-0.82); Monocytes % (auto) 8.2 %; Neutrophils # (auto) 8.11 K/uL (1.4-6.5); Neutrophils % (auto) 75.6 %; Platelet Count 234 K/uL (130-400); RDW Coefficient of Variation 15.2 % (11.5-14.5); Red Blood Count 3.61 M/uL (4.63-6.08); White Blood Count 10.71 K/ul (4.8-10.8)
[2022-07-07 07:06] LABS: C Reactive Protein 5.79 mg/dl (0-0.5); Calcium 9.6 mg/dl (8.5-10.1); Creatinine Clr Calc Pharmacy 24.7 ml/min; Est GFR (Non-African American) 30.2 ml/min; Potassium 4.4 mmol/L (3.5-5.1)
[2022-07-07] MEDS: carvediloL 25 MG TAB PO SCH ×2 (09:15→19:37)
[2022-07-07] MEDS: APIXABAN 2.5 MG TAB PO SCH ×2 (09:15→19:37)
[2022-07-07] MEDS: NYSTATIN/TRIAMCIN OINT 15 GM TUBE EXT SCH (09:15)
[2022-07-07] MEDS: TAMSULOSIN HCL 0.4 MG CAP PO SCH ×2 (09:16→19:37)
[2022-07-07] MEDS: POLYETHYLENE (MIRALAX) 17 GM PACK PO SCH (09:16)
--- NOTE | 2022-07-07 14:23 | Infectious Disease Consult ---
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 Discomfort, urethral sloughing, hematuria and purulent penile drainage noted over last several months -pt noted to have WBC 11.62, left shit, CRP 5.79 and ESR 75 on admission -unfortunately, urine cx and bcxs this admission unhelpful -pt has been on bactrim UTI ppx for last several weeks -prior cxs from May with 2 kinds of strep, UCx prior with gardnerella and aerococcus #reported hives with PCN in the 1949s #CKD- cr ~1.0 Rec: Discussed with pt and his that I would recommend IR-guided bone biopsy for pathology and cultures OFF antibiotics for antibiotic selection, particularly in setting of CKD with elevated cr, reported allergy to PCN, and given that prior urine cxs are denial management representative of demetria but have grown various organisms that may not represent true pathogens. I discussed that if there were adamantly opposed to biopsy, that attempt could be made to see if pt tolerated empiric antibiotics (for ex. with zosyn) but that duration of tx is at least 6 weeks, and would require iv (given pt's prior ucx results, would not attempt PO) with possibility of not covering the correct bacteria. They would like to pursue IR-guided biopsy, which it is not available at [facility]. I discussed with hospitalist Dr. Ling and recommended that pt be off antibiotics for at l east 5 days if possible prior to biopsy. Pt appears clinically stable to be off abx and Bcxs have been NGTD. Pt has been on empiric abx from 07/04-07/07. Please page with any additional questions. Tere More M.D. [facility] Pager [phone] Consultation Information Consultation was provided via telemedicine using two-way real-time interactive telecommunication between the patient and the telemedicine provider. For the duration of the visit, the provider was performing the assessment from a different facility than the patient. This includesuse of bluetooth stethoscope forauscultationperformed by the telepresenter that the telemedicine provider can hear if described in the physical exam. [employer] contact information: Please call [facility] Call Center . (Phone Number For Physician Use Only) After establishing a telemedicine visit, patient was: Patient was verified with two unique identifiers, Patient/authorized rep acknowledged consent and understanding and Gave permission to continue telehealth session Time Spent w Inpatient: 20 minutes History of Present Illness Attending Physician: Peter Ling MD History of Present Illness ID consult requested for pubic symphysis osteomyelitis in this 87-year-old male, past medical history of atrial fibrillation, CAD, KS, bladder cancer, prostate cancer, MGUS, CKD, who presented to the ED on 07/04/2022 reporting lower abdominal and pelvic pain. Patient had seen by his PCP on 06/[address] abdomen pelvis due to his ongoing soreness of penis as well as rectum. Due to constant urinary incontinence, it was noted that it was difficult to keep ointment on the sore area but there was no open area or ulceration. Patient also described perianal soreness which was described as pressure pain, somewhat constant, felt with sitting and occasional stinging and burning. Patient then saw his urologist on 07/03 who advised patient to go to ED because 07/01 CT of abdomen pelvis without contrast showed abnormal widening, erosion, and fragmentation of the pubic symphysis with surrounding inflammation. Numerous fluid collection is seen to indicate abscess. Infection/osteomyelitis is diagnosis of exclusion. He reported constipation and hematuria over the past several days. Per patient's , patient was finally willing to come to the hospital on 07/04 to get some pain relief. In the ED, temperature was 36.6, heart rate 76, respiratory 16, blood pressure 117/58, O2 sat 100% on room air. Admission labs significant for WBC 11.62, 82.5% neutrophils, hemoglobin 11.1, creatinine 2.31, procalcitonin less than 0.05, CRP 5.79, ESR 75, UA with 510 WBC, greater than 30 RBC, negative bacteria. Portable chest x-ray showed cardiomegaly with prominence of the pulmonary vasculature. Per urology note from 07/03, patient presented for follow-up of his prostate cancer and history of urinary retention and pelvic pain. It was noted that patient underwent radiation in 2004 for prostate cancer and PSA is elevated but not climbing dramatically. It was noted that his history of urinary retention resolved and his prostatic urethra is sloughing and he is now totally incontinent. Patient was started on cefepime and vancomycin in ED. Given MARQUEZ on CKD, vancomycin was switched to daptomycin. Blood cultures were obtained prior to antibiotics. Patient's baseline creatinine is noted to be 1.72.0. Patient been started on Bactrim daily for UTI prophylaxis by urology. This has been held as patient is on IV antibiotics for osteomyelitis. Patient is currently on cefepime and daptomycin. 07/04 blood cultures are no growth to date. 07/04 urine culture with more than 3 types of organisms, all high counts. Most recent positive urine culture is from 05/15/2022 which grew greater than 100,000 gamma strep, not Enterococcus and greater than 100,000 alpha strep, not Enterococcus. Patient has also grown Gardnerella and Aerococcus in prior urine cultures. Pt was seen with at bedside. They provide history together. Pt reports feeling cold often, but denies chills, fever, sweats. Pt does not note pain on palpation of pubic region but his reports that pt just took pain medication. He mainly c/o pain at distal penile urethra that began after a procedure. Pts reports that in March, pt had procedure with a ruptured abscess noted as a result. In March, pt had cystoscopy and some bleeding was noted. He subsequently came to the ED reporting what appeared to be purulent drainage around his mcallister catheter insertion site. There does not appear to have been imaging at that time. Patient with reported allergy to penicillin. Per pt and his , he developed hives in the 1949s that was attributed to PCN. There was no difficulty breathing/swelling. His reports there was no significant medical issue related to his allergic reaction. Pt confirms he has been on Bactrim x several weeks for UTI ppx- no significant change. He did attempt to self-catheterize a few weeks ago- multiple unsuccessful attempts with local trauma. Pt has been afebrile. WBC has improved to 10.7. Creatinine has improved to 1.92 Allergies Allergy/AdvReac Type Severity Reaction Status Date / Time KEVIN Inhibitors Allergy Severe SHORTNESS Verified 06/18/22 10:44 OF BREATH Penicillins Allergy Intermediate HIVES Verified 06/18/22 10:44 rosuvastatin [From Crestor] Allergy Intermediate joint Verified 06/18/22 10:44 aches and cramping simvastatin Allergy Intermediate joint Verified 06/18/22 10:44 aches and cramping Lvxzsyb-ROT-LqH Reductase Allergy Intermediate joint Verified 06/18/22 10:44 Inhibitor aches and [Kjgxwpe-Ztr-Epg Reductase cramping Inhibitor] RED YEAST RICE Allergy Mild RASH Uncoded 06/18/22 10:44 Home Medications Medication Instructions Recorded Confirmed Type cetirizine 10 mg tablet (Zyrtec) 10 mg PO HS #30 tabs 06/16/19 07/04/22 History fluticasone propionate 50 2 sprays intranasal BID PRN 06/16/19 07/04/22 History mcg/actuation nasal Congestion #3 grams spray,suspension (Flonase Allergy Relief) cholecalciferol (vitamin D3) 25 50 mcg PO QPM 09/11/21 07/04/22 History mcg (1,000 unit) capsule apixaban 2.5 mg tablet (Eliquis) 2.5 mg PO BID #180 tabs 12/24/21 07/04/22 Rx tamsulosin 0.4 mg capsule (Flomax) 0.4 mg PO BID 03/31/22 07/04/22 History carvedilol 12.5 mg tablet (Coreg) 25 mg PO BID #360 tabs 05/26/22 07/04/22 Rx hydrocortisone 2.5 % topical cream 1 applic [place] BID PRN rectal pain 06/18/22 07/04/22 Rx with perineal applicator #30 grams (Anusol-HC) chlorthalidone 25 mg tablet 25 mg PO DAILY 07/04/22 07/04/22 History nystatin-triamcinolone 100,000 See Rx Instructions .Route 07/04/22 07/04/22 History unit/gram-0.1 % topical ointment .COMPLEX urethral meatus irritation trimethoprim 100 mg tablet 100 mg PO DAILY UTI prophylaxis 07/04/22 07/04/22 History Patient History Medical History Anemia Aortic regurgitation Arthritis back Atrial fibrillation Follows Dr. 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 Bone marrow biopsy negative for plasma dyscrasia and B cell lymphoma. Myocardial Infarction 1994--followed with Dr. Landaverde Peripheral neuropathy Presbyesophagus Prostate cancer (~04/2005) s/p failure of brachytherapy. Patient opted to forego further treatment d/t age. Had seeding placed in prostate Shortness of breath on exertion Spinal stenosis Tricuspid regurgitation Surgical History History of back surgery (08/06/17) Dr. Stephens. Fused at L4-L5 and sacrum. History of bilateral cataract extraction History of bladder surgery TURBT 08/17/2007 for bladder cancer [place] [facility] [place] 1 stent placed - unsure type/location - Follows Dr. Verduzco History of colonoscopy History of cystoscopy multiple times--d/t bladder cancer History of esophagogastroduodenoscopy (EGD) History of heart artery stent 1994 @ [facility] [place] - 1 stent placed - unsure type/location - Follows Dr. Verduzco History of prostate biopsy Unable to find path report in [employer] or [employer]. History of tooth extraction all upper teeth/partial lower Hx of vasectomy Family History Unknown Prostate cancer Bladder cancer Hypertension Father Family history of diabetes mellitus Daughter Breast cancer Son Myocardial infarction Other No family history of adverse response to anesthesia Denies family history of Ovarian cancer Colorectal cancer Social History Smoking Status: Former smoker Tobacco Type: Cigarettes Age Quit Using Tobacco: 48; Cigarettes Per Day: 1 pack per day; Second Hand Exposure: No; Hx Alcohol Use: Yes Alcohol type: wine Alcohol Intake Frequency Comment: once a day Hx Substance Use: No Preferred Language: Indonesian Communication Ability: Effective Visual Impairment: Limited Hearing Ability: Hard of Hearing Commercial Specialist Required: No Beliefs That Will Affect Care: None marital status: Current Living Situation: Spouse Current Living Situation Comment: Lives at home with his current occupational status: retired How many Children do You have: 2 Other Information That Helps Us Care for You: No Feels Safe at Home: Yes Safety Concerns: Feels Safe At This Time caffeine: Yes (coffee) Dental Care, Regularly: Yes Physical Activity Frequency: Daily Physical Activity Frequency Comment: treadmill in morning, sit ups Seatbelt Use: always Sunscreen Use: Yes Assistive Devices: Cane Assistive Devices Comment: has w/c and walker at home but doesnt use Review of System as per HPI Physical Exam Physical Exam: PE: Gen: Awake, alert, NAD/non-toxic appearing HEENT: anicteric Resp: no resp distress on RA Abd: Soft, no tenderness of suprapubic region on palpation, ND : penile urethral opening with mild erythema, no active drainage Skin: L peripheral IV ok Results & Data ([facility]) Vital Signs (Past 12 Hours) Vital Signs Temp Pulse Resp BP Pulse Ox O2 Del Method 07/07/22 07:18 36.5 C 88 16 120/72 99 Room Air Diagnostic Findings Laboratory Results WBC 10.71 K/ul (4.8-10.8) 07/07/22 05:37 RBC 3.61 M/uL (4.63-6.08) L 07/07/22 05:37 Hgb 10.3 g/dl (14.0-18.0) L 07/07/22 05:37 Hct 31.8 % (40.1-51.0) L 07/07/22 05:37 MCV 88.1 fL (80.0-100.0) 07/07/22 05:37 MCH 28.5 pg (25.0-34.0) 07/07/22 05:37 MCHC 32.4 g/dL (32.0-36.0) 07/07/22 05:37 RDW Std Deviation 49.0 fL (36.4-46.3) H 07/07/22 05:37 RDW Coeff of Tay 15.2 % (11.5-14.5) H 07/07/22 05:37 Plt Count 234 K/uL (130-400) 07/07/22 05:37 MPV 8.9 fL (9.4-12.4) L 07/07/22 05:37 Immature Gran % (Auto) 0.4 % 07/07/22 05:37 Neut % (Auto) 75.6 % 07/07/22 05:37 Lymph % (Auto) 11.9 % 07/07/22 05:37 [place] % (Auto) 8.2 % 07/07/22 05:37 Eos % (Auto) 3.3 % 07/07/22 05:37 Baso % (Auto) 0.6 % 07/07/22 05:37 Neut # (Auto) 8.11 K/uL (1.4-6.5) H 07/07/22 05:37 Lymph # (Auto) 1.27 K/uL (1.2-3.4) 07/07/22 05:37 [place] # (Auto) 0.88 K/uL (0.24-0.82) H 07/07/22 05:37 Eos # (Auto) 0.35 K/uL (0-0.50) 07/07/22 05:37 Baso # (Auto) 0.06 K/uL (0-0.2) 07/07/22 05:37 Immature Gran # (Auto) 0.04 K/uL (0.00-0.02) H 07/07/22 05:37 ESR 75 mm/hr (0-20) H 07/07/22 05:37 Sodium 134 mmol/L (136-145) L 07/07/22 05:37 Potassium 4.4 mmol/L (3.5-5.1) 07/07/22 05:37 Chloride 106 mmol/L (98-107) 07/07/22 05:37 Carbon Dioxide 20 mmol/L (21-32) L 07/07/22 05:37 Anion Gap 8 (3-11) 07/07/22 05:37 BUN 48 mg/dl (6-23) H 07/07/22 05:37 Creatinine 1.92 mg/dl (0.6-1.4) H D 07/07/22 05:37 Est Cr Clr Drug Dosing 24.7 ml/min 07/07/22 05:37 Est GFR ( Amer) 35.0 ml/min 07/07/22 05:37 Est GFR (Non-Af Amer) 30.2 ml/min 07/07/22 05:37 BUN/Creatinine Ratio 25.0 (10-20) H 07/07/22 05:37 Glucose 93 mg/dl (70-99(Fasting)) 07/07/22 05:37 Lactate 1.3 mmol/L (0.4-2.0) 07/04/22 11:14 Calcium 9.6 mg/dl (8.5-10.1) 07/07/22 05:37 Magnesium 2.2 mg/dl (1.7-2.4) 07/05/22 06:14 Total Bilirubin 0.5 mg/dl (0.2-1.0) 07/04/22 10:40 Direct Bilirubin 0.0 mg/dl (0-0.2) 07/04/22 10:40 AST 11 U/L (13-39) L 07/04/22 10:40 ALT 8 U/L (7-52) 07/04/22 10:40 Alkaline Phosphatase 67 U/L (34-104) 07/04/22 10:40 Troponin I High Sens 16.2 pg/ml (0-20) 07/04/22 10:40 C-Reactive Protein 5.79 mg/dl (0-0.5) H 07/07/22 05:37 Total Protein 7.7 gm/dl (6.0-8.3) 07/04/22 10:40 Albumin 3.8 gm/dl (3.4-5.0) 07/04/22 10:40 Procalcitonin < 0.05 ng/ml (0-0.5) 07/04/22 10:40 Urine Color Yellow 07/04/22 10:50 Urine Appearance Clear (Clear) 07/04/22 10:50 Urine pH 6.5 (4.5-7.5) 07/04/22 10:50 Ur Specific [place] 1.009 (1.000-1.030) 07/04/22 10:50 Urine Protein Trace (Negative) H 07/04/22 10:50 Urine Glucose (UA) Negative (Negative) 07/04/22 10:50 Urine Ketones Negative (Negative) 07/04/22 10:50 Urine Blood 3+ (Negative) H 07/04/22 10:50 Urine Nitrite Negative (Negative) 07/04/22 10:50 Urine Bilirubin Negative (Negative) 07/04/22 10:50 Urine Urobilinogen Negative (Negative) 07/04/22 10:50 Ur Leukocyte Esterase 1+ (Negative) H 07/04/22 10:50 Urine WBC (Auto) 5-10 /hpf (0-5) H 07/04/22 10:50 Urine RBC (Auto) >30 /hpf (0-4) H 07/04/22 10:50 U Hyaline Cast (Auto) 1-5 /lpf (0-5) 07/04/22 10:50 U Epithel Cells (Auto) 0-5 /lpf (0-5) 07/04/22 10:50 Urine Bacteria (Auto) Negative (Negative) 07/04/22 10:50 Ur Renal Epithelial Cell Not Reportable 07/04/22 10:50 Urine Yeast Not Reportable 07/04/22 10:50 SARS-CoV-2, RNA, NAAT NEGATIVE (NEGATIVE) 07/04/22 11:30 Impressions Chest X-Ray 07/04/22 10:21 SINGLE VIEW CHEST CLINICAL HISTORY: Sepsis. FINDINGS: An AP, portable, upright chest radiograph is compared to study dated 12/16/2021.. The examination is degraded by portable technique and apical lordotic positioning. The heart is enlarged noting atherosclerotic calcification of the thoracic aorta. There is prominence of the pulmonary vasculature. Chronic interstitial thickening similar to previous. Scarring/atelectasis is noted at the lung bases. No airspace consolidation or large pleural effusion is identified. No pneumothorax is seen. The skeletal structures are osteopenic. The bony thorax is grossly intact. Arthritic change is seen in the shoulders. IMPRESSION: Cardiomegaly with prominence of the pulmonary vasculature. Correlate clinically for evidence of fluid overload/congestive failure. ACT 112: Negative or not required by law. Electronically signed by: Gurjit Gonzales M.D. 07/04/2022 10:35 AM
--- NOTE | 2022-07-07 19:34 | Hospitalist Progress Note ---
Date of Service July 07, 2022 Assessment & Plan (1) Osteomyelitis of symphysis pubis: Plan: - Seen initially on CT A/P 07/01 for ongoing pelvic pain. Likely secondary to self cath attempt 2 weeks ago in which patient was met with significant pain resistance with several unsuccessful attempts. - Penicillin allergy questionable as many decades ago. - added tramadol PRN as 2nd to acetaminophen to manage pain - Antibiotics discontinued per ID recommendations to get pubic symphysis biopsy. Discussed with [facility] transfer service as patient and requested possibly going to [place]. Unfortunately the IR physician was not available at the time of calling and they recommended calling back tomorrow. Plan on being off antibiotics for 2-3 days prior to IR regardless. (2) Ghxbg-xq-axbhkdb kidney injury: Plan: - Baseline creatinine CT 1.72.0. Creatinine is mildly elevated at 2.30, may be combination of infection as well as restarting chlorthalidone, which he restarted within the past 2 weeks after kidney function normalized after discharge last admission. CT on 07/01 did not show any evidence of hydronephrosis to suggest obstruction source of MARQUEZ. - Renally dose medication, avoid nephrotoxins. - BMP in AM. - Bladder scan once shift and as needed. - UA with 1+ leuk esterase, 510 WBCs. - Patient is on Bactrim daily for UTI prophylaxis, possible that this is also contributing to artificially raising his Cr. Will continue to hold for pubic symphysis biopsy. (3) Ulcer of penis: Plan: - Continue topical nystatintriamcinolone ointment. - Urethral meatus appears to be healing well. (4) (HFpEF) heart failure with preserved ejection fraction: Plan: - Echo from March with EF 50-55%, mild LVH, right ventricular systolic dysfunction with elevated pressure 3040 mmHg. - Was previously on chlorthalidone for diuresis, however this continued on last admission. - No worsening shortness of breath (5) Atrial fibrillation, controlled: Plan: - Permanent, rate controlled on Carvedilol 12.5 mg BID. - Eliquis 2.5 BID, renal dosing. (6) H/O prostate cancer: Plan: - In 2004 s/p radiation. - Being followed closely by urology, his PSA is rising very slowly. There have been no lytic or blastic lesion seen on CT. There was slightly enlarged lymph node noted, may be reactive. - Continue with surveillance. Plan - Admit to [facility]. - SCDs, Eliquis for VTE ppx. - Full Code. Admission and Anticipated Discharge Date Admission Date: July 04, 2022 Subjective Discussed with infectious disease physician. Given blood cultures are negative after 48 hours recommending pubic symphysis biopsy. Discussed with patient and his and they prefer [place] if possible to be performed there. Review of Systems Review of Systems: All systems reviewed & are unremarkable except as noted in Subjective Physical Exam Constitutional: WD/WN, vitals as above Respiratory: normal respiratory effort, lungs clear to auscultation Cardiovascular: RRR, no murmur, no edema Gastrointestinal (Abdomen): normal bowel sounds, soft, nontender, no hepatosplenomegaly TTP over pubic symphsis Skin: no rashes, warm and dry Neurologic: moves all extremities and awake; not confused Psychiatric: A+Ox3, euthymic affect Results & Data Results & Data ([facility]) Vital Signs (Past 12 Hours) Vital Signs Temp Pulse Resp BP Pulse Ox O2 Del Method 07/07/22 15:05 36.5 C 79 16 113/61 98 Room Air PG Care Time/CCT Total # of Minutes Spent Total Time Spent with Patient: Total time spent is greater than 50% in coordination of care (as documented) at patient's floor/unit and/or counseling patient: Coding Level of Care Code 72136 Subseq Hosp Care Lvl 2 Diagnoses Osteomyelitis of symphysis pubis M86.9 Krygc-py-rrijrcr kidney injury N17.9; N18.9 Ulcer of penis N48.5 (HFpEF) heart failure with preserved ejection fraction I50.30 Atrial fibrillation, controlled I48.91 H/O prostate cancer Z85.46
[2022-07-07] MEDS: CHOLECALCIFEROL 1,000 UNITS 25 MCG TAB PO SCH (19:37)
[2022-07-07] MEDS: CETIRIZINE HCL 10 MG TABLET PO SCH (19:37)
[2022-07-08] MEDS: traMADol HCL 50 MG TABLET PO PRN ×2 (00:08→10:20)
[2022-07-08] MEDS: ACETAMINOPHEN 325 MG TAB PO PRN (00:09)
[2022-07-08 08:17] LABS: Creatinine Clr Calc Pharmacy 26.2 ml/min; Est GFR (African American) 37.6 ml/min; Est GFR (Non-African American) 32.4 ml/min
[2022-07-08] MEDS: APIXABAN 2.5 MG TAB PO SCH (08:48)
[2022-07-08] MEDS: TAMSULOSIN HCL 0.4 MG CAP PO SCH (08:48)
[2022-07-08] MEDS: carvediloL 25 MG TAB PO SCH (08:49)
[2022-07-08] MEDS: POLYETHYLENE (MIRALAX) 17 GM PACK PO SCH (08:50)
[2022-07-08] MEDS: NYSTATIN/TRIAMCIN OINT 15 GM TUBE EXT SCH (10:23)
--- NOTE | 2022-07-08 14:28 | Discharge Summary ---
Date of Service July 08, 2022 Admission HPI Per Admitting Provider Torrey Mancia is an 87 y/o male with PMH significant for prostate and bladder cancer, CAD, diastolic heart failure, A. fib, hypertension, CKD 3 who presents at the recommendation of his urologist and PCP due to osteomyelitis of the pubic bone. Patient has been having ongoing pelvic pain over the past week over the past week for which a CT A/P was obtained for on 07/01 that showed abnormal widening, erosion, and fragmentation of the pubic symphysis surrounding inflammation as well as bladder wall thickening. Patient was encouraged to present plan to ED for IV antibiotics to treat osteomyelitis, however he had hel d off until today. Other than pelvic/rectal pain and ongoing urinary incontinence and difficulty urinating on command, patient is without complaints. He has not had fever or chills, weakness, myalgias. No complaints of chest pain or palpitations, or shortness of breath. Patient has not had any recent surgical procedures, however did try to straight cath himself 2 weeks ago and was met with significant resistance and pain after several unsuccessful attempts. Upon arrival, patient vital signs within normal limits and stable. Labs significant for WBC 11 w/ left shift, PCT and lactate wnl. He also has a chronic anemia which is at baseline. Sodium mildly low 134, potassium mildly elevated 5.3, magnesium mildly elevated 2.5. His creatinine is slightly elevated at 2.31, baseline seems to be 1.72 range. His urnie has some leukoesterase and WBCs. COVID-negative. Principal Diagnosis Pubic bone osteomyelitis Discharge Exam Vitals reviewed Gen: [AAOx3, NAD] HEENT: [anicteric sclerae, EOMI] CV: [irreg irreg no mgr nl S1S2] Pulm: [CTAB no wcr] Abd: [+BS soft+TTP over lower abdomen and pubic symphysis exquisitely, ND no masses or hernias, penis appears normal, no ulcerations or bleeding] Ext: [no edema, 2+ DP pulses] Skin: [no rashes, warm/dry] Neuro: [full strength throughout] Discharge Data Allergies Allergy/AdvReac Type Severity Reaction Status Date / Time KEVIN Inhibitors Allergy Severe SHORTNESS Verified 06/18/22 10:44 OF BREATH Penicillins Allergy Intermediate HIVES Verified 06/18/22 10:44 rosuvastatin [From Crestor] Allergy Intermediate joint Verified 06/18/22 10:44 aches and cramping simvastatin Allergy Intermediate joint Verified 06/18/22 10:44 aches and cramping Azkmqsf-PVF-OgH Reductase Allergy Intermediate joint Verified 06/18/22 10:44 Inhibitor aches and [Jwdmbff-Xmx-Ywi Reductase cramping Inhibitor] RED YEAST RICE Allergy Mild RASH Uncoded 06/18/22 10:44 Consultations 07/04/22 13:58 ED Decision to Admit Stat 07/07/22 10:45 Consult Infectious Diseases Routine Hospital Course (1) Osteomyelitis of symphysis pubis: - Seen initially on CT A/P 07/01 for ongoing pelvic pain. Likely secondary to self cath attempt 2 weeks ago in which patient was met with significant pain resistance with several unsuccessful attempts. - Penicillin allergy questionable as many decades ago. - added tramadol PRN as 2nd to acetaminophen to manage pain-working well, pain much better controlled and will prescribe on discharge - Antibiotics discontinued per ID recommendations to get pubic symphysis biopsy. ID ideally recommends being off all antibiotics for at least 5 days--> made plans for IR biopsy to be done at [facility] with Dr. Armando Lopez. Order faxed over and should collect cultures and bone for pathology -dc all antibiotics including home trimethoprim for UTI prophylaxis -plan for [facility] and after culture results obtained through IR procedure Stable, no sepsis, no fevers or leukocytosis. All BCxs negative, Ur cx mixed demetria Eventually, will need PICC line and weekly labs done after started on antibiotics after biopsy performed (2) Kiilh-gi-jbaxmko kidney injury: - Baseline creatinine CT 1.72.0. Creatinine is mildly elevated at 2.30, may be combination of infection as well as restarting chlorthalidone, which he restarted within the past 2 weeks after kidney function normalized after discharge last admission. CT on 07/01 did not show any evidence of hydronephrosis to suggest obstruction source of MARQUEZ. - Renally dose medication, avoid nephrotoxins. 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 Dc trimethoprim (3) Ulcer of penis: - Continue topical nystatintriamcinolone ointment. - Urethral meatus appears to be healing well. (4) (HFpEF) heart failure with preserved ejection fraction: - Echo from March with EF 50-55%, mild LVH, right ventricular systolic dysfunction with elevated pressure 3040 mmHg. - dc chlorthalidone for diuresis - No worsening shortness of breath (5) Atrial fibrillation, controlled: - Permanent, rate controlled on Carvedilol 12.5 mg BID. - Eliquis 2.5 BID, renal dosing.--> HOLD ELiquis until after has pubic bone biopsy (6) H/O prostate cancer: - In 2004 s/p radiation. - Being followed closely by urology, his PSA is rising very slowly. There have been no lytic or blastic lesion seen on CT. There was slightly enlarged lymph node noted, may be reactive. - Continue with surveillance. Plan -Dispo-stable for dc to home today with close outpt f/u arranged Total Time Total Time Spent Total Time Spent (In Minutes): 60 min Discharge Plan Discharge Items Patient Disposition: Home - Self-Care Reason For Visit: OSTEOMYELITIS OF PUBIC SYMPHYSIS Discharge Diagnosis: Osteomyelitis of the pubic symphysis Condition on Discharge: Fair Activity: As commented below Lifting: No more than 5 pounds Bathing: No limitations Exercise/Sports: As tolerated Non-emergency contact: Primary Care Provider Call non-emergency contact if: you have any medication questions, your symptoms worsen, your pain is not controlled, you have a fever and your temperature is above 101 Follow-up/Referrals: Tiago Lara MD [Primary Care Provider] - 07/14/22 11:30 am (Appointment will be with Tana Tellez) Diet: Heart Healthy Addtl Attending Provider Instructions: You were admitted for treatment of an infection of your pubic bone. The Infectious Disease doctor recommended you have a biopsy performed after being off of all antibiotics for at least 5 days. You will also need to HOLD your Eliquis until you have the procedure performed. You will be contacted with your appointment date and time for this procedure after the arrangements have been made. [facility] (Dr. Armando Lopez) will be calling you with your appointment date and time for next week. Do NOT start taking the trimethoprim antibiotic again upon discharge. Also, your chlorthalidone was STOPPED due to it causing some mild kidney issues. After the biopsy, you will need to have an appointment with Infectious Disease at [facility]-Dr. Kodak Castillo. His phone number is [phone]. Please call to schedule an appointment. He will help guide you on which antibiotics to start after your biopsy results are returned. Pending Studies at Discharge: No Stand-Alone Forms: My [facility], Smoking Cessation Medications and DC Order Prescriptions: New acetaminophen 325 mg Tablet 650 mg PO Q4H PRN (Reason: mild-moderate pain) Qty: 30 0RF Rx Instructions: OTC tramadol 50 mg Tablet 50 mg PO Q4H PRN (Reason: moderate-severe pain) Qty: 20 0RF polyethylene glycol 3350 17 gram/dose powder 17 g PO DAILY Qty: 119 0RF Continued carvedilol [Coreg] 12.5 mg tablet 25 mg PO BID Qty: 360 3RF fluticasone propionate [Flonase Allergy Relief] 50 mcg/actuation sp ray,suspension 2 sprays intranasal BID PRN (Reason: Congestion) Qty: 3 cetirizine [Zyrtec] 10 mg tablet 10 mg PO HS Qty: 30 hydrocortisone [Anusol-HC] 2.5 % cream with perineal applicator 1 applic CA BID PRN (Reason: rectal pain) Qty: 30 0RF cholecalciferol (vitamin D3) 25 mcg (1,000 unit) capsule 50 mcg PO QPM nystatin-triamcinolone 100,000-0.1 unit/gram-% ointment See Rx Instructions .ROUTE .COMPLEX Rx Instructions: apply thin layer once daily Eliquis 2.5 mg tablet 2.5 mg PO BID Qty: 180 3RF Rx Instructions: HOLD UNTIL AFTER YOUR PROCEDURE tamsulosin [Flomax] 0.4 mg capsule 0.4 mg PO BID Discontinued trimethoprim 100 mg tablet 100 mg PO DAILY chlorthalidone 25 mg tablet 25 mg PO DAILY Discharge Orders: Discharge Order (Routine); Ordered 07/08/22 Ordered By: Aminta Rodriguez/Other Patient Handouts: Osteomyelitis Dc Admission Data Admit Date/Time: 07/04/22 14:12 Attending Provider: Aminta Rodriguez Admit Provider: Peter Ling Primary Care Provider: Tiago Lara Other Providers: Peter Ling ; Malena Hart ; Pramod Gilliam ; Kenzie Angela ; Berta García ; Tere More ; Francheska Du ; Sadie Snider ; Mode Medina ; Elida Daniel Other Interventions: Discharge Summary Assessment (RN) Last Done: 07/08/22 15:00 Coding Level of Care Code D/C DAY MANAGEMENT >30 MINS Diagnoses Osteomyelitis of symphysis pubis M86.9 Wbiie-kk-yetevfv kidney injury N17.9; N18.9 Ulcer of penis N48.5 (HFpEF) heart failure with preserved ejection fraction I50.30 Atrial fibrillation, controlled I48.91 H/O prostate cancer Z85.46
== END 2022-07-08 16:22 | disposition home or self-care (01) | DRG 540 ==
LOC: ED 09:14 → SUATTDRO 14:12 → EDINP 14:12 → 3E 19:35

== ENCOUNTER 2022-09-09 11:41 | Inpatient (IN) ==
--- NOTE | 2022-09-09 12:52 | XRay Report ---
XR chest 2V PA/lateral CLINICAL HISTORY: SOB TECHNIQUE: 2 views of the chest were obtained. Comparison: Comparison is made to chest radiograph 09/04/2022 FINDINGS: No lines and tubes are seen. Cardiomegaly is noted. The aortic arch is calcified. Reticular interstit ial opacities are seen. Small bilateral pleural effusions are seen. IMPRESSION: Small bilateral pleural effusions. Interstitial opacities are seen without definite airspace opacitie s. ACT 112: Negative or not required by law. Electronically signed by: Brett Boo M.D. 09/09/2022 12:50 PM
[2022-09-09 13:39] LABS: Basophils # (auto) 0.07 K/uL (0-0.2); Basophils % (auto) 0.9 %; Eosinophils # (auto) 0.16 K/uL (0-0.50); Hemoglobin 8.5 g/dl (14.0-18.0); Immature Granulocytes # (auto) 0.02 K/uL (0.00-0.02); Immature Granulocytes % (auto) 0.2 %; Lymphocytes # (auto) 0.89 K/uL (1.2-3.4); Lymphocytes % (auto) 11.1 %; Mean Corpuscular Hemoglobin 26.2 pg (25.0-34.0); Mean Corpuscular Hgb Conc 30.4 g/dL (32.0-36.0); Mean Corpuscular Volume 86.4 fL (80.0-100.0); Mean Platelet Volume 9.7 fL (9.4-12.4); Monocytes # (auto) 0.66 K/uL (0.24-0.82); Monocytes % (auto) 8.2 %; Neutrophils # (auto) 6.25 K/uL (1.4-6.5); Neutrophils % (auto) 77.6 %; Platelet Count 190 K/uL (130-400); RDW Coefficient of Variation 15.9 % (11.5-14.5); Red Blood Count 3.24 M/uL (4.63-6.08); White Blood Count 8.05 K/ul (4.8-10.8)
[2022-09-09 14:07] LABS: INR 1.2 (0.9-1.1); Partial Thromboplastin Ratio 1.3; Partial Thromboplastin Time 36.8 Seconds (21.0-31.0)
[2022-09-09 14:14] LABS: Alanine Aminotransferase 9 U/L (7-52); Albumin Globulin Ratio 1.1 (0.9-2); Albumin Level 3.6 gm/dl (3.4-5.0); Alkaline Phosphatase 62 U/L (34-104); Anion Gap 8 (3-11); Aspartate Aminotransferase 11 U/L (13-39); BUN Creatinine Ratio 24.2 (10-20); Bilirubin,Total 0.6 mg/dl (0.2-1.0); Blood Urea Nitrogen 44 mg/dl (6-23); Calcium 9.3 mg/dl (8.5-10.1); Carbon Dioxide 25 mmol/L (21-32); Chloride 105 mmol/L (98-107); Est GFR (African American) 37.3 ml/min; Est GFR (Non-African American) 32.2 ml/min; Globulin 3.2 gm/dl (2.5-4.0); Glucose 108 mg/dl (70-99(Fasting)); Magnesium 2.3 mg/dl (1.7-2.4); Potassium 4.2 mmol/L (3.5-5.1); Sodium 138 mmol/L (136-145); Total Protein 6.8 gm/dl (6.0-8.3)
--- NOTE | 2022-09-09 16:11 | Emergency Department Note ---
Impression & Plan Volume overload, LUX (dyspnea on exertion) ED Provider Note NAME: TANESHA TIRADO AGE: 87 SEX: M : 1935 ARRIVES VIA: Walk-In INFORMANT: Patient, ED PROVIDER(S): Rubio Perez MD Chief Complaint: Shortness of breath HPI: Patient presents due to concern for shortness of breath which is ongoing since Thursday. Patient states that he feels as though that has gotten progressively worse. The patient has noticed associated PND and orthopnea. Patient does have occasional chest tightness. Patient denies any cough or fever. No nausea vomiting. Patient has had decreased p.o. appetite. He states he is compliant with medications no increases in salt or fluid in the diet although family at bedside does state it is hard to avoid that with processed foods. Patient has any abdominal pain nausea or vomiting. No diaphoresis. ROS: See HPI for pertinent positives and negatives. A total of 10 systems were reviewed and otherwise negative. Past medical history: See below Surgical history: See below Social history: See below Physical Exam: GENERAL: NAD, wearing a mask, non-toxic. Wearing glasses. EYE EXAM: Normal conjunctiva. PERRL, no anisocoria and EOM's grossly intact w/o pain. NECK: Supple, no nuchal rigidity, no adenopathy, non-tender. No signs of meningismus. FROM of the neck with good chin to chest and neck extension. No stridor. LUNGS: Decreased breath sounds bilateral bases. Scant crackles noted normal chest wall mechanics. HEART: Irregularly irregular, no MRG. ABDOMEN: Abdomen soft, non-tender, normo-active bowel sounds, no masses, no rebound or guarding. BACK: No CVA TTP. SKIN: No rashes and no bruising. UPPER EXTREMITIES: Upper extremities are grossly normal. LOWER EXTREMITIES: Grossly normal, 3-4+ symmetric bilateral lower extremity edema without any calf pain or erythema NEURO EXAM: A&O x3, cranial nerves II-XII grossly intact, normal speech, moves all 4 extremities. Differential diagnoses: Reactive airway disease, pneumonia, pneumothorax, COPD, CHF, infections, cardiac ischemia, pulmonary embolism, musculoskeletal, gastrointestinal, as well as other pathologies. Course: Patient was seen and evaluated the bedside. Full history physical exam was performed. EKG interpreted by me Brianna coronado, rate of 97, normal QRS normal axis ST depressions in the lateral leads. Patient's depressions and T wave inversions in the lateral leads do appear to be new from comparison September 04, 2022. Imaging Studies: See Below Cardiac monitoring: An order was placed for continuous cardiac monitoring. The monitor shows a rate of 88 with regular rate rhythm. MDM: Patient was seen due to concern for shortness of breath. Blood work was already obtained via triage protocols and the patient has a normal white count chronic and stable anemia hemoglobin 8.5. The patient does have a creatinine of 1.82 which is virtual baseline. I did add a BNP and troponin. I did speak with the on-call hospitalist service and the patient was admitted by Dr. Love. Past Med/Surg History Medical History Anemia Aortic regurgitation Arthritis back Atrial fibrillation Follows Dr. 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 Bone marrow biopsy negative for plasma dyscrasia and B cell lymphoma. Myocardial Infarction 1994--followed with Dr. Landaverde Peripheral neuropathy Presbyesophagus Prostate cancer (~04/2005) s/p failure of brachytherapy. Patient opted to forego further treatment d/t age. Had seeding placed in prostate Shortness of breath on exertion Spinal stenosis Tricuspid regurgitation Surgical History History of back surgery (08/06/17) Dr. Stephens. Fused at L4-L5 and sacrum. History of bilateral cataract extraction History of bladder surgery TURBT 08/17/2007 for bladder cancer History of cardiac cath 1994 @ [facility] [place]--with 1 stent placed - unsure type/location - Follows Dr. Verduzco History of colonoscopy History of cystoscopy multiple times--d/t bladder cancer History of esophagogastroduodenoscopy (EGD) History of heart artery stent 1994 @ [facility] [place] - 1 stent placed - unsure type/location - Follows Dr. Verduzco History of prostate biopsy Unable to find path report in [employer] or [employer]. History of tooth extraction all upper teeth/partial lower Hx of vasectomy Family History Unknown Prostate cancer Bladder cancer Hypertension Father Family history of diabetes mellitus Daughter Breast cancer Son Myocardial infarction Other No family history of adverse response to anesthesia Denies family history of Ovarian cancer Colorectal cancer Social History Smoking Status: Former smoker Tobacco Type: Cigarettes Age Quit Using Tobacco: 48; Cigarettes Per Day: 1 pack per day; Second Hand Exposure: No; Do You Dip or Chew Tobacco: No; Hx Alcohol Use: Yes Alcohol type: wine Alcohol Intake Frequency Comment: once a day Hx Substance Use: No Preferred Language: Chadian Communication Ability: Effective Visual Impairment: Limited Hearing Ability: Hard of Hearing Padder Required: No Beliefs That Will Affect Care: None marital status: Current Living Situation: Spouse Current Living Situation Comment: Lives at home with his current occupational status: retired How many Children do You have: 2 Other Information That Helps Us Care for You: No Feels Safe at Home: Yes Safety Concerns: Feels Safe At This Time caffeine: Yes (coffee) Dental Care, Regularly: Yes Physical Activity Frequency: Daily Physical Activity Frequency Comment: treadmill in morning, sit ups Seatbelt Use: always Sunscreen Use: Yes Assistive Devices: Cane, Denture - Upper, Denture - Lower, Glasses and Walker Allergies Allergies Allergy/AdvReac Type Severity Reaction Status Date / Time KEVIN Inhibitors Allergy Severe SHORTNESS Verified 09/09/22 17:54 OF BREATH Penicillins Allergy Intermediate HIVES Verified 09/09/22 17:54 rosuvastatin [From Crestor] Allergy Intermediate joint Verified 09/09/22 17:54 aches and cramping simvastatin Allergy Intermediate joint Verified 09/09/22 17:54 aches and cramping Bofafgm-YNY-HwR Reductase Allergy Intermediate joint Verified 09/09/22 17:54 Inhibitor aches and [Iduvirx-Uxc-Daj Reductase cramping Inhibitor] daptomycin AdvReac Intermediate Joint Pain Verified 09/09/22 17:55 RED YEAST RICE Allergy Mild RASH Uncoded 09/09/22 17:54 Home Meds Home Medications Medication Instructions Recorded Confirmed cetirizine 10 mg tablet (Zyrtec) 10 mg PO HS #30 tabs 09/12/19 12/06/22 fluticasone propionate 50 2 sprays intranasal BID PRN 06/16/19 09/09/22 mcg/actuation nasal Congestion #3 grams spray,suspension (Flonase Allergy Relief) cholecalciferol (vitamin D3) 25 50 mcg PO QPM 09/11/21 09/09/22 mcg (1,000 unit) capsule tamsulosin 0.4 mg capsule (Flomax) 0.4 mg PO BID PRN urinary 03/31/22 09/09/22 discomfort furosemide 20 mg tablet (Lasix) 20 mg PO DAILY 09/09/22 09/09/22 polyethylene glycol 3350 17 17 g PO DAILY PRN severe 09/09/22 09/09/22 gram/dose oral powder constipation vancomycin 750 mg intravenous 750 mg IV UD 09/09/22 09/09/22 solution Previous Rx's Medication Instructions Recorded carvedilol 12.5 mg tablet (Coreg) 25 mg PO BID #360 tabs 05/26/22 acetaminophen 325 mg tablet 650 mg PO Q4H PRN mild-moderate 07/08/22 pain #30 tabs apixaban 2.5 mg tablet (Eliquis) 2.5 mg PO BID #180 tabs 07/08/22 docusate sodium 100 mg capsule 100 mg PO BID #60 caps 07/14/22 (Colace) tramadol 50 mg tablet 50 mg PO BID #30 tabs 08/18/22 cefdinir 300 mg capsule 300 mg PO BID 7 days #14 caps 09/04/22 Results & Data (ED) Vital Signs Vital Signs - 24 hr 09/09/22 11:45 09/09/22 16:06 09/09/22 16:28 Temperature 36.8 C Temperature Source Temporal Artery Scan Pulse Rate 96 H Pulse Rate [Right Finger] 94 H Respiratory Rate 18 Blood Pressure 132/79 Blood Pressure [Right Arm] 123/77 Blood Pressure Mean 96 Blood Pressure Mean [Right Arm] 92 Pulse Oximetry 96 98 Oxygen Delivery Method Room Air Room Air Room Air Sepsis Recent Fever Within 48 Hours No Sepsis New/Unexplained Change in Mental Status No Sepsis Action Taken by Nursing No Action Required Pulse Oximetry Post Tiitration 98 Home Medications Current Medication List: was personally reviewed by me Laboratory Data Attestation: I reviewed the patient's lab results. Result diagrams: 09/09/22 13:10 09/09/22 13:10 Lab Results 09/09/22 09/09/22 09/09/22 Range/Units 13:10 13:10 13:10 WBC 8.05 (4.8-10.8) K/ul RBC 3.24 L (4.63-6.08) M/uL Hgb 8.5 L (14.0-18.0) g/dl Hct 28.0 L (40.1-51.0) % MCV 86.4 (80.0-100.0) fL MCH 26.2 (25.0-34.0) pg MCHC 30.4 L (32.0-36.0) g/dL RDW Std Deviation 50.0 H (36.4-46.3) fL RDW Coeff of Tay 15.9 H (11.5-14.5) % Plt Count 190 (130-400) K/uL MPV 9.7 (9.4-12.4) fL Immature Gran % (Auto) 0.2 % Neut % (Auto) 77.6 % Lymph % (Auto) 11.1 % [place]utherford % (Auto) 8.2 % Eos % (Auto) 2.0 % Baso % (Auto) 0.9 % Neut # (Auto) 6.25 (1.4-6.5) K/uL Lymph # (Auto) 0.89 L (1.2-3.4) K/uL [place]ford # (Auto) 0.66 (0.24-0.82) K/uL Eos # (Auto) 0.16 (0-0.50) K/uL Baso # (Auto) 0.07 (0-0.2) K/uL Immature Gran # (Auto) 0.02 (0.00-0.02) K/uL ESR (0-20) mm/hr PT 13.0 H (9.0-12.0) Seconds INR 1.2 H (0.9-1.1) APTT 36.8 H (21.0-31.0) Seconds PTT Ratio 1.3 Sodium 138 (136-145) mmol/L Potassium 4.2 (3.5-5.1) mmol/L Chloride 105 (98-107) mmol/L Carbon Dioxide 25 (21-32) mmol/L Anion Gap 8 (3-11) BUN 44 H (6-23) mg/dl Creatinine 1.82 H (0.6-1.4) mg/dl Est Cr Clr Drug Dosing Not Reportable Est GFR ( Amer) 37.3 ml/min Est GFR (Non-Af Amer) 32.2 ml/min BUN/Creatinine Ratio 24.2 H (10-20) Glucose 108 H (70-99(Fasting)) mg/dl Calcium 9.3 (8.5-10.1) mg/dl Magnesium 2.3 (1.7-2.4) mg/dl Total Bilirubin 0.6 (0.2-1.0) mg/dl AST 11 L (13-39) U/L ALT 9 (7-52) U/L Alkaline Phosphatase 62 (34-104) U/L Troponin I High Sens (0-20) pg/ml Total Protein 6.8 (6.0-8.3) gm/dl Albumin 3.6 (3.4-5.0) gm/dl Globulin 3.2 (2.5-4.0) gm/dl Albumin/Globulin Ratio 1.1 (0.9-2) SARS-CoV-2, RNA, NAAT (NEGATIVE) 09/09/22 09/09/22 09/09/22 Range/Units 13:10 13:10 16:20 WBC (4.8-10.8) K/ul RBC (4.63-6.08) M/uL Hgb (14.0-18.0) g/dl Hct (40.1-51.0) % MCV (80.0-100.0) fL MCH (25.0-34.0) pg MCHC (32.0-36.0) g/dL RDW Std Deviation (36.4-46.3) fL RDW Coeff of Tay (11.5-14.5) % Plt Count (130-400) K/uL MPV (9.4-12.4) fL Immature Gran % (Auto) % Neut % (Auto) % Lymph % (Auto) % Rutherford % (Auto) % Eos % (Auto) % Baso % (Auto) % Neut # (Auto) (1.4-6.5) K/uL Lymph # (Auto) (1.2-3.4) K/uL R[place]ford # (Auto) (0.24-0.82) K/uL Eos # (Auto) (0-0.50) K/uL Baso # (Auto) (0-0.2) K/uL Immature Gran # (Auto) (0.00-0.02) K/uL ESR 28 H (0-20) mm/hr PT (9.0-12.0) Seconds INR (0.9-1.1) APTT (21.0-31.0) Seconds PTT Ratio Sodium (136-145) mmol/L Potassium (3.5-5.1) mmol/L Chloride (98-107) mmol/L Carbon Dioxide (21-32) mmol/L Anion Gap (3-11) BUN (6-23) mg/dl Creatinine (0.6-1.4) mg/dl Est Cr Clr Drug Dosing Est GFR ( Amer) ml/min Est GFR (Non-Af Amer) ml/min BUN/Creatinine Ratio (10-20) Glucose (70-99(Fasting)) mg/dl Calcium (8.5-10.1) mg/dl Magnesium (1.7-2.4) mg/dl Total Bilirubin (0.2-1.0) mg/dl AST (13-39) U/L ALT (7-52) U/L Alkaline Phosphatase (34-104) U/L Troponin I High Sens 14.1 (0-20) pg/ml Total Protein (6.0-8.3) gm/dl Albumin (3.4-5.0) gm/dl Globulin (2.5-4.0) gm/dl Albumin/Globulin Ratio (0.9-2) SARS-CoV-2, RNA, NAAT NEGATIVE (NEGATIVE) Administered Medications Apixaban (Apixaban 2.5 Mg Tab) 2.5 mg PO BID [facility] Stop: 10/09/22 20:59 Last Admin: 09/09/22 21:14 Dose: 2.5 mg Documented By: MOIZ Carvedilol (Carvedilol 25 Mg Tab) 25 mg PO BID [facility] Stop: 10/09/22 20:59 Last Admin: 09/09/22 21:15 Dose: 25 mg Documented By: MOIZ Cefdinir (Cefdinir 300 Mg Cap) 300 mg PO Q24H [facility]; Protocol Stop: 09/11/22 21:01 Last Admin: 09/09/22 21:15 Dose: 300 mg Documented By: [employer] Cetirizine HCl (Cetirizine Hcl 10 Mg Tablet) 10 mg PO HS [facility] Stop: 10/09/22 20:59 Last Admin: 09/09/22 21:16 Dose: 10 mg Documented By: [employer] Docusate Sodium (Docusate Sodium 100 Mg Cap) 100 mg PO BID [facility] Stop: 10/09/22 20:59 Last Admin: 09/09/22 21:19 Dose: 100 mg Documented By: [employer] Tamsulosin HCl (Tamsulosin Hcl 0.4 Mg Cap) 0.4 mg PO BID [facility] Stop: 10/09/22 20:59 Last Admin: 09/09/22 21:16 Dose: 0.4 mg Documented By: [employer] Vitamin D (Cholecalciferol 1,000 Units 25 Mcg Tab) 2,000 units PO QPM [facility] Stop: 10/09/22 20:59 Last Admin: 09/09/22 21:19 Dose: 2,000 units Documented By: [employer] Discontinued Medications Furosemide (Furosemide 40 Mg/4 Ml Vial) 40 mg IV ONE ONE Stop: 09/09/22 16:13 Last Admin: 09/09/22 16:23 Dose: 40 mg Documented By: DESTINI Furosemide (Furosemide Inj 20 Mg/2 Ml Vial) 20 mg IV UD ONE Stop: 09/09/22 19:53 Last Admin: 09/09/22 21:17 Dose: 20 mg Documented By: [employer] Miscellaneous (Patient's Height &/Or Weight Needed) 1 each N/A Q15M [facility] Stop: 09/09/22 22:15 Last Admin: 09/09/22 20:07 Dose: 1 each Documented By: [employer] Imaging Data Radiologist's Impression: Chest X-Ray 09/09/22 11:53 XR chest 2V PA/lateral CLINICAL HISTORY: SOB TECHNIQUE: 2 views of the chest were obtained. Comparison: Comparison is made to chest radiograph 09/04/2022 FINDINGS: No lines and tubes are seen. Cardiomegaly is noted. The aortic arch is calcified. Reticular interstitial opacities are seen. Small bilateral pleural effusions are seen. IMPRESSION: Small bilateral pleural effusions. Interstitial opacities are seen without definite airspace opacities. ACT 112: Negative or not required by law. Electronically signed by: Brett Boo M.D. 09/09/2022 12:50 PM Discharge Plan Visit Data Chief Complaint: Shortness of Breath/Dyspnea Stated Complaint: SOB ED Provider: Rubio Perez Discharge Problem: Volume overload, LUX (dyspnea on exertion) Patient Disposition: Admitted As Inpatient Discharge Instructions Interventions: ED Discharge Assessment Last Done: 09/09/22 20:20
[2022-09-09] MEDS ORDERED: FUROSEMIDE 40 MG/4 ML VIAL IV ONE (16:12)
--- NOTE | 2022-09-09 16:43 | History & Physical Report ---
Date of Service September 09, 2022 Assessment & Plan (1) Dyspnea on exertion: Plan: Ascending complaint is dyspnea on exertion. Occasional associated chest discomfort patient appears to be with right-sided fluid overload but not overt pulmonary edema Differential diagnosis could include unstable angina, symptomatic anemia with a hemoglobin of 8.5, consideration of pulmonary emboli given malignant history of prostate cancer, dyspnea from pulmonary hypertension right heart failure. Will rule out MD with serial high-sensitivity troponins initial troponin is currently pending we will get a echocardiogram to compare to March 26 Given his chest pain and his hemoglobin is 8.5 we will type and cross him and give him 1 unit packed red blood cells with diuretics following. Patient was also given diuretic dose in the emergency department. With regard to right-sided heart failure we will asked echocardiography to calculate right-sided heart pressures With regard to concern for VTE D-dimer will be obtained the patient creatinine is 1.[address] would [address] a CT angiogram would create some danger for progressive renal failure subsequently if the D-dimer is elevated we can consider VQ scan but may therapeutically anticoagulate him until we can perform that on the s eventh Currently patient is on renal dose Eliquis which would make VTE less likely (2) Atrial fibrillation: Plan: Patient is atrial fibrillation controlled ventricular rate will remain on carvedilol for rate control and Eliquis for anticoagulation if D-dimer is elevated we may convert to a more formal heparin anticoagulant until we can get a imaging study of his lungs (3) Osteomyelitis of symphysis pubis: Plan: Patient was discharged in July after being diagnosed with osteomyelitis of the pubic symphysis at the time of discharge the patient was to have further evaluation with IR for pubic symphysis biopsy and then infectious disease consultation in [place] with Dr. Castillo. 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 (6) (HFpEF) heart failure with preserved ejection fraction: Plan: Patient has heart failure written through his record. He has only mild valvular abnormalities he does have some right-sided elevated heart pressures and he may have peripheral edema associate with this. Consideration for possible sleep apnea related to pulmonary hypertension. Question (7) Monoclonal gammopathy of undetermined significance: (8) CKD (chronic kidney disease), stage III: Plan: Patient follows Dr. Brown for chronic kidney disease his creatinine is slightly elevated from his baseline (9) Prostate cancer: Plan: Patient has a fish history of prostate cancer with failed response to previous brachytherapy he is being followed by [facility] Plan Current DVT prevention is Eliquis 2.5 twice daily History of Present Illness Primary Care Provider: Tiago Lara MD 87-year-old male presents with shortness of breath. He is not hypoxic on room air. Previous echo from March 2022 shows normal systolic function elevated right heart pressures. Patient may be states he is has some dietary indiscretion over the last few days Allergies Allergy/AdvReac Type Severity Reaction Status Date / Time KEVIN Inhibitors Allergy Severe SHORTNESS Verified 08/18/22 10:27 OF BREATH Penicillins Allergy Intermediate HIVES Verified 08/18/22 10:27 rosuvastatin [From Crestor] Allergy Intermediate joint Verified 08/18/22 10:27 aches and cramping simvastatin Allergy Intermediate joint Verified 08/18/22 10:27 aches and cramping Xlimwdv-DCU-ChG Reductase Allergy Intermediate joint Verified 08/18/22 10:27 Inhibitor aches and [Xorawwc-Gro-Wja Reductase cramping Inhibitor] RED YEAST RICE Allergy Mild RASH Uncoded 08/18/22 10:27 Home Medications Medication Instructions Recorded Confirmed Type cetirizine 10 mg tablet (Zyrtec) 10 mg PO HS #30 tabs 06/16/19 09/09/22 History fluticasone propionate 50 2 sprays intranasal BID PRN 06/16/19 09/09/22 History mcg/actuation nasal Congestion #3 grams spray,suspension (Flonase Allergy Relief) cholecalciferol (vitamin D3) 25 50 mcg PO QPM 09/11/21 09/09/22 History mcg (1,000 unit) capsule tamsulosin 0.4 mg capsule (Flomax) 0.4 mg PO BID 03/31/22 08/18/22 History carvedilol 12.5 mg tablet (Coreg) 25 mg PO BID #360 tabs 05/26/22 08/18/22 Rx nystatin-triamcinolone 100,000 See Rx Instructions .Route 07/04/22 08/18/22 History unit/gram-0.1 % topical ointment .COMPLEX urethral meatus irritation acetaminophen 325 mg tablet 650 mg PO Q4H PRN mild-moderate 07/08/22 08/18/22 Rx pain #30 tabs apixaban 2.5 mg tablet (Eliquis) 2.5 mg PO BID #180 tabs 07/08/22 09/09/22 Rx polyethylene glycol 3350 17 17 g PO DAILY #119 grams 07/08/22 08/18/22 Rx gram/dose oral powder docusate sodium 100 mg capsule 100 mg PO BID #60 caps 07/14/22 09/09/22 Rx (Colace) lidocaine 4 % topical gel 1 applic topical BID affected area 07/14/22 08/18/22 Rx #10 grams daptomycin 500 mg intravenous 500 mg IV .HOLD 08/06/22 08/06/22 History solution tramadol 50 mg tablet 50 mg PO BID #30 tabs 08/18/22 09/09/22 Rx cefdinir 300 mg capsule 300 mg PO BID 7 days #14 caps 09/04/22 09/09/22 Rx furosemide 20 mg tablet (Lasix) 20 mg PO DAILY 09/09/22 09/09/22 History Past Med/Surg History Medical History Anemia Aortic regurgitation Arthritis back Atrial fibrillation Follows Dr. 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 Bone marrow biopsy negative for plasma dyscrasia and B cell lymphoma. Myocardial Infarction 1994--followed with Dr. Landaverde Peripheral neuropathy Presbyesophagus Prostate cancer (~04/2005) s/p failure of brachytherapy. Patient opted to forego further treatment d/t age. Had seeding placed in prostate Shortness of breath on exertion Spinal stenosis Tricuspid regurgitation Surgical History History of back surgery (08/06/17) Dr. Stephens. Fused at L4-L5 and sacrum. History of bilateral cataract extraction History of bladder surgery TURBT 08/17/2007 for bladder cancer History of cardiac cath [place] [facility] – [place]--with 1 stent placed - unsure type/location - Follows Dr. Verduzco History of colonoscopy History of cystoscopy multiple times--d/t bladder cancer History of esophagogastroduodenoscopy (EGD) History of heart artery stent 1994 [facility] – [place] - 1 stent placed - unsure type/location - Follows Dr. Verduzco History of prostate biopsy Unable to find path report in [employer] or [employer]. History of tooth extraction all upper teeth/partial lower Hx of vasectomy Family History Unknown Prostate cancer Bladder cancer Hypertension Father Family history of diabetes mellitus Daughter Breast cancer Son Myocardial infarction Other No family history of adverse response to anesthesia Denies family history of Ovarian cancer Colorectal cancer Social History Smoking Status: Former smoker Tobacco Type: Cigarettes Age Quit Using Tobacco: 48; Cigarettes Per Day: 1 pack per day; Second Hand Exposure: No; Hx Alcohol Use: Yes Alcohol type: wine Alcohol Intake Frequency Comment: once a day Hx Substance Use: No Preferred Language: Lebanese Communication Ability: Effective Visual Impairment: Limited Hearing Ability: Hard of Hearing [employer] Required: No Beliefs That Will Affect Care: None marital status: Current Living Situation: Spouse Current Living Situation Comment: Lives at home with his current occupational status: retired How many Children do You have: 2 Feels Safe at Home: Yes caffeine: Yes (coffee) Dental Care, Regularly: Yes Physical Activity Frequency: Daily Physical Activity Frequency Comment: treadmill in morning, sit ups Seatbelt Use: always Sunscreen Use: Yes Assistive Devices: Cane Review of Systems Review of Systems: Mild distress and fatigue no headache, no visual changes no speech or swallowing issues no chest pain, pressure or palpitations no shortness of breath, cough or wheezes no abdominal pain, nausea or vomiting, diarrhea or constipation no dysuria, hematuria or frequency no focal joint pain or swelling no back pain, CVA tenderness or radicular pain no bruising, bleeding or rashes no focal signs of weakness or numbness or altered sensation no complaints of anxiety or depression.. Physical Exam Physical Exam: The patient appeared well nourished and normally developed. Vital signs as documented. Head exam is normocephalic atraumatic Neck is without JVD, thyromegaly, or carotid bruits. Lungs are clear to auscultation, no focal loss of breath sounds Cardiac exam, Rhythm is regular.. No murmurs, rubs or gallops. Abdominal exam reveals normal bowel sounds, soft non tender, no masses Extremities are nonedematous and both pedal pulses are present Neurologic exam is alert and oriented, no focal loss of strength or sensation Skin is without bruises or rashes Psychologically is without concerns for anxiety or depression.. Results & Data Results & Data ([facility]) Vital Signs (Past 12 Hours) Vital Signs Temp Pulse Resp BP Pulse Ox O2 Del Method 09/09/22 16:06 Room Air 09/09/22 11:45 98.2 F 96 H 18 132/79 96 Room Air Diagnostic Findings Chest X-Ray 09/09/22 11:53 XR chest 2V PA/lateral CLINICAL HISTORY: SOB TECHNIQUE: 2 views of the chest were obtained. Comparison: Comparison is made to chest radiograph 09/04/2022 FINDINGS: No lines and tubes are seen. Cardiomegaly is noted. The aortic arch is calcified. Reticular interstitial opacities are seen. Small bilateral pleural effusions are seen. IMPRESSION: Small bilateral pleural effusions. Interstitial opacities are seen without definite airspace opacities. Electronically signed by: Brett Boo M.D. 09/09/2022 12:50 PM ECG Additional Comments: Atrial fibrillation controlled ventricular rate perhaps some lateral T wave inversions are seen PG Care Time/CCT Total # of Minutes Spent Total Time Spent with Patient: Total time spent is greater than 50% in coordination of care (as documented) at patient's floor/unit and/or counseling patient: Coding Level of Care Code 08084 Initial Inpt Care Lvl 3 Diagnoses Dyspnea on exertion R06.09 Atrial fibrillation I48.91 Osteomyelitis of symphysis pubis M86.9 HTN (hypertension) I10 Hypertension type: essential hypertension Anemia D64.9 (HFpEF) heart failure with preserved ejection fraction I50.30 Monoclonal gammopathy of undetermined significance D47.2 CKD (chronic kidney disease), stage III N18.30 Prostate cancer C61 (1) HTN (hypertension) Hypertension type: essential hypertension Qualified Code(s): I10 - Essential (primary) hypertension
--- NOTE | 2022-09-09 16:49 | Electrocardiogram Report ---
Test Reason : Blood Pressure : / mmHG Vent. Rate : 097 BPM Atrial Rate : 092 BPM P-R Int : 000 ms QRS Dur : 088 ms QT Int : 520 ms P-R-T Axes : 000 -22 258 degrees QTc Int : 660 ms Poor data quality, interpretation may be adversely affected Atrial fibrillation with premature ventricular or aberrantly conducted complexes Possible Anterior infarct , age undetermined Abnormal ECG When compared with ECG of 04-SEP-2022 14:43, Inverted T waves have replaced nonspecific T wave abnormality in Inferior leads Nonspecific T wave abnormality now evident in Anterolateral leads QT has lengthened Confirmed by Karlo Barbosa ([id number]) on 09/09/2022 4:49:05 PM Referred By: Confirmed By:Karlo Barbosa
[2022-09-09] MEDS ORDERED: VANCOMYCIN CONSULT ACTIVE PRN ×2 (17:17→19:52)
[2022-09-09] MEDS ORDERED: Patient's HEIGHT &/or WEIGHT Needed SCH (19:15)
[2022-09-09] MEDS ORDERED: ONDANSETRON INJ 2 MG/ML 2 ML VIAL IV PRN (19:52)
[2022-09-09] MEDS ORDERED: FUROSEMIDE INJ 20 MG/2 ML VIAL IV ONE (19:52)
[2022-09-09] MEDS ORDERED: SODIUM CHLORIDE 0.9% 250 ML IV PRN ×2 (19:52→20:13)
[2022-09-09] MEDS ORDERED: ACETAMINOPHEN 325 MG TAB PO PRN (19:52)
[2022-09-09 21:03] LABS: Troponin I High Sensitivity 18.6 pg/ml (0-20)
[2022-09-09 21:08] LABS: D Dimer 1530 ug/L FEU (0-500)
[2022-09-09] MEDS: APIXABAN 2.5 MG TAB PO SCH (21:14)
--- NOTE | 2022-09-09 21:14 | Pharmacy Report ---
Pharmacy PK ABX Note - Date of Service September 09, 2022 - Assessment and Plan Assessment 87 year old M receiving vancomycin for treatment of osteomyelitis. Patient was on 8a/8p 750 mg schedule, however reportedly held per the with last Thursday PM being the last administered dose. Random level on admission is 20.4, will get random level in AM to determine patient specific kinetics, patient should still be therapeutic. Plan Vancomycin * Hold further dosing for now, random level in AM. Pharmacy will continue to follow and will adjust dose/frequency as necessary. Thank you. Pharmacy has transitioned to AUC monitoring for vancomycin. AUC/LLUVIA is the preferred PK/PD target and is associated with decreased risk of nephrotoxicity compared to traditional trough targets.
[2022-09-09] MEDS: carvediloL 25 MG TAB PO SCH (21:15)
[2022-09-09] MEDS: CEFDINIR 300 MG CAP PO SCH (21:15)
[2022-09-09] MEDS: CETIRIZINE HCL 10 MG TABLET PO SCH (21:16)
[2022-09-09] MEDS: TAMSULOSIN HCL 0.4 MG CAP PO SCH (21:16)
[2022-09-09] MEDS: DOCUSATE SODIUM 100 MG CAP PO SCH (21:19)
[2022-09-09] MEDS: CHOLECALCIFEROL 1,000 UNITS 25 MCG TAB PO SCH (21:19)
[2022-09-10] MEDS: traMADol HCL 50 MG TABLET PO SCH ×3 (02:23→22:17)
[2022-09-10] MEDS ORDERED: PERFLUTREN LIPID MICROSPHERE (DEFINITY) IV ONE (06:59)
--- NOTE | 2022-09-10 07:03 | Hospitalist Progress Note ---
Date of Service September 10, 2022 Assessment & Plan (1) Dyspnea on exertion: Plan: presenting complaint is dyspnea on exertion. Occasional associated chest discomfort patient appears to be with right-sided fluid overload but not overt pulmonary edema Differential diagnosis could include unstable angina, symptomatic anemia with a hemoglobin of 8.5, consideration of pulmonary emboli given malignant history of prostate cancer(although on apixiban), dyspnea from pulmonary hypertension right heart failure. did rule out AR no elevattion of serial high-sensitivity troponins i echocardiogram shows preserved EF no change from 03/26, mild to mod MR concentric LVH Transfuse 1 unit RBC + lasix elevated D Dimer, did have V/Q scan that was low prob, as could not do CTA with CKD Currently patient is on renal dose Eliquis which would make VTE less likely (2) Atrial fibrillation: Plan: Patient is atrial fibrillation controlled ventricular rate will remain on carvedilol for rate control and Eliquis for anticoagulation (3) Osteomyelitis of symphysis pubis: Plan: Patient was discharged in July after being diagnosed with osteomyelitis of the pubic symphysis at the time of discharge the patient was to have further evaluation with IR for pubic symphysis biopsy and then infectious disease consultation in [place] with Dr. Castillo. Reportedly patient was on daptomycin but experienced rhabdomyolysis associated with it is continued on cefepime per the August 17 note will re image pubic symphysis to eval disease severity (4) HTN (hypertension): Plan: Patient remains on carvedilol 25 mg twice daily and Lasix as needed (5) Anemia: Plan: Patient has a history of MGUS and is at longstanding chronic anemia pretransfusion iron is low will also give venofer (6) (HFpEF) heart failure with preserved ejection fraction: Plan: Patient has heart failure written through his record Consideration for possible sleep apnea related to pulmonary hypertension. (7) Monoclonal gammopathy of undetermined significance: (8) CKD (chronic kidney disease), stage III: Plan: Patient follows Dr. Brown for chronic kidney disease (9) Prostate cancer: Plan: Patient has a history of prostate cancer with failed response to previous brachytherapy he is being followed by [facility] Plan Current DVT prevention is Eliquis 2.5 twice daily Admission and Anticipated Discharge Date Admission Date: September 09, 2022 Subjective Mr. Cobian feels much improved although his is not convinced that he has. He remains without hypoxemia. His echocardiogram is in good condition. He had an elevated D-dimer but VQ scan was low probability. (He takes chronic Eliquis) he is on intravenous antibiotics for pubic symphysis osteomyelitis. He is followed with Dr. Castillo and Eve Review of Systems Review of Systems: Mild distress and fatigue no headache, no visual changes no speech or swallowing issues no chest pain, pressure or palpitations no shortness of breath, still minor barrow, no cough or wheezes no abdominal pain, nausea or vomiting, diarrhea or constipation no dysuria, hematuria or frequency no focal joint pain or swelling no back pain, CVA tenderness or radicular pain no bruising, bleeding or rashes no focal signs of weakness or numbness or altered sensation no complaints of anxiety or depression.. Physical Exam Physical Exam: The patient appeared well nourished and normally developed. Vital signs as documented. Head exam is normocephalic atraumatic Neck is without JVD, thyromegaly, or carotid bruits. Lungs are clear to auscultation, diminshed at the bases, no focal loss of breath sounds Cardiac exam, Rhythm is regular.. No murmurs, rubs or gallops. Abdominal exam reveals normal bowel sounds, soft non tender, no masses Extremities are nonedematous and both pedal pulses are present Neurologic exam is alert and oriented, no focal loss of strength or sensation Skin is without bruises or rashes Psychologically is without concerns for anxiety or depression.. Results & Data Results & Data ([facility]) Vital Signs (Past 12 Hours) Vital Signs Temp Pulse Pulse Resp BP BP Pulse Ox 09/10/22 02:33 97.5 F L 106 H 18 132/71 97 09/10/22 01:58 97.3 F L 85 16 145/72 H 09/09/22 23:28 97.7 F 85 17 145/72 H 98 09/10/22 00:58 97.7 F 94 H 17 129/78 97 09/09/22 23:58 97.5 F L 99 H 16 144/82 H 98 09/09/22 23:28 99.1 F 85 18 129/78 97 09/09/22 23:13 97.3 F L 97 H 16 134/79 97 09/09/22 20:31 09/09/22 22:57 97.3 F L 83 17 147/80 H 97 09/09/22 20:09 97.5 F L 88 18 151/90 H 97 O2 Del Method 09/10/22 02:33 09/10/22 01:58 09/09/22 23:28 09/10/22 00:58 09/09/22 23:58 09/09/22 23:28 09/09/22 23:13 09/09/22 20:31 Room Air 09/09/22 22:57 09/09/22 20:09 Room Air PG Care Time/CCT Total # of Minutes Spent Total Time Spent with Patient: Total time spent is greater than 50% in coordination of care (as documented) at patient's floor/unit and/or counseling patient: Coding Level of Care Code 64938 Subseq Hosp Care Lvl 3 Diagnoses Dyspnea on exertion R06.09 Atrial fibrillation I48.91 Osteomyelitis of symphysis pubis M86.9 HTN (hypertension) I10 Hypertension type: essential hypertension Anemia D64.9 (HFpEF) heart failure with preserved ejection fraction I50.30 Monoclonal gammopathy of undetermined significance D47.2 CKD (chronic kidney disease), stage III N18.30 Prostate cancer C61 (1) HTN (hypertension) Hypertension type: essential hypertension Qualified Code(s): I10 - Essential (primary) hypertension
[2022-09-10 07:08] LABS: Hematocrit (blood only) 30.4 % (40.1-51.0); Hemoglobin 9.6 g/dl (14.0-18.0); Mean Corpuscular Hemoglobin 26.9 pg (25.0-34.0); Mean Corpuscular Hgb Conc 31.6 g/dL (32.0-36.0); Mean Corpuscular Volume 85.2 fL (80.0-100.0); Mean Platelet Volume 9.5 fL (9.4-12.4); Platelet Count 196 K/uL (130-400); RDW Coefficient of Variation 15.9 % (11.5-14.5); RDW Standard Deviation 49.1 fL (36.4-46.3); Red Blood Count 3.57 M/uL (4.63-6.08); White Blood Count 7.96 K/ul (4.8-10.8)
[2022-09-10 07:34] LABS: BUN Creatinine Ratio 23.7 (10-20); Calcium 9.4 mg/dl (8.5-10.1); Creatinine Clr Calc Pharmacy 27.5 ml/min; Est GFR (African American) 38.6 ml/min; Est GFR (Non-African American) 33.3 ml/min; Magnesium 2.2 mg/dl (1.7-2.4); Potassium 3.8 mmol/L (3.5-5.1)
[2022-09-10] MEDS ORDERED: IRON SUCROSE 200 MG in 0.9 % SODIUM CHLORIDE 100 ML IV SCH (08:00)
[2022-09-10] MEDS: POLYETHYLENE (MIRALAX) 17 GM PACK PO SCH (08:56)
[2022-09-10] MEDS: DOCUSATE SODIUM 100 MG CAP PO SCH ×2 (08:56→22:18)
[2022-09-10] MEDS: APIXABAN 2.5 MG TAB PO SCH ×2 (08:57→22:20)
[2022-09-10] MEDS: carvediloL 25 MG TAB PO SCH ×2 (08:57→22:20)
[2022-09-10] MEDS: TAMSULOSIN HCL 0.4 MG CAP PO SCH ×2 (08:58→22:17)
[2022-09-10] MEDS ORDERED: VANCOMYCIN HCL IV SCH (09:00)
[2022-09-10] MEDS ORDERED: DEXTROSE 5% IV SCH (09:00)
--- NOTE | 2022-09-10 09:06 | Pharmacy Report ---
Pharmacy Vanc AUC Short Note - Date of Service September 10, 2022 - Assessment & Plan Assessment 09/09: 87 year old M receiving vancomycin for treatment of osteomyelitis. Patient was on 8a/8p 750 mg schedule, however reportedly held per the with last Thursday PM being the last administered dose. Random level on admission is 20.4, will get random level in AM to determine patient specific kinetics, patient should still be therapeutic. 09/10: Random level this morning is 19.5 SCr 1.77 down from 1.82 yesterday and CrCl is 27.5 up from 26.7 yesterday Estimated Gopal is 0.026 and estimated half life is 26 Plan Vancomycin * Hold further dosing for now, random level in AM. * Pharmacy will continue to follow and will adjust dose/frequency as necessary. * Pharmacy has transitioned to AUC monitoring for vancomycin. AUC/LLUVIA is the preferred PK/PD target and is associated with decreased risk of nephrotoxicity compared to traditional trough targets. * Pharmacy will continue to follow and will adjust dose/frequency as necessary. Thank you.
--- NOTE | 2022-09-10 10:32 | XCELERA ---
[id number]
--- NOTE | 2022-09-10 11:35 | Nuclear Medicine Report ---
NM pul perfusion HISTORY: 87 years-old Male LUX, concern for PE . Acute shortness of breath COMPARISON: Chest radiograph 09/09/2022, CT abdomen and pelvis 09/04/2022 TECHNIQUE: Nuclear medicine perfusion study was obtained utilizing 5.4 mCi technetium 99 MAA administ ered via the right upper extremity. Ventilation images were not obtained secondary to ongoing pandemi c precautions. FINDINGS: No large segmental perfusion defects are identified. Chest radiograph obtained yesterday shows cardio megaly with layering pleural effusions and mild bibasilar opacities. IMPRESSION: Low probability for pulmonary embolus. ACT 112: Negative or not required by law. The above report was generated using voice recognition software. It may contain grammatical, syntax o r spelling errors. Electronically signed by: Amish Rangel M.D. 09/10/2022 11:33 AM
[2022-09-10] MEDS ORDERED: ALTEPLASE, RECOMBINANT 1 MG/ML 2ML VIAL INSTIL ONE (13:35)
--- NOTE | 2022-09-10 14:20 | Electrocardiogram Report ---
Test Reason : Blood Pressure : / mmHG Vent. Rate : 095 BPM Atrial Rate : 108 BPM P-R Int : 000 ms QRS Dur : 100 ms QT Int : 366 ms P-R-T Axes : 000 -16 219 degrees QTc Int : 459 ms Atrial fibrillation with premature ventricular or aberrantly conducted complexes Nonspecific ST and T wave abnormality Abnormal ECG When compared with ECG of 09-SEP-2022 12:31, QT has shortened Confirmed by Karlo Barbosa ([id number]) on 09/10/2022 2:20:09 PM Referred By: REFERRED SELF Confirmed By:Karlo Barbosa
--- NOTE | 2022-09-10 17:41 | CT Scan Report ---
PELVIS CT CT DOSE: 624.93 mGy.cm HISTORY: Pelvic pain. eval pubic symphysis osteomyelitis TECHNIQUE: Multiaxial CT images of the pelvis were performed and reformatted in the sagittal and jennifer nal plane without the use of contrast. A dose lowering technique was utilized adhering to the princi ples of JARETT. COMPARISON: Abdomen and pelvis CT 09/04/2022. FINDINGS: Partially visualized posterior decompression and fusion hardware within the lumbosacral spi ne. Redemonstration of the abnormal widening, erosion, and fragmentation at the pubic symphysis with surrounding soft tissue thickening. No loculated fluid collections to suggest an abscess. There are m ultiple brachytherapy seeds seen posterior to the symphysis pubis with surrounding heterotopic ossifi cation. Moderate bladder wall thickening persists. There is a small amount of ascites within the deep pelvis, unchanged. There is diffuse body wall edema again noted. Small fat/fluid containing bilatera l inguinal hernias persist. Colonic diverticulosis. No evidence for acute radiculitis. The visualized loops of bowel show no evidence for a bowel obstruction. Calcified plaque within the abdominal aorta and iliac arteries. No significant pelvic lymphadenopathy. There is mild bilateral inguinal lymphade nopathy, unchanged. Moderate perirectal edema persists. IMPRESSION: 1. No significant change in the abnormal widening, erosion, and fragmentation of the pubic symphysis with surrounding soft tissue thickening. Infection/osteomyelitis remains the diagnosis of exclusion. A radiation necrosis could also be in the differential diagnosis given the adjacent brachytherapy see ds but is considered less likely. 2. Small amount of ascites, perirectal edema, and diffuse body wall edema persists. ACT 112: Negative or not required by law. Electronically signed by: Vu Perez M.D. 09/10/2022 5:40 PM
[2022-09-10] MEDS: CHOLECALCIFEROL 1,000 UNITS 25 MCG TAB PO SCH (22:18)
[2022-09-10] MEDS: CEFDINIR 300 MG CAP PO SCH (22:18)
[2022-09-10] MEDS: CETIRIZINE HCL 10 MG TABLET PO SCH (22:19)
[2022-09-11 06:45] LABS: Hematocrit (blood only) 29.8 % (40.1-51.0); Hemoglobin 9.4 g/dl (14.0-18.0); Mean Corpuscular Hemoglobin 27.1 pg (25.0-34.0); Mean Corpuscular Hgb Conc 31.5 g/dL (32.0-36.0); Mean Corpuscular Volume 85.9 fL (80.0-100.0); Mean Platelet Volume 9.3 fL (9.4-12.4); Platelet Count 182 K/uL (130-400); RDW Coefficient of Variation 15.9 % (11.5-14.5); RDW Standard Deviation 49.4 fL (36.4-46.3); Red Blood Count 3.47 M/uL (4.63-6.08); White Blood Count 5.83 K/ul (4.8-10.8)
[2022-09-11 06:55] LABS: Creatinine Clr Calc Pharmacy 28.8 ml/min; Est GFR (African American) 41.1 ml/min; Est GFR (Non-African American) 35.5 ml/min; Magnesium 2.1 mg/dl (1.7-2.4)
[2022-09-11] MEDS: carvediloL 25 MG TAB PO SCH ×2 (08:28→20:50)
[2022-09-11] MEDS: traMADol HCL 50 MG TABLET PO SCH ×2 (08:28→22:15)
[2022-09-11] MEDS: DOCUSATE SODIUM 100 MG CAP PO SCH ×2 (08:28→20:51)
[2022-09-11] MEDS: TAMSULOSIN HCL 0.4 MG CAP PO SCH ×2 (08:28→20:50)
[2022-09-11] MEDS: APIXABAN 2.5 MG TAB PO SCH ×2 (08:28→20:50)
[2022-09-11] MEDS: POLYETHYLENE (MIRALAX) 17 GM PACK PO SCH (08:29)
--- NOTE | 2022-09-11 08:59 | Pharmacy Report ---
Pharmacy [facility] Short Note - Date of Service September 11, 2022 - Assessment & Plan Assessment 09/09: 87 year old M receiving vancomycin for treatment of osteomyelitis. Patient was on 8ap 750 mg schedule, however reportedly held per the with last Thursday PM being the last administered dose. Random level on admission is 20.4, will get random level in AM to determine patient specific kinetics, patient should still be therapeutic. 09/10: Random level this morning is 19.5 SCr 1.77 down from 1.82 yesterday and CrCl is 27.5 up from 26.7 yesterday 09/11: Random vancomycin level this morning was ~15.7 mcg/ml Scr continues to improve from 1.77 to 1.68. Plan Vancomycin * Random level ~15 mcg/ml - therefore plan to redose vancomycin today to maintain a peak of ~30 mcg/ml * Will redose with vancomycin 750 mg x 1. * Based upon previous 2 levels patient's t1/2 ~72 hours, ke~0.009 * Will continue to dose by levels as it appears with even slight improvement of renal function, estimated t1/2 rapidly changing * Will plan to order a random vancomycin level this evening to assess effects of dose this morning. Anticipate this dosing maintaining level >15 mcg/ml for 24 hours but will assess level later this evening to have a better idea of clearance of medication Pharmacy will continue to follow and will adjust dose/frequency as necessary. Thank you.
[2022-09-11] MEDS ORDERED: VANCOMYCIN HCL 750 MG in SODIUM CHLORIDE 0.9% 250 ML IV ONE (10:00)
--- NOTE | 2022-09-11 10:24 | Hospitalist Progress Note ---
Date of Service September 11, 2022 Assessment & Plan (1) Dyspnea on exertion: Plan: Presenting complaint is dyspnea on exertion. Suspected acute on chronic HFpEF, agree this is mainly right sided, will also get Pr/Cr ratio for complete workup of hypervolemia as below. Lasix 60mg total given on day of admission but none yesterday. See below for ongoing management Anemia may also have been contributing therefore - Transfused 1 unit RBC V/Q scan with low probability of pulmonary embolism - suspect more likely diagnosis is pulmonary edema with associated leg swelling (2) (HFpEF) heart failure with preserved ejection fraction: Plan: Patient has heart failure written through his record. Certainly appears hypervolemic on exam. Given preserved ejection fraction and normal LFTs and liver on prior CT earlier this month will evaluate for CKD with proteinuria (2+ noted on UA). CT showing - asymmetric cortical atrophy of the right kidney as compared to the left. Urine protein/Cr ratio Lasix 10+20mg IV given today, will start on Lasix 40mg IV daily tomorrow and monitor I&Os, daily weights for ongoing adjustments (3) Atrial fibrillation: Plan: Patient is atrial fibrillation controlled ventricular rate will remain on carvedilol for rate control and Eliquis for anticoagulation (4) Osteomyelitis of symphysis pubis: Plan: Patient was discharged in July after being diagnosed with osteomyelitis of the pubic symphysis at the time of discharge the patient was to have further evaluation with IR for pubic symphysis biopsy and then infectious disease consultation in [place] with Dr. Castillo. 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 Brown for chronic kidney disease (9) Prostate cancer: Plan: Patient has a history of prostate cancer with failed response to previous brachytherapy he is being followed by [facility] Plan Current DVT prevention is Eliquis 2.5 twice daily Admission and Anticipated Discharge Date Admission Date: September 09, 2022 Subjective Patient reports breathing is back to his baseline and keen for discharge. He does note his legs are much more swollen than his baseline. He is mainly annoyed about his lack of freedom as he has been noted to be unsteady on his feet therefore is on fall precautions. He reports not having fallen at any time despite his multiple hospitalizations over the last year. No chest pain. Updated his over the phone - all questions and concerns answered. Review of Systems Review of Systems: All systems reviewed & are unremarkable except as noted in Subjective Physical Exam Constitutional: WD/WN, vitals as above Respiratory: normal respiratory effort; no respiratory distress Auscultation: + diminished lung sounds (bibasal); no crackles and no wheezes Cardiovascular: Rate/Rhythm: regular rate and + irregularly irregular Heart Sounds: no murmur Extremities: normal capillary refill and + pedal edema (3+ b/l to thighs); no calf tenderness Musculoskeletal: no cyanosis or clubbing, extremities motor strength 5/5 Skin: no rashes, warm and dry Psychiatric: A+Ox3, euthymic affect Results & Data Results & Data ([facility]) Vital Signs (Past 12 Hours) Vital Signs Temp Pulse Resp BP Pulse Ox O2 Del Method 09/11/22 08:00 Room Air 09/11/22 08:18 36.4 C L 88 16 132/81 97 Room Air 09/11/22 03:14 36.7 C 78 18 115/68 97 Room Air 09/10/22 23:06 36.8 C 87 18 146/71 H 97 Room Air PG Care Time/CCT Total # of Minutes Spent Total Time Spent with Patient: Total time spent is greater than 50% in coordination of care (as documented) at patient's floor/unit and/or counseling patient: Coding Level of Care Code 37768 Subseq Hosp Care Lvl 3 Diagnoses Dyspnea on exertion R06.09 (HFpEF) heart failure with preserved ejection fraction I50.30 Atrial fibrillation I48.91 Osteomyelitis of symphysis pubis M86.9 HTN (hypertension) I10 Hypertension type: essential hypertension Anemia D64.9 Monoclonal gammopathy of undetermined significance D47.2 CKD (chronic kidney disease), stage III N18.30 Prostate cancer C61 (1) HTN (hypertension) Hypertension type: essential hypertension Qualified Code(s): I10 - Essential (primary) hypertension
--- NOTE | 2022-09-11 12:11 | XRay Report ---
XR chest 2V PA/lateral HISTORY: 87 years-old Male shortness of breath acute shortness of breath COMPARISON: 09/09/2022 TECHNIQUE: AP and lateral views of the chest FINDINGS: Cardiac silhouette is enlarged. Pulmonary vascular congestion mild interstitial coarsening. Atheroscl erosis of the aorta. Small pleural effusions with persistent bibasilar opacities. A left-sided PICC i s again noted with distal tip terminating within the aspect of the mid SVC. No pneumothorax. Degenera tive changes of the shoulders and spine. IMPRESSION: 1. Cardiomegaly with mildly progressed pulmonary edema. 2. Small pleural effusions with persistent bibasilar opacities suggestive of atelectasis. 3. Unchanged positioning of the left-sided PICC. ACT 112: Negative or not required by law. The above report was generated using voice recognition software. It may contain grammatical, syntax o r spelling errors. Electronically signed by: Amish Rangel M.D. 09/11/2022 12:10 PM
[2022-09-11] MEDS ORDERED: FUROSEMIDE INJ 20 MG/2 ML VIAL IV ONE ×2 (16:29→19:12)
[2022-09-11] MEDS: CHOLECALCIFEROL 1,000 UNITS 25 MCG TAB PO SCH (20:50)
[2022-09-11] MEDS: CETIRIZINE HCL 10 MG TABLET PO SCH (20:50)
[2022-09-11] MEDS: CEFDINIR 300 MG CAP PO SCH (20:50)
[2022-09-11 22:41] LABS: Creatinine Urine Random 16.7 mg/dl; Protein Creatinine Ratio Urine 2.5 (0-0.2); Total Protein Urine Random 42.5 mg/dl (0-11.9)
--- NOTE | 2022-09-12 05:37 | Electrocardiogram Report ---
Test Reason : Blood Pressure : / mmHG Vent. Rate : 090 BPM Atrial Rate : 101 BPM P-R Int : 000 ms QRS Dur : 098 ms QT Int : 384 ms P-R-T Axes : 000 -15 -58 degrees QTc Int : 469 ms Atrial fibrillation with premature ventricular or aberrantly conducted complexes Nonspecific T wave abnormality Abnormal ECG When compared with ECG of 10-SEP-2022 06:01, No significant change was found Confirmed by Maxim Meyers ([id number]) on 09/12/2022 5:36:43 AM Referred By: REFERRED SELF Confirmed By:Maxim Meyers
[2022-09-12 06:31] LABS: Hematocrit (blood only) 29.3 % (40.1-51.0); Hemoglobin 9.1 g/dl (14.0-18.0); Mean Corpuscular Hemoglobin 26.4 pg (25.0-34.0); Mean Corpuscular Hgb Conc 31.1 g/dL (32.0-36.0); Mean Corpuscular Volume 84.9 fL (80.0-100.0); Mean Platelet Volume 9.4 fL (9.4-12.4); Nucleated RBC # (auto) 0.02 K/uL (0-0); Nucleated RBC % (auto) 0.3 %; Platelet Count 177 K/uL (130-400); RDW Coefficient of Variation 15.9 % (11.5-14.5); Red Blood Count 3.45 M/uL (4.63-6.08); White Blood Count 6.39 K/ul (4.8-10.8)
[2022-09-12 06:55] LABS: Creatinine Clr Calc Pharmacy 29.1 ml/min; Est GFR (African American) 41.7 ml/min
[2022-09-12] MEDS: carvediloL 25 MG TAB PO SCH (08:28)
[2022-09-12] MEDS: TAMSULOSIN HCL 0.4 MG CAP PO SCH ×2 (08:28→20:51)
[2022-09-12] MEDS: APIXABAN 2.5 MG TAB PO SCH ×2 (08:28→20:51)
[2022-09-12] MEDS: DOCUSATE SODIUM 100 MG CAP PO SCH ×2 (08:28→20:51)
[2022-09-12] MEDS: POLYETHYLENE (MIRALAX) 17 GM PACK PO SCH (08:29)
[2022-09-12] MEDS: traMADol HCL 50 MG TABLET PO SCH ×2 (08:59→21:04)
[2022-09-12] MEDS ORDERED: FUROSEMIDE 40 MG/4 ML VIAL IV SCH ×2 (09:00→21:00)
[2022-09-12 12:20] LABS: BUN Creatinine Ratio 19.6 (10-20); Calcium 8.8 mg/dl (8.5-10.1); Creatinine Clr Calc Pharmacy 30.6 ml/min; Est GFR (African American) 44.3 ml/min; Est GFR (Non-African American) 38.2 ml/min; Potassium 3.2 mmol/L (3.5-5.1)
[2022-09-12] MEDS: CEFEPIME 2,000 MG in SYRINGE 0 ML IV SCH ×2 (14:18→23:47)
--- NOTE | 2022-09-12 14:59 | Pharmacy Report ---
Pharmacy [facility] Short Note - Date of Service September 12, 2022 - Assessment & Plan Assessment 09/09: 87 year old M receiving vancomycin for treatment of osteomyelitis. Patient was on 8a/8p 750 mg schedule, however reportedly held per the with last Thursday PM being the last administered dose. Random level on admission is 20.4, will get random level in AM to determine patient specific kinetics, patient should still be therapeutic. 09/10: Random level this morning is 19.5 SCr 1.77 down from 1.82 yesterday and CrCl is 27.5 up from 26.7 yesterday 09/11: Random vancomycin level this morning was ~15.7 mcg/ml Scr continues to improve from 1.77 to 1.68. 09/12: Random vancomycin level this morning was 17.0 mcg/mL SCr is 1.58 down from 1.68 yesterday Plan Vancomycin * Random level ~17 mcg/ml - therefore plan to redose vancomycin today * Will redose with vancomycin 500 mg x 1. * Will continue to dose by levels as it appears with even slight improvement of renal function, estimated t1/2 rapidly changing * Will plan to order a random vancomycin level in the morning to assess effects of dose today. Anticipate this dosing maintaining level >15 mcg/ml, but will assess level later this evening to have a better idea of clearance of medication Pharmacy will continue to follow and will adjust dose/frequency as necessary. Thank you.
[2022-09-12] MEDS ORDERED: VANCOMYCIN HCL 500 MG in DEXTROSE 5% 100 ML IV ONE ×2 (15:00)
--- NOTE | 2022-09-12 15:57 | Nephrology Consultation ---
Date of Consultation September 12, 2022 Assessment & Plan (1) CKD (chronic kidney disease), stage III: * CKD stage G3b/A3 (moderate impairment). Baseline Cr 1.7 - 2.0 w/ EGFR 35 cc/min. Urine sediment has been acellular. 02/23 Renal US revealed atrophic R kidney measuring only 8.0 cm. No hydronephrosis. Renal artery doppler 07/24 was negative for JUNG. Renal impairment is due to underlying vascular disease w/ atrophy of R kidney * Electrolyte balance is acceptable * Worsening proteinuria likely due to diastolic CHF. Solitary kidney precludes kidney biopsy. Will focus on symptom management w/ diuretics & ARB therapy. Considered checking PLA2R Ab and UIEP but given age and frailty this will not change his medical management. Note that bone marrow biopsy in 2016 was negative for MM (2) (HFpEF) heart failure with preserved ejection fraction: * Reduce Carvedilol to 12.5 mg po BID * Start Losartan 25 mg qAM * Increase Furosemide to 40 mg IV BID * Monitor PRP, UO, LE swelling (3) Osteomyelitis of symphysis pubis: * Antibiotic therapy as per ID specialist History of Present Illness Reason for Consultation: CKD, proteinuria Attending Physician: Peter Ling MD History of Present Illness Mr. Mancia is an 87 year old white male who is seen at the request of Dr. Anuradha moya or evaluation of CKD, proteinuria. Medical records in the EMR were reviewed and are summarized as follows: Mr. Mancia has CKD stage G3b/A3 (moderate impairment). Baseline Cr 1.7 - 2.0 w/ EGFR 35 cc/min. Urine sediment has been acellular. 02/23 Renal US revealed atrophic R kidney measuring only 8.0 cm. No hydronephrosis. Renal artery doppler 07/24 was negative for JUNG. His medical history is also significant for ASCVD, HTN, bladder CA, prostate CA s/p radioactive seeds, urinary incontinence due to TURP, gastritis, iron deficiency anemia (EGD and colonoscopy 2019 revealed gastritis/diverticulosis). 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 He was on Daptomycin but recently changed to IV Vancomycin therapy by his ID specialist. Mr. Mancia presented to [facility] 09/09/22 with c/o LUX. He was noted to have tense LE swelling. CXR was negative for edema, pulmonary perfusion imaging was negative for PE. Troponin was WNL. IV diuretic therapy was started and patient diuresed 1.5 L since admission. UPCR was checked and noted to have risen from 0.3 to 2.5 Allergies Allergy/AdvReac Type Severity Reaction Status Date / Time KEVIN Inhibitors Allergy Severe SHORTNESS Verified 09/09/22 17:54 OF BREATH Penicillins Allergy Intermediate HIVES Verified 09/09/22 17:54 rosuvastatin [From Crestor] Allergy Intermediate joint Verified 09/09/22 17:54 aches and cramping simvastatin Allergy Intermediate joint Verified 09/09/22 17:54 aches and cramping [id number] Reductase Allergy Intermediate joint Verified 09/09/22 17:54 Inhibitor aches and [[id number]-Ccm-Tgj Reductase cramping Inhibitor] red yeast rice Allergy Rash Verified 09/11/22 16:32 daptomycin AdvReac Intermediate Joint Pain Verified 09/09/22 17:55 Home Medications Medication Instructions Recorded Confirmed Type cetirizine 10 mg tablet (Zyrtec) 10 mg PO HS #30 tabs 06/16/19 09/09/22 History fluticasone propionate 50 2 sprays intranasal BID PRN 06/16/19 09/09/22 History mcg/actuation nasal Congestion #3 grams spray,suspension (Flonase Allergy Relief) cholecalciferol (vitamin D3) 25 50 mcg PO QPM 09/11/21 09/09/22 History mcg (1,000 unit) capsule tamsulosin 0.4 mg capsule (Flomax) 0.4 mg PO BID PRN urinary 03/31/22 09/09/22 History discomfort carvedilol 12.5 mg tablet (Coreg) 25 mg PO BID #360 tabs 05/26/22 09/09/22 Rx acetaminophen 325 mg tablet 650 mg PO Q4H PRN mild-moderate 07/08/22 09/09/22 Rx pain #30 tabs apixaban 2.5 mg tablet (Eliquis) 2.5 mg PO BID #180 tabs 07/08/22 09/09/22 Rx docusate sodium 100 mg capsule 100 mg PO BID #60 caps 07/14/22 09/09/22 Rx (Colace) tramadol 50 mg tablet 50 mg PO BID #30 tabs 08/18/22 09/09/22 Rx cefdinir 300 mg capsule 300 mg PO BID 7 days #14 caps 09/04/22 09/09/22 Rx furosemide 20 mg tablet (Lasix) 20 mg PO DAILY 09/09/22 09/09/22 History polyethylene glycol 3350 17 17 g PO DAILY PRN severe 09/09/22 09/09/22 History gram/dose oral powder constipation vancomycin 750 mg intravenous 750 mg IV UD 09/09/22 09/09/22 History solution Patient History Medical History Anemia Aortic regurgitation Arthritis back Atrial fibrillation Follows Dr. 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 Bone marrow biopsy negative for plasma dyscrasia and B cell lymphoma. Myocardial Infarction 1994--followed with Dr. Landaverde Peripheral neuropathy Presbyesophagus Prostate cancer (~04/2005) s/p failure of brachytherapy. Patient opted to forego further treatment d/t age. Had seeding placed in prostate Shortness of breath on exertion Spinal stenosis Tricuspid regurgitation Surgical History History of back surgery (08/06/17) Dr. Stephens. Fused at L4-L5 and sacrum. History of bilateral cataract extraction History of bladder surgery TURBT 08/17/2007 for bladder cancer [place] of cardiac [place] [facility] [place] 1 stent placed - unsure type/location - Follows Dr. Verduzco History of colonoscopy History of cystoscopy multiple times--d/t bladder cancer History of esophagogastroduodenoscopy (EGD) History of heart artery stent 1994 [place] [facility] [place] 1 stent placed - unsure type/location - Follows Dr. Verduzco History of prostate biopsy Unable to find path report in [employer] or [employer]. History of tooth extraction all upper teeth/partial lower Hx of vasectomy Family History Unknown Prostate cancer Bladder cancer Hypertension Father Family history of diabetes mellitus Daughter Breast cancer Son Myocardial infarction Other No family history of adverse response to anesthesia Denies family history of Ovarian cancer Colorectal cancer Social History Smoking Status: Former smoker Tobacco Type: Cigarettes Age Quit Using Tobacco: 48; Cigarettes Per Day: 1 pack per day; Second Hand Exposure: No; Do You Dip or Chew Tobacco: No; Hx Alcohol Use: Yes Alcohol type: wine Alcohol Intake Frequency Comment: once a day Hx Substance Use: No Preferred Language: Tajik Communication Ability: Effective Visual Impairment: Limited Hearing Ability: Hard of Hearing [employer] G[employer]er Required: No Beliefs That Will Affect Care: None marital status: Current Living Situation: Spouse Current Living Situation Comment: Lives at home with his current occupational status: retired How many Children do You have: 2 Other Information That Helps Us Care for You: No Feels Safe at Home: Yes Safety Concerns: Feels Safe At This Time caffeine: Yes (coffee) Dental Care, Regularly: Yes Physical Activity Frequency: Daily Physical Activity Frequency Comment: treadmill in morning, sit ups Seatbelt Use: always Sunscreen Use: Yes Assistive Devices: Cane, Walker and Wheelchair Review of Systems Constitutional: no fever Eyes: no problem reported Ear, Nose, Mouth, Throat: no problem reported Respiratory: no cough and no dyspnea Cardiovascular: no chest pain Gastrointestinal: no abdominal pain and no problem reported Genitourinary: + urinary incontinence Neurologic: no confusion Physical Exam Constitutional: + frail appearing; no acute distress Eyes: PERRL, conjunctivae normal, anicteric sclerae ENMT: external ear and nose normal, oropharynx normal Neck: trachea midline, no thyromegaly Respiratory: Auscultation: + rales Cardiovascular: Rate/Rhythm: regular rate and regular rhythm Extremities: + edema 3+ pretibial pitting edema to the knees bilaterally Gastrointestinal (Abdomen): normal bowel sounds, soft, nontender, no hepatosplenomegaly Neurologic: Speech / Cognition: normal speech and normal cognition Results & Data ([facility]) Vital Signs (Past 12 Hours) Vital Signs Temp Pulse Resp BP Pulse Ox O2 Del Method 09/12/22 12:04 36.5 C 66 17 129/68 99 Room Air 09/12/22 07:56 36.3 C L 98 H 17 138/75 97 Room Air Laboratory Results Laboratory Results - last 24 hr 09/11/22 09/11/22 09/12/22 22:10 22:24 05:47 WBC 6.39 RBC 3.45 L Hgb 9.1 L Hct 29.3 L MCV 84.9 MCH 26.4 MCHC 31.1 L RDW Std Deviation 49.0 H RDW Coeff of Tay 15.9 H Plt Count 177 MPV 9.4 Absolute Nucleated RBC 0.02 H Nucleated RBC % (auto) 0.3 Sodium Potassium Chloride Carbon Dioxide Anion Gap BUN Creatinine Est Cr Clr Drug Dosing Est GFR ( Amer) Est GFR (Non-Af Amer) BUN/Creatinine Ratio Glucose Calcium Magnesium Ur Random Creatinine 16.7 U Random Total Protein 42.5 H Protein/Creatinin Ratio 2.5 H Random Vancomycin 16.6 09/12/22 09/12/22 09/12/22 05:47 11:18 12:56 WBC RBC Hgb Hct MCV MCH MCHC RDW Std Deviation RDW Coeff of Tay Plt Count MPV Absolute Nucleated RBC Nucleated RBC % (auto) Sodium 138 Potassium 3.2 L Chloride 102 Carbon Dioxide 29 Anion Gap 7 BUN 31 H Creatinine 1.66 H 1.58 H Est Cr Clr Drug Dosing 29.1 30.6 Est GFR ( Amer) 41.7 44.3 Est GFR (Non-Af Amer) 36.0 38.2 BUN/Creatinine Ratio 19.6 Glucose 98 Calcium 8.8 Magnesium 2.0 Ur Random Creatinine U Random Total Protein Protein/Creatinin Ratio Random Vancomycin 17.0 Diagnostic Findings 09/04/[address]: 1. Significantly suboptimal examination without oral and IV contrast. There is also signficant streak and motion artifact. 2. Cardiomegaly with evidence of congestive failure. 3. Small to moderate pleural effusions with dependent atelectasis. 4. Again seen is abnormal widening, erosion, and fragmentation of the pubic symphysis as detailed above with surrounding inflammation. Infection/osteomyel itis remains the diagnosis of exclusion. This is similar to the 07/01/2022 examination but is new from 2006. Clinical correlation will be essential. 5. The bladder is decompressed and thick-walled with surrounding inflammation. Correlate with clinical findings and urinalysis for evidence of cystitis. 6. There is nonspecific perirectal inflammation. 7. There is a small volume of abdominopelvic ascites which is new from previous 8. Nonspecific infiltration and fluid is seen around the pancreas. This may be related to fluid overload and ascites. Correlate with serum amylase/lipase levels for evidence of pancreatitis. 9. Advanced colonic diverticulosis without CT evidence of acute diverticulitis. 10. There is nonspecific scrotal edema. Correlate with direct visualization. 11. There is nonspecific bladder wall thickening. This may be related to fluid overload/ascites. Correlate with clinical and laboratory findings. If clinically warranted this could be further assessed with a right upper quadrant ultrasound. 12. Additional findings as above. PG Care Time/CCT Total # of Minutes Spent Total Time Spent with Patient: Total time spent is greater than 50% in coordination of care (as documented) at patient's floor/unit and/or counseling patient: Coding Level of Care Code 82011 Inpt Consult Level 5 Diagnoses CKD (chronic kidney disease), stage III N18.30 (HFpEF) heart failure with preserved ejection fraction I50.30 Osteomyelitis of symphysis pubis M86.9
--- NOTE | 2022-09-12 16:20 | Heart Failure Consultation ---
Date of Consultation September 12, 2022 Assessment & Plan (1) (HFpEF) heart failure with preserved ejection fraction: (2) Valvular heart disease: (3) Atrial fibrillation with controlled ventricular rate: (4) Coronary artery disease: (5) CKD (chronic kidney disease), stage III: (6) LUX (dyspnea on exertion): (7) Volume overload: Plan HFpEF: Patient has a heart failure diagnosis on his chart but he and his are unfamiliar with this. Unclear if this is strictly cardiac volume overload or a cardiorenal syndrome (+proteinuria). He appears hypervolemic on exam today. BNP is elevated and there is evidence of pulmonary edema on his CXR. Would continue to aggressively optimize his volume status- continue Lasix 40 mg IV daily, consider BID dosing if renal function remains stable. He is incontinent and unable to accurately measure his urine output. Would recommend daily STA NDING weights for better accuracy. He has a home scale. Low sodium diet. Discussed the nature of heart failure and the goals of the program. They are agreeable to ongoing participation. Will formally enroll him. Atrial fibrillation: Rate well controlled. Asymptomatic. Continue current medical therapy. Continue Eliquis for anticoagulation. CAD: Denies angina. Continue current medical therapy. Disposition: Will be away from the hospital for the weekend. Please call Dr. Meyers for any cardiac concerns. Patient is scheduled for outpatient follow up 09/19/22 at 1030. History of Present Illness Attending Physician: Peter Ling MD History of Present Illness Mr. Mancia is an 87 year old man with history of atrial fibrillation, valvular heart disease, CKD III, iron def anemia, HTN, bladder CA, prostate CA, and CAD. He follows with Dr. Verduzco as an outpatient. Recent cardiac studies: 1. 09/09/22 Echo: LV systolic function normal. No RWMA. Mild concentric LVH. EF 55-60%. Moderate TR. Mild to moderate TR. Mild AR. Patient was most recently evaluated by Dr. Verduzco in November 2021. He presented to the ED on 09/09/22 with worsening dyspnea on exertion. He was also having some increased edema. This has been going on for 1-2 weeks. BNP elevated at 534. CXR with pulmonary edema and small pleural effusions. EF preserved. He is hypervolemic on exam. He was treated with Lasix 40 mg IV. He reports increased urine output but is incontinent therefore his I&Os are quite inaccurate. His breathing has improved. He continues to have considerable lower extremity edema. He denies chest pain, cough, palpitations. Telemetry reviewed- afib 70s-100s. Patient lives in [place] with his . He recently stopped driving but she is able to. They are independent at home and do their own medications. Allergies Allergy/AdvReac Type Severity Reaction Status Date / Time KEVIN Inhibitors Allergy Severe SHORTNESS Verified 09/09/22 17:54 OF BREATH Penicillins Allergy Intermediate HIVES Verified 09/09/22 17:54 rosuvastatin [From Crestor] Allergy Intermediate joint Verified 09/09/22 17:54 aches and cramping simvastatin Allergy Intermediate joint Verified 09/09/22 17:54 aches and cramping Mlhwwfz-QET-XoH Reductase Allergy Intermediate joint Verified 09/09/22 17:54 Inhibitor aches and [Bulwqnh-Qil-Sga Reductase cramping Inhibitor] red yeast rice Allergy Rash Verified 09/11/22 16:32 daptomycin AdvReac Intermediate Joint Pain Verified 09/09/22 17:55 Home Medications Medication Instructions Recorded Confirmed Type cetirizine 10 mg tablet (Zyrtec) 10 mg PO HS #30 tabs 06/16/19 09/09/22 History fluticasone propionate 50 2 sprays intranasal BID PRN 06/16/19 09/09/22 History mcg/actuation nasal Congestion #3 grams spray,suspension (Flonase Allergy Relief) cholecalciferol (vitamin D3) 25 50 mcg PO QPM 09/11/21 09/09/22 History mcg (1,000 unit) capsule tamsulosin 0.4 mg capsule (Flomax) 0.4 mg PO BID PRN urinary 03/31/22 09/09/22 History discomfort carvedilol 12.5 mg tablet (Coreg) 25 mg PO BID #360 tabs 05/26/22 09/09/22 Rx acetaminophen 325 mg tablet 650 mg PO Q4H PRN mild-moderate 07/08/22 09/09/22 Rx pain #30 tabs apixaban 2.5 mg tablet (Eliquis) 2.5 mg PO BID #180 tabs 07/08/22 09/09/22 Rx docusate sodium 100 mg capsule 100 mg PO BID #60 caps 07/14/22 09/09/22 Rx (Colace) tramadol 50 mg tablet 50 mg PO BID #30 tabs 08/18/22 09/09/22 Rx cefdinir 300 mg capsule 300 mg PO BID 7 days #14 caps 09/04/22 09/09/22 Rx furosemide 20 mg tablet (Lasix) 20 mg PO DAILY 09/09/22 09/09/22 History polyethylene glycol 3350 17 17 g PO DAILY PRN severe 09/09/22 09/09/22 History gram/dose oral powder constipation vancomycin 750 mg intravenous 750 mg IV UD 09/09/22 09/09/22 History solution Patient History Medical History Anemia Aortic regurgitation Arthritis back Atrial fibrillation Follows Dr. 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 Bone marrow biopsy negative for plasma dyscrasia and B cell lymphoma. Myocardial Infarction 1994--followed with Dr. Landaverde Peripheral neuropathy Presbyesophagus Prostate cancer (~04/2005) s/p failure of brachytherapy. Patient opted to forego further treatment d/t age. Had seeding placed in prostate Shortness of breath on exertion Spinal stenosis Tricuspid regurgitation Surgical History History of back surgery (08/06/17) Dr. Stephesn. Fused at L4-L5 and sacrum. History of bilateral cataract extraction History of bladder surgery TURBT 08/17/2007 for bladder cancer History of cardiac cath 1994 @ [facility] [place]--with 1 stent placed - unsure type/location - Follows Dr. Verduzco History of colonoscopy History of cystoscopy multiple times--d/t bladder cancer History of esophagogastroduodenoscopy (EGD) History of heart artery stent 1994 @ [facility] [place] - 1 stent placed - unsure type/location - Follows Dr. Verduzco History of prostate biopsy [facility]. History of tooth extraction all upper teeth/partial lower Hx of vasectomy Family History Unknown Prostate cancer Bladder cancer Hypertension Father Family history of diabetes mellitus Daughter Breast cancer Son Myocardial infarction Other No family history of adverse response to anesthesia Denies family history of Ovarian cancer Colorectal cancer Social History Smoking Status: Former smoker Tobacco Type: Cigarettes Age Quit Using Tobacco: 48; Cigarettes Per Day: 1 pack per day; Second Hand Exposure: No; Do You Dip or Chew Tobacco: No; Hx Alcohol Use: Yes Alcohol type: wine Alcohol Intake Frequency Comment: once a day Hx Substance Use: No Preferred Language: Kiswahili Communication Ability: Effective Visual Impairment: Limited Hearing Ability: Hard of Hearing 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 [employer] Required: No Beliefs That Will Affect Care: None marital status: Current Living Situation: Spouse Current Living Situation Comment: Lives at home with his current occupational status: retired How many Children do You have: 2 Other Information That Helps Us Care for You: No Feels Safe at Home: Yes Safety Concerns: Feels Safe At This Time caffeine: Yes (coffee) Dental Care, Regularly: Yes Physical Activity Frequency: Daily Physical Activity Frequency Comment: treadmill in morning, sit ups Seatbelt Use: always Sunscreen Use: Yes Assistive Devices: Cane, Walker and Wheelchair Physical Exam Physical Exam: Constitutional: Alert, oriented, in no acute distress HEENT: Head is atraumatic and normocephalic. EOMs intact. Sclera anicteric. Face is symmetric. No perioral cyanosis. Mucous membranes moist. Neck: Supple, no JVD, +HJR Pulmonary: Normal respiratory effort, bibasilar crackles noted Cardiac: Regular rate and rhythm. Normal S1 and S2, no gallops, no rubs, no murmurs Extremities: 2+ radial pulses bilaterally. 2+ posterior tibialis pulses bilaterally. 2-3+ pitting edema to the knees. No cyanosis or clubbing. Abdomen: Normal bowel sounds, soft, non-tender, no abdominal mass palpated Skin: Normal skin color, turgor, and pigmentation, no rash, no skin lesions Neurological: Patient is awake, alert, and oriented. Pleasant and cooperative. Answers questions appropriately. Speech is clear. Normal movement in all 4 extremities. Gait pattern is unremarkable. Results & Data ([facility]) Vital Signs (Past 12 Hours) Vital Signs Temp Pulse Resp BP Pulse Ox O2 Del Method 09/12/22 15:56 97.3 F L 92 H 17 122/64 99 Room Air 09/12/22 12:04 97.7 F 66 17 129/68 99 Room Air 09/12/22 07:56 97.3 F L 98 H 17 138/75 97 Room Air Coding Level of Care Code 72568 Initial Inpt Care Lvl 3 Diagnoses (HFpEF) heart failure with preserved ejection fraction I50.30 Valvular heart disease I38 Atrial fibrillation with controlled ventricular rate I48.91 Coronary artery disease I25.10 CKD (chronic kidney disease), stage III N18.30 LUX (dyspnea on exertion) R06.09 Volume overload E87.79 Hypervolemia type: other (1) Volume overload Hypervolemia type: other Qualified Code(s): E87.79 - Other fluid overload
[2022-09-12] MEDS ORDERED: POTASSIUM CHLORIDE CRTAB 20 MEQ TABCR PO STA (19:42)
--- NOTE | 2022-09-12 19:56 | Hospitalist Progress Note ---
Date of Service September 12, 2022 Assessment & Plan (1) Volume overload: Plan: Given his protein/Cr ratio 2.5 I suspect his volume status is due to CKD with proteinuria rather than heat failure. Likely recently exacerbated by the need for intravenous antibiotics and normal saline flushes. Bladder scan for 23ml - no concern for retention Cr improved with 40mg IV lasix restarted yesterday and edema improving. Agree with increasing dose to 40mg IV BID per nephrology. Measure I&Os as much as possible Daily weights Consulted nephrology to assess when they are ok managing this outpatient. For now he needs continued admission just to work out his antibiotic dosing (al though only has 4 days left of this) (2) Dyspnea on exertion: Plan: Presenting complaint is dyspnea on exertion - suspect mostly due to volume overload as above Anemia may also have been contributing therefore - Transfused 1 unit RBC [09/09] V/Q scan with low probability of pulmonary embolism - suspect more likely diagnosis is pulmonary edema with associated leg swelling (3) Proteinuria: Plan: Agree with starting losartan however will have to watch a. 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 No inherent heart failure suspected given alternative etiology identified. (5) Atrial fibrillation: Plan: Watch for increased rates with nephrology reducing carvedilol dosing to allow BP to tolerate losartan and Lasix dosing Continue anticoagulation with Eliquis (6) Osteomyelitis of symphysis pubis: Plan: Incorrectly was placed on cefdinir on admission. He was inappropriately placed on this medication in the ER visit on 09/04 for cystitis as ER provider did not realize he was on IV cefepime at that time. This was carried over to the admission. Will be placed back on IV cefepime and continue IV vancomycin Outpatient dosing apparently was cefepime 500mg IV daily and IV vancomycin 750mg IV BID which per current dosing appears to be vastly underdosing cefepime and overdosing vancomycin - need for continued inpatient stay until these doses are more stable. 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 s/p 1 unit packed RBC [09/09], s/p Venofer 200mg (9) Monoclonal gammopathy of undetermined significance: (10) CKD (chronic kidney disease), stage III: Plan: Patient follows Dr. Brown for chronic kidney disease (11) Prostate cancer: Plan: Patient has a history of prostate cancer with failed response to previous brachytherapy he is being followed by [facility] Plan VTE Prophylaxis - Eliquis 2.5mg PO BID Diet - low Na Disposition - remain on monitored bed while diuresing Admission and Anticipated Discharge Date Admission Date: September 09, 2022 Subjective No concerns or questions reported from the patient. He wishes to be discharged as soon as possible. His reports his legs are far from their baseline. Review of Systems Review of Systems: All systems reviewed & are unremarkable except as noted in Subjective Physical Exam Constitutional: WD/WN, vitals as above Respiratory: normal respiratory effort; no respiratory distress Auscultation: + diminished lung sounds (bibasal); no crackles and no wheezes Cardiovascular: Rate/Rhythm: regular rate, regular rhythm, + tachycardic and + irregularly irregular Heart Sounds: no murmur Extremities: normal capillary refill and + pedal edema (2+ b/l to thighs); no calf tenderness Musculoskeletal: no cyanosis or clubbing, extremities motor strength 5/5 Skin: no rashes, warm and dry Psychiatric: A+Ox3, euthymic affect Results & Data Results & Data ([facility]) Vital Signs (Past 12 Hours) Vital Signs Temp Pulse Resp BP Pulse Ox O2 Del Method 09/12/22 15:56 36.3 C L 92 H 17 122/64 99 Room Air 09/12/22 12:04 36.5 C 66 17 129/68 99 Room Air 09/12/22 07:56 36.3 C L 98 H 17 138/75 97 Room Air PG Care Time/CCT Total # of Minutes Spent Total Time Spent with Patient: Total time spent is greater than 50% in coordination of care (as documented) at patient's floor/unit and/or counseling patient: Coding Level of Care Code 26868 Subseq Hosp Care Lvl 3 Diagnoses Volume overload E87.79 Hypervolemia type: other Dyspnea on exertion R06.09 Proteinuria R80.9 (HFpEF) heart failure with preserved ejection fraction I50.30 Atrial fibrillation I48.91 Osteomyelitis of symphysis pubis M86.9 HTN (hypertension) I10 Hypertension type: essential hypertension Anemia D64.9 Monoclonal gammopathy of undetermined significance D47.2 CKD (chronic kidney disease), stage III N18.30 Prostate cancer C61 (1) HTN (hypertension) Hypertension type: essential hypertension Qualified Code(s): I10 - Essential (primary) hypertension (2) Volume overload Hypervolemia type: other Qualified Code(s): E87.79 - Other fluid overload
[2022-09-12] MEDS: FUROSEMIDE 40 MG/4 ML VIAL IV SCH (20:50)
[2022-09-12] MEDS: carvediloL 12.5 MG TAB PO SCH (20:51)
[2022-09-12] MEDS: CHOLECALCIFEROL 1,000 UNITS 25 MCG TAB PO SCH (20:51)
[2022-09-12] MEDS: CETIRIZINE HCL 10 MG TABLET PO SCH (20:51)
[2022-09-12] MEDS ORDERED: MELATONIN 3 MG TAB PO ONE (23:09)
[2022-09-13 07:16] LABS: Hematocrit (blood only) 29.7 % (40.1-51.0); Hemoglobin 9.2 g/dl (14.0-18.0); Mean Corpuscular Hemoglobin 26.5 pg (25.0-34.0); Mean Corpuscular Volume 85.6 fL (80.0-100.0); Mean Platelet Volume 9.4 fL (9.4-12.4); Platelet Count 183 K/uL (130-400); RDW Coefficient of Variation 15.9 % (11.5-14.5); RDW Standard Deviation 49.3 fL (36.4-46.3); Red Blood Count 3.47 M/uL (4.63-6.08); White Blood Count 9.33 K/ul (4.8-10.8)
[2022-09-13 07:37] LABS: BUN Creatinine Ratio 19.1 (10-20); Calcium 9.1 mg/dl (8.5-10.1); Creatinine Clr Calc Pharmacy 26.6 ml/min; Est GFR (African American) 38.3 ml/min; Est GFR (Non-African American) 33.1 ml/min; Potassium 3.6 mmol/L (3.5-5.1)
[2022-09-13] MEDS: POLYETHYLENE (MIRALAX) 17 GM PACK PO SCH (08:13)
[2022-09-13] MEDS: traMADol HCL 50 MG TABLET PO SCH ×2 (08:13→20:22)
[2022-09-13] MEDS: DOCUSATE SODIUM 100 MG CAP PO SCH ×2 (08:13→20:22)
[2022-09-13] MEDS: APIXABAN 2.5 MG TAB PO SCH ×2 (08:13→20:24)
[2022-09-13] MEDS: FUROSEMIDE 40 MG/4 ML VIAL IV SCH (08:13)
[2022-09-13] MEDS: LOSARTAN POTASSIUM 25 MG TAB PO SCH (08:13)
[2022-09-13] MEDS: carvediloL 12.5 MG TAB PO SCH ×2 (08:13→20:23)
[2022-09-13] MEDS: TAMSULOSIN HCL 0.4 MG CAP PO SCH ×2 (08:13→20:24)
--- NOTE | 2022-09-13 10:10 | Pharmacy Report ---
Pharmacy Vanc AUC Short Note - Date of Service September 13, 2022 - Assessment & Plan Assessment * 87 year old M receiving cefepime and vancomycin for treatment of osteomyelitis. * Pertinent microbiologic data includes: [Positive MRSA Nasal Swab] [] culture growing []. Vancomycin * AUC/LLUVIA is the preferred PK/PD target for vancomycin * AUC guided dosing is effective and associated with decreased risk of nephrotoxicity compared to traditional trough targets * Random level of 18.7 mcg/mL this AM * SCr stable and levels are stable. Will schedule vancomycin * Last anticipated day of vancomycin is 09/16 Plan * Vancomycin 500 mg IV daily * Random level 09/15 w AM labs Pharmacy will continue to follow and will adjust dose/frequency as necessary. Thank you.
[2022-09-13] MEDS: VANCOMYCIN HCL 500 MG in DEXTROSE 5% 100 ML IV SCH (11:04)
[2022-09-13] MEDS: CEFEPIME 2,000 MG in SYRINGE 0 ML IV SCH (12:11)
--- NOTE | 2022-09-13 12:29 | Nephrology Progress Note ---
Date of Service September 13, 2022 Assessment & Plan (1) Volume overload: (2) Stage 3b chronic kidney disease: (3) Proteinuria: (4) HTN (hypertension): (5) Anemia: Plan 87 y o m with history of stage IIIB CKD, b/l cr 1.6-1.8, secondary to microvascular disease and right atrophic kidney. Admitted with concern over significant bilateral lower extremity edema. urine analysis showed high-grade proteinuria , PCR have risen from 0.3 to 2.5. On admission chest x-ray showed pulmonary vascular congestion. Has history of diastolic dysfunction. 02/23 Renal US revealed atrophic R kidney measuring only 8.0 cm. No hydronephrosis. Renal artery doppler 07/24 was negative for JUNG. Has h/o iron deficiency anemia (EGD and colonoscopy 2019 revealed gastritis/diverticulosis).Recently developed radiation necrosis and osteomyelitis of his pubic rami. He was on Daptomycin but recently changed to IV Vancomycin therapy. Was started on IV Lasix 40 mg twice a day with significant improvement volume status although continues to have spike bilateral lower extremity edema. Creatinine slightly increased compared to admission. --Change Lasix to 40 mg orally twice a day and continue to monitor weight as urine output cannot be assessed because of incontinence. Monitor renal function and electrolyte. --Check ferritin in a.m., may need IV iron or Epogen. Will follow Admission and Anticipated Discharge Date Admission Date: September 09, 2022 Subjective Kodi was seen and evaluated this morning. he reports feeling better and denies any significant shortness of breath. Lower extremity edema slightly improved. Has been voiding decent amount however and measured as he has incontinence. His weight is down more than 6 lb since yesterday. Slight change in creatinine, electrolyte acceptable. Blood pressure well controlled. Review of Systems Review of Systems: Detailed review of system was otherwise unremarkable except mentioned above. Physical Exam Constitutional: WD/WN, vitals as above no acute distress Eyes: + anicteric sclerae Neck: normal visual inspection Respiratory: no respiratory distress Auscultation: lungs clear to auscultation bilaterally Cardiovascular: Rate/Rhythm: regular rate and regular rhythm Heart Sounds: normal S1 and normal S2 Extremities: + edema Skin: no rashes Neurologic: no focal motor deficits Psychiatric: Orientation: alert and oriented x 3 Results & Data ([facility]) Vital Signs (Past 12 Hours) Vital Signs Temp Pulse Resp BP Pulse Ox O2 Del Method 09/13/22 11:33 36.5 C 48 L 20 130/77 94 Room Air 09/13/22 09:55 Room Air 09/13/22 06:52 36.4 C L 81 18 132/71 98 Room Air 09/13/22 03:28 36.3 C L 92 H 18 122/75 98 Room Air PG Care Time/CCT Total # of Minutes Spent Total Time Spent with Patient: Total time spent is greater than 50% in coordination of care (as documented) at patient's floor/unit and/or counseling patient: Coding Level of Care Code 04445 Subseq Hosp Care Lvl 3 Diagnoses Volume overload E87.79 Hypervolemia type: other Stage 3b chronic kidney disease N18.32 Proteinuria R80.9 HTN (hypertension) I10 Hypertension type: essential hypertension Anemia D64.9 (1) Volume overload Hypervolemia type: other Qualified Code(s): E87.79 - Other fluid overload (2) HTN (hypertension) Hypertension type: essential hypertension Qualified Code(s): I10 - Essential (primary) hypertension
[2022-09-13] MEDS: FUROSEMIDE 40 MG TAB PO SCH (17:04)
[2022-09-13] MEDS: CHOLECALCIFEROL 1,000 UNITS 25 MCG TAB PO SCH (20:23)
[2022-09-13] MEDS: CETIRIZINE HCL 10 MG TABLET PO SCH (20:24)
--- NOTE | 2022-09-13 22:06 | Hospitalist Progress Note ---
Date of Service September 13, 2022 Assessment & Plan (1) Volume overload: Plan: Given his protein/Cr ratio 2.5 I suspect his volume status is due to CKD with proteinuria rather than heat failure. Likely recently exacerbated by the need for intravenous antibiotics and normal saline flushes. GI following and increase diuretics Continue to follow I&Os Daily weights Consulted nephrology to assess when they are ok managing this outpatient. For now he needs continued admission just to work out his antibiotic dosing (although only has 3 days left of this) (2) Dyspnea on exertion: Plan: Presenting complaint is dyspnea on exertion - suspect mostly due to volume overload as above Anemia may also have been contributing therefore - Transfused 1 unit RBC [09/09]. Hgb currently stable at 9.2 V/Q scan with low probability of pulmonary embolism - suspect more likely diagnosis is pulmonary edema with associated leg swelling (3) Proteinuria: Plan: Continue losartan however will have to watch a. 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 No inherent heart failure suspected given alternative etiology identified. (5) Atrial fibrillation: Plan: Watch for increased rates with nephrology reducing carvedilol dosing to allow BP to tolerate losartan and Lasix dosing Continue anticoagulation with Eliquis (6) Osteomyelitis of symphysis pubis: Plan: Incorrectly was placed on cefdinir on admission. He was inappropriately placed on this medication in the ER visit on 09/04 for cystitis as ER provider did not realize he was on IV cefepime at that time. This was carried over to the admission. Will be placed back on IV cefepime and continue IV vancomycin Outpatient dosing apparently was cefepime 500mg IV daily and IV vancomycin 750mg IV BID which per current dosing appears to be vastly underdosing cefepime and overdosing vancomycin - need for continued inpatient stay until these doses are more stable. 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 s/p 1 unit packed RBC [09/09], s/p Venofer 200mg (9) Monoclonal gammopathy of undetermined significance: (10) CKD (chronic kidney disease), stage III: Plan: Patient follows Dr. Brown for chronic kidney disease Being followed by nephrology while inpatient (11) Prostate cancer: Plan: Patient has a history of prostate cancer with failed response to previous brachytherapy he is being followed by [facility] urology group Plan VTE Prophylaxis - Eliquis 2.5mg PO BID Diet - low Na Disposition - remain on monitored bed while diuresing Admission and Anticipated Discharge Date Admission Date: September 09, 2022 Supervising Physician Co-Signing Physician Notes Attending Attestation - Chart reviewed, care plan d/w PA Gurjit Harltey. I agree with the bo components of his documentation. Peter Holloway MD Subjective Attending: Dr. Holloway Patient seen at bedside with his and daughter. He continues to have edema of the lower extremities. Nephrology is following and adjusted diuretics today. Patient reports that he has flat affect is depressed as he has been sitting around and is typically an active person. He does report the fluid overload seems to be improved. No shortness of breath. No chest pain. Lower extremity edema has improved. No fever, chills, sweats, rigors. No other acute complaints at this time Review of Systems Review of Systems: A total of 10 systems was reviewed and is negative other than as listed in the HPI Physical Exam Physical Exam: GENERAL : No acute distress EYES: No icterus, gaze conjugate NOSE: No evidence of epistaxis MOUTH: No lesions or candidiasis NECK: Supple LUNGS: CTA B/L, no wheezes, rales or rhonchi HEART: Regular, rate controlled ABDOMEN: Soft, NT, ND, BS Present EXTREMITIES: Bilateral pitting LE edema, pedal pulses intact NEURO: A&OX3 Results & Data Results & Data ([facility]) Vital Signs (Past 12 Hours) Vital Signs Temp Pulse Resp BP Pulse Ox O2 Del Method 09/13/22 20:00 36.7 C 86 18 149/78 H 99 Room Air 09/13/22 15:37 36.4 C L 86 18 123/72 99 Room Air 09/13/22 11:33 36.5 C 48 L 20 130/77 94 Room Air Critical Care Results & Data Vital Signs (Past 12 Hours) Vital Signs Temp Pulse Resp BP Pulse Ox O2 Del Method 09/13/22 20:00 36.7 C 86 18 149/78 H 99 Room Air 09/13/22 15:37 36.4 C L 86 18 123/72 99 Room Air 09/13/22 11:33 36.5 C 48 L 20 130/77 94 Room Air Lab & Micro Results (Past 24 Hours) No Data to Display No Data to Display No Data to Display I & O Totals 24 Hours 09/12/22 09/13/22 09/14/22 06:59 06:59 06:59 Intake Total 825 / 825 590 / 590 310 / 310 Output Total 1050 / 1050 Balance -225 / -225 590 / 590 310 / 310 Cumulative 09/09/22 11:41 thru 09/13/22 14:22 Intake Total 2988 Output Total 1050 Balance 1938 RT Ventilator Mngmt (Last Documented) Ventilator Ordered Settings Respiratory Rate 18 09/13/22 20:00 Ventilator - PT Measurements Respiratory Rate 18 PG Care Time/CCT Total # of Minutes Spent Total Time Spent with Patient: Total time spent is greater than 50% in coordination of care (as documented) at patient's floor/unit and/or counseling patient: Coding Level of Care Code 70979 Subseq Hosp Care Lvl 2 Diagnoses Volume overload E87.79 Hypervolemia type: other Dyspnea on exertion R06.09 Proteinuria R80.9 (HFpEF) heart failure with preserved ejection fraction I50.30 Atrial fibrillation I48.91 Osteomyelitis of symphysis pubis M86.9 HTN (hypertension) I10 Hypertension type: essential hypertension Anemia D64.9 Monoclonal gammopathy of undetermined significance D47.2 CKD (chronic kidney disease), stage III N18.30 Prostate cancer C61 (1) HTN (hypertension) Hypertension type: essential hypertension Qualified Code(s): I10 - Essential (primary) hypertension (2) Volume overload Hypervolemia type: other Qualified Code(s): E87.79 - Other fluid overload
[2022-09-14] MEDS: CEFEPIME 2,000 MG in SYRINGE 0 ML IV SCH ×2 (00:45→14:28)
[2022-09-14 08:03] LABS: BUN Creatinine Ratio 21.7 (10-20); Calcium 9.1 mg/dl (8.5-10.1); Creatinine Clr Calc Pharmacy 28.5 ml/min; Est GFR (African American) 41.7 ml/min; Potassium 3.1 mmol/L (3.5-5.1)
[2022-09-14 08:10] LABS: Ferritin 52.7 ng/ml (8-388)
[2022-09-14] MEDS: APIXABAN 2.5 MG TAB PO SCH ×2 (08:45→20:09)
[2022-09-14] MEDS: carvediloL 12.5 MG TAB PO SCH ×2 (08:45→20:52)
[2022-09-14] MEDS: POLYETHYLENE (MIRALAX) 17 GM PACK PO SCH (08:46)
[2022-09-14] MEDS: traMADol HCL 50 MG TABLET PO SCH ×2 (08:46→20:10)
[2022-09-14] MEDS: TAMSULOSIN HCL 0.4 MG CAP PO SCH ×2 (08:46→20:10)
[2022-09-14] MEDS: DOCUSATE SODIUM 100 MG CAP PO SCH ×2 (08:46→20:10)
[2022-09-14] MEDS: FUROSEMIDE 40 MG TAB PO SCH ×2 (08:46→16:54)
[2022-09-14] MEDS: LOSARTAN POTASSIUM 25 MG TAB PO SCH (08:46)
[2022-09-14] MEDS ORDERED: POTASSIUM CHLORIDE CRTAB 20 MEQ TABCR PO STA ×2 (09:38→11:03)
[2022-09-14] MEDS: VANCOMYCIN HCL 500 MG in DEXTROSE 5% 100 ML IV SCH (11:11)
--- NOTE | 2022-09-14 11:14 | Nephrology Progress Note ---
Date of Service September 14, 2022 Assessment & Plan (1) Volume overload: (2) Stage 3b chronic kidney disease: (3) Proteinuria: (4) HTN (hypertension): (5) Anemia: Plan 87 y o m with history of stage IIIB CKD, b/l cr 1.6-1.8, secondary to microvascular disease and right atrophic kidney. Admitted with concern over significant bilateral lower extremity edema. urine analysis showed high-grade proteinuria , PCR have risen from 0.3 to 2.5. On admission chest x-ray showed pulmonary vascular congestion. Has history of diastolic dysfunction. 02/23 Renal US revealed atrophic R kidney measuring only 8.0 cm. No hydronephrosis. Renal artery doppler 07/24 was negative for JUNG. Has h/o iron deficiency anemia (EGD and colonoscopy 2019 revealed gastritis/diverticulosis).Recently developed radiation necrosis and osteomyelitis of his pubic rami. He was on Daptomycin but recently changed to IV Vancomycin therapy. Was started on IV Lasix 40 mg twice a day with significant improvement volume status although continues to have spike bilateral lower extremity edema. Creatinine slightly increased compared to admission. --Continue Lasix 40 mg orally twice a day and continue to monitor weight as urine output cannot be assessed because of incontinence. Monitor renal function and electrolyte. --KCL 40 mew x 1 dose --venofer 200 mg iv daily x 5 --if DC, please have lab in 2 days and follow with PCP, CHF clinic Will follow Admission and Anticipated Discharge Date Admission Date: September 09, 2022 Subjective Borup was seen and evaluated this morning. he reports feeling better and denies any significant shortness of breath. Continue to have significant lower extremity edema. Has been voiding decent amount however and measured as he has incontinence. Relatively stable creatinine, electrolyte acceptable. Blood pressure well controlled. Review of Systems Review of Systems: Detailed review of system was otherwise unremarkable except mentioned above. Physical Exam Constitutional: WD/WN, vitals as above no acute distress Eyes: + anicteric sclerae Neck: normal visual inspection Respiratory: no respiratory distress Auscultation: lungs clear to auscultation bilaterally Cardiovascular: Rate/Rhythm: regular rate and regular rhythm Heart Sounds: normal S1 and normal S2 Extremities: + edema Skin: no rashes Neurologic: no focal motor deficits Psychiatric: Orientation: alert and oriented x 3 Results & Data ([facility]) Vital Signs (Past 12 Hours) Vital Signs Temp Pulse Pulse Resp BP Pulse Ox O2 Del Method 09/14/22 07:43 36.5 C 89 18 125/72 97 Room Air 09/14/22 04:24 36.4 C L 83 18 130/60 98 Room Air 09/13/22 23:56 36.4 C L 94 H 20 132/80 100 Room Air 09/13/22 23:22 81 PG Care Time/CCT Total # of Minutes Spent Total Time Spent with Patient: Total time spent is greater than 50% in coordination of care (as documented) at patient's floor/unit and/or counseling patient: Coding Level of Care Code 03352 Subseq Hosp Care Lvl 3 Diagnoses Volume overload E87.79 Hypervolemia type: other Stage 3b chronic kidney disease N18.32 Proteinuria R80.9 HTN (hypertension) I10 Hypertension type: essential hypertension Anemia D64.9 (1) Volume overload Hypervolemia type: other Qualified Code(s): E87.79 - Other fluid overload (2) HTN (hypertension) Hypertension type: essential hypertension Qualified Code(s): I10 - Essential (primary) hypertension
[2022-09-14] MEDS: POTASSIUM CHLORIDE / WTR 10 MEQ/100 ML PLCT IV SCH ×3 (12:06→14:15)
[2022-09-14] MEDS ORDERED: CEFEPIME 1,000 MG in SYRINGE 0 ML IV SCH (14:45)
[2022-09-14] MEDS: IRON SUCROSE 200 MG in 0.9 % SODIUM CHLORIDE 100 ML IV SCH (15:49)
[2022-09-14] MEDS: CHOLECALCIFEROL 1,000 UNITS 25 MCG TAB PO SCH (20:10)
[2022-09-14] MEDS: CETIRIZINE HCL 10 MG TABLET PO SCH (20:10)
--- NOTE | 2022-09-14 22:11 | Hospitalist Progress Note ---
Date of Service September 14, 2022 Assessment & Plan (1) Volume overload: Plan: Given his protein/Cr ratio 2.5 I suspect his volume status is due to CKD with proteinuria rather than heat failure. Likely recently exacerbated by the need for intravenous antibiotics and normal saline flushes. GI following and increase diuretics Continue to follow I&Os Daily weights Nephrology input very much appreciated. Patient was running well to furosemide 40 mg p.o. twice daily. We will continue this regimen on discharge and plan on getting repeat labs on 09/16/2022 No acute outpatient follow-up with nephrology required. Spoke personally to Dr. Jaramillo. They would be glad to establish some point with Dr. Brown as needed (2) Dyspnea on exertion: Plan: Presenting complaint is dyspnea on exertion - suspect mostly due to volume overload as above. This is resolved Anemia may also have been contributing therefore - Transfused 1 unit RBC [09/09]. Hgb currently stable at 9.2 V/Q scan with low probability of pulmonary embolism - suspect more likely diagnosis is pulmonary edema with associated leg swelling Patient beginning to ambulate more with walker We will check a two-step prior to discharge to assess oxygen requirements (3) Proteinuria: Plan: Continue losartan however will have to watch a. 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 No inherent heart failure suspected given alternative etiology identified. (5) Atrial fibrillation: Plan: Watch for increased rates with nephrology reducing carvedilol dosing to allow BP to tolerate losartan and Lasix dosing Continue anticoagulation with Eliquis (6) Osteomyelitis of symphysis pubis: Plan: Incorrectly was placed on cefdinir on admission. He was inappropriately placed on this medication in the ER visit on 09/04 for cystitis as ER provider did not realize he was on IV cefepime at that time. This was carried over to the admission. Will be placed back on IV cefepime and continue IV vancomycin Outpatient dosing apparently was cefepime 500mg IV daily and IV vancomycin 750mg IV BID which per current dosing appears to be vastly underdosing cefepime and overdosing vancomycin - need for continued inpatient stay until these doses are more stable. Currently making daily adjustments to IV vancomycin Per prior provider last date of both antibiotics is 09/16/22 Patient should be discharged on cefepime 1 g IV every 12 hours and vancomycin 500 mg IV daily Patient is is to contact infectious disease office tomorrow to confirm that last day of treatment should be 09/16/2022 We will plan on administering the cefepime and vancomycin first thing tomorrow and then discharge home for evening treatment of cefepime (7) HTN (hypertension): Plan: Carvedilol, Lasix and losartan as above (8) Anemia: Plan: Patient has a history of MGUS and is at longstanding chronic anemia pretransfusion iron sats 8%. s/p 1 unit packed RBC [09/09], s/p Venofer 200mg Hemoglobin is currently stable (9) Monoclonal gammopathy of undetermined significance: Plan: Outpatient management (10) CKD (chronic kidney disease), stage III: Plan: Patient follows Dr. Brown for chronic kidney disease Being followed by nephrology while inpatient Their input is appreciated (11) Prostate cancer: Plan: Patient has a history of prostate cancer with failed response to previous brachytherapy he is being followed by [facility] urology group Plan VTE Prophylaxis - Eliquis 2.5mg PO BID Diet - low Na Disposition - remain on monitored bed while diuresing Anticipate discharge home tomorrow Admission and Anticipated Discharge Date Admission Date: September 09, 2022 Supervising Physician Co-Signing Physician Notes Attending Attestation - Chart reviewed, care plan d/w CLIFF Hartley. I agree with the bo components of his documentation. Peter Holloway MD Subjective Attending: Dr. Holloway Patient seen and examined in room 237. He was seen 3 times in total by me today. This included discussion with his at the end of the day. Patient is doing much better as far as his ambulation in the room. He is able to get up and down from chair and ambulate around with walker. He does still have some limit in his balance. But overall he is doing well. Patient does continue to have edema in his lower extremities but significant proved since admission. He denies any shortness of breath. No chest pain or tightness. Patient is anxious for discharge. Review of Systems Review of Systems: A total of 10 systems was reviewed and is negative other than as listed in the HPI Physical Exam Physical Exam: GENERAL : No acute distress EYES: No icterus, gaze conjugate NOSE: No evidence of epistaxis MOUTH: No lesions or candidiasis NECK: Supple LUNGS: CTA B/L, no wheezes, rales or rhonchi HEART: Regular, rate controlled ABDOMEN: Soft, NT, ND, BS Present EXTREMITIES: Bilateral pitting LE edema, pedal pulses intact NEURO: A&OX3 Results & Data Results & Data ([facility]) Vital Signs (Past 12 Hours) Vital Signs Temp Pulse Resp BP Pulse Ox O2 Del Method 09/14/22 20:00 Room Air 09/14/22 19:55 36.4 C L 94 H 20 145/78 H 97 Room Air 09/14/22 15:44 36.6 C 108 H 20 132/84 96 Room Air 09/14/22 11:59 36.5 C 87 18 120/79 97 Room Air Critical Care Results & Data Vital Signs (Past 12 Hours) Vital Signs Temp Pulse Resp BP Pulse Ox O2 Del Method 09/14/22 20:00 Room Air 09/14/22 19:55 36.4 C L 94 H 20 145/78 H 97 Room Air 09/14/22 15:44 36.6 C 108 H 20 132/84 96 Room Air 09/14/22 11:59 36.5 C 87 18 120/79 97 Room Air Lab & Micro Results (Past 24 Hours) No Data to Display No Data to Display No Data to Display I & O Totals 24 Hours 09/13/22 09/14/22 09/15/22 06:59 06:59 06:59 Intake Total 590 / 590 310 / 310 1070 / 1070 Balance 590 / 590 310 / 310 1070 / 1070 Cumulative 09/09/22 11:41 thru 09/14/22 16:07 Intake Total 4058 Output Total 1050 Balance 3008 RT Ventilator Mngmt (Last Documented) Ventilator Ordered Settings Respiratory Rate 20 09/14/22 19:55 Ventilator - PT Measurements Respiratory Rate 20 PG Care Time/CCT Total # of Minutes Spent Total Time Spent with Patient: Total time spent is greater than 50% in coordination of care (as documented) at patient's floor/unit and/or counseling patient: Coding Level of Care Code 30085 Subseq Hosp Care Lvl 2 (25 - SIGNIFICANT, SEPARATELY IDENTIFIABLE ) Diagnoses Volume overload E87.79 Hypervolemia type: other Dyspnea on exertion R06.09 Proteinuria R80.9 (HFpEF) heart failure with preserved ejection fraction I50.30 Atrial fibrillation I48.91 Osteomyelitis of symphysis pubis M86.9 HTN (hypertension) I10 Hypertension type: essential hypertension Anemia D64.9 Monoclonal gammopathy of undetermined significance D47.2 CKD (chronic kidney disease), stage III N18.30 Prostate cancer C61 Time Spent (min) 30 Comment 30 minutes spent [id number] with patient and (1) HTN (hypertension) Hypertension type: essential hypertension Qualified Code(s): I10 - Essential (primary) hypertension (2) Volume overload Hypervolemia type: other Qualified Code(s): E87.79 - Other fluid overload
[2022-09-15] MEDS: CEFEPIME 1,000 MG in SYRINGE 0 ML IV SCH ×2 (00:31→11:48)
[2022-09-15 07:05] LABS: Calcium 9.5 mg/dl (8.5-10.1); Creatinine Clr Calc Pharmacy 22.3 ml/min; Est GFR (African American) 34.3 ml/min; Est GFR (Non-African American) 29.6 ml/min; Potassium 3.5 mmol/L (3.5-5.1)
[2022-09-15] MEDS: APIXABAN 2.5 MG TAB PO SCH (09:17)
[2022-09-15] MEDS: TAMSULOSIN HCL 0.4 MG CAP PO SCH (09:17)
[2022-09-15] MEDS: POLYETHYLENE (MIRALAX) 17 GM PACK PO SCH (09:17)
[2022-09-15] MEDS: LOSARTAN POTASSIUM 25 MG TAB PO SCH (09:17)
[2022-09-15] MEDS: carvediloL 12.5 MG TAB PO SCH (09:17)
[2022-09-15] MEDS: DOCUSATE SODIUM 100 MG CAP PO SCH (09:17)
[2022-09-15] MEDS: IRON SUCROSE 200 MG in 0.9 % SODIUM CHLORIDE 100 ML IV SCH (09:24)
[2022-09-15] MEDS: traMADol HCL 50 MG TABLET PO SCH (09:26)
--- NOTE | 2022-09-15 09:59 | Nephrology Progress Note ---
Date of Service September 15, 2022 Assessment & Plan (1) Acute kidney injury: (2) Volume overload: (3) Stage 3b chronic kidney disease: (4) Proteinuria: (5) HTN (hypertension): (6) Anemia: Plan 87 y o m with history of stage IIIB CKD, b/l cr 1.6-1.8, secondary to microvascular disease and right atrophic kidney. Admitted with concern over significant bilateral lower extremity edema. urine analysis showed high-grade proteinuria , PCR have risen from 0.3 to 2.5. On admission chest x-ray showed pulmonary vascular congestion. Has history of diastolic dysfunction. 02/23 Renal US revealed atrophic R kidney measuring only 8.0 cm. No hydronephrosis. Renal artery doppler 07/24 was negative for JUNG. Has h/o iron deficiency anemia (EGD and colonoscopy 2019 revealed gastritis/diverticulosis).Recently developed radiation necrosis and osteomyelitis of his pubic rami. He was on Daptomycin but recently changed to IV Vancomycin therapy. Was started on IV Lasix 40 mg twice a day with significant improvement volume status although continues to have bilateral lower extremity edema, better. Creatinine worsened further to 2.0. --Hold lasix, Monitor renal function and electrolyte. Recommend holding DC until improvement in renal function. --venofer 200 mg iv daily x 5 --will need outpt follow with PCP, CHF clinic Will follow Admission and Anticipated Discharge Date Admission Date: September 09, 2022 Subjective Mr. Mancia was seen and evaluated this morning. He denies any significant shortness of breath but continue to have lower extremity edema. Has been voiding decent amount however and measured as he has incontinence. Slight worsening of renal function electrolyte acceptable. Blood pressure fair. Review of Systems Review of Systems: Detailed review of system was otherwise unremarkable except mentioned above. Physical Exam Constitutional: WD/WN, vitals as above no acute distress Eyes: + anicteric sclerae Neck: normal visual inspection Respiratory: no respiratory distress Auscultation: lungs clear to auscultation bilaterally Cardiovascular: Rate/Rhythm: regular rate and regular rhythm Heart Sounds: normal S1 and normal S2 Extremities: + edema Skin: no rashes Neurologic: no focal motor deficits Psychiatric: Orientation: alert and oriented x 3 Results & Data ([facility]) Vital Signs (Past 12 Hours) Vital Signs Temp Pulse Pulse Resp BP Pulse Ox O2 Del Method 09/15/22 07:03 Room Air 09/15/22 07:21 36.4 C L 65 18 147/96 H 94 Room Air 09/15/22 07:14 97 H 09/15/22 04:39 36.3 C L 88 18 124/78 99 Room Air 09/14/22 23:11 87 09/14/22 22:45 36.7 C 95 H 20 132/81 98 Room Air PG Care Time/CCT Total # of Minutes Spent Total Time Spent with Patient: Total time spent is greater than 50% in coordination of care (as documented) at patient's floor/unit and/or counseling patient: Coding Level of Care Code 14076 Subseq Hosp Care Lvl 3 Diagnoses Acute kidney injury N17.9 Volume overload E87.79 Hypervolemia type: other Stage 3b chronic kidney disease N18.32 Proteinuria R80.9 HTN (hypertension) I10 Hypertension type: essential hypertension Anemia D64.9 (1) Volume overload Hypervolemia type: other Qualified Code(s): E87.79 - Other fluid overload (2) HTN (hypertension) Hypertension type: essential hypertension Qualified Code(s): I10 - Essential (primary) hypertension
[2022-09-15] MEDS: VANCOMYCIN HCL 500 MG in DEXTROSE 5% 100 ML IV SCH (10:18)
--- NOTE | 2022-09-15 10:57 | Heart Failure Progress Note ---
Date of Service September 15, 2022 Assessment & Plan (1) (HFpEF) heart failure with preserved ejection fraction: (2) Valvular heart disease: (3) Atrial fibrillation with controlled ventricular rate: (4) Coronary artery disease: (5) CKD (chronic kidney disease), stage III: (6) LUX (dyspnea on exertion): (7) Volume overload: Plan HFpEF: Patient has a heart failure diagnosis on his chart but he and his are unfamiliar with this. Unclear if this is strictly cardiac volume overload or a cardiorenal syndrome (+proteinuria). Suspect exacerbation secondary to IV antibiotic infusions and saline flushes. He remains hypervolemic on exam today. He has been tolerating Lasix 40 mg PO BID with good urine output. He is incontinent and unable to accurately measure his urine output. Would recommend daily STANDING weights for better accuracy. Weight continues to trend down. Discharge weight 161 lb. He has a home scale. Low sodium diet. Discussed the nature of heart failure and the goals of the program. They are agreeable to ongoing participation. Will formally enroll him. Atrial fibrillation: Rate well controlled. Asymptomatic. Continue current medical therapy. Continue Eliquis for anticoagulation. CAD: Denies angina. Continue current medical therapy. Disposition: Anticipate discharge today. Patient is scheduled for outpatient follow up 09/19/22 at 1030- recommend labs prior. Admission and Anticipated Discharge Date Admission Date: September 09, 2022 Subjective Patient is resting comfortably in his recliner this am. He has his feet elevat ed. He notes his breathing is stable. He is on room air. His edema is still present but improved. He slept well with his head elevated. I&O remain inaccurate. Weight trending down to 161 lb. He denies chest pain, cough, palpitations. Physical Exam Physical Exam: Constitutional: Alert, oriented, in no acute distress HEENT: Head is atraumatic and normocephalic. EOMs intact. Sclera anicteric. Face is symmetric. No perioral cyanosis. Mucous membranes moist. Neck: Supple, no JVD, +HJR Pulmonary: Normal respiratory effort, bibasilar crackles noted Cardiac: Regular rate and rhythm. Normal S1 and S2, no gallops, no rubs, no murmurs Extremities: 2+ radial pulses bilaterally. 2+ posterior tibialis pulses b ilaterally. 2+ pitting edema to the knees. No cyanosis or clubbing. Abdomen: Normal bowel sounds, soft, non-tender, no abdominal mass palpated Skin: Normal skin color, turgor, and pigmentation, no rash, no skin lesions Neurological: Patient is awake, alert, and oriented. Pleasant and cooperative. Answers questions appropriately. Speech is clear. Normal movement in all 4 extremities. Results & Data ([facility]) Vital Signs (Past 12 Hours) Vital Signs Temp Pulse Pulse Resp BP Pulse Ox O2 Del Method 09/15/22 07:03 Room Air 09/15/22 07:21 97.5 F L 65 18 147/96 H 94 Room Air 09/15/22 07:14 97 H 09/15/22 04:39 97.3 F L 88 18 124/78 99 Room Air 09/14/22 23:11 87 PG Care Time/CCT Total # of Minutes Spent Total Time Spent with Patient: Total time spent is greater than 50% in coordination of care (as documented) at patient's floor/unit and/or counseling patient: Coding Level of Care Code 50854 Subseq Hosp Care Lvl 3 Diagnoses (HFpEF) heart failure with preserved ejection fraction I50.30 Valvular heart disease I38 Atrial fibrillation with controlled ventricular rate I48.91 Coronary artery disease I25.10 CKD (chronic kidney disease), stage III N18.30 LUX (dyspnea on exertion) R06.09 Volume overload E87.79 Hypervolemia type: other (1) Volume overload Hypervolemia type: other Qualified Code(s): E87.79 - Other fluid overload
--- NOTE | 2022-09-15 13:24 | Discharge Summary ---
Date of Service September 15, 2022 Admission HPI Per Admitting Provider 87-year-old male presents with shortness of breath. He is not hypoxic on room air. Previous echo from March 2022 shows normal systolic function elevated right heart pressures. Patient may be states he is has some dietary indiscretion over the last few days Admission Exam Per Admitting Provider Physical Exam: The patient appeared well nourished and normally developed. Vital signs as documented. Head exam is normocephalic atraumatic Neck is without JVD, thyromegaly, or carotid bruits. Lungs are clear to auscultation, no focal loss of breath sounds Cardiac exam, Rhythm is regular.. No murmurs, rubs or gallops. Abdominal exam reveals normal bowel sounds, soft non tender, no masses Extremities are nonedematous and both pedal pulses are present Neurologic exam is alert and oriented, no focal loss of strength or sensation Skin is without bruises or rashes Psychologically is without concerns for anxiety or depression.. Principal Diagnosis 1. Dyspnea on exertion 2. Osteomyelitis of symphysis pubis Discharge Exam GENERAL : No acute distress EYES: No icterus, gaze conjugate NOSE: No evidence of epistaxis MOUTH: No lesions or candidiasis NECK: Supple LUNGS: CTA B/L, no wheezes, rales or rhonchi HEART: Regular, rate controlled ABDOMEN: Soft, NT, ND, BS Present EXTREMITIES: Bilateral pitting LE edema, pedal pulses intact NEURO: A&OX3 Discharge Data Allergies Allergy/AdvReac Type Severity Reaction Status Date / Time KEVIN Inhibitors Allergy Severe SHORTNESS Verified 09/09/22 17:54 OF BREATH Penicillins Allergy Intermediate HIVES Verified 09/09/22 17:54 rosuvastatin [From Crestor] Allergy Intermediate joint Verified 09/09/22 17:54 aches and cramping simvastatin Allergy Intermediate joint Verified 09/09/22 17:54 aches and cramping Xijeaci-JDQ-UcQ Reductase Allergy Intermediate joint Verified 09/09/22 17:54 Inhibitor aches and [Ovvlguj-Mor-Kms Reductase cramping Inhibitor] red yeast rice Allergy Rash Verified 09/11/22 16:32 daptomycin AdvReac Intermediate Joint Pain Verified 09/09/22 17:55 Consultations 09/09/22 16:24 ED Decision to Admit Stat 09/11/22 19:13 [facility] CHF Program Referral Routine 09/12/22 11:36 Consult Nephrology Routine Ordered Studies 09/10/22 16:39 CT pelvis wo con Routine PELVIS CT CT DOSE: 624.93 mGy.cm HISTORY: Pelvic pain. eval pubic symphysis osteomyelitis TECHNIQUE: Multiaxial CT images of the pelvis were performed and reformatted in the sagittal and coronal plane without the use of contrast. A dose lowering technique was utilized adhering to the principles of ALARA. COMPARISON: Abdomen and pelvis CT 09/04/2022. FINDINGS: Partially visualized posterior decompression and fusion hardware within the lumbosacral spine. Redemonstration of the abnormal widening, erosion, and fragmentation at the pubic symphysis with surrounding soft tissue thickening. No loculated fluid collections to suggest an abscess. There are multiple brachytherapy seeds seen posterior to the symphysis pubis with surrounding heterotopic ossification. Moderate bladder wall thickening persists. There is a small amount of ascites within the deep pelvis, unchanged. There is diffuse body wall edema again noted. Small fat/fluid containing bilateral inguinal hernias persist. Colonic diverticulosis. No evidence for acute radiculitis. The visualized loops of bowel show no evidence for a bowel ob struction. Calcified plaque within the abdominal aorta and iliac arteries. No significant pelvic lymphadenopathy. There is mild bilateral inguinal lymphadenopathy, unchanged. Moderate perirectal edema persists. IMPRESSION: 1. No significant change in the abnormal widening, erosion, and fragmentation of the pubic symphysis with surrounding soft tissue thickening. Infection/osteomyelitis remains the diagnosis of exclusion. A radiation necrosis could also be in the differential diagnosis given the adjacent brachytherapy seeds but is considered less likely. 2. Small amount of ascites, perirectal edema, and diffuse body wall edema persists. ACT 112: Negative or not required by law. Electronically signed by: Vu Perez M.D. 09/10/2022 5:40 PM Hospital Course (1) Volume overload: Given his protein/Cr ratio 2.5 I suspect his volume status is due to CKD with proteinuria rather than heat failure. Likely recently exacerbated by the need for intravenous antibiotics and normal saline flushes. GI following and increase diuretics Continue to follow daily weights at home Nephrology input very much appreciated. Patient was doing well to furosemide 40 mg p.o. twice daily. We will continue this regimen on discharge and plan on getting repeat labs on 09/16/2022 No acute outpatient follow-up with nephrology required. Spoke personally to Dr. Jaramillo. They would be glad to establish at some point with Dr. Brown as needed (2) Dyspnea on exertion: Presenting complaint is dyspnea on exertion - suspect mostly due to volume overload as above. This is resolved Anemia may also have been contributing therefore - Transfused 1 unit RBC [09/09]. Hgb currently stable V/Q scan with low probability of pulmonary embolism - suspect more likely diagnosis is pulmonary edema with associated leg swelling Patient beginning to ambulate more with walker. Encourage use of walker at home at all times Two-step prior to discharge to assess oxygen requirements failed to review significant hypoxia. Patient does not need supplemental oxygen on discharge (3) Proteinuria: Continue losartan however will have to watch a. fib rates do not increase if reducing carvedilol (4) (HFpEF) heart failure with preserved ejection fraction: Ruled out Suspect volume overload due to renal failure and subsequent proteinuria while receiving IV antibiotics as above. No inherent heart failure suspected given alternative etiology identified. (5) Atrial fibrillation: Watch for increased rates with nephrology reducing carvedilol dosing to allow BP to tolerate losartan and Lasix dosing Continue anticoagulation with Eliquis (6) Osteomyelitis of symphysis pubis: Incorrectly was placed on cefdinir on admission. He was inappropriately placed on this medication in the ER visit on 09/04 for cystitis as ER provider did not realize he was on IV cefepime at that time. This was carried over to the admission. Placed back on IV cefepime and IV vancomycin while inpatient Outpatient dosing apparently was cefepime 500mg IV daily and IV vancomycin 750mg IV BID which per current dosing appears to be vastly underdosing cefepime and overdosing vancomycin - need for continued inpatient stay until these doses are more stable. Trough levels are stable for the vancomycin. Personally spoke with outpatient infectious disease team. They will resume management of patient's antibiotics and duration of treatment on discharge Per prior provider last date of both antibiotics is 09/16/22 Patient should be discharged on cefepime 1 g IV every 12 hours and vancomycin 500 mg IV daily Patient's is to contact infectious disease office to confirm duration of treatment Patient has a PICC line placed. This will be used for home infusion of antibiotics. 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 s/p 1 unit packed RBC [09/09], s/p Venofer 200mg Hemoglobin is currently stable (9) Monoclonal gammopathy of undetermined significance: Outpatient management (10) CKD (chronic kidney disease), stage III: Patient follows Dr. Brown for chronic kidney disease Being followed by nephrology while inpatient Their input is appreciated (11) Prostate cancer: Patient has a history of prostate cancer with failed response to previous brachytherapy he is being followed by [facility] urology group Plan VTE Prophylaxis - Eliquis 2.5mg PO BID Diet - low Na Disposition -discharge home. Home health services confirmed by case management Total Time Total Time Spent Total Time Spent (In Minutes): 40 Discharge Plan Discharge Items Patient Disposition: Home - Home Health Services Reason For Visit: LUX, ANEMIA Discharge Diagnosis: Osteomyelitis, Fluid overload secondary to (HFpEF) heart failure with preserved ejection fraction Activity: Resume your previous activity Lifting: Gradually increase as tolerated Bathing: No limitations Exercise/Sports: Gradually increase as tolerated Weightbearing: Full weightbearing Non-emergency contact: Primary Care Provider Call non-emergency contact if: your symptoms worsen Follow-up/Referrals: Tiago Lara MD [Primary Care Provider] - 09/23/22 3:45 pm Laurel Lewis PA-C [Physician Billing Customer Service Representative] - 09/19/22 10:30 am (Congestive Heart Failure Program Appointment Information Early follow up is essential to managing your heart failure. An appointment has been scheduled for you with the [facility] Heart Failure Program within 7 days of discharge. Anticipate this visit to be 30-60 minutes long. Please expect a product manager medical device phone call from one of our nurses approximately 48 hours from discharge. They will also be placing an order for lab work to be completed 1-2 days prior to your heart failure follow up appointment. Please be sure to have this done so we can go over the results when you come in. Office Location The cardiology office building is located in front of the hospital at [address] Bring the following with you to your follow-up doctor appointments: Please bring your daily weight log any discharge paperwork all of your medication bottles with you to this visit. ) Diet: Heart Healthy Addtl Attending Provider Instructions: You should continue to coordinate care with your infectious disease doctor. A prescription was provided for Cefepime 2,000 mg twice daily and Vancomycin 500 mg once daily. You are being sent home with a PICC (percutaneously inserted central catheter). This can be used for your IV antibiotics and should be flushed per home health's protocol. Continue on Lasix (Furosemide) 40 mg by mouth daily. You are scheduled for follow up labs on 09/17/2022. These can be drawn from your PICC line. While in the hospital, your potassium was low. This was caused by your increased dose of lasix (Furosemide). You should take a multivitamin daily. You should also take a potassium supplement daily. This will be sent to your pharmacy. If you develop any cramping of your legs or other muscles, please contact your family doctor or your cardiology office for advise. You should use a walker at all times when walking or moving about. Addtl Boiler House Operator Provider Instructions: Call your Primary Care doctor if any of the following symptoms or problems start or get worse: * Shortness of breath or difficulty breathing * Wake up at night short of breath * Chest pain * Cough * Swelling of your hands, feet, or legs * More fatigued or tired with your normal activity * Palpitations - sudden fast heart beats WEIGHT * Weigh yourself every morning after using the bathroom. * Use the same scale. * Wear the same amount of clothing. * Write your weight down on a chart. * Call your Primary Care doctor if you gain more than 2-3 pounds in 1-2 days. MEDICATIONS * Use this discharge instruction sheet for medication instructions. * Take your medications at the time your doctor ordered. * Do not skip a dose of your medicines. * If you miss a dose of medicine, take it as soon as possible, but DO NOT DOUBLE A DOSE. * Read your medicine information when you get home. * Know all of the side effects of your medicine. If in doubt, ask your pharmacist * Call your Primary Care doctor's office if you have any side effects. * Be sure all of your doctors know what medicine and herbs you take (including cold, flu, and herbal medicine). Take the following with you to your follow-up doctor appointments: * Weight Chart * Medication List * List of questions Do not drink excessive alcohol, beer or wine. Pending Studies at Discharge: No Stand-Alone Forms: My [facility] Medications and DC Order Prescriptions: New furosemide 40 mg Tablet 40 mg PO [id number] Qty: 60 0RF carvedilol 12.5 mg Tablet 12.5 mg PO BID Qty: 60 0RF losartan 25 mg Tablet 25 mg PO QAM Qty: 30 0RF cholecalciferol (vitamin D3) 25 mcg (1,000 unit) Capsule 2,000 unit PO QPM Qty: 30 0RF vancomycin in dextrose 5 % 500 mg/100 mL piggyback 500 mg IV Q24H Qty: 500 0RF Rx Instructions: Should take for the next 2 days, then at the advice of the infectious disease team potassium chloride 20 mEq tablet extended release 20 meq PO DAILY Qty: 30 0RF cefepime 100 gram recon soln 1 g IV Q12H Qty: 1 0RF Rx Instructions: 1 gm twice daily via PICC ;line x 2 days then per infectious disease doctor Continued fluticasone propionate [Flonase Allergy Relief] 50 mcg/actuation spray,suspension 2 sprays intranasal BID PRN (Reason: Congestion) Qty: 3 docusate sodium [Colace] 100 mg capsule 100 mg PO BID Qty: 60 3RF tramadol 50 mg tablet 50 mg PO BID Qty: 30 0RF acetaminophen 325 mg Tablet 650 mg PO Q4H PRN (Reason: mild-moderate pain) Qty: 30 0RF Rx Instructions: OTC Eliquis 2.5 mg tablet 2.5 mg PO BID Qty: 180 3RF polyethylene glycol 3350 17 gram/dose powder 17 g PO DAILY PRN (Reason: severe constipation) tamsulosin [Flomax] 0.4 mg capsule 0.4 mg PO BID PRN (Reason: urinary discomfort) Discontinued carvedilol [Coreg] 12.5 mg tablet 25 mg PO BID Qty: 360 3RF cetirizine [Zyrtec] 10 mg tablet 10 mg PO HS Qty: 30 cholecalciferol (vitamin D3) 25 mcg (1,000 unit) capsule 50 mcg PO QPM furosemide [Lasix] 20 mg tablet 20 mg PO DAILY vancomycin 750 mg Recon Soln 750 mg IV UD Rx Instructions: ordered bid...but currently holding in fear it was affecting his breathing cefdinir 300 mg capsule 300 mg PO BID 7 Days Qty: 14 0RF Discharge Orders: Discharge Order (Routine); Ordered 09/15/22 Ordered By: Gurjit Hartley Admission Data Admit Date/Time: 09/09/22 16:49 Attending Provider: Peter Holloway Admit Provider: Noel Love Primary Care Provider: Tiago Lara Other Providers: Noel Love ; [facility] ; Laurel Lewis ; Lorenzo Brown Other Interventions: Discharge Summary Assessment (RN) Last Done: 09/15/22 12:36 Coding Level of Care Code D/C DAY MANAGEMENT >30 MINS Diagnoses Volume overload E87.79 Hypervolemia type: other Dyspnea on exertion R06.09 Proteinuria R80.9 (HFpEF) heart failure with preserved ejection fraction I50.30 Atrial fibrillation I48.91 Osteomyelitis of symphysis pubis M86.9 HTN (hypertension) I10 Hypertension type: essential hypertension Anemia D64.9 Monoclonal gammopathy of undetermined significance D47.2 CKD (chronic kidney disease), stage III N18.30 Prostate cancer C61 Time Spent (min) 45
== END 2022-09-15 13:50 | disposition home health service (06) | DRG 292 ==
LOC: ED 11:41 → EDINP 16:49 → SUATTDRO 16:49 → 2S 19:52

== ENCOUNTER 2022-11-05 14:41 | Inpatient (IN) ==
--- NOTE | 2022-11-05 16:47 | XRay Report ---
XR chest 1V portable HISTORY: Shortness of breath. COMPARISON: Chest 09/11/2022. FINDINGS: No pneumothorax. The heart remains enlarged. There is mild interstitial pulmonary edema and small bilateral pleural effusions. No new focal lung consolidations identified. IMPRESSION: No change in the mild interstitial pulmonary edema and small bilateral pleural effusions. ACT 112: Negative or not required by law. Electronically signed by: Vu Perez M.D. 11/05/2022 4:45 PM
[2022-11-05 16:56] LABS: Basophils # (auto) 0.06 K/uL (0-0.2); Basophils % (auto) 0.7 %; Eosinophils % (auto) 4.5 %; Hematocrit (blood only) 24.4 % (42.0-52.0); Hemoglobin 7.6 g/dl (14.0-18.0); Immature Granulocytes # (auto) 0.02 K/uL (0.01-0.20); Immature Granulocytes % (auto) 0.2 %; Lymphocytes # (auto) 0.56 K/uL (1.2-3.4); Lymphocytes % (auto) 6.3 %; Mean Corpuscular Hgb Conc 31.1 g/dL (32.0-36.0); Mean Corpuscular Volume 93.1 fL (80.0-100.0); Mean Platelet Volume 9.4 fL (9.4-12.4); Monocytes # (auto) 0.67 K/uL (0.11-0.59); Monocytes % (auto) 7.5 %; Neutrophils # (auto) 7.19 K/uL (1.40-6.50); Neutrophils % (auto) 80.8 %; Platelet Count 197 K/uL (130-400); RDW Coefficient of Variation 20.4 % (11.5-14.5); Red Blood Count 2.62 M/uL (4.70-6.10)
[2022-11-05 17:13] LABS: Alanine Aminotransferase 10 U/L (7-52); Albumin Globulin Ratio 1.2 (0.9-2); Albumin Level 3.9 gm/dl (3.4-5.0); Alkaline Phosphatase 69 U/L (34-104); Anion Gap 8 (3-11); Aspartate Aminotransferase 17 U/L (13-39); BUN Creatinine Ratio 24.3 (10-20); Bilirubin,Total 0.6 mg/dl (0.2-1.0); Blood Urea Nitrogen 51 mg/dl (6-23); Carbon Dioxide 24 mmol/L (21-32); Chloride 106 mmol/L (98-107); Est GFR (African American) 31.4 ml/min; Est GFR (Non-African American) 27.1 ml/min; Globulin 3.3 gm/dl (2.5-4.0); Glucose 121 mg/dl (70-99(Fasting)); Magnesium 2.5 mg/dl (1.7-2.4); Potassium 4.4 mmol/L (3.5-5.1); Sodium 138 mmol/L (136-145); Total Protein 7.2 gm/dl (6.0-8.3)
[2022-11-05 17:18] LABS: Troponin I High Sensitivity 20.5 pg/ml (0-20)
[2022-11-05 17:19] LABS: Anisocytosis Present; Polychromasia 1+
[2022-11-05 17:26] LABS: INR 1.1 (0.9-1.1); Partial Thromboplastin Ratio 1.1; Partial Thromboplastin Time 29.7 Seconds (21.0-31.0); Prothrombin Time 11.6 Seconds (9.0-12.0)
[2022-11-05] MEDS ORDERED: PANTOprazole 40 MG in SYRINGE 0 ML IV ONE (18:37)
--- NOTE | 2022-11-05 18:47 | Emergency Department Note ---
Impression & Plan Acute GI bleeding, Dyspnea on exertion, Anemia, CHF (congestive heart failure) ED Provider Note NAME: TANESHA TIRADO AGE: 87 SEX: M : 1935 ARRIVES VIA: Walk-In INFORMANT: Patient, ED PROVIDER(S): Karlo Wagner DO CHIEF COMPLAINT: Shortness of breath HPI: The patient is an 87-year-old male who has a history of pulmonary edema who presented to the emergency department for an evaluation of shortness of breath. The patient presented with his significant other. She does provide part of the history as well. The patient's been having problems over the last few days especially. He is noticed that he has been having shortness of breath with any exertion as well as orthopnea. His significant other did give him an extra dose of Lasix today thinking he was not CHF. The patient has a history of kidney disease. He also has a history of recently treated pelvic bone osteomyelitis. He is on no antibiotics. He denies having any cough. He denies having any hemoptysis. He denies having any fever. He does note lower extremity swelling. He has had decreased urine output but he is noticed dark urine as well. ROS: See above HPI for pertinent positives & negatives. A total of 10 systems reviewed and were otherwise negative. PAST MEDICAL HISTORY: See Below PAST SURGICAL HISTORY: See Below FAMILY HISTORY: See Below SOCIAL HISTORY: See Below HOME MEDICATIONS: See Below ALLERGIES: See Below VITALS: See Below PHYSICAL EXAMINATION: GENERAL: Patient is awake alert in no acute distress patient is resting comfortably and showing no signs of anxiety EYES: The conjunctivae are clear. The pupils are round and reactive. EARS, NOSE, MOUTH AND THROAT: The nose is without any evidence of any deformity. Mucous membranes are moist. Tongue is midline. NECK: The neck is nontender and supple. RESPIRATORY: Shallow respirations were noted. Rales are noted throughout. There was conversational dyspnea. CARDIOVASCULAR: Irregular heart sounds were noted auscultation. There is no definite murmur. GASTROINTESTINAL: The abdomen is soft. Abdomen is nontender. Rectal exam revealed dark stool which was strongly heme positive. MUSCULOSKELETAL/EXTREMITIES: There is no evidence of gross deformity full range of motion is noted in the hips and shoulders. SKIN: Skin was warm and dry. Pedal edema was noted bilaterally. NEUROLOGIC: Patient is awake alert and oriented x3. MEDICAL DECISION MAKING: The patient is an 87-year-old male who presented to the emergency department for an evaluation of shortness of breath and dyspnea on exertion. The patient does have a history of volume overload and pulmonary edema. His significant other noted he had weight gain and leg swelling. She thought this could be related to his breathing difficulties. Usually he is instructed to take an extra dose of Lasix when this occurs. The patient presented to the emergency department with worsening symptoms. He was found to have significant anemia with a drop in hemoglobin since the beginning of the year. The patient had a rectal exam in the emergency department which was positive for blood in the stool. The patient was treated with IV Protonix. Further laboratory and radiographic studies were obtained. I discussed the patient's condition with the on-call [facility] hospitalist. I will defer further transfusion to their judgment. The patient was feeling much better at rest. Triage Nursing notes reviewed. Prior medical records reviewed Vital Signs: reviewed and remarkable for no significant abnormalities Differential diagnosis: Reactive airway disease, pneumonia, pneumothorax, COPD, CHF, infections, cardiac ischemia, pulmonary embolism, musculoskeletal, gastrointestinal, as well as other pathologies. ER treatment provided: See below Diagnostics interpreted by me: ECG: EKG was obtained in the emergency department. My interpretation is atrial fibrillation at 88 bpm. There were no PVCs. ST segment depressions were noted in the inferior and lateral leads. This was compared to a tracing from September 11, 2022. No specific changes were noted. Cardiac Monitoring: An order was placed for continuous cardiac monitoring. The monitor shows a rate of with 93 bpm with atrial fibrillation Laboratory studies: As stated above and show below. Imaging studies: See below. Radiographic imaging was reviewed by myself Consultation(s): I discussed this case with Dr. Bell who is on-call for the [facility] hospitalist group. He will evaluate the patient. Past Med/Surg History Medical History Acute kidney injury Anemia Aortic regurgitation Arthritis back Atrial fibrillation Follows Dr. 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 Bone marrow biopsy negative for plasma dy scrasia and B cell lymphoma. Myocardial Infarction 1994--followed with Dr. Landaverde Peripheral neuropathy Presbyesophagus Prostate cancer (~04/2005) s/p failure of brachytherapy. Patient opted to forego further treatment d/t age. Had seeding placed in prostate Shortness of breath on exertion Spinal stenosis Tricuspid regurgitation Surgical History History of back surgery (08/06/17) Dr. Stephens. Fused at L4-L5 and sacrum. History of bilateral cataract extraction History of bladder surgery TURBT 08/17/2007 for bladder cancer History of cardiac cath 1994 @ [facility] [place]--with 1 stent placed - unsure type/location - Follows Dr. Verduzco History of colonoscopy History of cystoscopy multiple times--d/t bladder cancer History of esophagogastroduodenoscopy (EGD) History of heart artery stent 1994 @ [facility] [place] - 1 stent placed - unsure type/location - Follows Dr. Verduzco History of prostate biopsy Unable to find path report in [employer] or [facility]. History of tooth extraction all upper teeth/partial lower Hx of vasectomy Family History Unknown Prostate cancer Bladder cancer Hypertension Father Family history of diabetes mellitus Daughter Breast cancer Son Myocardial infarction Other No family history of adverse response to anesthesia Denies family history of Ovarian cancer Colorectal cancer Social History Smoking Status: Never smoker Tobacco Type: Cigarettes Age Quit Using Tobacco: 48; Cigarettes Per Day: 1 pack per day; Second Hand Exposure: No; Do You Dip or Chew Tobacco: No; Hx Alcohol Use: Yes Alcohol type: beer Alcohol Intake Frequency Comment: once a day Hx Substance Use: No Preferred Language: Slovenian Communication Ability: Effective Visual Impairment: Limited Hearing Ability: Hard of Hearing Rail Transportation 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 Required: No Beliefs That Will Affect Care: None marital status: Current Living Situation: Spouse Current Living Situation Comment: Lives at home with his current occupational status: retired How many Children do You have: 2 Feels Safe at Home: Yes Safety Concerns: Feels Safe At This Time caffeine: Yes (coffee) Dental Care, Regularly: Yes Physical Activity Frequency: Daily Physical Activity Frequency Comment: treadmill in morning, sit ups Seatbelt Use: always Sunscreen Use: Yes Assistive Devices: Cane Allergies Allergies Allergy/AdvReac Type Severity Reaction Status Date / Time KEVIN Inhibitors Allergy Severe SHORTNESS Verified 10/28/22 13:50 OF BREATH Penicillins Allergy Intermediate HIVES Verified 10/28/22 13:50 rosuvastatin [From Crestor] Allergy Intermediate joint Verified 10/28/22 13:50 aches and cramping simvastatin Allergy Intermediate joint Verified 10/28/22 13:50 aches and cramping Admswne-PAE-DrN Reductase Allergy Intermediate joint Verified 10/28/22 13:50 Inhibitor aches and [[id number] Reductase cramping Inhibitor] red yeast rice Allergy Rash Verified 10/28/22 13:50 daptomycin AdvReac Intermediate Joint Pain Verified 10/28/22 13:50 Home Meds Home Medications Medication Instructions Recorded Confirmed tamsulosin 0.4 mg capsule (Flomax) 0.4 mg PO BID PRN urinary 03/31/22 11/05/22 discomfort polyethylene glycol 3350 17 17 g PO DAILY PRN severe 09/09/22 11/05/22 gram/dose oral powder constipation docusate sodium 100 mg capsule 100 mg PO BID PRN Constipation 09/23/22 11/05/22 (Colace) Previous Rx's Medication Instructions Recorded acetaminophen 325 mg tablet 650 mg PO Q4H PRN mild-moderate 07/08/22 pain #30 tabs apixaban 2.5 mg tablet (Eliquis) 2.5 mg PO BID #180 tabs 07/08/22 cholecalciferol (vitamin D3) 25 2,000 unit PO QPM #30 caps 09/15/22 mcg (1,000 unit) capsule chlorthalidone 25 mg tablet 25 mg PO DAILY #90 tabs 09/22/22 furosemide 40 mg tablet 20 mg PO DAILY #30 tabs 09/30/22 carvedilol 12.5 mg tablet 12.5 mg PO BID #180 tabs 10/10/22 losartan 25 mg tablet 25 mg PO QAM #90 tabs 10/10/22 potassium chloride 20 mEq 20 meq PO DAILY #90 tabs 10/10/22 tablet,extended release ferrous sulfate 324 mg (65 mg 324 mg PO .COMPLEX #30 tabs 10/28/22 iron) tablet,delayed release tramadol 50 mg tablet 50 mg PO DAILY PRN pain #90 tabs 11/03/22 Results & Data (ED) Vital Signs Vital Signs - 24 hr 11/05/22 14:45 11/05/22 18:50 11/05/22 18:50 Temperature 36.4 C L Temperature Source Temporal Artery Scan Pulse Rate 63 Pulse Rate [Apical] 88 Pulse Rate from SpO2 Sensor Pulse Rhythm Pulse Rhythm [Apical] Regular Pulse Strength [Apical] Normal Respiratory Rate 18 20 Respiratory Effort / Characteristics Non-Labored Spontaneous Non-Labored Spontaneous Respiratory Depth Normal Normal Respiratory Pattern Regular Regular Blood Pressure 135/60 Blood Pressure [Left Arm] 119/75 Blood Pressure Mean 85 Blood Pressure Mean [Left Arm] 89 Pulse Oximetry 98 97 95 Oxygen Delivery Method Room Air Room Air Room Air Sepsis Recent Fever Within 48 Hours No Sepsis New/Unexplained Change in Mental Status No Sepsis Action Taken by Nursing No Action Required 11/05/22 18:51 11/05/22 18:51 11/05/22 18:51 Temperature Temperature Source Pulse Rate 88 Pulse Rate [Apical] Pulse Rate from SpO2 Sensor Pulse Rhythm Regular Pulse Rhythm [Apical] Pulse Strength [Apical] Respiratory Rate 20 20 Respiratory Effort / Characteristics Non-Labored Spontaneous Respiratory Depth Respiratory Pattern Blood Pressure Blood Pressure [Left Arm] Blood Pressure Mean Blood Pressure Mean [Left Arm] Pulse Oximetry 97 96 96 Oxygen Delivery Method Room Air Room Air Room Air Sepsis Recent Fever Within 48 Hours Sepsis New/Unexplained Change in Mental Status Sepsis Action Taken by Nursing 11/05/22 18:34 11/05/22 18:36 11/05/22 18:36 Temperature Temperature Source Pulse Rate 103 H 98 H Pulse Rate [Apical] Pulse Rate from SpO2 Sensor 89 Pulse Rhythm Pulse Rhythm [Apical] Pulse Strength [Apical] Respiratory Rate 22 22 Respiratory Effort / Characteristics Respiratory Depth Respiratory Pattern Blood Pressure 134/90 Blood Pressure [Left Arm] Blood Pressure Mean 104 Blood Pressure Mean [Left Arm] Pulse Oximetry 97 Oxygen Delivery Method Sepsis Recent Fever Within 48 Hours Sepsis New/Unexplained Change in Mental Status Sepsis Action Taken by Nursing 11/05/22 18:40 11/05/22 18:45 11/05/22 18:45 Temperature Temperature Source Pulse Rate 93 H 93 H Pulse Rate [Apical] Pulse Rate from SpO2 Sensor 96 H 88 Pulse Rhythm Pulse Rhythm [Apical] Pulse Strength [Apical] Respiratory Rate 24 22 Respiratory Effort / Characteristics Respiratory Depth Respiratory Pattern Blood Pressure 119/75 Blood Pressure [Left Arm] Blood Pressure Mean 89 Blood Pressure Mean [Left Arm] Pulse Oximetry 90 Oxygen Delivery Method Sepsis Recent Fever Within 48 Hours Sepsis New/Unexplained Change in Mental Status Sepsis Action Taken by Nursing 11/05/22 18:50 11/05/22 19:00 11/05/22 19:00 Temperature Temperature Source Pulse Rate 85 102 H Pulse Rate [Apical] Pulse Rate from SpO2 Sensor 89 94 H Pulse Rhythm Pulse Rhythm [Apical] Pulse Strength [Apical] Respiratory Rate 24 24 Respiratory Effort / Characteristics Respiratory Depth Respiratory Pattern Blood Pressure 123/85 Blood Pressure [Left Arm] Blood Pressure Mean 97 Blood Pressure Mean [Left Arm] Pulse Oximetry 97 92 Oxygen Delivery Method Sepsis Recent Fever Within 48 Hours Sepsis New/Unexplained Change in Mental Status Sepsis Action Taken by Alf Medications Current Medication List: was personally reviewed by me Laboratory Data Attestation: I reviewed the patient's lab results. 11/05/22 16:32 11/05/22 16:32 Lab Results 11/05/22 11/05/22 11/05/22 Range/Units 16:32 16:32 16:32 WBC 8.90 (4.8-10.8) K/ul RBC 2.62 L (4.70-6.10) M/uL Hgb 7.6 L (14.0-18.0) g/dl Hct 24.4 L (42.0-52.0) % MCV 93.1 (80.0-100.0) fL MCH 29.0 (25.0-34.0) pg MCHC 31.1 L (32.0-36.0) g/dL RDW Std Deviation 69.0 H (36.4-46.3) fL RDW Coeff of Tay 20.4 H (11.5-14.5) % Plt Count 197 (130-400) K/uL MPV 9.4 (9.4-12.4) fL Immature Gran % (Auto) 0.2 % Neut % (Auto) 80.8 % Lymph % (Auto) 6.3 % Den[place] % (Auto) 7.5 % Eos % (Auto) 4.5 % Baso % (Auto) 0.7 % Reticulocyte % (Auto) (0.5-2.0) % Neut # (Auto) 7.19 H (1.40-6.50) K/uL Lymph # (Auto) 0.56 L (1.2-3.4) K/uL [place] # (Auto) 0.67 H (0.11-0.59) K/uL Eos # (Auto) 0.40 (0-0.50) K/uL Baso # (Auto) 0.06 (0-0.2) K/uL Reticulocyte # (0.02-0.10) 10^6/uL Immature Gran # (Auto) 0.02 (0.01-0.20) K/uL Polychromasia 1+ Anisocytosis Present ESR (0-20) mm/hr PT 11.6 (9.0-12.0) Seconds INR 1.1 (0.9-1.1) APTT 29.7 (21.0-31.0) Seconds PTT Ratio 1.1 Sodium 138 (136-145) mmol/L Potassium 4.4 (3.5-5.1) mmol/L Chloride 106 (98-107) mmol/L Carbon Dioxide 24 (21-32) mmol/L Anion Gap 8 (3-11) BUN 51 H (6-23) mg/dl Creatinine 2.10 H (0.6-1.4) mg/dl Est Cr Clr Drug Dosing Not Reportable Est GFR ( Amer) 31.4 ml/min Est GFR (Non-Af Amer) 27.1 ml/min BUN/Creatinine Ratio 24.3 H (10-20) Glucose 121 H (70-99(Fasting)) mg/dl Calcium 10.0 (8.5-10.1) mg/dl Magnesium 2.5 H (1.7-2.4) mg/dl Total Bilirubin 0.6 (0.2-1.0) mg/dl AST 17 (13-39) U/L ALT 10 (7-52) U/L Alkaline Phosphatase 69 (34-104) U/L Troponin I High Sens 20.5 H (0-20) pg/ml C-Reactive Protein 3.38 H (0-0.5) mg/dl B-Natriuretic Peptide (0-100) pg/ml Total Protein 7.2 (6.0-8.3) gm/dl Albumin 3.9 (3.4-5.0) gm/dl Globulin 3.3 (2.5-4.0) gm/dl Albumin/Globulin Ratio 1.2 (0.9-2) Procalcitonin (0-0.5) ng/ml SARS-CoV-2, RNA, NAAT (NEGATIVE) Blood Type Antibody Screen Crossmatch 11/05/22 11/05/22 11/05/22 Range/Units 16:32 16:32 16:32 WBC (4.8-10.8) K/ul RBC (4.70-6.10) M/uL Hgb (14.0-18.0) g/dl Hct (42.0-52.0) % MCV (80.0-100.0) fL MCH (25.0-34.0) pg MCHC (32.0-36.0) g/dL RDW Std Deviation (36.4-46.3) fL RDW Coeff of Tay (11.5-14.5) % Plt Count (130-400) K/uL MPV (9.4-12.4) fL Immature Gran % (Auto) % Neut % (Auto) % Lymph % (Auto) % Den[place] % (Auto) % Eos % (Auto) % Baso % (Auto) % Reticulocyte % (Auto) 3.9 H (0.5-2.0) % Neut # (Auto) (1.40-6.50) K/uL Lymph # (Auto) (1.2-3.4) K/uL Denali # (Auto) (0.11-0.59) K/uL Eos # (Auto) (0-0.50) K/uL Baso # (Auto) (0-0.2) K/uL Reticulocyte # 0.10 (0.02-0.10) 10^6/uL Immature Gran # (Auto) (0.01-0.20) K/uL Polychromasia Anisocytosis ESR 35 H (0-20) mm/hr PT (9.0-12.0) Seconds INR (0.9-1.1) APTT (21.0-31.0) Seconds PTT Ratio Sodium (136-145) mmol/L Potassium (3.5-5.1) mmol/L Chloride (98-107) mmol/L Carbon Dioxide (21-32) mmol/L Anion Gap (3-11) BUN (6-23) mg/dl Creatinine (0.6-1.4) mg/dl Est Cr Clr Drug Dosing Est GFR ( Amer) ml/min Est GFR (Non-Af Amer) ml/min BUN/Creatinine Ratio (10-20) Glucose (70-99(Fasting)) mg/dl Calcium (8.5-10.1) mg/dl Magnesium (1.7-2.4) mg/dl Total Bilirubin (0.2-1.0) mg/dl AST (13-39) U/L ALT (7-52) U/L Alkaline Phosphatase (34-104) U/L Troponin I High Sens (0-20) pg/ml C-Reactive Protein (0-0.5) mg/dl B-Natriuretic Peptide (0-100) pg/ml Total Protein (6.0-8.3) gm/dl Albumin (3.4-5.0) gm/dl Globulin (2.5-4.0) gm/dl Albumin/Globulin Ratio (0.9-2) Procalcitonin < 0.05 (0-0.5) ng/ml SARS-CoV-2, RNA, NAAT (NEGATIVE) Blood Type Antibody Screen Crossmatch 11/05/22 11/05/22 11/05/22 Range/Units 17:10 18:57 18:57 WBC (4.8-10.8) K/ul RBC (4.70-6.10) M/uL Hgb (14.0-18.0) g/dl Hct (42.0-52.0) % MCV (80.0-100.0) fL MCH (25.0-34.0) pg MCHC (32.0-36.0) g/dL RDW Std Deviation (36.4-46.3) fL RDW Coeff of Tay (11.5-14.5) % Plt Count (130-400) K/uL MPV (9.4-12.4) fL Immature Gran % (Auto) % Neut % (Auto) % Lymph % (Auto) % [place] % (Auto) % Eos % (Auto) % Baso % (Auto) % Reticulocyte % (Auto) (0.5-2.0) % Neut # (Auto) (1.40-6.50) K/uL Lymph # (Auto) (1.2-3.4) K/uL Denali # (Auto) (0.11-0.59) K/uL Eos # (Auto) (0-0.50) K/uL Baso # (Auto) (0-0.2) K/uL Reticulocyte # (0.02-0.10) 10^6/uL Immature Gran # (Auto) (0.01-0.20) K/uL Polychromasia Anisocytosis ESR (0-20) mm/hr PT (9.0-12.0) Seconds INR (0.9-1.1) APTT (21.0-31.0) Seconds PTT Ratio Sodium (136-145) mmol/L Potassium (3.5-5.1) mmol/L Chloride (98-107) mmol/L Carbon Dioxide (21-32) mmol/L Anion Gap (3-11) BUN (6-23) mg/dl Creatinine (0.6-1.4) mg/dl Est Cr Clr Drug Dosing Est GFR ( Amer) ml/min Est GFR (Non-Af Amer) ml/min BUN/Creatinine Ratio (10-20) Glucose (70-99(Fasting)) mg/dl Calcium (8.5-10.1) mg/dl Magnesium (1.7-2.4) mg/dl Total Bilirubin (0.2-1.0) mg/dl AST (13-39) U/L ALT (7-52) U/L Alkaline Phosphatase (34-104) U/L Troponin I High Sens (0-20) pg/ml C-Reactive Protein (0-0.5) mg/dl B-Natriuretic Peptide 541 H (0-100) pg/ml Total Protein (6.0-8.3) gm/dl Albumin (3.4-5.0) gm/dl Globulin (2.5-4.0) gm/dl Albumin/Globulin Ratio (0.9-2) Procalcitonin (0-0.5) ng/ml SARS-CoV-2, RNA, NAAT NEGATIVE (NEGATIVE) Blood Type A Negative Antibody Screen NEGATIVE Crossmatch See Detail Administered Medications Carvedilol (Carvedilol 12.5 Mg Tab) 12.5 mg PO BID JAVIER Stop: 12/05/22 21:07 Last Admin: 11/06/22 07:49 Dose: 12.5 mg Documented By: Admin: 11/05/22 21:29 Dose: 12.5 mg Documented By: CURT Pantoprazole Sodium 40 mg/ (Syringe) 10 mls @ 5 mls/min IV BID JAVIER Stop: 12/06/22 08:59 Last Admin: 11/06/22 07:50 Dose: 5 mls/min Documented By: NANCY Potassium Chloride (Potassium Chloride Crtab 20 Meq Tabcr) 20 meq PO DAILY JAVIER Stop: 12/06/22 08:59 Last Admin: 11/06/22 07:50 Dose: Not Given Documented By: NANCY Discontinued Medications Furosemide (Furosemide Inj 20 Mg/2 Ml Vial) 20 mg IV ONE ONE Stop: 11/05/22 20:01 Last Admin: 11/05/22 20:37 Dose: 20 mg Documented By: CURT Furosemide (Furosemide 40 Mg/4 Ml Vial) Confirm Administered Dose 40 mg IV .STK- MED ONE Stop: 11/05/22 20:36 Last Admin: 11/05/22 20:37 Dose: Not Given Documented By: CURT Pantoprazole Sodium 40 mg/ (Syringe) 10 mls @ 5 mls/min IV NOW ONE Stop: 11/05/22 18:38 Last Admin: 11/05/22 20:37 Dose: 5 mls/min Documented By: CURT Potassium Chloride (Potassium Chloride 10 Meq Tabcr) Confirm Administered Dose 20 meq PO .STK-MED ONE Stop: 11/06/22 07:49 Last Admin: 11/06/22 07:50 Dose: Not Given Documented By: Imaging Data Radiologist's Impression: Chest X-Ray 11/05/22 16:04 XR chest 1V portable HISTORY: Shortness of breath. COMPARISON: Chest 09/11/2022. FINDINGS: No pneumothorax. The heart remains enlarged. There is mild interstitial pulmonary edema and small bilateral pleural effusions. No new focal lung consolidations identified. IMPRESSION: No change in the mild interstitial pulmonary edema and small bilateral pleural effusions. ACT 112: Negative or not required by law. Electronically signed by: Vu Perez M.D. 11/05/2022 4:45 PM Discharge Plan Visit Data Chief Complaint: Shortness of Breath/Dyspnea Stated Complaint: SOB, LEFT SHOULDER PAIN, LETHARGIC, POSSIBLE UTI ED Provider: Karlo Wagner Discharge Problem: Acute GI bleeding, Dyspnea on exertion, Anemia, CHF (congestive heart failure) Patient Disposition: Admitted As Inpatient Discharge Instructions Interventions: ED Discharge Assessment Last Done: 11/05/22 21:07 : Anemia Qualifiers: Anemia type: unspecified type Qualified Code(s): D64.9 - Anemia, unspecified CHF (congestive heart failure) Qualifiers: Heart failure type: unspecified Heart failure chronicity: acute on chronic Qualified Code(s): I50.9 - Heart failure, unspecified
--- NOTE | 2022-11-05 19:00 | History & Physical Report ---
Date of Service November 05, 2022 Assessment & Plan (1) Dyspnea on exertion: Plan: Torrey is an 87-year-old male with history of MGUS, longstanding chronic anemia, CKD stage IV, HFpEF, prior osteomyelitis, hypertension, CAD, A. fib on Eliquis who presented to [facility] for progressive dyspnea on exertion that is likely multifactorial between hypervolemia and symptomatic anemia. Dyspnea on Exertion * Reporting approx. 3 days of worsening LUX and generalized SOB, +1 day of diarrhea * Work-up as follows: -- JVD and 2+ pitting edema appreciated on exam -- Hgb 7.6 on arrival (from 8.1 on 10/27 and 10.6 on 09/30) -- BUN 51 / Cr 2.10 (baseline 1.7 - 1.9) -- BNP 541 (in setting of CKD) -- CXR with unchanged mild interstitial pulmonary edema and small bilateral pleural effusions * Suspect multifactorial: symptomatic anemia (in setting of hematochezia on history and grossly positive stool testing in ED), component of hypervolemia in known h/o HFpEF/advanced CKD. Lower suspicion for PE, PNA. * Because this appears like a mixed picture but is concerning for ABLA, will start with Lasix 20mg IV x 1 and then transfuse 1u pRBC. Can schedule further diuresis in AM pending clinical response. * Hold Eliquis for now * Protonix 40mg IV b.i.d. JAVIER * Consult GI - appreciate input on need for ?scope while here * NPO at midnight * Type and screen has been ordered (2) Anemia: Plan: Hgb 7.6 on arrival from 8.1 on 10/27 and 10.6 on 09/30 -- c/f ongoing oozing bleed in setting of known chronic anemia (iron deficiency, CK3-4) Historically denies any hematochezia, difficult to discern melena versus discoloration from iron supplementation Grossly heme positive stool in the ED Transfuse 1 unit packed cells; consent obtained on admission Hold apixaban as above Pantoprazole 40mg IV b.i.d. Consult gastroenterology: Appreciate insight on need for scoping while here Status post EGD and colonoscopy in 2020 that revealed gastritis and diverticulosis Trend H&H, check ferritin and B12 in the AM. May also wish to give EPO shot while here in setting of known CKD and persistent Hgb < 10 (3) (HFpEF) heart failure with preserved ejection fraction: Plan: Last TTE in 03/2022 demonstrating LVEF 50-55%, moderate mitral and tricuspid regurgitation, elevated RVSP at 30 to 40 mmHg He appears hypervolemic on exam with JVD and 2+ pitting edema in the LE bilaterally Lasix 20 mg IV [id number] more gentle in setting of concern for ABLA Strict intake/output, daily weights, low-sodium diet, 2L fluid restriction Schedule more diuresis pending clinical response to Lasix + transfusion trial (4) Chronic kidney disease, stage IV (severe): Plan: Baseline creatinine 1.72.03 Admission creatinine 2.10 Secondary to large vessel vascular disease and atrophy of the right kidney Follows with Dr. Brown of [facility] nephrology Hold losartan and chlorthalidone in setting of mildly bumped creatinine; resume when appropriate (5) HTN (hypertension): Plan: Continue Coreg, Lasix as above Hold losartan, chlorthalidone in setting of c/f GIB and resume when appropriate (6) Monoclonal gammopathy of undetermined significance: Plan: Noted in context of anemia. 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 fib on Eliquis who presented to [facility] for progressive dyspnea on exertion. Patient says that he was otherwise in his normal health up until Thursday (3 days ago). He says that he was previously exercising going up the stairmaster without significant issues. Then beginning on Thursday, his noticed that he began becoming more short of breath with simple activities, such as walking around the house. This is atypical for him. It felt like it took him several minutes to catch his breath after he would stop exerting himself. He denies any coughing, fever, chills, sweats. He said that maybe he got better on Thursday, but then on Thursday started getting worse again. He did have an episode of voluminous diarrhea on Thursday. He also said that he had a large episode of hematochezia in his Depends after getting a "cramping abdominal pain." He is on iron supplementation, so has noticed that his stools have been blackbut says this is really not changed, and denies any melena. He does report being a previous high utilizer of ibuprofen, but stopped following his last kidney appointment due to his CKD at the recommendation of his oxygen therapy technician. He endorses chronic orthopnea. This has not changed. He denies any alcohol use, tobacco use, recreational drug use. Of note, patient was recently hospitalized and discharged on 09/15/2022 for progressive dyspnea on exertion thought to be secondary to volume overload (HFpEF, CKD) and possibly component of anemia. He was transfused 1 unit of PRBCs. He also did receive a VQ scan that did not demonstrate strong evidence of PE. In the ER, patient was found to be hemodynamically stable with heart rate 63, blood pressure 135/60. Weight on admission_. Admission labs notable for hemoglobin 7.6 (from 8.1 on 10/27), INR 1.1, BUN 51/creatinine 2.1 (baseline appears to be 1.72.0 on review of more recent records), high-sensitivity troponin 20.5. He had a strong heme positive stool. Admission chest x-ray revealing mild interstitial pulmonary edema with small bilateral pleural effusions, unchanged from September 11 study. Admission ECG demonstrating unchanged atrial fibrillation with nonspecific conduction changes. He was given pantoprazole 40 mg IV. --- This documentation was created utilizing dictation software. As such, syntax, grammatical, and word-choice errors may be present. Notes are screened prior to submission in an attempt to reduce these errors. If there are any questions or concerns, please contact the author directly for clarification. Allergies Allergy/AdvReac Type Severity Reaction Status Date / Time KEVIN Inhibitors Allergy Severe SHORTNESS Verified 10/28/22 13:50 OF BREATH Penicillins Allergy Intermediate HIVES Verified 10/28/22 13:50 rosuvastatin [From Crestor] Allergy Intermediate joint Verified 10/28/22 13:50 aches and cramping simvastatin Allergy Intermediate joint Verified 10/28/22 13:50 aches and cramping Brdmerx-MZM-YeM Reductase Allergy Intermediate joint Verified 10/28/22 13:50 Inhibitor aches and [Eqzxirq-Gan-Ngk Reductase cramping Inhibitor] red yeast rice Allergy Rash Verified 10/28/22 13:50 daptomycin AdvReac Intermediate Joint Pain Verified 10/28/22 13:50 Home Medications Medication Instructions Recorded Confirmed Type tamsulosin 0.4 mg capsule (Flomax) 0.4 mg PO BID PRN urinary 03/31/22 11/05/22 History discomfort acetaminophen 325 mg tablet 650 mg PO Q4H PRN mild-moderate 07/08/22 11/05/22 Rx pain #30 tabs apixaban 2.5 mg tablet (Eliquis) 2.5 mg PO BID #180 tabs 07/08/22 11/05/22 Rx polyethylene glycol 3350 17 17 g PO DAILY PRN severe 09/09/22 11/05/22 History gram/dose oral powder constipation cholecalciferol (vitamin D3) 25 2,000 unit PO QPM #30 caps 09/15/22 11/05/22 Rx mcg (1,000 unit) capsule chlorthalidone 25 mg tablet 25 mg PO DAILY #90 tabs 09/22/22 11/05/22 Rx docusate sodium 100 mg capsule 100 mg PO BID PRN Constipation 09/23/22 11/05/22 History (Colace) furosemide 40 mg tablet 20 mg PO DAILY #30 tabs 09/30/22 11/05/22 Rx carvedilol 12.5 mg tablet 12.5 mg PO BID #180 tabs 10/10/22 11/05/22 Rx losartan 25 mg tablet 25 mg PO QAM #90 tabs 10/10/22 11/05/22 Rx potassium chloride 20 mEq 20 meq PO DAILY #90 tabs 10/10/22 11/05/22 Rx tablet,extended release ferrous sulfate 324 mg (65 mg 324 mg PO .COMPLEX #30 tabs 10/28/22 11/05/22 Rx iron) tablet,delayed release tramadol 50 mg tablet 50 mg PO DAILY PRN pain #90 tabs 11/03/22 11/05/22 Rx Past Med/Surg History Medical History Acute kidney injury Anemia Aortic regurgitation Arthritis back Atrial fibrillation Follows Dr. 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 Bone marrow biopsy negative for plasma dyscrasia and B cell lymphoma. Myocardial Infarction 1994--followed with Dr. Landaverde Peripheral neuropathy Presbyesophagus Prostate cancer (~04/2005) s/p failure of brachytherapy. Patient opted to forego further treatment d/t age. Had seeding placed in prostate Shortness of breath on exertion Spinal stenosis Tricuspid regurgitation Surgical History History of back surgery (08/06/17) Dr. Stephens. Fused at L4-L5 and sacrum. History of bilateral cataract extraction History of bladder surgery TURBT 08/17/2007 for bladder cancer History of cardiac cath 1994 @ [facility] [place]with 1 stent placed - unsure type/location - Follows Dr. Verduzco History of colonoscopy History of cystoscopy multiple times--d/t bladder cancer History of esophagogastroduodenoscopy (EGD) History of heart artery stent 1994 @ [facility] [place] - 1 stent placed - unsure type/location - Follows Dr. Verduzco History of prostate biopsy Unable to find path report in [employer] or [facility]. History of tooth extraction all upper teeth/partial lower Hx of vasectomy Family History Unknown Prostate cancer Bladder cancer Hypertension Father Family history of diabetes mellitus Daughter Breast cancer Son Myocardial infarction Other No family history of adverse response to anesthesia Denies family history of Ovarian cancer Colorectal cancer Social History Smoking Status: Never smoker Tobacco Type: Cigarettes Age Quit Using Tobacco: 48; Cigarettes Per Day: 1 pack per day; Second Hand Exposure: No; Hx Alcohol Use: Yes Alcohol type: beer Alcohol Intake Frequency Comment: once a day Hx Substance Use: No Preferred Language: Albanian Communication Ability: Effective Visual Impairment: Limited Hearing Ability: Hard of Hearing Cork Insulation Installer Required: No Beliefs That Will Affect Care: None marital status: Current Living Situation: Spouse Current Living Situation Comment: Lives at home with his current occupational status: retired How many Children do You have: 2 Feels Safe at Home: Yes caffeine: Yes (coffee) Dental Care, Regularly: Yes Physical Activity Frequency: Daily Physical Activity Frequency Comment: treadmill in morning, sit ups Seatbelt Use: always Sunscreen Use: Yes Assistive Devices: Cane and Wheelchair Review of Systems Review of Systems: as per HPI Physical Exam Physical Exam: General: Tired appearing 87-year old male who is alert, oriented, and appears in no acute distress. HEENT: NCAT. - Eyes - Sclera are white, anicteric, and without injection. - Mouth - MMM - Neck - supple, +JVD Cardiac: Normal rate and irregular rhythm; S1 and S2 present with no murmurs, rubs, or gallops. Pulmonary: Good respiratory effort with symmetric expansion of the chest. No use of accessory muscles. Lungs were clear to auscultation bilaterally with no crackles or wheezes. Abdominal: Normoactive bowel sounds. Abdomen was soft, nondistended, and non- tender to palpation. Extremities: Upper and lower extremities are warm and well perfused. 2+ peripheral edema in the lower extremities bilaterally Psych: Well-developed, well-nourished, appropriately dressed for occasion. Behavior is cooperative and appropriate. Affect is WNL. Insight is appropriate. Results & Data Results & Data ([facility]) Vital Signs (Past 12 Hours) Vital Signs Temp Pulse Resp BP Pulse Ox O2 Del Method 11/05/22 14:45 36.4 C L 63 18 135/60 98 Room Air Supervising Physician Co-Signing Physician Notes Attending addendum: I have supervised the medical residents activities, and agree with the H&P unless as otherwise noted. Assessment and Plan: Hematochezia/grossly positive Hemoccult in the ED/symptomatic anemia- Hold Eliquis Protonix 40 mg IV twice daily N.p.o. Type and screen Transfuse 1 unit PRBCs now H&H every 6 hours Consult gastroenterology HFpEF exacerbation, high output/hypertension-- The patient will be admitted to telemetry for serial cardiac enzymes, serial EKG's, cardiac rhythm monitoring and a 2-D echocardiogram with Dopplers. Lasix 20 mg IV x1 now, follow response, and diurese as needed Follow serial BMP, magnesium Continue Coreg with hold parameters CKD stage IV- Creatinine 2.10 on admission, with range 1.7-2.03 Serial BMP and magnesium levels as noted Hold losartan and chlorthalidone for now Follows with Dr. Brown from [facility] nephrology Remaining orders and notations as noted Resident Activity Tracking Resident Involvement: Resident Care Provided Care Provided: Adult Hospital Medicine (1) Anemia Anemia type: unspecified type Qualified Code(s): D64.9 - Anemia, unspecified (2) HTN (hypertension) Hypertension type: essential hypertension Qualified Code(s): I10 - Essential (primary) hypertension
[2022-11-05 19:19] LABS: C Reactive Protein 3.38 mg/dl (0-0.5)
[2022-11-05] MEDS ORDERED: FUROSEMIDE INJ 20 MG/2 ML VIAL IV ONE (20:00)
[2022-11-05 20:07] LABS: Reticulocyte % 3.9 % (0.5-2.0); Reticulocytes # 0.1 10^6/uL (0.02-0.10)
[2022-11-05] MEDS ORDERED: FUROSEMIDE 40 MG/4 ML VIAL IV ONE (20:35)
[2022-11-05] MEDS ORDERED: SODIUM CHLORIDE 0.9% 250 ML IV PRN (21:08)
[2022-11-05] MEDS: carvediloL 12.5 MG TAB PO SCH (21:29)
[2022-11-06 05:56] LABS: Basophils # (auto) 0.04 K/uL (0-0.2); Basophils % (auto) 0.7 %; Eosinophils # (auto) 0.38 K/uL (0-0.50); Eosinophils % (auto) 6.5 %; Hematocrit (blood only) 24.8 % (42.0-52.0); Hemoglobin 7.9 g/dl (14.0-18.0); Immature Granulocytes # (auto) 0.03 K/uL (0.01-0.20); Immature Granulocytes % (auto) 0.5 %; Lymphocytes # (auto) 0.75 K/uL (1.2-3.4); Lymphocytes % (auto) 12.8 %; Mean Corpuscular Hemoglobin 29.3 pg (25.0-34.0); Mean Corpuscular Hgb Conc 31.9 g/dL (32.0-36.0); Mean Corpuscular Volume 91.9 fL (80.0-100.0); Monocytes # (auto) 0.67 K/uL (0.11-0.59); Monocytes % (auto) 11.5 %; Neutrophils # (auto) 3.97 K/uL (1.40-6.50); Platelet Count 160 K/uL (130-400); RDW Coefficient of Variation 19.5 % (11.5-14.5); RDW Standard Deviation 66.1 fL (36.4-46.3); White Blood Count 5.84 K/ul (4.8-10.8)
[2022-11-06 06:02] LABS: BUN Creatinine Ratio 27.5 (10-20); Calcium 9.1 mg/dl (8.5-10.1); Creatinine Clr Calc Pharmacy 23.6 ml/min; Est GFR (African American) 32.5 ml/min; Est GFR (Non-African American) 28.1 ml/min; Potassium 4.3 mmol/L (3.5-5.1)
[2022-11-06 06:21] LABS: Ferritin 26.2 ng/ml (8-388)
[2022-11-06 06:45] LABS: RBC Morphology Unremarkable
[2022-11-06] MEDS ORDERED: POTASSIUM CHLORIDE 10 MEQ TABCR PO ONE (07:48)
[2022-11-06] MEDS: carvediloL 12.5 MG TAB PO SCH ×2 (07:49→19:57)
[2022-11-06] MEDS: POTASSIUM CHLORIDE CRTAB 20 MEQ TABCR PO SCH (07:50)
[2022-11-06] MEDS: PANTOprazole 40 MG in SYRINGE 0 ML IV SCH ×2 (07:50→19:58)
--- NOTE | 2022-11-06 09:04 | Hospitalist Progress Note ---
Date of Service November 06, 2022 Assessment & Plan (1) Dyspnea on exertion: Plan: Torrey is an 87-year-old male with history of MGUS, longstanding chronic anemia, CKD stage IV, HFpEF, prior osteomyelitis, hypertension, CAD, A. fib on Eliquis who presented to [facility] for progressive dyspnea on exertion that is likely multifactorial between hypervolemia and symptomatic anemia. Acute Dyspnea on Exertion -- CXR with unchanged mild interstitial pulmonary edema and small bilateral pleural effusions * mixed picture but is concerning for ABLA, will start with Lasix 20mg IV x 1 and then transfuse 1u pRBC. Can schedule further diuresis in AM pending clinical response. * Hold Eliquis for now * Protonix 40mg IV b.i.d. JAVIER * Consult GI (2) Anemia: Plan: Acute on chronic - Hgb 7.6 on arrival from 8.1 on 10/27 and 10.6 on 09/30 -- c/f ongoing oozing bleed in setting of known chronic anemia (iron deficiency, CK3-4), Grossly heme positive stool in the ED Transfuse 1 unit packed cells; Hgb with little change Hold apixaban as above Pantoprazole 40mg IV b.i.d. Status post EGD and colonoscopy in 2019 that revealed gastritis and diverticu losis Trend H&H, check ferritin and B12 in the AM. May also wish to give EPO shot while here in setting of known CKD and persistent Hgb < 10 (3) (HFpEF) heart failure with preserved ejection fraction: Plan: Acute on chronic -Last TTE in 03/2022 demonstrating LVEF 50-55%, moderate mitral and tricuspid regurgitation, elevated RVSP at 30 to 40 mmHg clinically appeared hypervolemic on exam with JVD and 2+ pitting edema in the LE bilaterally Lasix 20 mg IV [id number] more gentle in setting of concern for ABLA (4) Chronic kidney disease, stage IV (severe): Plan: chronic and stable Secondary to large vessel vascular disease and atrophy of the right kidney Follows with Dr. Brown of [facility] [place] Holding losartan and chlorthalidone (5) HTN (hypertension): Plan: Chronic and stable Continue Coreg, Lasix as above Hold losartan, chlorthalidone in setting of c/f GIB and resume when appropriate (6) Monoclonal gammopathy of undetermined significance: Plan: chronic and stable Noted in context of anemia. 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 (8) Osteomyelitis of symphysis pubis: Plan: Chronic and stable - Completed treatment on 09/16/2022follows with infectious disease as out patient Thankfully, not reporting any new symptoms at time of admission; noted in context of reason for admission Afebrile and without leukocytosis on admission Plan Code: FULL Admission and Anticipated Discharge Date Admission Date: November 05, 2022 Results & Data Results & Data ([facility]) Vital Signs (Past 12 Hours) Vital Signs Temp Pulse Pulse Resp BP BP BP 11/06/22 06:07 93 H 20 134/66 11/06/22 04:40 76 20 122/66 11/06/22 02:27 98.1 F 92 H 20 114/69 11/06/22 01:31 98.4 F 86 25 H 118/64 11/06/22 01:03 120/60 11/06/22 00:31 98.2 F 94 H 22 104/59 L 11/06/22 00:31 98.2 F 94 H 22 104/59 L 11/06/22 00:01 97.7 F 94 H 26 H 114/72 11/05/22 23:46 97.9 F 93 H 23 121/84 11/05/22 23:30 97.7 F 83 26 H 117/55 L 11/05/22 21:08 11/05/22 21:30 106 H 20 138/106 H 11/05/22 21:30 11/05/22 21:20 93 H 22 11/05/22 21:10 92 H 22 Pulse Ox Pulse Ox O2 Del Method O2 Del Method 11/06/22 06:07 95 Room Air 11/06/22 04:40 95 Room Air 11/06/22 02:27 99 11/06/22 01:31 100 11/06/22 01:03 11/06/22 00:31 95 11/06/22 00:31 95 11/06/22 00:01 97 11/05/22 23:46 98 11/05/22 23:30 99 11/05/22 21:08 95 Room Air 11/05/22 21:30 94 Room Air 11/05/22 21:30 Room Air 11/05/22 21:20 97 11/05/22 21:10 97 Diagnostic Findings Reviewed CBC showing anemia chronically low but stable Reviewed inflammatory markers these are mildly elevated but not significantly or worrisome Reviewed chemistry panel with stable chronic kidney disease Troponin reviewed 20 PG Care Time/CCT Total # of Minutes Spent Total Time Spent with Patient: Total time spent is greater than 50% in coordination of care (as documented) at patient's floor/unit and/or counseling patient: Coding Diagnoses Dyspnea on exertion R06.09 Anemia D64.9 Anemia type: unspecified type (HFpEF) heart failure with preserved ejection fraction I50.30 Chronic kidney disease, stage IV (severe) N18.4 HTN (hypertension) I10 Hypertension type: essential hypertension Monoclonal gammopathy of undetermined significance D47.2 Prostate cancer C61 Osteomyelitis of symphysis pubis M86.9 (1) Anemia Anemia type: unspecified type Qualified Code(s): D64.9 - Anemia, unspecified (2) HTN (hypertension) Hypertension type: essential hypertension Qualified Code(s): I10 - Essential (primary) hypertension
--- NOTE | 2022-11-06 09:38 | Gastrointestinal Consultation ---
Date of Consultation November 06, 2022 Assessment & Plan (1) LUX (dyspnea on exertion): (2) Heme positive stool: (3) Anemia: Plan 87 y.o. male with a complex medical history on chronic anticoagulation admitted with LUX and heme positive stool in the setting of constipation with iron supplementation. Suspect hemorrhoidal bleeding. 1. Clear liquid diet. 2. Start MiraLAX 17 g BID. Dose titration to maintain soft, regular bms. 3. Anusol supp NC BID x 2 weeks. 4. Continue Pantoprazole 40 mg BID. 5. No plan for invasive GI work up unless significant overt GIB/drop in H&H. 6. Rest per primary team. Thank you for allowing us to participate in the care of this patient. If you have any questions or concerns, please do not hesitate to contact us. History of Present Illness Reason for Consultation: Anemia, BRBPR Requesting Physician: Dr. Roque Attending Physician: Noel Love MD History of Present Illness Patient is a 87 y.o. male with a history of CKD, CHF, HTN, ASCVD, and A Fib on chronic anticoagulation admitted to the hospital with shortness of breath. He remains chronically anemic. H&H at the end of October was noted to be 8.1/26.1 and 7.9/24.8 today. He denies any chest pain or palpitations. No overt GIB symptoms reported but he is heme positive on examination. States he has noted a single episode of hematuria. Bowel pattern has been mostly constipation as he has been taking oral iron supplementation. States he will go several days between bms and requires straining. There is intermittent painful bms. No abdominal pain, nausea or vomiting, but endorses bloating. Last BM was several days ago. Last EGD and colonoscopy were performed by Dr. Franklin in 2019 for [facility]. Work up was unremarkable with the exception of diverticulosis and internal hemorrhoids. He has been made NPO and started on Pantoprazole 40 mg BID. Allergies Allergy/AdvReac Type Severity Reaction Status Date / Time KEVIN Inhibitors Allergy Severe SHORTNESS Verified 10/28/22 13:50 OF BREATH Penicillins Allergy Intermediate HIVES Verified 10/28/22 13:50 rosuvastatin [From Crestor] Allergy Intermediate joint Verified 10/28/22 13:50 aches and cramping simvastatin Allergy Intermediate joint Verified 10/28/22 13:50 aches and cramping [id number] Reductase Allergy Intermediate joint Verified 10/28/22 13:50 Inhibitor aches and [[id number]-Dnb Reductase cramping Inhibitor] red yeast rice Allergy Rash Verified 10/28/22 13:50 daptomycin AdvReac Intermediate Joint Pain Verified 10/28/22 13:50 Home Medications Medication Instructions Recorded Confirmed Type tamsulosin 0.4 mg capsule (Flomax) 0.4 mg PO BID PRN urinary 03/31/22 11/05/22 History discomfort acetaminophen 325 mg tablet 650 mg PO Q4H PRN mild-moderate 07/08/22 11/05/22 Rx pain #30 tabs apixaban 2.5 mg tablet (Eliquis) 2.5 mg PO BID #180 tabs 07/08/22 11/05/22 Rx polyethylene glycol 3350 17 17 g PO DAILY PRN severe 09/09/22 11/05/22 History gram/dose oral powder constipation cholecalciferol (vitamin D3) 25 2,000 unit PO QPM #30 caps 09/15/22 11/05/22 Rx mcg (1,000 unit) capsule chlorthalidone 25 mg tablet 25 mg PO DAILY #90 tabs 09/22/22 11/05/22 Rx docusate sodium 100 mg capsule 100 mg PO BID PRN Constipation 09/23/22 11/05/22 History (Colace) furosemide 40 mg tablet 20 mg PO DAILY #30 tabs 09/30/22 11/05/22 Rx carvedilol 12.5 mg tablet 12.5 mg PO BID #180 tabs 10/10/22 11/05/22 Rx losartan 25 mg tablet 25 mg PO QAM #90 tabs 10/10/22 11/05/22 Rx potassium chloride 20 mEq 20 meq PO DAILY #90 tabs 10/10/22 11/05/22 Rx tablet,extended release ferrous sulfate 324 mg (65 mg 324 mg PO .COMPLEX #30 tabs 10/28/22 11/05/22 Rx iron) tablet,delayed release tramadol 50 mg tablet 50 mg PO DAILY PRN pain #90 tabs 11/03/22 11/05/22 Rx Patient History Medical History Acute kidney injury Anemia Aortic regurgitation Arthritis back Atrial fibrillation Follows Dr. 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 Bone marrow biopsy negative for plasma dyscrasia and B cell lymphoma. Myocardial Infarction 1994--followed with Dr. Landaverde Peripheral neuropathy Presbyesophagus Prostate cancer (~04/2005) s/p failure of brachytherapy. Patient opted to forego further treatment d/t age. Had seeding placed in prostate Shortness of breath on exertion Spinal stenosis Tricuspid regurgitation Surgical History History of back surgery (08/06/17) Dr. Stephens. Fused at L4-L5 and sacrum. History of bilateral cataract extraction History of bladder surgery TURBT 08/17/2007 for bladder cancer History of cardiac cath 1994 @ [facility]--with 1 stent placed - unsure type/location - Follows Dr. Verduzco History of colonoscopy History of cystoscopy multiple times--d/t bladder cancer History of esophagogastroduodenoscopy (EGD) History of heart artery stent 1994 @ [facility] [place] - 1 stent placed - unsure type/location - Follows Dr. Verduzco History of prostate biopsy Unable to find path report in [employer] or [employer]. History of tooth extraction all upper teeth/partial lower Hx of vasectomy Family History Unknown Prostate cancer Bladder cancer Hypertension Father Family history of diabetes mellitus Daughter Breast cancer Son Myocardial infarction Other No family history of adverse response to anesthesia Denies family history of Ovarian cancer Colorectal cancer Social History Smoking Status: Never smoker Tobacco Type: Cigarettes Age Quit Using Tobacco: 48; Cigarettes Per Day: 1 pack per day; Second Hand Exposure: No; Do You Dip or Chew Tobacco: No; Hx Alcohol Use: Yes Alcohol type: beer Alcohol Intake Frequency Comment: once a day Hx Substance Use: No Preferred Language: Austrian Communication Ability: Effective Visual Impairment: Limited Hearing Ability: Hard of Hearing Rating Officer Required: No Beliefs That Will Affect Care: None marital status: Current Living Situation: Spouse Current Living Situation Comment: Lives at home with his current occupational status: retired How many Children do You have: 2 Feels Safe at Home: Yes Safety Concerns: Feels Safe At This Time caffeine: Yes (coffee) Dental Care, Regularly: Yes Physical Activity Frequency: Daily Physical Activity Frequency Comment: treadmill in morning, sit ups Seatbelt Use: always Sunscreen Use: Yes Assistive Devices: Cane Review of Systems Review of Systems: All systems reviewed & are unremarkable except as noted in HPI & below Physical Exam Constitutional: WD/WN, vitals as above Eyes: EOM intact bilaterally Neck: normal visual inspection Respiratory: normal respiratory effort, lungs clear to auscultation Cardiovascular: Rate/Rhythm: regular rate and regular rhythm Gastrointestinal (Abdomen): Inspection/Auscultation: + abdomen distended and normal bowel sounds Percussion/Palpation: abdomen soft; abdomen nontender Musculoskeletal: Extremities: extremities normal to inspection Skin: + pallor Psychiatric: A+Ox3, euthymic affect Results & Data ([facility]) Vital Signs (Past 12 Hours) Vital Signs Temp Pulse Pulse Resp BP BP Pulse Ox 11/06/22 06:07 93 H 20 134/66 95 11/06/22 04:40 76 20 122/66 95 11/06/22 02:27 36.7 C 92 H 20 114/69 99 11/06/22 01:31 36.9 C 86 25 H 118/64 100 11/06/22 01:03 120/60 11/06/22 00:31 36.8 C 94 H 22 104/59 L 95 11/06/22 00:31 36.8 C 94 H 22 104/59 L 95 11/06/22 00:01 36.5 C 94 H 26 H 114/72 97 11/05/22 23:46 36.6 C 93 H 23 121/84 98 11/05/22 23:30 36.5 C 83 26 H 117/55 L 99 O2 Del Method 11/06/22 06:07 Room Air 11/06/22 04:40 Room Air 11/06/22 02:27 11/06/22 01:31 11/06/22 01:03 11/06/22 00:31 11/06/22 00:31 11/06/22 00:01 11/05/22 23:46 11/05/22 23:30 Diagnostic Findings Laboratory Results WBC 5.84 K/ul (4.8-10.8) 11/06/22 05:31 RBC 2.70 M/uL (4.70-6.10) L 11/06/22 05:31 Hgb 7.9 g/dl (14.0-18.0) L 11/06/22 05:31 Hct 24.8 % (42.0-52.0) L 11/06/22 05:31 MCV 91.9 fL (80.0-100.0) 11/06/22 05:31 MCH 29.3 pg (25.0-34.0) 11/06/22 05:31 MCHC 31.9 g/dL (32.0-36.0) L 11/06/22 05:31 RDW Std Deviation 66.1 fL (36.4-46.3) H 11/06/22 05:31 RDW Coeff of Tay 19.5 % (11.5-14.5) H 11/06/22 05:31 Plt Count 160 K/uL (130-400) 11/06/22 05:31 MPV 9.0 fL (9.4-12.4) L 11/06/22 05:31 Immature Gran % (Auto) 0.5 % 11/06/22 05:31 Neut % (Auto) 68.0 % 11/06/22 05:31 Lymph % (Auto) 12.8 % 11/06/22 05:31 [place] % (Auto) 11.5 % 11/06/22 05:31 Eos % (Auto) 6.5 % 11/06/22 05:31 Baso % (Auto) 0.7 % 11/06/22 05:31 Reticulocyte % (Auto) 3.9 % (0.5-2.0) H 11/05/22 16:32 Neut # (Auto) 3.97 K/uL (1.40-6.50) 11/06/22 05:31 Lymph # (Auto) 0.75 K/uL (1.2-3.4) L 11/06/22 05:31 [place] # (Auto) 0.67 K/uL (0.11-0.59) H 11/06/22 05:31 Eos # (Auto) 0.38 K/uL (0-0.50) 11/06/22 05:31 Baso # (Auto) 0.04 K/uL (0-0.2) 11/06/22 05:31 Reticulocyte # 0.10 10^6/uL (0.02-0.10) 11/05/22 16:32 Immature Gran # (Auto) 0.03 K/uL (0.01-0.20) 11/06/22 05:31 RBC Morphology Unremarkable 11/06/22 05:31 Polychromasia 1+ 11/05/22 16:32 Anisocytosis Present 11/05/22 16:32 ESR 35 mm/hr (0-20) H 11/05/22 16:32 PT 11.6 Seconds (9.0-12.0) 11/05/22 16:32 INR 1.1 (0.9-1.1) 11/05/22 16:32 APTT 29.7 Seconds (21.0-31.0) 11/05/22 16:32 PTT Ratio 1.1 11/05/22 16:32 Sodium 139 mmol/L (136-145) 11/06/22 05:31 Potassium 4.3 mmol/L (3.5-5.1) 11/06/22 05:31 Chloride 109 mmol/L (98-107) H 11/06/22 05:31 Carbon Dioxide 23 mmol/L (21-32) 11/06/22 05:31 Anion Gap 7 (3-11) 11/06/22 05:31 BUN 56 mg/dl (6-23) H 11/06/22 05:31 Creatinine 2.04 mg/dl (0.6-1.4) H 11/06/22 05:31 Est Cr Clr Drug Dosing 23.6 ml/min 11/06/22 05:31 Est GFR ( Amer) 32.5 ml/min 11/06/22 05:31 Est GFR (Non-Af Amer) 28.1 ml/min 11/06/22 05:31 BUN/Creatinine Ratio 27.5 (10-20) H 11/06/22 05:31 Glucose 88 mg/dl (70-99(Fasting)) 11/06/22 05:31 Calcium 9.1 mg/dl (8.5-10.1) 11/06/22 05:31 Magnesium 2.5 mg/dl (1.7-2.4) H 11/05/22 16:32 Ferritin 26.2 ng/ml (8-388) 11/06/22 05:31 Total Bilirubin 0.6 mg/dl (0.2-1.0) 11/05/22 16:32 AST 17 U/L (13-39) 11/05/22 16:32 ALT 10 U/L (7-52) 11/05/22 16:32 Alkaline Phosphatase 69 U/L (34-104) 11/05/22 16:32 Troponin I High Sens 20.5 pg/ml (0-20) H 11/05/22 16:32 C-Reactive Protein 3.38 mg/dl (0-0.5) H 11/05/22 16:32 B-Natriuretic Peptide 541 pg/ml (0-100) H 11/05/22 18:57 Total Protein 7.2 gm/dl (6.0-8.3) 11/05/22 16:32 Albumin 3.9 gm/dl (3.4-5.0) 11/05/22 16:32 Globulin 3.3 gm/dl (2.5-4.0) 11/05/22 16:32 Albumin/Globulin Ratio 1.2 (0.9-2) 11/05/22 16:32 Vitamin B12 489 pg/ml (180-914) 11/06/22 05:47 Procalcitonin < 0.05 ng/ml (0-0.5) 11/05/22 16:32 SARS-CoV-2, RNA, NAAT NEGATIVE (NEGATIVE) 11/05/22 17:10 Blood Type A Negative 11/05/22 18:57 Antibody Screen NEGATIVE 11/05/22 18:57 Crossmatch See Detail 11/05/22 18:57 Impressions Chest X-Ray 11/05/22 16:04 XR chest 1V portable HISTORY: Shortness of breath. COMPARISON: Chest 09/11/2022. FINDINGS: No pneumothorax. The heart remains enlarged. There is mild interstitial pulmonary edema and small bilateral pleural effusions. No new focal lung consolidations identified. IMPRESSION: No change in the mild interstitial pulmonary edema and small bilateral pleural effusions. ACT 112: Negative or not required by law. Electronically signed by: Vu Perez M.D. 11/05/2022 4:45 PM PG Care Time/CCT Total # of Minutes Spent Total Time Spent with Patient: Total time spent is greater than 50% in coordination of care (as documented) at patient's floor/unit and/or counseling patient: Coding Level of Care Code 13809 INT INP/OBS CARE 3/75MIN Diagnoses LUX (dyspnea on exertion) R06.09 Heme positive stool R19.5 Anemia D64.9 Anemia type: unspecified type (1) Anemia Anemia type: unspecified type Qualified Code(s): D64.9 - Anemia, unspecified
[2022-11-06] MEDS: ANUSOL SUPP 1 EA PR SCH ×2 (10:13→19:55)
[2022-11-06] MEDS: POLYETHYLENE (MIRALAX) 17 GM PACK PO SCH ×2 (10:13→19:56)
--- NOTE | 2022-11-06 12:19 | Hospitalist Progress Note ---
Date of Service November 06, 2022 Assessment & Plan (1) Dyspnea on exertion: Plan: Torrey is an 87-year-old male with history of MGUS, longstanding chronic anemia, CKD stage IV, HFpEF, prior osteomyelitis, hypertension, CAD, A. fib on Eliquis who presented to [facility] for progressive dyspnea on exertion that is likely multifactorial between hypervolemia and symptomatic anemia. Acute Dyspnea on Exertion - CXR with unchanged mild interstitial pulmonary edema and small bilateral pleural effusions - Treated for ABLA with Lasix 20mg IV x 1 and transfused 1u pRBC - Eliquis (takes for afib) placed on hold - Seen by GI this AM, no plans for emergent scope - Diet advanced and Protonix changed from IV to oral 40mg BID - Continue trending H&H - CBC this AM reviewed, hgb stable at 7.9 (yesterday 7.6) (2) Anemia: Plan: Acute on chronic - Hgb 7.6 on arrival from 8.1 on 10/27 and 10.6 on 09/30 -- c/f ongoing oozing bleed in setting of known chronic anemia (iron deficiency, CK3-4), Grossly heme positive stool in the ED Transfused 1 unit packed cells; Hgb with little change Continue holding Eliquis Pantoprazole 40mg b.i.d. Status post EGD and colonoscopy in 2019 that revealed gastritis and diverticulosis Continue trending H&H, check ferritin and B12 in the AM - Could consider EPO shot while here in setting of known CKD and persistent Hgb < 10 (3) (HFpEF) heart failure with preserved ejection fraction: Plan: Acute on chronic - Last TTE in 03/2022 demonstrating LVEF 50-55%, moderate mitral and tricuspid regurgitation, elevated RVSP at 30 to 40 mmHg clinically appeared hypervolemic on exam with JVD and 2+ pitting edema in the LE bilaterally Lasix 20 mg IV x1 given 11/05 - Additional dose of IV Lasix 40mg x1 on 11/06, monitor output (currently has an external catheter in place) - Continue low sodium diet, daily weights, I/Os (4) Chronic kidney disease, stage IV (severe): Plan: chronic and stable Secondary to large vessel vascular disease and atrophy of the right kidney Follows with Dr. Brown of [facility] [place] Holding losartan and chlorthalidone - CMP reviewed this morning, renal function remains stable (5) HTN (hypertension): Plan: Chronic and stable Continue Coreg, Lasix as above Hold losartan, chlorthalidone in setting of c/f GIB and resume when appropriate (6) Monoclonal gammopathy of undetermined significance: Plan: chronic and stable Noted in context of anemia. Continue outpatient management upon discharge (7) Prostate cancer: Plan: chronic unclear if stable or progressing - Follows with [facility] History of prostate adenocarcinoma with failed response to brachytherapy (8) Osteomyelitis of symphysis pubis: Plan: Chronic and stable - Completed treatment on 09/16/2022follows with infectious disease as outpatient Thankfully, not reporting any new symptoms at time of admission; noted in context of reason for admission Afebrile and without leukocytosis on admission Plan As above. Pt is high risk due to a/c anemia, a/c chf. PT/OT eval. CM to assist in d/c planning. Appreciate GI input. Repeat labs ordered for tomorrow AM. If therapy does not recommend rehab then can consider dc tomorrow. Pt mentioned that he does therapy at home and isn't really interested in rehab. Plan to be d/w Dr. Love. Admission and Anticipated Discharge Date Admission Date: November 05, 2022 Subjective Patient seen on rounds today. Reports no complaints. Denies passing BRB from rectum. Denies abd pain, nausea, dyspnea, cough, fever/chills, or chest pain. Physical Exam Physical Exam: GENERAL: 87 yo Well-developed, well-nourished elderly wm AD. LUNGS: Nonlabored, bibasilar crackles. No wheezes or rhonchi. CARDIOVASCULAR: Regular rate with irregular rhythm. ABDOMEN: Soft, non-tender and non-distended. BS normoactive x 4 quad. EXTREMITIES: 2+ edema. Non-tender. Peripheral pulses +2/4. Results & Data Results & Data ([facility]) Vital Signs (Past 12 Hours) Vital Signs Temp Pulse Pulse Resp BP BP Pulse Ox 11/06/22 11:00 89 18 120/77 97 11/06/22 06:07 93 H 20 134/66 95 11/06/22 04:40 76 20 122/66 95 11/06/22 02:27 36.7 C 92 H 20 114/69 99 11/06/22 01:31 36.9 C 86 25 H 118/64 100 11/06/22 01:03 120/60 11/06/22 00:31 36.8 C 94 H 22 104/59 L 95 11/06/22 00:31 36.8 C 94 H 22 104/59 L 95 O2 Del Method 11/06/22 11:00 Room Air 11/06/22 06:07 Room Air 11/06/22 04:40 Room Air 11/06/22 02:27 11/06/22 01:31 11/06/22 01:03 11/06/22 00:31 11/06/22 00:31 Laboratory Results 11/06/22 05:31 11/06/22 05:31 PG Care Time/CCT Total # of Minutes Spent Total Time Spent with Patient: Total time spent is greater than 50% in coordination of care (as documented) at patient's floor/unit and/or counseling patient: Coding Level of Care Code 14684 SUB INP/OBS CARE 3/50MIN Diagnoses Dyspnea on exertion R06.09 Anemia D64.9 Anemia type: unspecified type (HFpEF) heart failure with preserved ejection fraction I50.30 Chronic kidney disease, stage IV (severe) N18.4 HTN (hypertension) I10 Hypertension type: essential hypertension Monoclonal gammopathy of undetermined significance D47.2 Prostate cancer C61 Osteomyelitis of symphysis pubis M86.9 (1) Anemia Anemia type: unspecified type Qualified Code(s): D64.9 - Anemia, unspecified (2) HTN (hypertension) Hypertension type: essential hypertension Qualified Code(s): I10 - Essential (primary) hypertension
[2022-11-06] MEDS ORDERED: FUROSEMIDE 40 MG/4 ML VIAL IV ONE (13:57)
--- NOTE | 2022-11-06 14:02 | Electrocardiogram Report ---
Test Reason : Blood Pressure : / mmHG Vent. Rate : 088 BPM Atrial Rate : 097 BPM P-R Int : 000 ms QRS Dur : 084 ms QT Int : 358 ms P-R-T Axes : 000 -34 103 degrees QTc Int : 433 ms Poor data quality, interpretation may be adversely affected Atrial fibrillation Left axis deviation Nonspecific ST and T wave abnormality Abnormal ECG When compared with ECG of 11-SEP-2022 05:46, No significant change was found Confirmed by Karlo Barbosa ([id number]) on 11/06/2022 2:02:15 PM Referred By: REFERRED SELF Confirmed By:Karlo Barbosa
--- NOTE | 2022-11-06 14:05 | Electrocardiogram Report ---
Test Reason : Blood Pressure : / mmHG Vent. Rate : 095 BPM Atrial Rate : 107 BPM P-R Int : 000 ms QRS Dur : 090 ms QT Int : 378 ms P-R-T Axes : 000 -37 031 degrees QTc Int : 475 ms Poor data quality, interpretation may be adversely affected Atrial fibrillation Left axis deviation Nonspecific ST and T wave abnormality Abnormal ECG When compared with ECG of 05-NOV-2022 16:23, (unconfirmed) Nonspecific T wave abnormality no longer evident in Inferior leads Nonspecific T wave abnormality, improved in Lateral leads Confirmed by Karlo Barbosa ([id number]) on 11/06/2022 2:05:01 PM Referred By: REFERRED SELF Confirmed By:Karlo Barbosa
[2022-11-06 19:10] LABS: Hematocrit (blood only) 29.8 % (42.0-52.0); Hemoglobin 9.5 g/dl (14.0-18.0)
--- NOTE | 2022-11-07 03:00 | Billing Data ---
Date of Service November 07, 2022 Coding Level of Care Code 35934 INT INP/OBS CARE
[2022-11-07] MEDS: ANUSOL SUPP 1 EA PR SCH (08:14)
[2022-11-07] MEDS: POTASSIUM CHLORIDE CRTAB 20 MEQ TABCR PO SCH (08:43)
[2022-11-07] MEDS: POLYETHYLENE (MIRALAX) 17 GM PACK PO SCH (08:43)
[2022-11-07] MEDS: PANTOprazole 40 MG in SYRINGE 0 ML IV SCH (08:43)
[2022-11-07] MEDS: carvediloL 12.5 MG TAB PO SCH (08:44)
[2022-11-07 09:34] LABS: Basophils # (auto) 0.07 K/uL (0-0.2); Basophils % (auto) 0.9 %; Eosinophils # (auto) 0.56 K/uL (0-0.50); Eosinophils % (auto) 6.9 %; Hematocrit (blood only) 32.1 % (42.0-52.0); Hemoglobin 10.1 g/dl (14.0-18.0); Immature Granulocytes # (auto) 0.05 K/uL (0.01-0.20); Immature Granulocytes % (auto) 0.6 %; Lymphocytes % (auto) 9.8 %; Mean Corpuscular Hemoglobin 28.9 pg (25.0-34.0); Mean Corpuscular Hgb Conc 31.5 g/dL (32.0-36.0); Mean Corpuscular Volume 91.7 fL (80.0-100.0); Mean Platelet Volume 9.2 fL (9.4-12.4); Monocytes # (auto) 0.69 K/uL (0.11-0.59); Monocytes % (auto) 8.5 %; Neutrophils # (auto) 5.98 K/uL (1.40-6.50); Neutrophils % (auto) 73.3 %; Platelet Count 236 K/uL (130-400); RDW Coefficient of Variation 19.5 % (11.5-14.5); RDW Standard Deviation 64.9 fL (36.4-46.3); White Blood Count 8.15 K/ul (4.8-10.8)
[2022-11-07 11:33] LABS: Calcium 9.7 mg/dl (8.5-10.1); Est GFR (African American) 31.6 ml/min; Est GFR (Non-African American) 27.2 ml/min; Magnesium 2.2 mg/dl (1.7-2.4); Potassium 3.9 mmol/L (3.5-5.1)
--- NOTE | 2022-11-07 14:36 | Discharge Summary ---
Date of Service November 07, 2022 Admission HPI Per Admitting Provider Torrey is an 87-year-old male with history of MGUS, longstanding chronic anemia, CKD stage IV, HFpEF, prior osteomyelitis, hypertension, CAD, A. fib on Eliquis who presented to [facility] for progressive dyspnea on exertion. Patient says that he was otherwise in his normal health up until Thursday (3 days ago). He says that he was previously exercising going up the stairmaster without significant issues. Then beginning on Thursday, his noticed that he began becoming more short of breath with simple activities, such as walking around the house. This is atypical for him. It felt like it took him several minutes to catch his breath after he would stop exerting himself. He denies any coughing, fever, chills, sweats. He said that maybe he got better on Thursday, but then on Thursday started getting worse again. He did have an episode of voluminous diarrhea on Thursday. He also said that he had a large episode of hematochezia in his Depends after getting a "cramping abdominal pain." He is on iron supplementation, so has noticed that his stools have been blackbut says this is really not changed, and denies any melena. 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 He endorses chronic orthopnea. This has not changed. He denies any alcohol use, tobacco use, recreational drug use. Of note, patient was recently hospitalized and discharged on 09/15/2022 for progressive dyspnea on exertion thought to be secondary to volume overload (HFpEF, CKD) and possibly component of anemia. He was transfused 1 unit of PRBCs. He also did receive a VQ scan that did not demonstrate strong evidence of PE. In the ER, patient was found to be hemodynamically stable with heart rate 63, blood pressure 135/60. Weight on admission_. Admission labs notable for hemoglobin 7.6 (from 8.1 on 10/27), INR 1.1, BUN 51/creatinine 2.1 (baseline appears to be 1.72.0 on review of more recent records), high-sensitivity troponin 20.5. He had a strong heme positive stool. Admission chest x-ray revealing mild interstitial pulmonary edema with small bilateral pleural effusions, unchanged from September 11 study. Admission ECG demonstrating unchanged atrial fibrillation with nonspecific conduction changes. He was given pantoprazole 40 mg IV. --- This documentation was created utilizing dictation software. As such, syntax, grammatical, and word-choice errors may be present. Notes are screened prior to submission in an attempt to reduce these errors. If there are any questions or concerns, please contact the author directly for clarification. Principal Diagnosis 1. Rectal bleeding 2. Mild a/c HFpEF 3. a/c anemia Discharge Exam GENERAL: 87 yo Well-developed, well-nourished elderly wm AD. LUNGS: Nonlabored, bibasilar crackles. No wheezes or rhonchi. CARDIOVASCULAR: Regular rate with irregular rhythm. ABDOMEN: Soft, non-tender and non-distended. BS normoactive x 4 quad. EXTREMITIES: 1+ edema. Non-tender. Peripheral pulses +2/4. Discharge Data Allergies Allergy/AdvReac Type Severity Reaction Status Date / Time KEVIN Inhibitors Allergy Severe SHORTNESS Verified 10/28/22 13:50 OF BREATH Penicillins Allergy Intermediate HIVES Verified 10/28/22 13:50 rosuvastatin [From Crestor] Allergy Intermediate joint Verified 10/28/22 13:50 aches and cramping simvastatin Allergy Intermediate joint Verified 10/28/22 13:50 aches and cramping Ggktrpc-XML-UtL Reductase Allergy Intermediate joint Verified 10/28/22 13:50 Inhibitor aches and [Owlwtbv-Kks-Pnm Reductase cramping Inhibitor] red yeast rice Allergy Rash Verified 10/28/22 13:50 daptomycin AdvReac Intermediate Joint Pain Verified 10/28/22 13:50 Consultations 11/05/22 18:47 ED Decision to Admit Stat 11/05/22 19:06 Consult Gastroenterology Routine Ordered Studies Chest X-Ray 11/05/22 16:04 XR chest 1V portable HISTORY: Shortness of breath. COMPARISON: Chest 09/11/2022. FINDINGS: No pneumothorax. The heart remains enlarged. There is mild interstitial pulmonary edema and small bilateral pleural effusions. No new focal lung consolidations identified. IMPRESSION: No change in the mild interstitial pulmonary edema and small bilateral pleural effusions. ACT 112: Negative or not required by law. Electronically signed by: Vu Perez M.D. 11/05/2022 4:45 PM Hospital Course (1) Dyspnea on exertion: Torrey is an 87-year-old male with history of MGUS, longstanding chronic anemia, CKD stage IV, HFpEF, prior osteomyelitis, hypertension, CAD, A. fib on Eliquis who presented to [facility] for progressive dyspnea on exertion that is likely multifactorial between hypervolemia and symptomatic anemia. Acute Dyspnea on Exertion - CXR with unchanged mild interstitial pulmonary edema and small bilateral pleural effusions - Treated for ABLA with Lasix 20mg IV x 1 and transfused 1u pRBC - Eliquis (takes for afib) placed on hold - Seen by GI this AM, no plans for emergent scope - Diet advanced and Protonix changed from IV to oral 40mg BID - Continue trending H&H - CBC this AM reviewed, hgb 7.6 --> 7.9 --> 10.1 - Suspect LUX was mixed picture including mild a/c chf and a/c symptomatic anemia - This issue has resolved (2) Anemia: Acute on chronic - Hgb 7.6 on arrival from 8.1 on 10/27 and 10.6 on 09/30 -- c/f ongoing oozing bleed in setting of known chronic anemia (iron deficiency, CK3-4), Grossly heme positive stool in the ED Transfused 1 unit packed cells; Hgb with little change Pantoprazole 40mg b.i.d. Status post EGD and colonoscopy in 2019 that revealed gastritis and diverticulosis Eliquis held on admission, this can be resumed upon discharge - Hgb this AM 10.1, can f/u cbc n 11/19, results to PCP - Continue ferrous sulfate MWF (3) (HFpEF) heart failure with preserved ejection fraction: Acute on chronic - Last TTE in 03/2022 demonstrating LVEF 50-55%, moderate mitral and tricuspid regurgitation, elevated RVSP at 30 to 40 mmHg clinically appeared hypervolemic on exam with JVD and 2+ pitting edema in the LE bilaterally Lasix 20 mg IV x1 given 11/05 - Additional dose of IV Lasix 40mg x1 on 11/06, had documented net neg FB of -600 - Continue low sodium/heart health diet - Follow up with Aquiles Lewis PA-C in the heart failure clinic, appt rescheduled for 11/14 @ 1030 (4) Chronic kidney disease, stage IV (severe): chronic and stable Secondary to large vessel vascular disease and atrophy of the right kidney Follows with Dr. Brown of [facility] Holding losartan and chlorthalidone - CMP reviewed this morning, renal function remains stable (5) HTN (hypertension): Chronic and stable Continue Coreg, Lasix as above Held losartan, chlorthalidone in setting of c/f GIB - These medications can be resumed upon discharged as prescribed (6) Monoclonal gammopathy of undetermined significance: chronic and stable Noted in context of anemia. Continue outpatient management upon discharge (7) Prostate cancer: chronic unclear if stable or progressing - Follows with [facility] History of prostate adenocarcinoma with failed response to brachytherapy (8) Osteomyelitis of symphysis pubis: Chronic and stable - Completed treatment on 09/16/2022follows with infectious disease as outpatient Thankfully, not reporting any new symptoms at time of admission; noted in context of reason for admission Afebrile and without leukocytosis on admission Plan Patient seen by PT/OT, felt that he was stable for dc home with his . He is medically and hemodynamically stable for discharge. Above plan of care has been d/w Dr. Love who has also seen and evaluated the patient and is in agreement with the aforementioned. Total Time Total Time Spent Total Time Spent (In Minutes): >30 minutes Discharge Plan Discharge Items Patient Disposition: Home - Self-Care Reason For Visit: LUXSTEFANIA Clark Discharge Diagnosis: rectal bleeding, dark stool Activity: Resume your previous activity Non-emergency contact: Primary Care Provider and Specialist Call non-emergency contact if: you have any medication questions Follow-up/Referrals: Tiago Lara MD [Primary Care Provider] - 11/18/22 11:00 am Laurel Lewis PA-C [Physician Italian Teacher] - 11/14/22 10:30 am Diet: Heart Healthy Fluids: 2000ml (8 cups) Ambulatory Orders: Complete Blood Count no Diff (Routine) Timeframe: 20221119 Location: Determined by Patient Ordered By: Morena Ramos Attending Provider Instructions: You were hospitalized due to shortness of breath noted when walking/exerting self as well as a concern for bleeding from your rectum. You were seen by the gastroenterology group who did not feel that you were having significant blood loss from your bottom and did not feel that an emergent scope was necessary. It was suspected that hemorrhoids could be irritated and bleeding. In addition, you are on iron supplements which will cause your stool to appear dark in color. You were also given two doses of Lasix through your IV during your stay for excess fluid in your legs and lungs. You were also given one unit of blood due to your low blood count of 7.6. Thankfully, your blood counts have improved today to 10.1. This is likely a combination of the blood you were given in add ition to the Lasix. You can resume your iron supplement as well as your Eliquis. Follow up blood work will need to be drawn on 11/19/22. A copy will be forwarded to your primary care provider. You are being prescribed Anusol suppositories to continue use twice a day (morning and evening) for the next 14 days. A prescription has been sent to your pharmacy. It is advised that you follow up with your primary care physician within 5-7 days. You have also been rescheduled with Laurel Lewis PA-C in the heart failure clinic on 11/14/22. Please keep this appointment. If you have any questions or concerns following your discharge, feel free to contact the nonemergency number listed on your discharge paperwork. In the event of a medical emergency, call 911. Pending Studies at Discharge: No Stand-Alone Forms: My [facility], Smoking Cessation Medications and DC Order Prescriptions: New hydrocortisone acetate [Anusol-HC] 25 mg Suppository 25 mg UT BID Qty: 24 0RF Continued chlorthalidone 25 mg tablet 25 mg PO DAILY Qty: 90 3RF furosemide 40 mg tablet 20 mg PO DAILY Qty: 30 2RF Rx Instructions: Can increase to 40 mg daily PRN potassium chloride 20 mEq tablet extended release 20 meq PO DAILY Qty: 90 3RF losartan 25 mg tablet 25 mg PO QAM Qty: 90 3RF tramadol 50 mg tablet 50 mg PO DAILY PRN (Reason: pain) Qty: 90 0RF docusate sodium [Colace] 100 mg capsule 100 mg PO BID PRN (Reason: Constipation) ferrous sulfate 324 mg (65 mg iron) tablet,delayed release (DR/EC) 324 mg PO .COMPLEX Qty: 30 0RF Rx Instructions: 324 mg orally every Thursday, Thursday, Thursday; carvedilol 12.5 mg tablet 12.5 mg PO BID Qty: 180 3RF acetaminophen 325 mg Tablet 650 mg PO Q4H PRN (Reason: mild-moderate pain) Qty: 30 0RF Rx Instructions: OTC Eliquis 2.5 mg tablet 2.5 mg PO BID Qty: 180 3RF polyethylene glycol 3350 17 gram/dose powder 17 g PO DAILY PRN (Reason: severe constipation) cholecalciferol (vitamin D3) 25 mcg (1,000 unit) Capsule 2,000 unit PO QPM Qty: 30 0RF tamsulosin [Flomax] 0.4 mg capsule 0.4 mg PO BID PRN (Reason: urinary discomfort) Discharge Orders: Discharge Order (Routine); Ordered 11/07/22 Ordered By: Morena El Admission Data Admit Date/Time: 11/05/22 19:01 Attending Provider: Noel Love Admit Provider: Nima Roque Primary Care Provider: Tiago Lara Other Providers: Armando Franklin ; Aram Martin Coding Level of Care Code HOSP INP/OBS DISCH >30 MIN Diagnoses Dyspnea on exertion R06.09 Anemia D64.9 Anemia type: unspecified type (HFpEF) heart failure with preserved ejection fraction I50.30 Chronic kidney disease, stage IV (severe) N18.4 HTN (hypertension) I10 Hypertension type: essential hypertension Monoclonal gammopathy of undetermined significance D47.2 Prostate cancer C61 Osteomyelitis of symphysis pubis M86.9
== END 2022-11-07 15:04 | disposition home or self-care (01) | DRG 291 ==
LOC: ED 14:41 → EDINP 19:01 → SUATTDRO 19:01 → 2W 21:07
DX: D47.2 Monoclonal gammopathy; Z88.1 Allergy status to other antibiotic agents; Z79.01 Long term (current) use of anticoagulants; I25.2 Old myocardial infarction; G62.9 Polyneuropathy, unspecified; Z79.899 Other long term (current) drug therapy; M86.68 Other chronic osteomyelitis, other site; I13.0 Hypertensive heart and chronic kidney disease with heart failure and stage 1 through stage 4 chronic kidney disease, or unspecified chronic kidney disease; I50.33 Acute on chronic diastolic (congestive) heart failure; D50.9 Iron deficiency anemia, unspecified; I08.3 Combined rheumatic disorders of mitral, aortic and tricuspid valves; Z95.5 Presence of coronary angioplasty implant and graft; Z88.8 Allergy status to other drugs, medicaments and biological substances; Z88.0 Allergy status to penicillin; N18.4 Chronic kidney disease, stage 4 (severe); C61 Malignant neoplasm of prostate; R06.00 Dyspnea, unspecified; I48.91 Unspecified atrial fibrillation

== ENCOUNTER 2023-02-03 17:10 | Observation (INO) ==
--- NOTE | 2023-02-03 18:08 | Emergency Department Note ---
Impression & Plan Acute GI bleeding, Anemia ED Provider Note NAME: TANESHA TIRADO AGE: 87 SEX: M : 1935 ARRIVES VIA: Walk-In INFORMANT: Patient, ED PROVIDER(S): Rubio Perez MD CHIEF COMPLAINT: GI bleed MEDICAL DECISION MAKING: Patient presents due to concern for GI bleeding. IV was established and blood work was obtained. The patient does have a hemoglobin of 7 which is not too far from his normal but given the acute onset of the GI bleeding. I did speak the on-call hospital service. The patient does have an elevated BUN to creatinine ratio patient has had a somewhat elevated in the past. Believe a brisk bleed to be less likely and I did talk with the on-call hospitalist service and the patient was admitted. Patient was ordered IV 40 mg of Protonix. Prior /Outside records reviewed: Did review the patient's most recent heart failure visits from January 08 Differential diagnosis: Diverticulosis, AVM, coagulopathy, colitis, inflammatory bowel disease, malignancy, Beverly-Torrez tear, esophagitis, peptic ulcer disease, variceal bleed, gastritis, epistaxis, fissure, hemorrhoids, as well as other pathologies. Diagnostics, as interpreted by me: ECG: None Cardiac monitoring: An order was placed for continuous cardiac monitoring. The monitor shows a rate of 82 with irregularly irregular rhythm. Patient was placed on pulse oximetry Medical decision rules: None Imaging studies: See below HPI: Patient presents due to concern for GI bleeding which initially noted last evening. The patient states that seem to worsen today. Patient does complain of some weakness but no shortness of breath. Patient does have lower extremity edema which is chronic in nature. The patient does take Eliquis for known hi story of A-fib. Patient has a prior colonoscopies with no concerning findings in the past. The patient denies any prior history of IBD or colon cancer. The patient has had prior history of prostate and bladder cancer but is currently in remission. He does complain of some mild burning but denies any discharge. He does suffer from chronic incontinence. He does follow with [facility] urolog y group. Patient states that recently his PSA was normal. The patient has noted some blood in the urine which is chronic but may be worse within the last 1 to 2 days. Patient and his family member at bedside believe that his color appears about the same PAST MEDICAL HISTORY: See Below PAST SURGICAL HISTORY: See Below SOCIAL HISTORY: See Below HOME MEDICATIONS: See Below ALLERGIES: See Below VITALS: See Below PHYSICAL EXAMINATION: GENERAL: NAD, non-toxic. Wearing glasses. EYE EXAM: Normal conjunctiva. PERRL, no anisocoria and EOM's grossly intact w/o pain. NECK: Supple, no nuchal rigidity, no adenopathy, non-tender. No signs of meningismus. FROM of the neck with good chin to chest and neck extension. No stridor. LUNGS: Clear to auscultation. Normal chest wall mechanics. HEART: Irregularly irregular, no MRG. ABDOMEN: Abdomen soft, non-tender, no masses, no rebound or guarding. BACK: No CVA TTP. SKIN: No rashes and no bruising. UPPER EXTREMITIES: Upper extremities are grossly normal. LOWER EXTREMITIES: Grossly normal, 2-3+ symmetric lower extremity edema without any calf pain NEURO EXAM: A&O x3, cranial nerves II-XII grossly intact, normal speech, moves all 4 extremities. Past Med/Surg History Medical History Acute kidney injury Anemia Aortic regurgitation Arthritis back Atrial fibrillation Follows Dr. 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 Bone marrow biopsy negative for plasma dyscrasia and B cell lymphoma. Myocardial Infarction 1994--followed with Dr. Landaverde Peripheral neuropathy Presbyesophagus Prostate cancer (~04/2005) s/p failure of brachytherapy. Patient opted to forego further treatment d/t age. Had seeding placed in prostate Shortness of breath on exertion Spinal stenosis Tricuspid regurgitation Urinary retention Surgical History History of back surgery (08/06/17) Dr. Stephens. Fused at L4-L5 and sacrum. History of bilateral cataract extraction History of bladder surgery TURBT 08/17/2007 for bladder cancer History of cardiac cath 1994 [facility]--with 1 stent placed - unsure type/location - Follows Dr. Verduzco History of colonoscopy History of cystoscopy multiple times--d/t bladder cancer History of esophagogastroduodenoscopy (EGD) History of heart artery stent 1994 [facility] - 1 stent placed - unsure type/location - Follows Dr. Verduzco History of prostate biopsy Unable to find path report in [employer] or [employer]. History of tooth extraction all upper teeth/partial lower Hx of vasectomy Family History Unknown Prostate cancer Bladder cancer Hypertension Father Family history of diabetes mellitus Daughter Breast cancer Son Myocardial infarction Other No family history of adverse response to anesthesia Denies family history of Ovarian cancer Colorectal cancer Social History Smoking Status: Never smoker Tobacco Type: Cigarettes Age Quit Using Tobacco: 48; Cigarettes Per Day: 1 pack per day; Second Hand Exposure: No; Do You Dip or Chew Tobacco: No; Hx Alcohol Use: Yes Alcohol type: beer Alcohol Intake Frequency Comment: once a day Hx Substance Use: No Preferred Language: Omani Communication Ability: Effective Visual Impairment: Limited Hearing Ability: Hard of Hearing Store Administrative Assistant Required: No Beliefs That Will Affect Care: None marital status: Current Living Situation: Spouse Current Living Situation Comment: Lives at home with his current occupational status: retired How many Children do You have: 2 Feels Safe at Home: Yes caffeine: Yes (coffee) Dental Care, Regularly: Yes Physical Activity Frequency: Daily Physical Activity Frequency Comment: treadmill in morning, sit ups Seatbelt Use: always Sunscreen Use: Yes Assistive Devices: Cane and Wheelchair Allergies Allergies Allergy/AdvReac Type Severity Reaction Status Date / Time KEVIN Inhibitors Allergy Severe SHORTNESS Verified 01/23/23 09:59 OF BREATH Penicillins Allergy Intermediate HIVES Verified 02/03/23 19:13 rosuvastatin [From Crestor] Allergy Intermediate joint Verified 02/03/23 19:13 aches and cramping simvastatin Allergy Intermediate joint Verified 02/03/23 19:13 aches and cramping [id number] Reductase Allergy Intermediate joint Verified 02/03/23 19:13 Inhibitor aches and [Acytugf-Rqm-Yfe Reductase cramping Inhibitor] red yeast rice Allergy Rash Verified 01/23/23 09:59 daptomycin AdvReac Intermediate Joint Pain Verified 01/23/23 09:59 Home Meds Home Medications Medication Instructions Recorded Confirmed polyethylene glycol 3350 17 17 g PO DAILY PRN severe 09/09/22 02/03/23 gram/dose oral powder constipation docusate sodium 100 mg capsule 100 mg PO BID 09/23/22 02/03/23 (Colace) cetirizine 10 mg tablet (Zyrtec) 10 mg PO HS 02/03/23 02/03/23 ferrous sulfate 324 mg (65 mg 324 mg PO .CURRENTLY HOLDING 02/03/23 02/03/23 iron) tablet,delayed release fluticasone propionate 50 2 spray intranasal BID 02/03/23 02/03/23 mcg/actuation nasal spray,suspension furosemide 20 mg tablet 20 mg PO QAM 02/03/23 02/03/23 multivit with minerals-folic 1 cap PO DAILY 02/03/23 02/03/23 acid-lycopene 0.4 mg-600 mcg capsule (Men's Daily) potassium chloride 20 mEq 20 meq PO QAM 02/03/23 02/03/23 tablet,extended release Previous Rx's Medication Instructions Recorded acetaminophen 325 mg tablet 650 mg PO Q4H PRN mild-moderate 07/08/22 pain #30 tabs apixaban 2.5 mg tablet (Eliquis) 2.5 mg PO BID #180 tabs 07/08/22 cholecalciferol (vitamin D3) 25 2,000 unit PO QPM #30 caps 09/15/22 mcg (1,000 unit) capsule carvedilol 12.5 mg tablet 12.5 mg PO BID #180 tabs 10/10/22 losartan 25 mg tablet 25 mg PO QAM #90 tabs 10/10/22 tramadol 50 mg tablet 50 mg PO DAILY PRN pain #90 tabs 11/03/22 iron sucrose 200 mg iron/10 mL 500 mg (25 mL) IV .COMPLEX 2 days 01/07/23 intravenous solution (Venofer) #25 mL tamsulosin 0.4 mg capsule (Flomax) 0.4 mg PO BID urinary discomfort 01/13/23 #180 caps tramadol 100 mg capsule 100 mg PO DAILY #90 caps 01/13/23 24h,extended release(25-75) Results & Data (ED) Vital Signs Vital Signs - 24 hr 05/02/23 17:19 02/03/23 17:53 02/03/23 17:56 Temperature 36.0 C L Temperature Source Temporal Artery Scan Pulse Rate - Lying 87 Pulse Rate - Sitting 81 Pulse Rate - Standing 74 Pulse Rate 82 92 H Pulse Rate from SpO2 Sensor Pulse Rhythm Regular Pulse Strength Normal Respiratory Rate 20 Respiratory Effort / Characteristics Non-Labored Spontaneous Respiratory Depth Normal Respiratory Pattern Regular Blood Pressure - Lying 122/65 Blood Pressure - Sitting 113/63 Blood Pressure- Standing 121/71 Blood Pressure 127/71 Blood Pressure Mean 89 Blood Pressure Position Sitting Pulse Oximetry 100 Oxygen Delivery Method Room Air Sepsis Recent Fever Within 48 Hours No Sepsis New/Unexplained Change in Mental Status No Sepsis Action Taken by Nursing No Action Required 02/03/23 18:14 02/03/23 17:56 02/03/23 17:57 Temperature Temperature Source Pulse Rate - Lying Pulse Rate - Sitting Pulse Rate - Standing Pulse Rate 79 Pulse Rate from SpO2 Sensor Pulse Rhythm Pulse Strength Respiratory Rate 15 Respiratory Effort / Characteristics Respiratory Depth Respiratory Pattern Blood Pressure - Lying Blood Pressure - Sitting Blood Pressure- Standing Blood Pressure 113/63 121/71 Blood Pressure Mean 79 87 Blood Pressure Position Pulse Oximetry 100 Oxygen Delivery Method Room Air Sepsis Recent Fever Within 48 Hours Sepsis New/Unexplained Change in Mental Status Sepsis Action Taken by Nursing 02/03/23 17:57 02/03/23 18:00 02/03/23 18:10 Temperature Temperature Source Pulse Rate - Lying Pulse Rate - Sitting Pulse Rate - Standing Pulse Rate 83 100 H 80 Pulse Rate from SpO2 Sensor Pulse Rhythm Pulse Strength Respiratory Rate 17 23 16 Respiratory Effort / Characteristics Respiratory Depth Respiratory Pattern Blood Pressure - Lying Blood Pressure - Sitting Blood Pressure- Standing Blood Pressure Blood Pressure Mean Blood Pressure Position Pulse Oximetry Oxygen Delivery Method Sepsis Recent Fever Within 48 Hours Sepsis New/Unexplained Change in Mental Status Sepsis Action Taken by Nursing 02/03/23 18:20 02/03/23 18:30 02/03/23 18:40 Temperature Temperature Source Pulse Rate - Lying Pulse Rate - Sitting Pulse Rate - Standing Pulse Rate 73 76 66 Pulse Rate from SpO2 Sensor 72 73 66 Pulse Rhythm Pulse Strength Respiratory Rate 19 15 14 Respiratory Effort / Characteristics Respiratory Depth Respiratory Pattern Blood Pressure - Lying Blood Pressure - Sitting Blood Pressure- Standing Blood Pressure Blood Pressure Mean Blood Pressure Position Pulse Oximetry 100 99 97 Oxygen Delivery Method Sepsis Recent Fever Within 48 Hours Sepsis New/Unexplained Change in Mental Status Sepsis Action Taken by Detention Medications Current Medication List: was personally reviewed by me Laboratory Data Attestation: I reviewed the patient's lab results. 02/03/23 18:10 02/03/23 18:10 Lab Results 02/03/23 02/03/23 02/03/23 Range/Units 18:10 18:10 18:10 WBC 5.08 (4.8-10.8) K/ul RBC 2.50 L (4.70-6.10) M/uL Hgb 7.2 L (14.0-18.0) g/dl Hct 23.0 L (42.0-52.0) % MCV 92.0 (80.0-100.0) fL MCH 28.8 (25.0-34.0) pg MCHC 31.3 L (32.0-36.0) g/dL RDW Std Deviation 73.2 H (36.4-46.3) fL RDW Coeff of Tay 22.2 H (11.5-14.5) % Plt Count 137 (130-400) K/uL MPV 9.6 (9.4-12.4) fL PT 11.4 (9.0-12.0) Seconds INR 1.0 (0.9-1.1) APTT 35.1 H (21.0-31.0) Seconds PTT Ratio 1.2 Sodium 137 (136-145) mmol/L Potassium 5.0 (3.5-5.1) mmol/L Chloride 111 H (98-107) mmol/L Carbon Dioxide 19 L (21-32) mmol/L Anion Gap 7 (3-11) BUN 66 H (6-23) mg/dl Creatinine 1.88 H (0.6-1.4) mg/dl Est Cr Clr Drug Dosing Not Reportable Est GFR ( Amer) 35.9 ml/min Est GFR (Non-Af Amer) 31.0 ml/min BUN/Creatinine Ratio 35.1 H (10-20) Glucose 128 H (70-99(Fasting)) mg/dl Calcium 9.5 (8.6-10.3) mg/dl Total Bilirubin 0.3 (0.2-1.0) mg/dl AST 17 (13-39) U/L ALT 11 (7-52) U/L Alkaline Phosphatase 53 (34-104) U/L Troponin I High Sens 13.0 (0-20) pg/ml Total Protein 6.8 (6.0-8.3) gm/dl Albumin 3.8 (3.4-5.0) gm/dl Globulin 3.0 (2.5-4.0) gm/dl Albumin/Globulin Ratio 1.3 (0.9-2) Blood Type Antibody Screen Crossmatch 02/03/23 Range/Units 18:43 WBC (4.8-10.8) K/ul RBC (4.70-6.10) M/uL Hgb (14.0-18.0) g/dl Hct (42.0-52.0) % MCV (80.0-100.0) fL MCH (25.0-34.0) pg MCHC (32.0-36.0) g/dL RDW Std Deviation (36.4-46.3) fL RDW Coeff of Tay (11.5-14.5) % Plt Count (130-400) K/uL MPV (9.4-12.4) fL PT (9.0-12.0) Seconds INR (0.9-1.1) APTT (21.0-31.0) Seconds PTT Ratio Sodium (136-145) mmol/L Potassium (3.5-5.1) mmol/L Chloride (98-107) mmol/L Carbon Dioxide (21-32) mmol/L Anion Gap (3-11) BUN (6-23) mg/dl Creatinine (0.6-1.4) mg/dl Est Cr Clr Drug Dosing Est GFR ( Amer) ml/min Est GFR (Non-Af Amer) ml/min BUN/Creatinine Ratio (10-20) Glucose (70-99(Fasting)) mg/dl Calcium (8.6-10.3) mg/dl Total Bilirubin (0.2-1.0) mg/dl AST (13-39) U/L ALT (7-52) U/L Alkaline Phosphatase (34-104) U/L Troponin I High Sens (0-20) pg/ml Total Protein (6.0-8.3) gm/dl Albumin (3.4-5.0) gm/dl Globulin (2.5-4.0) gm/dl Albumin/Globulin Ratio (0.9-2) Blood Type A Negative Antibody Screen NEGATIVE Crossmatch See Detail Administered Medications Discontinued Medications Pantoprazole Sodium 40 mg/ (Syringe) 10 mls @ 5 mls/min IV NOW ONE Stop: 02/03/23 19:28 Last Admin: 02/03/23 20:44 Dose: 5 mls/min Documented By: JA Discharge Plan Visit Data Chief Complaint: Rectal Bleed Stated Complaint: RECTUM PAIN,BLEEDING,GROIN PAIN ED Provider: Rubio Perez Discharge Problem: Acute GI bleeding, Anemia Patient Disposition: Admitted As Inpatient Discharge Instructions Interventions: ED Discharge Assessment Last Done: 02/03/23 23:01 Anemia Qualifiers: Anemia type: unspecified type Qualified Code(s): D64.9 - Anemia, unspecified
[2023-02-03 18:29] LABS: Hemoglobin 7.2 g/dl (14.0-18.0); Mean Corpuscular Hemoglobin 28.8 pg (25.0-34.0); Mean Corpuscular Hgb Conc 31.3 g/dL (32.0-36.0); Mean Platelet Volume 9.6 fL (9.4-12.4); Platelet Count 137 K/uL (130-400); RDW Coefficient of Variation 22.2 % (11.5-14.5); RDW Standard Deviation 73.2 fL (36.4-46.3); White Blood Count 5.08 K/ul (4.8-10.8)
[2023-02-03 18:43] LABS: Alanine Aminotransferase 11 U/L (7-52); Albumin Globulin Ratio 1.3 (0.9-2); Albumin Level 3.8 gm/dl (3.4-5.0); Alkaline Phosphatase 53 U/L (34-104); Anion Gap 7 (3-11); Aspartate Aminotransferase 17 U/L (13-39); BUN Creatinine Ratio 35.1 (10-20); Bilirubin,Total 0.3 mg/dl (0.2-1.0); Blood Urea Nitrogen 66 mg/dl (6-23); Calcium 9.5 mg/dl (8.6-10.3); Carbon Dioxide 19 mmol/L (21-32); Chloride 111 mmol/L (98-107); Est GFR (African American) 35.9 ml/min; Glucose 128 mg/dl (70-99(Fasting)); Sodium 137 mmol/L (136-145); Total Protein 6.8 gm/dl (6.0-8.3)
[2023-02-03 18:55] LABS: Partial Thromboplastin Ratio 1.2; Partial Thromboplastin Time 35.1 Seconds (21.0-31.0); Prothrombin Time 11.4 Seconds (9.0-12.0)
[2023-02-03] MEDS ORDERED: PANTOprazole 40 MG in SYRINGE 0 ML IV ONE (19:27)
--- NOTE | 2023-02-03 19:47 | History & Physical Report ---
Date of Service February 03, 2023 Assessment & Plan (1) Acute GI bleeding: Plan: 87-year-old male with history of atrial fibrillation on apixaban anticoagulation with last dose 02/02/2023 at 09 100 presenting with multiple episodes of hematochezia. Patient hemodynamically stable. Heart rate = 66, blood pressure = 1 21/71. Does have anemia with Hgb = 7.2, HCT = 23 with mild symptoms of worsening dyspnea on exertion, generalized weakness. Suspect lower GI bleed. Patient denies abdominal pain, nausea or hematemesis. Prior colonoscopy 07/13/2020 revealing multiple small mouth diverticula in the sigmoid colon as well as nonbleeding internal hemorrhoids. observation to medical with telemetry Transfuse 1 unit PRBCs Monitor CBC every 12 hours. Transfuse for ongoing bleed, symptomatic anemia or hemoglobin less than 7 We will continue Protonix 40 mg IV twice daily for now. Doubt upper GI source however GI consultation appreciated (2) Atrial fibrillation, controlled: Plan: Rate controlled atrial fibrillation. Patient anticoagulated on apixaban 2.5 mg p.o. twice daily. Last dose 02/02/2023 at 09 100 Hold apixaban for now given acute GI bleed Hold carvedilol for now (3) HTN (hypertension): Plan: Patient with well-controlled hypertension. Blood pressure presently 138/84 Hold carvedilol for now Continue losartan with holding parameters Continue to monitor (4) Chronic kidney disease, stage IV (severe): Plan: BUN and creatinine near baseline Continue to monitor Avoid nephrotoxic agents (5) CHF (congestive heart failure): Plan: Chronic. Compensated. Continue Lasix 20 mg p.o. every morning Continue losartan Holding carvedilol for now FENHep-Lock, electrolytes within normal limits, clear liquid diet as tolerated Prophylaxislow risk for DVT Codefull per discussion with patient Dispositionobservation to medical telemetry History of Present Illness Chief Complaint: Rectal bleeding Primary Care Provider: Tiago Lara MD Torrey Mancia is an 87-year-old male with multiple medical comorbidities to include atrial fibrillation on apixaban anticoagulation, CKD, coronary artery disease, hypertension, hyperlipidemia presenting with rectal bleed. This morning 02/03/2023 patient woke and had a bowel movement containing a large amount of bright red blood with clots. He also reports his stool was very dark in color. He denies abdominal pain. He does have chronic, stable rectal pain whic h is unchanged. Patient continued to have bloody bowel movements throughout the day totaling approximately 3. He does report a decreased amount of blood which each subsequent bowel movement however, blood still bright red. Additionally he reports some diffuse generalized weakness, intermittent chills and mild dyspnea on exertion. Patient takes stool softeners routinely. Does not report any recent severe constipation or straining. He denies nausea, vomiting, abdominal pain or bloating. Denies chest pain, cough, shortness of breath or dizziness. He has a history of chronic anemia requiring blood transfusions as well as IV iron. His last blood transfusion was November 2022, last IV iron infusion was 01/23/2023. In the ER, patient is afebrile, hemodynamically stable. No acute distress. ER course: Protonix 40 mg IV Allergies Allergy/AdvReac Type Severity Reaction Status Date / Time KEVIN Inhibitors Allergy Severe SHORTNESS Verified 01/23/23 09:59 OF BREATH Penicillins Allergy Intermediate HIVES Verified 02/03/23 19:13 rosuvastatin [From Crestor] Allergy Intermediate joint Verified 02/03/23 19:13 aches and cramping simvastatin Allergy Intermediate joint Verified 02/03/23 19:13 aches and cramping [id number]-SBZ-VaO Reductase Allergy Intermediate joint Verified 02/03/23 19:13 Inhibitor aches and [Aelfdsl-[id number]-Twq Reductase cramping Inhibitor] red yeast rice Allergy Rash Verified 01/23/23 09:59 daptomycin AdvReac Intermediate Joint Pain Verified 01/23/23 09:59 Home Medications Medication Instructions Recorded Confirmed Type acetaminophen 325 mg tablet 650 mg PO Q4H PRN mild-moderate 07/08/22 02/03/23 Rx pain #30 tabs apixaban 2.5 mg tablet (Eliquis) 2.5 mg PO BID #180 tabs 07/08/22 02/03/23 Rx polyethylene glycol 3350 17 17 g PO DAILY PRN severe 09/09/22 02/03/23 History gram/dose oral powder constipation cholecalciferol (vitamin D3) 25 2,000 unit PO QPM #30 caps 09/15/22 02/03/23 Rx mcg (1,000 unit) capsule docusate sodium 100 mg capsule 100 mg PO BID 09/23/22 02/03/23 History (Colace) carvedilol 12.5 mg tablet 12.5 mg PO BID #180 tabs 10/10/22 02/03/23 Rx losartan 25 mg tablet 25 mg PO QAM #90 tabs 10/10/22 02/03/23 Rx tramadol 50 mg tablet 50 mg PO DAILY PRN pain #90 tabs 11/03/22 02/03/23 Rx iron sucrose 200 mg iron/10 mL 500 mg (25 mL) IV .COMPLEX 2 days 01/07/23 02/03/23 Rx intravenous solution (Venofer) #25 mL tamsulosin 0.4 mg capsule (Flomax) 0.4 mg PO BID urinary discomfort 01/13/23 02/03/23 Rx #180 caps tramadol 100 mg capsule 100 mg PO DAILY #90 caps 01/13/23 02/03/23 Rx 24h,extended release(25-75) cetirizine 10 mg tablet (Zyrtec) 10 mg PO HS 02/03/23 02/03/23 History ferrous sulfate 324 mg (65 mg 324 mg PO .CURRENTLY HOLDING 02/03/23 02/03/23 History iron) tablet,delayed release fluticasone propionate 50 2 spray intranasal BID 02/03/23 02/03/23 History mcg/actuation nasal spray,suspension furosemide 20 mg tablet 20 mg PO QAM 02/03/23 02/03/23 History multivit with minerals-folic 1 cap PO DAILY 02/03/23 02/03/23 History acid-lycopene 0.4 mg-600 mcg capsule (Men's Daily) potassium chloride 20 mEq 20 meq PO QAM 02/03/23 02/03/23 History tablet,extended release Past Med/Surg History Medical History Acute kidney injury Anemia Aortic regurgitation Arthritis back Atrial fibrillation Follows Dr. 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 Bone marrow biopsy negative for plasma dyscrasia and B cell lymphoma. Myocardial Infarction 1994--followed with Dr. Landaverde Peripheral neuropathy Presbyesophagus Prostate cancer (~04/2005) s/p failure of brachytherapy. Patient opted to forego further treatment d/t age. Had seeding placed in prostate Shortness of breath on exertion Spinal stenosis Tricuspid regurgitation Urinary retention Surgical History History of back surgery (08/06/17) Dr. Stephens. Fused at L4-L5 and sacrum. History of bilateral cataract extraction History of bladder surgery TURBT 08/17/2007 for bladder cancer History of cardiac cath 1994 @ [facility] [place]--with 1 stent placed - unsure type/location - Follows Dr. Verduzco History of colonoscopy History of cystoscopy multiple times--d/t bladder cancer History of esophagogastroduodenoscopy (EGD) History of heart artery stent 1994 @ [facility] [place] - 1 stent placed - unsure type/location - Follows Dr. Verduzco History of prostate biopsy Unable to find path report in [employer] or [employer]. History of tooth extraction all upper teeth/partial lower Hx of vasectomy Family History Unknown Prostate cancer Bladder cancer Hypertension Father Family history of diabetes mellitus Daughter Breast cancer Son Myocardial infarction Other No family history of adverse response to anesthesia Denies family history of Ovarian cancer Colorectal cancer Social History Smoking Status: Never smoker Tobacco Type: Cigarettes Age Quit Using Tobacco: 48; Cigarettes Per Day: 1 pack per day; Second Hand Exposure: No; Do You Dip or Chew Tobacco: No; Hx Alcohol Use: Yes Alcohol type: beer Alcohol Intake Frequency Comment: once a day Hx Substance Use: No Preferred Language: Lao Communication Ability: Effective Visual Impairment: Limited Hearing Ability: Hard of Hearing Photography Sales Associate Required: No Beliefs That Will Affect Care: None marital status: Current Living Situation: Spouse Current Living Situation Comment: Lives at home with his current occupational status: retired How many Children do You have: 2 Feels Safe at Home: Yes caffeine: Yes (coffee) Dental Care, Regularly: Yes Physical Activity Frequency: Daily Physical Activity Frequency Comment: treadmill in morning, sit ups Seatbelt Use: always Sunscreen Use: Yes Assistive Devices: Cane and Wheelchair Review of Systems Review of Systems: All systems reviewed & are unremarkable except as noted in HPI & below Physical Exam Physical Exam: General: patient resting comfortably, NAD, non-toxic in appearance, AA&O x 4 Skin: warm, dry, intact, no rashes or lesions HEENT: NC/AT, PERRL, EOMI, anicteric sclera, conjunctiva without injection, external ear normal to inspection and nontender, nares patent, moist mucus membranes, dentition intact, no oropharyngeal lesions, neck supple, trachea midline, no LAD, no thyromegaly, no JVD Heart: +S1/S2, irregularly irregular, no m/r/g Lungs: equal air entry bilaterally, no rales/rhonchi/wheezes Abd: +BS, soft, NT/ND, no masses/organomegaly/ascites. External rectal exam with some small hemorrhoids. Ext: warm, 2+ pulses in UE/LE bilaterally, no clubbing/cyanosis or edema Neuro: nonfocal, patient AA&O x 4, speech intact, no facial droop, moving all extremities on command with equal strength 5/5 Results & Data Results & Data Vital Signs (Past 12 Hours) Vital Signs Temp Pulse Resp BP Pulse Ox O2 Del Method 02/03/23 18:40 66 14 97 02/03/23 18:30 76 15 99 02/03/23 18:20 73 19 100 02/03/23 18:10 80 16 02/03/23 18:00 100 H 23 02/03/23 17:57 83 17 02/03/23 17:57 121/71 02/03/23 17:56 113/63 02/03/23 18:14 79 15 100 Room Air 02/03/23 17:56 92 H 02/03/23 17:19 36.0 C L 82 20 127/71 100 Room Air Laboratory Results Laboratory Results WBC 5.08 K/ul (4.8-10.8) 02/03/23 18:10 RBC 2.50 M/uL (4.70-6.10) L 02/03/23 18:10 Hgb 7.2 g/dl (14.0-18.0) L 02/03/23 18:10 Hct 23.0 % (42.0-52.0) L 02/03/23 18:10 MCV 92.0 fL (80.0-100.0) 02/03/23 18:10 MCH 28.8 pg (25.0-34.0) 02/03/23 18:10 MCHC 31.3 g/dL (32.0-36.0) L 02/03/23 18:10 RDW Std Deviation 73.2 fL (36.4-46.3) H 02/03/23 18:10 RDW Coeff of Tay 22.2 % (11.5-14.5) H 02/03/23 18:10 Plt Count 137 K/uL (130-400) 02/03/23 18:10 MPV 9.6 fL (9.4-12.4) 02/03/23 18:10 PT 11.4 Seconds (9.0-12.0) 02/03/23 18:10 INR 1.0 (0.9-1.1) 02/03/23 18:10 APTT 35.1 Seconds (21.0-31.0) H 02/03/23 18:10 PTT Ratio 1.2 02/03/23 18:10 Sodium 137 mmol/L (136-145) 02/03/23 18:10 Potassium 5.0 mmol/L (3.5-5.1) 02/03/23 18:10 Chloride 111 mmol/L (98-107) H 02/03/23 18:10 Carbon Dioxide 19 mmol/L (21-32) L 02/03/23 18:10 Anion Gap 7 (3-11) 02/03/23 18:10 BUN 66 mg/dl (6-23) H 02/03/23 18:10 Creatinine 1.88 mg/dl (0.6-1.4) H 02/03/23 18:10 Est Cr Clr Drug Dosing Not Reportable 02/03/23 18:10 Est GFR ( Amer) 35.9 ml/min 02/03/23 18:10 Est GFR (Non-Af Amer) 31.0 ml/min 02/03/23 18:10 BUN/Creatinine Ratio 35.1 (10-20) H 02/03/23 18:10 Glucose 128 mg/dl (70-99(Fasting)) H 02/03/23 18:10 Calcium 9.5 mg/dl (8.6-10.3) 02/03/23 18:10 Total Bilirubin 0.3 mg/dl (0.2-1.0) 02/03/23 18:10 AST 17 U/L (13-39) 02/03/23 18:10 ALT 11 U/L (7-52) 02/03/23 18:10 Alkaline Phosphatase 53 U/L (34-104) 02/03/23 18:10 Troponin I High Sens 13.0 pg/ml (0-20) 02/03/23 18:10 Total Protein 6.8 gm/dl (6.0-8.3) 02/03/23 18:10 Albumin 3.8 gm/dl (3.4-5.0) 02/03/23 18:10 Globulin 3.0 gm/dl (2.5-4.0) 02/03/23 18:10 Albumin/Globulin Ratio 1.3 (0.9-2) 02/03/23 18:10 SARS-CoV-2, RNA, NAAT NEGATIVE (NEGATIVE) 02/03/23 20:27 Blood Type A Negative 02/03/23 18:43 Antibody Screen NEGATIVE 02/03/23 18:43 PG Care Time/CCT Total # of Minutes Spent Total Time Spent with Patient: Total time spent is greater than 50% in coordination of care (as documented) at patient's floor/unit and/or counseling patient: Coding Level of Care Code 08032 INT INP/OBS CARE 3/75MIN Diagnoses Acute GI bleeding K92.2 Atrial fibrillation, controlled I48.91 HTN (hypertension) I10 Hypertension type: essential hypertension Chronic kidney disease, stage IV (severe) N18.4 CHF (congestive heart failure) I50.9 (3) HTN (hypertension) Hypertension type: essential hypertension Qualified Code(s): I10 - Essential (primary) hypertension
[2023-02-03] MEDS ORDERED: PANTOprazole 40 MG in SYRINGE 0 ML IV SCH (23:33)
[2023-02-03] MEDS ORDERED: ACETAMINOPHEN 325 MG TAB PO PRN (23:33)
[2023-02-03] MEDS ORDERED: ONDANSETRON INJ 2 MG/ML 2 ML VIAL IV PRN (23:33)
[2023-02-03] MEDS ORDERED: SODIUM CHLORIDE 0.9% 250 ML IV PRN (23:33)
[2023-02-03] MEDS ORDERED: traMADol HCL 50 MG TABLET PO PRN (23:33)
[2023-02-04] MEDS: CETIRIZINE HCL 10 MG TABLET PO SCH ×2 (01:50→20:15)
[2023-02-04] MEDS: TAMSULOSIN HCL 0.4 MG CAP PO SCH ×3 (01:50→20:15)
[2023-02-04] MEDS: FLUTICASONE PROPIONATE NA SPR 16 GM BTL SCH ×3 (01:50→20:15)
[2023-02-04] MEDS: traMADol HCL 50 MG TABLET PO SCH ×3 (01:53→20:18)
[2023-02-04 07:46] LABS: Hematocrit (blood only) 26.6 % (42.0-52.0); Hemoglobin 8.4 g/dl (14.0-18.0); Mean Corpuscular Hemoglobin 28.9 pg (25.0-34.0); Mean Corpuscular Hgb Conc 31.6 g/dL (32.0-36.0); Mean Corpuscular Volume 91.4 fL (80.0-100.0); Mean Platelet Volume 9.1 fL (9.4-12.4); Platelet Count 113 K/uL (130-400); RDW Coefficient of Variation 21.2 % (11.5-14.5); RDW Standard Deviation 69.6 fL (36.4-46.3); Red Blood Count 2.91 M/uL (4.70-6.10); White Blood Count 4.34 K/ul (4.8-10.8)
[2023-02-04 08:08] LABS: BUN Creatinine Ratio 33.7 (10-20); Calcium 9.1 mg/dl (8.6-10.3); Creatinine Clr Calc Pharmacy 26.9 ml/min; Est GFR (African American) 39.1 ml/min; Est GFR (Non-African American) 33.8 ml/min; Potassium 4.7 mmol/L (3.5-5.1)
[2023-02-04] MEDS: FUROSEMIDE 20 MG TAB PO SCH (08:09)
[2023-02-04] MEDS: PANTOprazole 40 MG in SYRINGE 0 ML IV SCH ×2 (08:10→20:15)
[2023-02-04] MEDS: LOSARTAN POTASSIUM 25 MG TAB PO SCH (08:10)
--- NOTE | 2023-02-04 08:15 | Medical Student Progress Note ---
Date of Service February 04, 2023 Assessment & Plan (1) Acute GI bleeding: Plan: Acute Anemia, Suspected GI Bleed -Patient hemodynamically stable. Heart rate = 79, blood pressure = 127/75 -Prior colonoscopy 07/13/2020 revealing "multiple small mouth diverticula in the sigmoid colon as well as nonbleeding internal hemorrhoids." Anemic on arrival, Hgb = 7.2, HCT = 23 with mild symptoms of worsening dyspnea on exertion, generalized weakness. -Transfused 1 unit PRBCs -Transfuse for ongoing bleed, symptomatic anemia or hemoglobin less than 7 Recheck H&H this afternoon,. add current 8.4 We will continue Protonix 40 mg IV BID. GI consultation appreciated: -Continue clear liquid diet. -Agree with holding Eliquis for now. -Diverticular bleeding most often self-limited and will spontaneously resolve. -Hold off on invasive GI work up. -Continue supportive care. Atrial fibrillation, controlled on apixaban (currently held) - Rate controlled atrial fibrillation. - Patient anticoagulated on apixaban 2.5 mg p.o. twice daily. Hold apixaban for now given acute GI bleed. Last dose 02/02/23 at 0900 Hold carvedilol for now HTN, controlled: - Blood pressure presently 138/84 Hold carvedilol for now Continue losartan with holding parameters Continue to monitor Chronic kidney disease, stage IV (severe), stable: - BUN and creatinine near baseline Continue to monitor Avoid nephrotoxic agents CHF (congestive heart failure), Chronic, Compensated Continue Lasix 20 mg p.o. every morning Continue losartan Holding carvedilol for now FEN: Hep-Lock, electrolytes within normal limits, clear liquid diet as tolerated Code status: full code DVT ppx: SCDs, holding apixaban Held home meds: carvedilol, apixaban Consults: GI consult appreciated PT/OT: PT consult placed Dispo:observation to medical telemetry Admission and Anticipated Discharge Date Admission Date: February 03, 2023 Supervising Attestation Medical Student Supervision Note: I was personally present during medical student patient encounter and independently interviewed and examined the patient and verified the bo history and physical, reviewed labs and image studies, discussed the case with Korina Henley and agree with the findings and care plan. Acute blood loss anemia in setting of GI bleed and chronic anticoagulation - likely lower, diverticular. s/p one PRBC. h/h stable. continue to hold apixaban. GI consulted - no intervention. should be self limiting. follow h/h Subjective Torrey Nixon an 87-year-old male with a complex PMHx significant for afib on apixaban, CKD Stage 4, CAD, HTN, HLD, diverticulosis, and chronic anemia requiring transfusions and IV iron admitted on 02/03/23 for rectal bleeding. The morning of 02/03/23, he had a very dark bowel movement with a large amount of bright red clots. He has chronic, stable rectal pain that is unchanged, but no abdominal pain,vomiting, or bloating at the time. He continued to have 3 other episodes of hematochezia throughout the day. He also started to experience diffuse generalized weakness, intermittent chills and mild dyspnea on exertion. However, he notes that he is "always cold," "chronically weak," have had SOB on exertion for the past year, specifically on stairs. He has not had any chest pain, shortness of breath at rest, dizziness, or cough. He has urinary incontinence at baseline secondary to history of prostate and bladder cancer. He endorses an unintentional 50 pound weight loss over the last 8 months. He has a history of chronic anemia requiring blood transfusions as well as IV iron. His last blood transfusion was November 2022, last IV iron infusion was 01/23/2023. Prior colonoscopy 07/13/2020 revealing multiple small mouth diverticula in the sigmoid colon as well as nonbleeding internal hemorrhoids. He has some difficulty ambulating at baseline, secondary to neuropathy. He uses 1 or 2 canes at home and uses a walker at night. No recent falls. In the ED, patient was hemodynamically stable and received Protonix 40 mg IV (PPI) in the ED. Today (02/04/23), he is felling well. He has not had a bowel movement since yesterday morning. Review of Systems Review of Systems: See HPI for pertinent positives & negatives. A total of 10 systems reviewed and were otherwise negative. Physical Exam Physical Exam: Vital Signs Height Weight Body Mass Index Blood Pressure Blood Pressure Pos ition Temperature Temperature Source 5 ft 5 in 73.9 kg 27.1 126/79 Lying 36.4 C L Oral 02/03/23 23:30 02/03/23 23:30 02/03/23 23:30 02/04/23 04:35 02/04/23 04:35 02/04/23 04:35 02/04/23 04:35 Pulse Rate Respiratory Rate Pulse Oximetry 72 16 98 02/04/23 04:35 02/04/23 04:35 02/04/23 04:35 General: Patient resting comfortably, NAD, non-toxic in appearance, AA&O x 4 Skin: warm, dry, intact, no rashes or lesions HEENT: Most mucous membranes. Anicteric sclera, conjunctiva without injection, dentition intact, no JVD. Heart: +S1/S2, irregularly irregular, no m/r/g Lungs: equal air entry bilaterally, no rales/rhonchi/wheezes Abd: +BS, soft, no tenderness, masses, organomegaly, ascites. Ext: warm, 2+ pulses in UE/LE bilaterally, 2+ pitting edema present bilaterally. Neuro: nonfocal, patient AA&O x 4, speech intact, no facial droop, moving all extremities on command with equal strength 5/5 Results & Data Vital Signs (Past 12 Hours) Vital Signs Temp Pulse Pulse Pulse Resp BP BP 02/04/23 04:35 36.4 C L 72 16 126/79 02/04/23 04:33 36.4 C L 72 16 126/79 02/04/23 04:15 36.4 C L 73 16 112/72 02/04/23 03:15 36.4 C L 67 16 123/74 02/04/23 02:45 36.4 C L 66 16 123/69 02/04/23 02:30 36.4 C L 72 16 114/67 02/03/23 23:25 79 02/04/23 02:14 36.4 C L 74 16 143/89 H 02/03/23 23:30 36.4 C L 81 18 147/83 H 02/03/23 22:05 77 02/03/23 22:12 85 16 138/84 02/03/23 20:44 68 16 122/65 Pulse Ox O2 Del Method 02/04/23 04:35 98 02/04/23 04:33 98 02/04/23 04:15 96 02/04/23 03:15 96 02/04/23 02:45 97 02/04/23 02:30 98 02/03/23 23:25 02/04/23 02:14 98 02/03/23 23:30 98 Room Air 02/03/23 22:05 02/03/23 22:12 99 Room Air 02/03/23 20:44 100 Room Air Laboratory Results Abnormal Lab Results 02/03/23 02/03/23 02/03/23 18:10 18:10 18:10 WBC 5.08 RBC 2.50 L Hgb 7.2 L Hct 23.0 L MCV 92.0 MCH 28.8 MCHC 31.3 L RDW Std Deviation 73.2 H RDW Coeff of Tay 22.2 H Plt Count 137 MPV 9.6 PT 11.4 INR 1.0 APTT 35.1 H PTT Ratio 1.2 Sodium 137 Potassium 5.0 Chloride 111 H Carbon Dioxide 19 L Anion Gap 7 BUN 66 H Creatinine 1.88 H Est Cr Clr Drug Dosing Not Reportable Est GFR ( Amer) 35.9 Est GFR (Non-Af Amer) 31.0 BUN/Creatinine Ratio 35.1 H Glucose 128 H Calcium 9.5 Total Bilirubin 0.3 AST 17 ALT 11 Alkaline Phosphatase 53 Troponin I High Sens 13.0 Total Protein 6.8 Albumin 3.8 Globulin 3.0 Albumin/Globulin Ratio 1.3 SARS-CoV-2, RNA, NAAT Blood Type Antibody Screen Crossmatch 02/03/23 02/03/23 02/04/23 18:43 20:27 07:17 WBC 4.34 L RBC 2.91 L Hgb 8.4 L Hct 26.6 L MCV 91.4 MCH 28.9 MCHC 31.6 L RDW Std Deviation 69.6 H RDW Coeff of Tay 21.2 H Plt Count 113 L MPV 9.1 L PT INR APTT PTT Ratio Sodium Potassium Chloride Carbon Dioxide Anion Gap BUN Creatinine Est Cr Clr Drug Dosing Est GFR ( Amer) Est GFR (Non-Af Amer) BUN/Creatinine Ratio Glucose Calcium Total Bilirubin AST ALT Alkaline Phosphatase Troponin I High Sens Total Protein Albumin Globulin Albumin/Globulin Ratio SARS-CoV-2, RNA, NAAT NEGATIVE Blood Type A Negative Antibody Screen NEGATIVE Crossmatch See Detail Diagnostic Findings ABDOMEN AND PELVIS CT WITH ORAL CONTRAST 10/06/22 CT DOSE: 378.08 mGy.cm HISTORY: Follow up study in a patient with osteomyelitis of the pubic symphysis OSTEOMYLITIS TECHNIQUE: Multiaxial CT images of the abdomen and pelvis were performed following the use of oral contrast. A dose lowering technique was utilized adhering to the principles of ALARA. COMPARISON STUDY: CT pelvis 09/10/2022, CT abdomen and pelvis 09/04/2022 FINDINGS: Cardiomegaly with coronary artery calcifications. Decreased attenuation of the cardiac blood pool suspicious for anemia. Subsegmental mild bibasilar atelectasis versus scarring with mild bronchiectasis. Trace left pleural effusion. No pneumatosis or pneumoperitoneum. The unenhanced spleen, pancreas and liver. Cholelithiasis without CT evidence of acute cholecystitis. Thickening of the adrenal glands suggestive of hyperplasia. Mild nonspecific bilateral perinephric stranding. There are a few punctate calcifications noted within the left kidney which are likely vascular. Punctate calcification of the superior pole right kidney. Atrophy of the right kidney measuring up to 7 cm in length. No hydronephrosis. Urinary bladder wall thickening with partial distention and perivesicular stranding. Brachytherapy seeds of the prostate. Ossification posterior to the pubic symphysis redemonstrated. Atherosclerosis of the aorta and branch vessels. Mildly enlarged iliac chain lymph nodes measure up to 1.0 cm, likely reactive. No bowel obstruction or bowel wall thickening. Colonic diverticulosis. Trace perirectal stranding/free fluid. Moderate colonic fecal retention. Normal appendix. Degenerative changes of the spine, pelvis and hips. Posterior interbody berenice and screw fusion hardware is again noted at L4-S1. No evidence of hardware complication. Abnormal widening with erosion and fragmentation of the pubic symphysis redemonstrated with surrounding soft tissue thickening. No significant change from the 09/10/2022 exam. IMPRESSION: 1. Unchanged appearance of the pathologic widening with erosion and fragmentation involving the pubic symphysis. Osteomyelitis versus post radiation osteonecrosis are again the differential considerations. 2. Mild inguinal chain lymphadenopathy, likely reactive. 3. Decreased pelvic ascites and perirectal stranding. 4. Colonic diverticulosis. 5. Additional findings as above. ACT 112: Negative or not required by law. The above report was generated using voice recognition software. It may contain grammatical, syntax or spelling errors. Electronically signed by: Amish Rangel M.D. 10/06/2022 3:28 PM Dictated:10/06/22 1514 Transcribed: 10/06/22 1514 Medications Administered Home Medications Medication Instructions Recorded Confirmed polyethylene glycol 3350 17 17 g PO DAILY PRN severe 09/09/22 02/03/23 gram/dose oral powder constipation docusate sodium 100 mg capsule 100 mg PO BID 09/23/22 02/03/23 (Colace) cetirizine 10 mg tablet (Zyrtec) 10 mg PO HS 02/03/23 02/03/23 ferrous sulfate 324 mg (65 mg 324 mg PO .CURRENTLY HOLDING 02/03/23 02/03/23 iron) tablet,delayed release fluticasone propionate 50 2 spray intranasal BID 02/03/23 02/03/23 mcg/actuation nasal spray,suspension furosemide 20 mg tablet 20 mg PO QAM 02/03/23 02/03/23 multivit with minerals-folic 1 cap PO DAILY 02/03/23 02/03/23 acid-lycopene 0.4 mg-600 mcg capsule (Men's Daily) potassium chloride 20 mEq 20 meq PO QAM 02/03/23 02/03/23 tablet,extended release Previous Rx's Medication Instructions Recorded acetaminophen 325 mg tablet 650 mg PO Q4H PRN mild-moderate 07/08/22 pain #30 tabs apixaban 2.5 mg tablet (Eliquis) 2.5 mg PO BID #180 tabs 07/08/22 cholecalciferol (vitamin D3) 25 2,000 unit PO QPM #30 caps 09/15/22 mcg (1,000 unit) capsule carvedilol 12.5 mg tablet 12.5 mg PO BID #180 tabs 10/10/22 losartan 25 mg tablet 25 mg PO QAM #90 tabs 10/10/22 tramadol 50 mg tablet 50 mg PO DAILY PRN pain #90 tabs 11/03/22 iron sucrose 200 mg iron/10 mL 500 mg (25 mL) IV .COMPLEX 2 days 01/07/23 intravenous solution (Venofer) #25 mL tamsulosin 0.4 mg capsule (Flomax) 0.4 mg PO BID urinary discomfort 01/13/23 #180 caps tramadol 100 mg capsule 100 mg PO DAILY #90 caps 01/13/23 24h,extended release(25-75) Current Medications Acetaminophen (Acetaminophen 325 Mg Tab) 650 mg PO Q4H PRN PRN Reason: mild-moderate pain Stop: 03/05/23 23:32 Cetirizine HCl (Cetirizine Hcl 10 Mg Tablet) 10 mg PO HS [facility] Stop: 03/05/23 23:32 Last Admin: 02/04/23 01:50 Dose: 10 mg Fluticasone Propionate (Fluticasone Propionate Na Spr 16 Gm Btl) 2 sprays NA BID [facility] Stop: 03/05/23 23:32 Last Admin: 02/04/23 08:09 Dose: 2 sprays Furosemide (Furosemide 20 Mg Tab) 20 mg PO QAM [facility] Stop: 03/06/23 08:59 Last Admin: 02/04/23 08:09 Dose: 20 mg Sodium Chloride (Nss) 250 mls @ 15 mls/hr IV .[id number] PRN PRN Reason: For Transfusion Duration Stop: 02/04/23 09:34 Pantoprazole Sodium 40 mg/ (Syringe) 10 mls @ 5 mls/min IV BID [facility] Stop: 03/06/23 08:59 Last Admin: 02/04/23 08:10 Dose: 5 mls/min Losartan Potassium (Losartan Potassium 25 Mg Tab) 25 mg PO QAM [facility] Stop: 03/06/23 08:59 Last Admin: 02/04/23 08:10 Dose: 25 mg Ondansetron HCl (Ondansetron Inj 2 Mg/Ml 2 Ml Vial) 4 mg IV Q6H PRN PRN Reason: Nausea Stop: 03/05/23 23:32 Tamsulosin HCl (Tamsulosin Hcl 0.4 Mg Cap) 0.4 mg PO BID [facility] Stop: 03/05/23 23:32 Last Admin: 02/04/23 08:10 Dose: 0.4 mg Tramadol HCl (Tramadol Hcl 50 Mg Tablet) 50 mg PO BID [facility] Stop: 03/05/23 23:44 Last Admin: 02/04/23 08:14 Dose: 50 mg Tramadol HCl (Tramadol Hcl 50 Mg Tablet) 50 mg PO DAILY PRN PRN Reason: pain Stop: 03/05/23 23:32
--- NOTE | 2023-02-04 10:43 | Gastrointestinal Consultation ---
Date of Consultation February 04, 2023 Assessment & Plan (1) Diverticula of colon: (2) Acute GI bleeding: (3) Anemia: Plan Patient is a 87 y.o. male on chronic anticoagulation with Eliquis for history of A Fib admitted with bright red rectal bleeding. Most likely diverticular bleed or hemorrhoids. -Continue clear liquid diet. -Agree with holding Eliquis for now. -Diverticular bleeding most often self-limited and will spontaneously resolve. -Hold off on invasive GI work up. -Continue supportive care. Thank you for allowing us to participate in the care of this patient. If you have any questions or concerns, please do not hesitate to contact us. Supervising Physician Co-Signing Physician Notes Agree with RAGHAVENDRA Ho as above Abd: Soft, NT, ND, +BS Continue current therapy and supportive care No BM's....tolerating PO intake No plans for invasive workup History of Present Illness Reason for Consultation: LGIB Requesting Physician: Dr. Cook Attending Physician: Alka Mackey MD History of Present Illness Patient is a 87 y.o. male with a history of CHF, HTN, CAD, anemia, and A fib on chronic anticoagulation admitted after awakening with a need to defecate and passing a large bowel movement with bright red blood and clots yesterday. States he did have a remote episode of rectal bleeding in the past but not of as much volume as yesterday which prompted ER evaluation. There was associated weakness but no chest pain, SOB, dizziness or syncope. Reports some mild diarrhea prior to the onset for several days. Mild lower abdominal discomfort. No further blee ding since admission. H&H on arrival was noted to be 7.2/23.0. He is status post 1 unit of PRBCs and H&H this morning was 8.4/26.6. Has been placed on a clear liquid diet and anticoagulation held. Last EGD and colonoscopy from July of 2020 reviewed. He was found to have erosive gastritis, diverticulosis, and internal hemorrhoids. Allergies Allergy/AdvReac Type Severity Reaction Status Date / Time KEVIN Inhibitors Allergy Severe SHORTNESS Verified 01/23/23 09:59 OF BREATH Penicillins Allergy Intermediate HIVES Verified 02/03/23 19:13 rosuvastatin [From Crestor] Allergy Intermediate joint Verified 02/03/23 19:13 aches and cramping simvastatin Allergy Intermediate joint Verified 02/03/23 19:13 aches and cramping Ndtnfce-XEY-MhR Reductase Allergy Intermediate joint Verified 02/03/23 19:13 Inhibitor aches and [Uwzlyjm-Pdq-Hhm Reductase cramping Inhibitor] red yeast rice Allergy Rash Verified 01/23/23 09:59 daptomycin AdvReac Intermediate Joint Pain Verified 01/23/23 09:59 Home Medications Medication Instructions Recorded Confirmed Type acetaminophen 325 mg tablet 650 mg PO Q4H PRN mild-moderate 07/08/22 02/03/23 Rx pain #30 tabs apixaban 2.5 mg tablet (Eliquis) 2.5 mg PO BID #180 tabs 07/08/22 02/03/23 Rx polyethylene glycol 3350 17 17 g PO DAILY PRN severe 09/09/22 02/03/23 History gram/dose oral powder constipation cholecalciferol (vitamin D3) 25 2,000 unit PO QPM #30 caps 09/15/22 02/03/23 Rx mcg (1,000 unit) capsule docusate sodium 100 mg capsule 100 mg PO BID 09/23/22 02/03/23 History (Colace) carvedilol 12.5 mg tablet 12.5 mg PO BID #180 tabs 10/10/22 02/03/23 Rx losartan 25 mg tablet 25 mg PO QAM #90 tabs 10/10/22 02/03/23 Rx tramadol 50 mg tablet 50 mg PO DAILY PRN pain #90 tabs 11/03/22 02/03/23 Rx iron sucrose 200 mg iron/10 mL 500 mg (25 mL) IV .COMPLEX 2 days 01/07/23 02/03/23 Rx intravenous solution (Venofer) #25 mL tamsulosin 0.4 mg capsule (Flomax) 0.4 mg PO BID urinary discomfort 01/13/23 02/03/23 Rx #180 caps tramadol 100 mg capsule 100 mg PO DAILY #90 caps 01/13/23 02/03/23 Rx 24h,extended release(25-75) cetirizine 10 mg tablet (Zyrtec) 10 mg PO HS 02/03/23 02/03/23 History ferrous sulfate 324 mg (65 mg 324 mg PO .CURRENTLY HOLDING 02/03/23 02/03/23 History iron) tablet,delayed release fluticasone propionate 50 2 spray intranasal BID 02/03/23 02/03/23 History mcg/actuation nasal spray,suspension furosemide 20 mg tablet 20 mg PO QAM 02/03/23 02/03/23 History multivit with minerals-folic 1 cap PO DAILY 02/03/23 02/03/23 History acid-lycopene 0.4 mg-600 mcg capsule (Men's Daily) potassium chloride 20 mEq 20 meq PO QAM 02/03/23 02/03/23 History tablet,extended release Patient History Medical History Acute kidney injury Anemia Aortic regurgitation Arthritis back Atrial fibrillation Follows Dr. 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 Bone marrow biopsy negative for plasma dyscrasia and B cell lymphoma. Myocardial Infarction 1994--followed with Dr. Landaverde Peripheral neuropathy Presbyesophagus Prostate cancer (~04/2005) s/p failure of brachytherapy. Patient opted to forego further treatment d/t age. Had seeding placed in prostate Shortness of breath on exertion Spinal stenosis Tricuspid regurgitation Urinary retention Surgical History History of back surgery (08/06/17) Dr. Stephens. Fused at L4-L5 and sacrum. History of bilateral cataract extraction History of bladder surgery TURBT 08/17/2007 for bladder cancer History of cardiac cath 1994 @ [facility]--with 1 stent placed - unsure type/location - Follows Dr. Verduzco History of colonoscopy History of cystoscopy multiple times--d/t bladder cancer History of esophagogastroduodenoscopy (EGD) History of heart artery stent 1994 @ [facility] [place] - 1 stent placed - unsure type/location - Follows Dr. Verduzco History of prostate biopsy [facility]. History of tooth extraction all upper teeth/partial lower Hx of vasectomy Family History Unknown Prostate cancer Bladder cancer Hypertension Father Family history of diabetes mellitus Daughter Breast cancer Son Myocardial infarction Other No family history of adverse response to anesthesia Denies family history of Ovarian cancer Colorectal cancer Social History Smoking Status: Former smoker Tobacco Type: Cigarettes Age Quit Using Tobacco: 48; Cigarettes Per Day: 1 pack per day; Second Hand Exposure: No; Do You Dip or Chew Tobacco: No; Tobacco Cessation Education Requested by Patient: No Hx Alcohol Use: Yes Alcohol type: wine Alcohol Intake Frequency Comment: once a day Hx Substance Use: No Preferred Language: [place] Communication Ability: Effective Visual Impairment: Limited Hearing Ability: Hard of Hearing Retail Loss Prevention Specialist Required: No Beliefs That Will Affect Care: None marital status: Current Living Situation: Spouse Current Living Situation Comment: Lives at home with his current occupational status: retired How many Children do You have: 2 Other Information That Helps Us Care for You: No Feels Safe at Home: Yes Safety Concerns: Feels Safe At This Time caffeine: Yes (coffee) Dental Care, Regularly: Yes Physical Activity Frequency: Daily Physical Activity Frequency Comment: treadmill in morning, sit ups Seatbelt Use: always Sunscreen Use: Yes Assistive Devices: Glasses and Walker Review of Systems Constitutional: as per Subjective / HPI Respiratory: no cough and no pain on inspiration Cardiovascular: as per Subjective / HPI Gastrointestinal: as per Subjective / HPI Psychiatric: as per Subjective / HPI Physical Exam Constitutional: WD/WN, vitals as above Eyes: EOM intact bilaterally Neck: normal visual inspection Respiratory: normal respiratory effort, lungs clear to auscultation Cardiovascular: Rate/Rhythm: regular rate and regular rhythm Gastrointestinal (Abdomen): Inspection/Auscultation: normal bowel sounds; abdomen not distended Percussion/Palpation: abdomen soft; abdomen nontender, no guarding and abdomen not rigid Psychiatric: A+Ox3, euthymic affect Results & Data Vital Signs (Past 12 Hours) Vital Signs Temp Pulse Pulse Resp BP BP BP 02/04/23 08:21 36.5 C 79 16 127/75 02/04/23 04:35 36.4 C L 72 16 126/79 02/04/23 04:33 36.4 C L 72 16 126/79 02/04/23 04:15 36.4 C L 73 16 112/72 02/04/23 03:15 36.4 C L 67 16 123/74 02/04/23 02:45 36.4 C L 66 16 123/69 02/04/23 02:30 36.4 C L 72 16 114/67 02/03/23 23:25 79 02/04/23 02:14 36.4 C L 74 16 143/89 H 02/03/23 23:30 36.4 C L 81 18 147/83 H Pulse Ox O2 Del Method 02/04/23 08:21 98 Room Air 02/04/23 04:35 98 02/04/23 04:33 98 02/04/23 04:15 96 02/04/23 03:15 96 02/04/23 02:45 97 02/04/23 02:30 98 02/03/23 23:25 02/04/23 02:14 98 02/03/23 23:30 98 Room Air Diagnostic Findings Laboratory Results WBC 4.34 K/ul (4.8-10.8) L 02/04/23 07:17 RBC 2.91 M/uL (4.70-6.10) L 02/04/23 07:17 Hgb 8.4 g/dl (14.0-18.0) L 02/04/23 07:17 Hct 26.6 % (42.0-52.0) L 02/04/23 07:17 MCV 91.4 fL (80.0-100.0) 02/04/23 07:17 MCH 28.9 pg (25.0-34.0) 02/04/23 07:17 MCHC 31.6 g/dL (32.0-36.0) L 02/04/23 07:17 RDW Std Deviation 69.6 fL (36.4-46.3) H 02/04/23 07:17 RDW Coeff of Tay 21.2 % (11.5-14.5) H 02/04/23 07:17 Plt Count 113 K/uL (130-400) L 02/04/23 07:17 MPV 9.1 fL (9.4-12.4) L 02/04/23 07:17 PT 11.4 Seconds (9.0-12.0) 02/03/23 18:10 INR 1.0 (0.9-1.1) 02/03/23 18:10 APTT 35.1 Seconds (21.0-31.0) H 02/03/23 18:10 PTT Ratio 1.2 02/03/23 18:10 Sodium 140 mmol/L (136-145) 02/04/23 07:17 Potassium 4.7 mmol/L (3.5-5.1) 02/04/23 07:17 Chloride 113 mmol/L (98-107) H 02/04/23 07:17 Carbon Dioxide 22 mmol/L (21-32) 02/04/23 07:17 Anion Gap 5 (3-11) 02/04/23 07:17 BUN 59 mg/dl (6-23) H 02/04/23 07:17 Creatinine 1.75 mg/dl (0.6-1.4) H 02/04/23 07:17 Est Cr Clr Drug Dosing 26.9 ml/min 02/04/23 07:17 Est GFR ( Amer) 39.1 ml/min 02/04/23 07:17 Est GFR (Non-Af Amer) 33.8 ml/min 02/04/23 07:17 BUN/Creatinine Ratio 33.7 (10-20) H 02/04/23 07:17 Glucose 86 mg/dl (70-99(Fasting)) 02/04/23 07:17 Calcium 9.1 mg/dl (8.6-10.3) 02/04/23 07:17 Total Bilirubin 0.3 mg/dl (0.2-1.0) 02/03/23 18:10 AST 17 U/L (13-39) 02/03/23 18:10 ALT 11 U/L (7-52) 02/03/23 18:10 Alkaline Phosphatase 53 U/L (34-104) 02/03/23 18:10 Troponin I High Sens 13.0 pg/ml (0-20) 02/03/23 18:10 Total Protein 6.8 gm/dl (6.0-8.3) 02/03/23 18:10 Albumin 3.8 gm/dl (3.4-5.0) 02/03/23 18:10 Globulin 3.0 gm/dl (2.5-4.0) 02/03/23 18:10 Albumin/Globulin Ratio 1.3 (0.9-2) 02/03/23 18:10 SARS-CoV-2, RNA, NAAT NEGATIVE (NEGATIVE) 02/03/23 20:27 Blood Type A Negative 02/03/23 18:43 Antibody Screen NEGATIVE 02/03/23 18:43 Crossmatch See Detail 02/03/23 18:43 PG Care Time/CCT Total # of Minutes Spent Total Time Spent with Patient: Total time spent is greater than 50% in coordination of care (as documented) at patient's floor/unit and/or counseling patient: Coding Level of Care Code 21318 INT INP/OBS CARE MIN Diagnoses Diverticula of colon K57.30 Acute GI bleeding K92.2 Anemia D64.9 Anemia type: unspecified type (3) Anemia Anemia type: unspecified type Qualified Code(s): D64.9 - Anemia, unspecified
[2023-02-04 13:11] LABS: Hematocrit (blood only) 27.4 % (42.0-52.0); Hemoglobin 8.7 g/dl (14.0-18.0)
[2023-02-04 15:22] LABS: Hematocrit (blood only) 28.2 % (42.0-52.0); Hemoglobin 8.7 g/dl (14.0-18.0); Mean Corpuscular Hemoglobin 28.6 pg (25.0-34.0); Mean Corpuscular Hgb Conc 30.9 g/dL (32.0-36.0); Mean Corpuscular Volume 92.8 fL (80.0-100.0); Mean Platelet Volume 9.5 fL (9.4-12.4); Platelet Count 130 K/uL (130-400); RDW Coefficient of Variation 21.6 % (11.5-14.5); RDW Standard Deviation 71.1 fL (36.4-46.3); Red Blood Count 3.04 M/uL (4.70-6.10); White Blood Count 4.72 K/ul (4.8-10.8)
[2023-02-05] MEDS: FLUTICASONE PROPIONATE NA SPR 16 GM BTL SCH (08:48)
[2023-02-05] MEDS: FUROSEMIDE 20 MG TAB PO SCH (08:48)
[2023-02-05] MEDS: LOSARTAN POTASSIUM 25 MG TAB PO SCH (08:48)
[2023-02-05] MEDS: PANTOprazole 40 MG in SYRINGE 0 ML IV SCH (08:49)
[2023-02-05] MEDS: TAMSULOSIN HCL 0.4 MG CAP PO SCH (08:49)
[2023-02-05] MEDS: traMADol HCL 50 MG TABLET PO SCH (08:50)
[2023-02-05 08:54] LABS: Hematocrit (blood only) 30.8 % (42.0-52.0); Hemoglobin 9.8 g/dl (14.0-18.0); Mean Corpuscular Hemoglobin 29.5 pg (25.0-34.0); Mean Corpuscular Hgb Conc 31.8 g/dL (32.0-36.0); Mean Corpuscular Volume 92.8 fL (80.0-100.0); Mean Platelet Volume 9.5 fL (9.4-12.4); Platelet Count 144 K/uL (130-400); RDW Coefficient of Variation 21.4 % (11.5-14.5); RDW Standard Deviation 71.8 fL (36.4-46.3); Red Blood Count 3.32 M/uL (4.70-6.10); White Blood Count 5.42 K/ul (4.8-10.8)
--- NOTE | 2023-02-05 09:31 | Discharge Summary ---
Date of Service February 05, 2023 Admission HPI Per Admitting Provider Torrey Mancia is an 87-year-old male with multiple medical comorbidities to include atrial fibrillation on apixaban anticoagulation, CKD, coronary artery disease, hypertension, hyperlipidemia presenting with rectal bleed. This morning 02/03/2023 patient woke and had a bowel movement containing a large amount of bright red blood with clots. He also reports his stool was very dark in color. He denies abdominal pain. He does have chronic, stable rectal pain which is unchanged. Patient continued to have bloody bowel movements throughout the day totaling approximately 3. He does report a decreased amount of blood which each subsequent bowel movement however, blood still bright red. Additionally he reports some diffuse generalized weakness, intermittent chills and mild dyspnea on exertion. Patient takes stool softeners routinely. Does not report any recent severe constipation or straining. He denies nausea, vomiting, abdominal pain or bloating. Denies chest pain, cough, shortness of breath or dizziness. He has a history of chronic anemia requiring blood transfusions as well as IV iron. His last blood transfusion was November 2022, last IV iron infusion was 01/23/2023. In the ER, patient is afebrile, hemodynamically stable. No acute distress. ER course: Protonix 40 mg IV Principal Diagnosis Acute lower GI bleed Discharge Exam General: patient resting comfortably, NAD, non-toxic in appearance, grossly alert and oriented Skin: warm, dry, intact, no rashes or lesions HEENT: anicteric sclera, conjunctiva without injection,moist mucus membranes, neck supple, trachea midline Heart: +S1/S2, irregularly irregular, no m/r/g Lungs: equal air entry bilaterally, no rales/rhonchi/wheezes Abd: +BS, soft, NT/ND, no masses/organomegaly/ascites Ext: warm, 2+ pulses in UE/LE bilaterally, no clubbing/cyanosis or edema Neuro: nonfocal, patient grossly alert and oriented Discharge Data Allergies Allergy/AdvReac Type Severity Reaction Status Date / Time KEVIN Inhibitors Allergy Severe SHORTNESS Verified 01/23/23 09:59 OF BREATH Penicillins Allergy Intermediate HIVES Verified 02/03/23 19:13 rosuvastatin [From Crestor] Allergy Intermediate joint Verified 02/03/23 19:13 aches and cramping simvastatin Allergy Intermediate joint Verified 02/03/23 19:13 aches and cramping Josuyfj-FPT-KaQ Reductase Allergy Intermediate joint Verified 02/03/23 19:13 Inhibitor aches and [Ktllgfh-Doi-Ass Reductase cramping Inhibitor] red yeast rice Allergy Rash Verified 01/23/23 09:59 daptomycin AdvReac Intermediate Joint Pain Verified 01/23/23 09:59 Consultations 02/03/23 20:44 ED Decision to Admit Stat 02/03/23 23:33 Consult Gastroenterology Routine Hospital Course (1) Acute GI bleeding: (1) Acute GI bleeding: Plan: Acute blood loss anemia 2/2 lower GIB -Noted prior colonoscopy 07/2020- multiple sigmoid diverticula + nonbleeding internal hemorrhoids -Hgb 7.2 on admission, receive 1u pRBC -Received Protonix 40 mg IV BID in hospital -Hgb 9.8 at time of discharge + hemodynamically stable during stay -GI consult- suspected self-limited diverticular bleeding, endoscopy deferred -F/u outpatient -Resume/discontinue apixaban at 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, pt will hold Eliquis until seen by PCP for f/u appointment within 2 weeks Atrial fibrillation - Rate controlled atrial fibrillation - Patient anticoagulated on apixaban 2.5 mg BID, held during stay - Hold apixaban until evaluated by PCP Resume carvedilol on discharge HTN, controlled: -BP stable during stay Held carvedilol during stay, resumed on discharge - Continued losartan Chronic kidney disease, stage IV (severe), stable: - BUN and creatinine near baseline No MARQUEZ during stay CHF (congestive heart failure), Chronic, Compensated Continued home Lasix 20 mg PO daily Continued losartan Held carvedilol during stay, resumed on discharge - Pt remained euvolemic, not in exacerbation during stay (2) Anemia: (3) (HFpEF) heart failure with preserved ejection fraction: Total Time Total Time Spent Total Time Spent (In Minutes): 30 Discharge Plan Discharge Items Patient Disposition: Home - Self-Care Reason For Visit: LGIB Discharge Diagnosis: Lower GI bleed Activity: Resume your previous activity Non-emergency contact: Primary Care Provider and Nightclub Manager Call non-emergency contact if: your symptoms worsen Follow-up/Referrals: Tiago Lara MD [Primary Care Provider] - 02/13/23 11:00 am Case,Armando G., DO [Physician] - Diet: Clear liquid, Heart Healthy and Low Sodium (2gm) Addtl Attending Provider Instructions: You were admitted to the hospital for rectal bleeding. You were treated with IV fluids, acid suppressing medication and 1 unit of blood transfusion. The gastroenterology team evaluated you and suspected the bleeding was most likely due to diverticula. They felt the bleeding would resolve without any need for scope evaluation. Going forward, make sure you remain well hydrated, do not strain for bowel movements and increase fiber in your diet. Do not resume taking Eliquis until cleared to do so or discontinue at the discretion of Dr. Lara and your laydown machine operator. A discharge summary will be sent to your primary care physician to ensure continuity of care. Please bring this discharge summary with you to your next office appointment so that your provider can review it at that time. Follow-up appointments: - Make a follow-up appointment with your PCP within the next week. It is very important that you follow up with them shortly after discharge from the hospital. - We did request a follow-up appointment with gastroenterology. - Keep all your follow-up appointments as already scheduled. If you cannot make an appointment, notify your provider. Medications: Your medication list has been reviewed and reconciled upon discharge to ensure accuracy and continuity of care. An updated list of all your medications is included with your hospital discharge paperwork. Please review this list closely, and make note of any changes. Take your medications as instructed; do not skip a dose of your medicines. Make sure all of your doctors know every medicine you are taking (including rgev-zso-yybyfpw medicines, vitamins, and supplements). Call your primary care provider before taking any new medicines (including ltze-izv-quapahi medicines, vitamins, and supplements), because some of these may interact with your current medications, or may make your symptoms worse. Tell your primary care provider if you cannot afford your medications. CONTACT YOUR PRIMARY CARE PROVIDER if you experience any of the following: -Abdominal pain -Nausea/vomiting -Shortness of breath -Fatigue -Pale skin -Further rectal bleeding - Difficulty following your treatment plan, or difficulty taking medications CALL 911 OR GO TO THE EMERGENCY DEPARTMENT if you experience any of the following: - Sudden, severe abdominal pain or nausea/vomiting - Severe chest pain, or chest pain that radiates (moves) to your jaw or arm - Sudden, severe shortness of breath or difficulty breathing Thank you for allowing us to participate in your care Pending Studies at Discharge: No Stand-Alone Forms: My [facility] Medications and DC Order Prescriptions: Continued losartan 25 mg tablet 25 mg PO QAM Qty: 90 3RF tramadol 50 mg tablet 50 mg PO DAILY PRN (Reason: pain) Qty: 90 0RF docusate sodium [Colace] 100 mg capsule 100 mg PO BID carvedilol 12.5 mg tablet 12.5 mg PO BID Qty: 180 3RF Venofer 200 mg iron/10 mL solution 500 mg IV .COMPLEX 2 Days Qty: 25 0RF Rx Instructions: 500 mg intravenously x1. Repeat dose ~ 14 days later tamsulosin [Flomax] 0.4 mg capsule 0.4 mg PO BID Qty: 180 3RF tramadol 100 mg capsule,ER biphase 24 hr 25-75 100 mg PO DAILY Qty: 90 0RF acetaminophen 325 mg Tablet 650 mg PO Q4H PRN (Reason: mild-moderate pain) Qty: 30 0RF Rx Instructions: OTC polyethylene glycol 3350 17 gram/dose powder 17 g PO DAILY PRN (Reason: severe constipation) cholecalciferol (vitamin D3) 25 mcg (1,000 unit) Capsule 2,000 unit PO QPM Qty: 30 0RF ferrous sulfate 324 mg (65 mg iron) tablet,delayed release (DR/EC) 324 mg PO .CURRENTLY HOLDING Rx Instructions: 324 mg orally every Thursday, Thursday, Thursday; furosemide 20 mg tablet 20 mg PO QAM potassium chloride 20 mEq tablet extended release 20 meq PO QAM cetirizine [Zyrtec] 10 mg Tablet 10 mg PO HS fluticasone propionate 50 mcg/actuation Dewart,Suspension 2 spray INTRANASAL BID Rx Instructions: administer into each nostril Men's Daily 0.4-600 mg-mcg Capsule 1 cap PO DAILY Held Eliquis 2.5 mg tablet 2.5 mg PO BID Qty: 180 3RF Hold Instructions: Resume on 02/26/23. Do not take Eliquis until seen by Dr. Lara at your follow-up appointment Discharge Orders: Discharge Order (Routine); Ordered 02/05/23 Ordered By: Nino Rodriguez/Other Patient Handouts: GI Bleeding Causes and Tests Admission Data Admit Date/Time: 02/03/23 19:46 Attending Provider: Alka Mackey Admit Provider: Geovanna Cook Primary Care Provider: Tiago Lara Other Providers: Geovanna Cook ; Armando Franklin Other Interventions: Discharge Summary Assessment (RN) Last Done: 02/05/23 11:43 Supervising Physician Co-Signing Physician Notes Resident Physician Supervision Note: I independently interviewed and examined the patient and verified the bo history and physical, reviewed labs and image studies and agree with resident findings and care plan. Resident Activity Tracking Resident Involvement: Resident Care Provided Care Provided: Adult Hospital Medicine
== END 2023-02-05 12:51 | disposition home or self-care (01) ==
LOC: 2N 17:10 → ED 17:10 → SUATTDRO 19:46 → 2N 23:01